=== PATIENT | male | born 1935 | race Caucasian/White ===

== ENCOUNTER 2019-07-22 07:24 | Outpatient (CLI) | payer MEDICARE, OTHER, SELFPAY ==
--- NOTE | 2019-07-22 07:30 | XR_ITS ---
WS: [id number] KUB, 07/22/2019 Clinical Data: Renal Calculus Comparison: CT abdomen and pelvis, 01/20/2019. Findings: There is a calcification measuring 1.6 cm overlying the inferior pole of the left kidney. No right re nal calculi are seen. There is a moderate amount of fecal material throughout colon. There are calcif ications in the ricketts of the distal abdominal aorta and iliac arteries. There is a levoscoliosis. No abnormal intra-abdominal masses are seen. No evidence of obstruction is present. XR/XR KUB [id number] Impression: 1. 1.6 cm lower pole left renal calculus. 2. Moderate amount of fecal material throughout the colon.
== END 2019-07-22 07:25 | disposition home or self-care (01) ==
PROVIDERS: Family Provider Family Medicine; PCP Family Medicine; Visit Provider Urology
DX: N20.0 Calculus of kidney (principal)
CPT/HCPCS: 74018; 81001

== ENCOUNTER 2020-02-15 13:00 | Outpatient (CLI) | payer MEDICARE, OTHER, SELFPAY ==
--- NOTE | 2020-02-15 13:30 | USCV_ITS ---
Juany Aguayo Age: 84 Gender: M : 1935 Exam Date: 02/15/2020 13:28 Ordering Phys: Minna Richardson MD ([email or web address]) Technologist: Moraima Norton Exam Location: [facility] [place] Indication: MV REPAIR BP: / HR: 87 Rhythm: Atrial fibrillation Technical Quality: Adequate MEASUREMENTS (Male / Female) Normal Values 2D ECHO LV Diastolic Diameter PLAX 3.6 cm 4.2 - 5.9 / 3.9 - 5.3 cm LV Systolic Diameter PLAX 3.5 cm LV Chamber Size 3.4 cm IVS Diastolic Thickness 1.6 cm 0.6 - 1.0 / 0.6 - 0.9 cm IVS Systolic Thickness 1.6 cm LVPW Diastolic Thickness 1.9 cm 0.6 - 1.0 / 0.6 - 0.9 cm LVPW Systolic Thickness 1.8 cm RV Chamber Size 3.8 cm LVOT Diameter 2.0 cm LV Ejection Fraction 2D Teich 3.4 % LV Ejection Fraction MOD 2C 72.2 % LV Ejection Fraction 2C AL 71.8 % LA Diameter 4.1 cm LA Width 4.6 cm LA Height 5.5 cm RA Width 3.7 cm RA Height 6.1 cm Aorta at Sinotubular Diameter 3.0 cm M-MODE LV Diastolic Diameter MM 4.1 cm 4.2 - 5.9 / 3.9 - 5.3 cm LV Systolic Diameter MM 3.6 cm LV Ejection Fraction MM Teich 28.6 % IVS Diastolic Thickness MM 1.2 cm 0.6 - 1.0 / 0.6 - 0.9 cm IVS Systolic Thickness MM 1.6 cm LVPW Diastolic Thickness MM 1.6 cm 0.6 - 1.0 / 0.6 - 0.9 cm LVPW Systolic Thickness MM 1.6 cm RV Diastolic Diameter MM 1.7 cm Aortic Annulus Diameter 4.3 cm LA Ao Ratio MM 0.9 MV E Point Septal Separation 0.4 cm DOPPLER AV Peak Velocity 176.0 cm/s LVOT Peak Velocity 119.0 cm/s AV Area Cont Eq vti 2.6 cm squared AV Area Cont Eq pk 2.1 cm squared MV Area PHT 2.7 cm squared MV E' Velocity 16.0 cm/s Mitral E to MV E' Ratio 9.6 Mitral E to LV E' Lateral Ratio 9.3 Mitral E to LV E' Septal Ratio 9.9 TR Peak Velocity 271.5 cm/s TR Peak Gradient 29.5 mmHg TR Mean Velocity 193.7 cm/s TR Mean Gradient 17.0 mmHg TR Velocity Time Integral 60.5 cm TV Peak E Velocity 84.0 cm/s Right Atrial Pressure 3.0 mmHg Pulmonary Artery Systolic Pressu 32.5 mmHg PV Peak Velocity 60.0 cm/s RV Acceleration Time 0.1 s RV Ejection Time 0.3 s RV AcT/ET 0.4 FINDINGS Left Ventricle Normal left ventricular size and systolic function. The EF is 55 to 60%. No regional wall motion abnormalities. Moderate LVH is seen. Diastolic function cannot be assessed because of atrial fibrillation. Right Ventricle The right ventricle is normal in size and function. Right Atrium The right atrium is enlarged Left Atrium The left atrium is enlarged Mitral Valve Mitral annuloplasty ring is seen. There is no significant mitral regurgitation. Aortic Valve Thickening and calcification is seen on noncoronary cusp. There is mild to moderate aortic regurgitation. No significant aortic stenosis is noted Tricuspid Valve Structurally normal tricuspid valve without significant stenosis. There is mild TR.. RVSP is 35 to 40 mmHg. Mild pulmonary hypertension is noted. Pulmonic Valve Structurally normal pulmonic valve without significant stenosis. There is no pulmonic regurgitation. Pericardium Normal pericardium without effusion. Aorta Normal ascending aorta dimension. CONCLUSIONS The systolic function is normal with EF of 55 to 60%. Moderate LVH is noted. Diastolic function is indeterminate. Mild to moderate aortic regurgitation Mild pulmonary hypertension is noted. Edilson Angela MD (Electronically Signed) Final Date: 15 February 2020 18:05 S
== END 2020-02-15 13:01 | disposition home or self-care (01) ==
LOC: US 13:01
PROVIDERS: PCP Family Medicine; Visit Provider Internal Medicine Cardiovascular Disease
DX: Z98.890 Other specified postprocedural states (principal); R42 Dizziness and giddiness; I35.1 Nonrheumatic aortic (valve) insufficiency; I27.20 Pulmonary hypertension, unspecified
CPT/HCPCS: 93306

== ENCOUNTER 2020-03-21 14:36 | Outpatient (CLI) | payer MEDICARE, OTHER, SELFPAY ==
--- NOTE | 2020-03-21 15:00 | USCV_ITS ---
Juany Aguayo Age: 84 Gender: M : 1935 Exam Date: 03/21/2020 14:57 Ordering Phys: Minna Richardson MD ([email or web address]) Technologist: Moraima Norton Exam Location: [facility] – [place] Indication: stenosis Risk Factors: Previous Vascular Surgery: Right Brachial BP: / Left Brachial BP: / Right Left Velocity (cm/s) Spectral Plaque Velocity (cm/s) Spectral Plaque Syst/Diast Broadening Syst/Diast Broadening 80.60/ 12.00 Prox CCA 104.10/ 20.50 59.20/ 13.70 Mid CCA 60.30 / 12.50 66.00/ 15.40 Distal CCA 49.90 / 17.70 33.70/ 13.30 Prox ICA 46.20 / 13.90 44.00/ 14.80 Mid ICA 44.70 / 19.80 58.30/ 22.50 Distal ICA 61.60 / 26.40 70.30 ECA 60.30 0.98 ICA/CCA 1.02 Antegrade Vertebral Antegrade 19.30/ 6.30 cm/s 49.10/ 15.40 cm/s Tri Subclavian Tri 142.6 99.70 0 FINDINGS Comparison: none available. No significant elevation of systolic or diastolic velocities. Waveforms are normal. Diffuse, mild bilateral scattered calcified plaque and intimal thickening throughout the common carotid arteries and extending through the bifurcation. CONCLUSIONS Bilateral ICA stenosis less than 50%. Mild bilateral atherosclerosis. Dr. Sweta Whatley DO (Electronically Signed) Final Date: 21 March 2020 15:30 S
== END 2020-03-21 14:37 | disposition home or self-care (01) ==
LOC: RAD 14:41
PROVIDERS: PCP Family Medicine; Visit Provider Internal Medicine Cardiovascular Disease
DX: I65.23 Occlusion and stenosis of bilateral carotid arteries (principal)
CPT/HCPCS: 93880

== ENCOUNTER 2020-03-28 07:44 | Outpatient (CLI) | payer MEDICARE, OTHER, SELFPAY ==
--- NOTE | 2020-03-28 07:45 | XR_ITS ---
WS: [id number] XR KUB [id number] REASON FOR EXAM: LEFT RENAL STONE FINDINGS: 16 mm x 10 mm calculus overlying the lower pole left kidney unchanged in size and location compared t o the previous examination of 07/22/2019. No new renal or ureteral calculi or bladder calculi are bernard ntified. No other interval change is identified. XR/XR KUB [id number] IMPRESSION: Unchanged left kidney lower pole calculus as above.
== END 2020-03-28 07:45 | disposition home or self-care (01) ==
LOC: RAD 07:49
PROVIDERS: PCP Family Medicine; Visit Provider Urology
DX: N20.0 Calculus of kidney (principal)
CPT/HCPCS: 74018; 81001

== ENCOUNTER 2020-04-28 15:49 | Outpatient (CLI) | payer MEDICARE, OTHER, SELFPAY ==
--- NOTE | 2020-04-28 15:56 | MRR_ITS ---
PROCEDURE INFORMATION: Exam: MR Head Without Contrast Exam date and time: 04/28/2020 4:19 PM Age: 84 years old Clinical indication: Dizziness; Patient HX: Syncope x 1 year; Additional info: Dizziness and giddiness TECHNIQUE: Imaging protocol: MR of the head without contrast. 3D rendering (Not supervised by radiologist): MIP and/or 3D reconstructed images were created by the technologist. COMPARISON: MRI IAC'S w/wo* [id number] 04/13/2019 8:36 AM FINDINGS: Brain: Mild parenchymal volume loss noted. No restriction of diffusion demonstrated on DWI images to suggest acute infarct. No intracranial hemorrhage noted. There are scattered punctate hyperintensities in the periventricular white matter on T2/FLAIR images. This is consistent with chronic microangiopathic white matter disease. The posterior fossa structures appear within normal limits. No enhancing brain lesions. Cerebral ventricles: The ventricles are proportional to the sulci. No hydrocephalus is noted. Bones/joints: Unremarkable. Paranasal sinuses: The paranasal sinuses, as demonstrated, appear clear. Mastoid air cells: The mastoid air cells are clear bilaterally. Orbits: No acute abnormality of the orbits demonstrated. Soft tissues: The soft tissues appear unremarkable. MR/MR head wo/w con [id number] IMPRESSION: 1. Mild parenchymal volume loss noted. 2. No acute intracranial abnormality demonstrated. 3. There is no interval change from the prior examination.
== END 2020-04-28 15:50 | disposition home or self-care (01) ==
LOC: RADSHAW 15:52
PROVIDERS: PCP Family Medicine; Visit Provider Specialist
DX: R42 Dizziness and giddiness (principal); R55 Syncope and collapse
CPT/HCPCS: 70553; A9579

== ENCOUNTER 2020-05-01 08:35 | Outpatient (CLI) | payer MEDICARE, OTHER, SELFPAY ==
[2020-05-01 09:44] LABS: Basophils % 0.3 %; Eosinophils % 0.6 %; Hematocrit 37.7 % (42.0-52.0); Hemoglobin 11.8 g/dL (11.7-16.6); Lymphocytes # 0.6 10^3/uL (0.8-4.8); Mean Corpuscular HGB Conc 31.3 g/dL (30.0-36.0); Mean Corpuscular Hemoglobin 29.6 pg (28.0-34.0); Mean Corpuscular Volume 94.7 fL (80-94); Mean Platelet Volume 11.3 fL (7.4-10.4); Monocytes # 0.4 10^3/uL (0.2-0.9); Monocytes % 11.6 %; Neutrophils # 2.26 10^3/uL (1.8-7.7); Neutrophils % 69.2 %; Nucleated Red Blood Cells % 0 %; Platelet Count 141 10^3/cmm (130-400); Red Blood Count 3.98 10^6/uL (4.1-5.3); Red Cell Distribution Width 14.2 % (12.1-15.1); White Blood Count 3.3 10^3/uL (4.0-10.0)
[2020-05-01 10:16] LABS: Alanine Aminotransferase 12 U/L (0-41); Albumin Level 4.1 g/dL (3.5-5.2); Alkaline Phosphatase 78 IU/L (40-130); Aspartate Amino Transferase 18 U/L (0-40); Blood Urea Nitrogen 17 mg/dL (8-23); Carbon Dioxide 26 mmol/L (22-29); Chloride 107 mmol/L (98-107); Globulin 3.5 g/dL (1.3-4.6); Glucose 104 mg/dL (65-115); Osmolality Calculated 294 mOsm/kg (285-295); Sodium 141 mmol/L (136-145); Thyroid Stimulating Hormone 4.61 uIU/mL (0.27-4.20); Total Bilirubin 1.1 mg/dL (0.15-1.2); Total Protein 7.6 g/dL (6.6-8.7)
[2020-05-01 10:42] LABS: Urine Appearance SL Hazy (CLEAR); Urine Color Yellow (Yellow); pH Urine 7 (5-7)
[2020-05-01 10:43] LABS: Add Urine Culture? Yes; Bacteria Urine TRACE /hpf; Bilirubin Urine Neg (Negative); Blood Urine 3+ (Negative); Glucose Urine UA Norm (Normal); Ketones Urine Negative (Negative); Leukocyte Esterase Urine Negative (Negative); Mucus Urine 2+ /hpf; Nitrate Urine Negative (Negative); Protein Urine Neg (Negative); RBC Urine >100 /hpf (0-2); Squamous Epithelial Cell Urine 0-4 /hpf (0-5); Urobilinogen Urine Norm (Negative); WBC Urine 0-4 /hpf (0-5)
[2020-05-01 10:48] LABS: Erythrocyte Sedimentation Rate 25 mm/hr (0-10)
[2020-05-01 13:02] LABS: Rapid Plasma Reagin Syphilis Nonreactive (Nonreactive)
== END 2020-05-01 08:36 | disposition home or self-care (01) ==
LOC: RT 08:40
PROVIDERS: PCP Family Medicine; Visit Provider Specialist
DX: R42 Dizziness and giddiness (principal)
CPT/HCPCS: 36415; 80053; 81001; 84443; 85025; 85651; 86592; 87086

== ENCOUNTER 2020-06-29 11:26 | Outpatient (RCR) | payer MEDICARE, OTHER, SELFPAY | END 2020-07-23 23:59 | disposition home or self-care (01) | LOC: SPT 11:26 | PROVIDERS: PCP Family Medicine; Referring Provider Specialist; Visit Provider Specialist | DX: R42 Dizziness and giddiness (principal) | CPT/HCPCS: 97162 ==

== ENCOUNTER 2020-11-28 12:01 | Outpatient (CLI) | payer MEDICARE, OTHER, SELFPAY ==
--- NOTE | 2020-11-28 12:00 | XRR_ITS ---
PROCEDURE INFORMATION: Exam: XR Abdomen Exam date and time: 11/28/2020 12:12 PM Age: 85 years old Clinical indication: Condition or disease; Kidney or ureter condition; Calculus (stone) in kidney; Prior surgery; Surgery type: Hernia; Additional info: HX stones TECHNIQUE: Imaging protocol: XR of the abdomen. Views: Frontal supine view of the abdomen. 1 View. COMPARISON: CR XR KUB [id number] 03/28/2020 8:06 AM FINDINGS: Gastrointestinal tract: There are multiple dilated bowel loops present in the central abdomen and left upper quadrant corresponding to mild ileus. There is a circumscribed calcific density measuring 14 mm x 16 mm in the projection of the left kidney consistent with a nonobstructing caliceal stone. This finding was seen on recent CT abdomen examination. Bones/joints: Unremarkable. XR/XR KUB [id number] IMPRESSION: Mild ileus as noted Stable caliceal stone left kidney Otherwise negative examination of the abdomen
== END 2020-11-28 12:02 | disposition home or self-care (01) ==
LOC: RAD 12:04
PROVIDERS: PCP Family Medicine; Visit Provider Urology
DX: N20.0 Calculus of kidney (principal); K56.7 Ileus, unspecified
CPT/HCPCS: 74018; 81003; 87086; 88112

== ENCOUNTER 2020-12-19 10:57 | Outpatient (CLI) | payer MEDICARE, OTHER, SELFPAY ==
--- NOTE | 2020-12-19 11:00 | CT_ITS ---
WS: [id number] CT ABDOMEN PELVIS TECHNIQUE: Noncontrast CT of the abdomen and contrast-enhanced CT of the abdomen and pelvis with ed nal and sagittal reformatted images. CLINICAL INFORMATION: N20.0 - Calculus of kidney COMPARISON: CT 7 DLP: 1710.[address] scans at [facility] use at least one of these dose optimization techniques: automat ed exposure control; mA and/or kV adjustment per patient size (includes targeted exams where dose is matched to clinical indication); or iterative reconstruction. FINDINGS: Diffuse fatty infiltration of the liver. Normal portal vein and splenic vein. Normal gallbl adder. Lung bases are well aerated. Adrenal glands are normal. Left renal cyst measuring 4.0 cm is unchanged. Stable mild dilatation of t he left renal pelvis with stricture at the UPJ is unchanged in appearance. Mild induration about the left renal pelvis. Left ureter is decompressed. This is unchanged in appearance from previous. Opaci fication left ureter to the bladder. Nonobstructing left lower pole calyceal calculus measuring 9 mm is unchanged from previous. Normal right renal parenchymal enhancement with several small right renal cysts. Normal emptying of t he right ureter. Symmetric renal excretion bilaterally. Normal caliber abdominal aorta with moderate calcification. Tortuous slightly ectatic abdominal aorta . This measures 2.7 x 2.3 cm. No abdominal or pelvic lymphadenopathy. No inguinal lymphadenopathy. Sigmoid diverticulosis. No evidence of acute diverticulitis. Heterogeneous nodular enhancing prostate with indentation on the bladder. Prostate measures approxima tely 5.1 x 5.7 x 6.7 cm AP by transverse by craniocaudal. Mild diffuse bladder wall thickening can be seen with bladder outlet obstruction. 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 CT/CT abdomen pelvis wo/w [id number] IMPRESSION: 1. Nonobstructing left lower pole calyceal calculus measuring 9 mm is unchange d from previous. No new calculi. No ureteral calculi. 2. Dilatation left renal pelvis with mild induration and stricture at the lef t UPJ is unchanged in appearance. This could be further evaluated with ureteros copy if not performed previously. Normal bilateral renal excretion. 3. Incidental bilateral renal cysts are unchanged. 4. Markedly enlarged heterogeneously enhancing prostate is stable. Recommend c orrelation PSA. Evidence of mild bladder outlet obstruction. 5. 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 No other significant changes from previous.
[2020-12-19] MEDS: iodixanol 320 mg/mL 100mL Btl IV (12:36)
== END 2020-12-19 10:58 | disposition home or self-care (01) ==
LOC: RAD 10:59
PROVIDERS: PCP Family Medicine; Visit Provider Urology
DX: N20.0 Calculus of kidney (principal); Q61.02 Congenital multiple renal cysts; I72.3 Aneurysm of iliac artery; N40.0 Benign prostatic hyperplasia without lower urinary tract symptoms; R31.0 Gross hematuria
CPT/HCPCS: 74178; 81003

== ENCOUNTER 2021-03-16 23:14 | Emergency (ER) | payer MEDICARE, OTHER, SELFPAY ==
[2021-03-16 23:31] VITALS: BP 154/96; PULSE 89; RESP 15; TEMP 36.8; O2SAT 95; BMI 25.0
--- NOTE | 2021-03-16 23:51 | CTR_ITS ---
PROCEDURE INFORMATION: Exam: CT Abdomen And Pelvis Without Contrast Exam date and time: 03/16/2021 11:51 PM Age: 85 years old Clinical indication: Prior surgery; Surgery type: Orchiectomy; Patient HX: Hematuria/dysuria. History of renal stones. ; Additional info: Retention, HX of stone, hematuria TECHNIQUE: Imaging protocol: Computed tomography of the abdomen and pelvis without contrast. Radiation optimization: All CT scans at this facility use at least one of these dose optimization techniques: automated exposure control; mA and/or kV adjustment per patient size (includes targeted exams where dose is matched to clinical indication); or iterative reconstruction. COMPARISON: CT abdomen pelvis wo/w [id number] 12/19/2020 12:31 PM RADIATION DOSE METRICS: Total DLP (mGy-cm): 1012.94 FINDINGS: Lungs: Bibasilar atelectasis. Pleural spaces: Trace bilateral pleural effusions. Heart: Cardiomegaly. Liver: Normal. No mass. Gallbladder and bile ducts: Normal. No calcified stones. No ductal dilation. Pancreas: Normal. No ductal dilation. Spleen: Normal. No splenomegaly. Adrenal glands: Left adrenal 11 mm low-density nodule likely reflects a benign adenoma. Kidneys and ureters: Mild bilateral hydronephrosis with a large amount of fluid in the urinary bladder with nodular indentation of the prostate gland on the urinary bladder perhaps reflecting chronic outflow obstruction. Right kidney punctate nonobstructing lower pole calyceal stone. Left kidney lower pole nonobstructing calyceal stone measuring 13 mm. Stomach and bowel: Diverticulosis without diverticulitis. Appendix: No evidence of appendicitis. Intraperitoneal space: Unremarkable. No free air. No significant fluid collection. 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 Lymph nodes: Unremarkable. No enlarged lymph nodes. Urinary bladder: Unremarkable as visualized. Reproductive: Unremarkable as visualized. Bones/joints: Unremarkable. No acute fracture. Soft tissues: Unremarkable. CT/CT kidney stone [id number] IMPRESSION: 1. Mild bilateral hydronephrosis with a large amount of fluid in the urinary bladder with nodular indentation of the prostate gland on the urinary bladder perhaps reflecting chronic outflow obstruction. 2. Diverticulosis without diverticulitis. 3. 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 4. Left adrenal 11 mm low-density nodule likely reflects a benign adenoma. 5. Trace bilateral pleural effusions. 6. Bibasilar atelectasis. 7. Cardiomegaly. 8. Right kidney punctate nonobstructing lower pole calyceal stone. 9. Left kidney lower pole nonobstructing calyceal stone measuring 13 mm. COMMENTS: Consistent with the [employer]'s Incidental Findings Committee white paper (J Am Alissa Radiol 2017): For any incidental adrenal lesion greater than 1 cm but less than 4 cm classified in this report as benign, likely benign, or containing fat (including classification as an adenoma or myelolipoma), no follow-up imaging is recommended per consensus recommendations based on imaging criteria. Further lab evaluation could be pursued if warranted based on clinical findings. Radiation Dose CTDIVOL = (mGy): DLP = 1012.94 (mGy-cm)
[2021-03-16 23:54] VITALS: BP 154/96; PULSE 97; RESP 14; TEMP 36.8; O2SAT 96
--- NOTE | 2021-03-17 00:48 | ED_ITS ---
HPI - Male Genitourinary General: Chief complaint: Urogenital-Male Stated complaint: Cant Pee Time Seen by Provider: 03/16/21 23:31 History of Present Illness: HPI Narrative: Patient with difficulty urinating since . Is being treated for a urinary tract infection. Patient does have a history of prostate problems. Complaint: dysuria Onset (ago): day(s) Duration: constant and progressively worsening Severity: moderate Relieving factors: none Associated symptoms: Reports no associated symptoms; Deny nausea or vomiting Review of Systems Const: Denies: fever(s), chills or body aches Eyes: Denies: change in vision or blurry vision ENMT: Denies: throat pain or nasal congestion Card: Denies: chest pain or dyspnea on exertion Resp: Denies: dyspnea, productive cough or non-productive cough GI: Denies: abdominal pain, nausea or vomiting : Reports: difficulty urinating Musc: Denies: extremity pain Skin/Breast: Denies: rash Neuro: Denies: headache(s) Psych: Denies: anxiety or depression Anthony/Lymph: Denies: easy bruising PFSH ED PFSH: Medical History Anticoagulation adequate Xarelto ASHD (arteriosclerotic heart disease) Atrial fibrillation Benign prostatic hyperplasia without lower urinary tract symptoms Dyslipidemia Gross hematuria Left renal stone Surgical History S/P hernia surgery S/P knee surgery S/P mitral valve repair S/P orchiectomy left Family History Mother , 73 CAD (coronary artery disease) Diabetes Father , 85 Cancer Hypertension Social History Smoking and tobacco status: never smoked Alcohol intake: never Adopted: No Caregiver/support person: No Lives independently: No Household members: spouse Marital status: Current occupational status: retired Physical Exam 2 Const: COMMON NORMALS: no acute distress, average body habitus and patient oriented x3 HENMT: COMMON NORMALS: normocephalic HEAD & SCALP: normal to inspection and normocephalic FACE & SINUS: normal facial exam Eye: COMMON NORMALS: conjunctivae normal GENERAL EYE: appearance normal, both eyes and all related structures CONJUNCTIVA: Yes conjunctivae normal Neck/C-Spine: COMMON NORMALS: no JVD Chest: COMMONS NORMALS: normal inspection of the chest Resp: COMMON NORMALS: normal respiratory effort and clear to auscultation bilaterally AUSCULTATION: clear to auscultation bilaterally Cardio: COMMON NORMALS: no JVD, regular rate and regular rhythm RATE: regular rate RHYTHM: regular rhythm GI: COMMON NORMALS: Normal to inspection, nondistended, normoactive bowel sounds present Extremity: COMMON NORMALS: normal to inspection and full ROM Neuro: COMMON NORMALS: patient oriented x3 Course Vital Signs: Vital signs: Vital Signs Temperature 98.2 F 03/16/21 23:54 Pulse Rate 97 03/16/21 23:54 Respiratory Rate 14 03/16/21 23:54 Blood Pressure 154/96 03/16/21 23:54 Pulse Oximetry 96 03/16/21 23:54 Discharge Plan Discharge Patient Disposition: Home Clinical Impression: Bladder outlet obstruction Benign prostatic hyperplasia Qualifiers: Lower urinary tract symptom presence: symptoms present Lower urinary tract symptom detail: urinary obstruction Qualified Code(s): N40.1 - Benign prostatic hyperplasia with lower urinary tract symptoms Condition: Stable Prescriptions: No Action docusate sodium [Stool Softener] 100 mg capsule 100 mg PO QDAY RF: 0 cholecalciferol (vitamin D3) [Vitamin D3] 25 mcg (1,000 unit) capsule 1,000 unit PO QDAY RF: 0 melatonin 3 mg capsule 3 mg PO QDAY RF: 0 lovastatin 20 mg tablet 20 mg PO QDAY RF: 0 aspirin [Adult Low Dose Aspirin] 81 mg tablet,delayed release (DR/EC) 81 mg PO QDAY RF: 0 levothyroxine PO RF: 0 midodrine 5 mg tablet 5 mg PO BID Qty: 60 RF: 3 ciprofloxacin HCl [Cipro] 500 mg tablet 500 mg PO BID 7 Days Qty: 14 RF: 0 Xarelto 20 mg tablet 20 mg PO DAILY Qty: 90 RF: 3 tamsulosin 0.4 mg capsule See Rx Instructions .ROUTE .COMPLEX Qty: 90 RF: 3 finasteride 5 mg tablet See Rx Instructions .ROUTE .COMPLEX Qty: 90 RF: 3 Discharge Orders: Discharge ED (Routine); Ordered 03/17/21 Ordered By: Fantasma Phipps Referrals: Valentin Pierson MD [Primary Care Provider] - Discharge Diet: Usual diet Discharge Activity: Resume usual activity Patient Instructions: Urinary Retention in Men (ED), Correa Catheter Placement and Care (ED) Activity Restrictions/Additional Instructions: Follow-up with Dr. Craven this coming week. Leave catheter in until seen by him. Increase your tamsulosin medicine to 0.8 mg daily. Continue other present medications. Coding Level of Care Code ED Engineering Test Specialist for Jose De Jesus Fwd Exam Comprehensive
[2021-03-17 01:19] LABS: Blood Urine 3+ (Negative); Glucose Urine UA Norm (Normal); Ketones Urine Negative (Negative); Nitrate Urine Negative (Negative); Protein Urine Neg (Negative); Specific Gravity, Urine 1.005 (1.005-1.030); Urine Appearance Clear (CLEAR); Urine Color Yellow (Yellow); pH Urine 6 (5-7)
[2021-03-17 01:20] LABS: Add Urine Culture? Yes; Add Urine Microscopic? YES; Bacteria Urine TRACE /hpf; Bilirubin Urine Neg (Negative); Leukocyte Esterase Urine Negative (Negative); RBC Urine 25-40 /hpf (0-2); Squamous Epithelial Cell Urine 0-4 /hpf (0-5); Urobilinogen Urine Norm (Negative); WBC Urine 0-4 /hpf (0-5)
[2021-03-17 01:28] VITALS: BP 146/81; PULSE 85; RESP 14; TEMP 36.8; O2SAT 96
--- NOTE | 2021-03-19 14:07 | DCPLANNER ---
real estate leasing manager had message to schedule a follow up appointment for patient with Dr. Craven. real estate leasing manager called the office of Dr. Craven, spoke with Antwan, gave clinic patients information. real estate leasing manager was told that patients information would be printed and reviewed. Clinic will call patient with appointment information.
--- NOTE | 2021-03-23 08:45 | DCPLANNER ---
Addendum entered by Vania Monteiro 07/13/21 11:05: Patient had a follow up appointment scheduled with Dr. Craven - patient did attend appointment. Original Note: Patient has a follow up appointment scheduled for March at 1:[address] Craven. Clinic will call patient with appointment information.
== END 2021-03-17 01:25 | disposition home or self-care (01) ==
PROVIDERS: Emergency Provider Nurse Practitioner Family; PCP Family Medicine
DX: N40.1 Benign prostatic hyperplasia with lower urinary tract symptoms (principal); N32.0 Bladder-neck obstruction; Z79.82 Long term (current) use of aspirin; E78.5 Hyperlipidemia, unspecified
CPT/HCPCS: 51702; 74176; 81000; 81001; 87086; 99283

== ENCOUNTER 2021-03-23 02:14 | Emergency (ER) | payer MEDICARE, OTHER, SELFPAY ==
[2021-03-23 02:19] VITALS: BP 137/83; PULSE 95; RESP 18; TEMP 36.5; O2SAT 96; BMI 25.0
--- NOTE | 2021-03-23 02:40 | ED_ITS ---
HPI - General Adult General: Chief complaint: Urogenital-Male Stated complaint: blood in cath Time Seen by Provider: 03/23/21 02:25 History of Present Illness: HPI narrative: 85yo patient w/ hx of chronic BPH presenting to the ED with concern for worsening passage of clots and hematuria. Patient intially presented to the ED 5 days ago for urinary retention with johnson placement. Since johnson placement, patient has noticed urinary clots and hematuria 4 days ago that has been getting worse. Denies any trauma or urethral injuries. Patient has been unable to follow up with Dr. Craven until 04/05. Onset: 5 days ago Duration: ongoing Location: home Severity: moderate Review of Systems Narrative: Constitutional: No fever, no chills. HEENT: No vision changes CV: No chest pain, no palpitations PULM: No productive cough, no dyspnea. GI: No abdominal pain, no N/V/D : No Dysuria,+hematuria/clots MSKEL: No muscle pain SKIN: No new rashes, no lesions. NEURO: No headache, no focal weakness. HEME: No visible bruises PSYCH: Normal mood PFSH ED PFSH: Medical History (Updated 03/26/21 @ 09:50 by Laney Ding LPN) Anticoagulation adequate Xarelto ASHD (arteriosclerotic heart disease) Atrial fibrillation Benign prostatic hyperplasia without lower urinary tract symptoms Dyslipidemia Gross hematuria Left renal stone Surgical History S/P hernia surgery S/P knee surgery S/P mitral valve repair S/P orchiectomy left Family History Mother , 73 CAD (coronary artery disease) Diabetes Father , 85 Cancer Hypertension Social History Smoking and tobacco status: never smoked Alcohol intake: never Adopted: No Caregiver/support person: No Lives independently: No Household members: spouse Marital status: Current occupational status: retired Physical Exam Narrative: EXAM NARRATIVE: Head: Atraumatic Eyes: PERRL, conjunctiva without injection, eyes tracking ENT: Mucous membrane moist NECK: Supple without lymphadenopathy LUNGS: LCTAB CV: RRR ABDOMEN: Soft, nontender in all quadrants, no suprapubic tenderness, no guarding or rebound tenderness, no CVA or flank tenderness EXTREMITY: Normal ROM SKIN: No rash or erythema NEURO: Awake and alert. No focal weakness PSYCH: Cooperative mood and affect : +johnson in place, no bladder distension Course Vital Signs: Vital signs: Vital Signs Temperature 97.7 F 03/23/21 02:19 Pulse Rate 84 03/23/21 06:46 Respiratory Rate 15 03/23/21 06:46 Blood Pressure 150/85 03/23/21 06:46 Pulse Oximetry 96 03/23/21 06:46 MDM - General Adult MDM Narrative: Medical decision making narrative: [85] yo patient w/ hx of BPH presenting to the ED with hematuria and passage of clots. Patient?s history, exam, and studies ordered are not consistent with kidney stone, urethral or intra-abdominal trauma, drug reaction, coagulopathy, prostatitis or other serious bacterial infection. Workup: CBC, BMP Intervention: Continuous bladder irrigation AT 4:51am, hemoglobin within normal limit. Creatinine consistent with baseline 1.3. Perform continuous bladder irrigation at bedside with removal of clots. Patient is instructed follow-up with Dr. Craven on the . Disposition: Discharge. Discussed BPH management and urology follow up for possible cancer risk-factor discussion/workup. Instructed to be careful with taking alpha-esteban medications as these medications can cause reflex syncope. If there is any persistent bleeding or any sensations of light-headedness, palpitation, or fainting, the patient is instructed to come back to the ER. Lab Data: Labs: Lab Results 03/23/21 03/23/21 03:00 03:00 WBC 3.4 10^3/uL L 10^ 3/uL (4.0-10.0) RBC 3.43 10^6/uL L 10 ^6/uL (4.1-5.3) Hgb 9.4 g/dL L g/dL (11.7-16.6) Hct 30.2 % L % (42.0-52.0) MCV 88.0 fl fl (80-94) MCH 27.4 pg L pg (28.0-34.0) MCHC 31.1 g/dL g/dL (30.0-36.0) RDW 16.3 % H % (12.1-15.1) Plt Count 146 10^3/cmm 10^3 /cmm (130-400) MPV 11.2 fL H fL (7.4-10.4) Neut % (Auto) 64.8 % % Lymph % (Auto) 20.3 % % [place] % (Auto) 11.6 % % Eos % (Auto) 2.7 % % Baso % (Auto) 0.6 % % Neut # (Auto) 2.17 10^3/uL 10^3 /uL (1.8-7.7) Lymph # (Auto) 0.7 10^3/uL L 10^ 3/uL (0.8-4.8) [place] # (Auto) 0.4 10^3/uL 10^3/ uL (0.2-0.9) Eos # (Auto) 0.1 10^3/uL 10^3/ uL (0.0-0.8) Baso # (Auto) 0.0 10^3/uL 10^3/ uL (0.0-0.1) Nucleated RBC % (a uto) 0 % % Nucleated RBCs # 0.0 /100WBC /100W BC Sodium 141 mmol/L mmol/L (136-145) Potassium 4.1 mmol/L mmol/L (3.5-5.1) Chloride 107 mmol/L mmol/L (98-107) Carbon Dioxide 24 mmol/L mmol/L (22-29) Anion Gap 14.1 (5-19) BUN 17 mg/dL mg/dL (8-23) Creatinine 1.3 mg/dL H mg/dL (0.7-1.2) GFR Calculation Not Reportable Glucose 104 mg/dL mg/dL (65-115) Calculated Osmolal ity 294 mOsm/kg mOsm/ kg (285-295) Calcium 8.6 mg/dL mg/dL (8.5-10.5) Discharge Plan Discharge Patient Disposition: Home Clinical Impression: Indwelling Johnson catheter present Hematuria Qualifiers: Hematuria type: gross Qualified Code(s): R31.0 - Gross hematuria Condition: Stable Prescriptions: No Action docusate sodium [Stool Softener] 100 mg capsule 100 mg PO QDAY RF: 0 cholecalciferol (vitamin D3) [Vitamin D3] 25 mcg (1,000 unit) capsule 1,000 unit PO QDAY RF: 0 melatonin 3 mg capsule 3 mg PO QDAY RF: 0 lovastatin 20 mg tablet 20 mg PO QDAY RF: 0 aspirin [Adult Low Dose Aspirin] 81 mg tablet,delayed release (DR/EC) 81 mg PO QDAY RF: 0 levothyroxine PO RF: 0 midodrine 5 mg tablet 5 mg PO BID Qty: 60 RF: 3 Xarelto 20 mg tablet 20 mg PO DAILY Qty: 90 RF: 3 tamsulosin 0.4 mg capsule See Rx Instructions .ROUTE .COMPLEX Qty: 90 RF: 3 finasteride 5 mg tablet See Rx Instructions .ROUTE .COMPLEX Qty: 90 RF: 3 Cipro 500 mg tablet 500 mg PO BID 7 Days Qty: 14 RF: 0 Discharge Orders: Discharge ED (Routine); Ordered 03/23/21 Ordered By: Uri Lynch Referrals: Wilberto Goddard MD [Primary Care Provider] - Discharge Diet: Advance as tolerated Discharge Activity: Resume usual activity Patient Instructions: Hematuria (ED) Activity Restrictions/Additional Instructions: Come back to the emergency room if you notice any worsening hematuria passage of clots, inability to void, fever or chills, drainage, pain with urination, pus in the urine bag or any new or concerning complaints. Coding Level of Care Code ED Gang Hemstitching Machine Operator for Jose De Jesus Williamson
[2021-03-23 03:15] LABS: Basophils % 0.6 %; Eosinophils # 0.1 10^3/uL (0.0-0.8); Eosinophils % 2.7 %; Hematocrit 30.2 % (42.0-52.0); Hemoglobin 9.4 g/dL (11.7-16.6); Lymphocytes # 0.7 10^3/uL (0.8-4.8); Lymphocytes % 20.3 %; Mean Corpuscular HGB Conc 31.1 g/dL (30.0-36.0); Mean Corpuscular Hemoglobin 27.4 pg (28.0-34.0); Mean Platelet Volume 11.2 fL (7.4-10.4); Monocytes # 0.4 10^3/uL (0.2-0.9); Monocytes % 11.6 %; Neutrophils # 2.17 10^3/uL (1.8-7.7); Neutrophils % 64.8 %; Nucleated Red Blood Cells % 0 %; Platelet Count 146 10^3/cmm (130-400); Red Blood Count 3.43 10^6/uL (4.1-5.3); Red Cell Distribution Width 16.3 % (12.1-15.1); White Blood Count 3.4 10^3/uL (4.0-10.0)
[2021-03-23 03:33] LABS: Anion Gap 14.1 (5-19); Blood Urea Nitrogen 17 mg/dL (8-23); Calcium 8.6 mg/dL (8.5-10.5); Carbon Dioxide 24 mmol/L (22-29); Chloride 107 mmol/L (98-107); Glucose 104 mg/dL (65-115); Osmolality Calculated 294 mOsm/kg (285-295); Potassium 4.1 mmol/L (3.5-5.1); Sodium 141 mmol/L (136-145)
--- NOTE | 2021-03-23 04:16 | PC.NURSE ---
18 Fr 3-way johnson catheter inserted sterile and CBI started. patient tolerated well
[2021-03-23 06:46] VITALS: BP 150/85; PULSE 84; RESP 15; O2SAT 96
--- NOTE | 2021-03-29 15:16 | DCPLANNER ---
Patient had a follow up appointment scheduled for 03.28.[address] Craven - patient did attend appointment.
== END 2021-03-23 06:48 | disposition home or self-care (01) ==
PROVIDERS: Emergency Provider Emergency Medicine; PCP Pediatrics
DX: R31.0 Gross hematuria (principal); Z79.82 Long term (current) use of aspirin; E78.5 Hyperlipidemia, unspecified
CPT/HCPCS: 51700; 80048; 85025; 99281

== ENCOUNTER 2021-03-23 17:58 | Emergency (ER) | payer MEDICARE, OTHER, SELFPAY ==
[2021-03-23 18:44] VITALS: BP 149/86; PULSE 78; RESP 18; TEMP 36.5; O2SAT 98; BMI 25.0
--- NOTE | 2021-03-23 20:45 | ED_ITS ---
Documented by User: BRENNEN Blankenship 03/23/21 21:58 HPI - Male Genitourinary General: Chief complaint: Urogenital-Male Stated complaint: Catheter Clogged Time Seen by Provider: 03/23/21 20:45 History of Present Illness: HPI Narrative: Patient comes in today for complaints of blood in urine. Patient has been treated with Cipro. Patient had a Correa catheter placed on the 26 due to retention. Patient came in early this morning for concerns of blood in urine. Patient was instructed to hold Xarelto until urine is cleared. Patient has finished his ciprofloxacin today. Patient appears well. Patient appears in no acute distress. Patient denies any abdominal pain. Spouse was concerned due to the blood in the urine. Associated symptoms: Reports hematuria Review of Systems General: Reports: 10 or more systems reviewed and unremarkable except in HPI and below : Reports: hematuria PFSH ED PFSH: Medical History Anticoagulation adequate Xarelto ASHD (arteriosclerotic heart disease) Atrial fibrillation Benign prostatic hyperplasia without lower urinary tract symptoms Dyslipidemia Gross hematuria Left renal stone Surgical History S/P hernia surgery S/P knee surgery S/P mitral valve repair S/P orchiectomy left Family History Mother , 73 CAD (coronary artery disease) Diabetes Father , 85 Cancer Hypertension Social History Smoking and tobacco status: never smoked Alcohol intake: never Adopted: No Caregiver/support person: No Lives independently: No Household members: spouse Marital status: Current occupational status: retired Physical Exam Const: COMMON NORMALS: no acute distress and patient oriented x3 GENERAL APPEARANCE: cooperative HENMT: COMMON NORMALS: normocephalic and Normal external nose present HEAD & SCALP: normal to inspection and normocephalic NOSE: Normal external nose present MOUTH: Normal oral and palatal mucosa present Eye: GENERAL EYE: appearance normal, both eyes and all related structures Neck/C-Spine: COMMON NORMALS: full ROM Chest: COMMONS NORMALS: normal inspection of the chest Resp: COMMON NORMALS: normal respiratory effort EFFORT & INSPECTION: Yes able to speak in complete sentences Cardio: COMMON NORMALS: regular rate and regular rhythm RATE: regular rate RHYTHM: regular rhythm GI: COMMON NORMALS: non-tender : COMMON NORMALS: Yes no CVA tenderness BLADDER/KIDNEY EXAM: Yes no CVA tenderness OTHER: Blood-tinged urine was noted. A couple of clots were able to be irrigated from the catheter. Patient tolerated procedure well. Back/Pelvis: COMMON NORMALS: no CVA tenderness and thoracic and lumbar spine normal to inspection Extremity: COMMON NORMALS: normal to inspection Neuro: COMMON NORMALS: patient oriented x3 and moves all extremities Psych: COMMON NORMALS: mental status grossly normal and cooperative Skin: COMMON NORMALS: no rashes or lesions noted GENERAL SKIN EXAM: no rashes or lesions noted Course Vital Signs: Vital signs: Vital Signs Temperature 97.7 F 03/23/21 18:44 Pulse Rate 78 03/23/21 18:44 Respiratory Rate 18 03/23/21 18:44 Blood Pressure 149/86 03/23/21 18:44 Pulse Oximetry 98 03/23/21 18:44 MDM - Male MDM Narrative: Medical decision making narrative: Patient comes in due to continued blood in the urine. On exam abdomen soft nontender. No signs of retention was noted. Catheter was irrigated until urine draining into the bag was clear. Respirations were even lungs are clear to auscultation. Vital signs are normal. Differential diagnosis includes anemia, bladder carcinoma, urinary tract infection. We will continue patient on Cipro 500 twice a day for 7 more days. Catheter was irrigated until clear. We recommend that case management be utilized in order to move patient's appointment up with Dr. Craven. Patient and spouse both reported understanding and agreed to plan. Lab Data: Labs: Lab Results 03/23/21 21:15 WBC 3.9 10^3/uL L 10^ 3/uL (4.0-10.0) RBC 3.47 10^6/uL L 10 ^6/uL (4.1-5.3) Hgb 9.5 g/dL L g/dL (11.7-16.6) Hct 30.8 % L % (42.0-52.0) MCV 88.8 fl fl (80-94) MCH 27.4 pg L pg (28.0-34.0) MCHC 30.8 g/dL g/dL (30.0-36.0) RDW 16.4 % H % (12.1-15.1) Plt Count 148 10^3/cmm 10^3 /cmm (130-400) MPV 11.0 fL H fL (7.4-10.4) Neut % (Auto) 71.3 % % Lymph % (Auto) 16.3 % % [place] % (Auto) 10.5 % % Eos % (Auto) 1.3 % % Baso % (Auto) 0.3 % % Neut # (Auto) 2.80 10^3/uL 10^3 /uL (1.8-7.7) Lymph # (Auto) 0.6 10^3/uL L 10^ 3/uL (0.8-4.8) [place] # (Auto) 0.4 10^3/uL 10^3/ uL (0.2-0.9) Eos # (Auto) 0.1 10^3/uL 10^3/ uL (0.0-0.8) Baso # (Auto) 0.0 10^3/uL 10^3/ uL (0.0-0.1) Nucleated RBC % (a uto) 0 % % Nucleated RBCs # 0.0 /100WBC /100W BC Discharge Plan Discharge Patient Disposition: Home Clinical Impression: Indwelling Correa catheter present Hematuria Qualifiers: Hematuria type: gross Qualified Code(s): R31.0 - Gross hematuria Condition: Stable Prescriptions: Continued Cipro 500 mg tablet 500 mg PO BID 7 Days Qty: 14 RF: 0 No Action docusate sodium [Stool Softener] 100 mg capsule 100 mg PO QDAY RF: 0 cholecalciferol (vitamin D3) [Vitamin D3] 25 mcg (1,000 unit) capsule 1,000 unit PO QDAY RF: 0 melatonin 3 mg capsule 3 mg PO QDAY RF: 0 lovastatin 20 mg tablet 20 mg PO QDAY RF: 0 aspirin [Adult Low Dose Aspirin] 81 mg tablet,delayed release (DR/EC) 81 mg PO QDAY RF: 0 levothyroxine PO RF: 0 midodrine 5 mg tablet 5 mg PO BID Qty: 60 RF: 3 Xarelto 20 mg tablet 20 mg PO DAILY Qty: 90 RF: 3 tamsulosin 0.4 mg capsule See Rx Instructions .ROUTE .COMPLEX Qty: 90 RF: 3 finasteride 5 mg tablet See Rx Instructions .ROUTE .COMPLEX Qty: 90 RF: 3 Discharge Orders: Discharge ED (Routine); Ordered 03/23/21 Ordered By: Karel Yarbrough Referrals: Wilberto Goddard MD [Primary Care Provider] - Discharge Diet: Usual diet Discharge Activity: Increase activity as tolerated Patient Instructions: Correa Catheter Placement and Care (ED), Opioid Safety Activity Restrictions/Additional Instructions: Activity as tolerated. Drink plenty of water. Continue with ciprofloxacin 500 mg twice a day for the next 7 days. Avoid pulling on the catheter. I will place a case management referral to see if we can get you into Dr. Craven before your scheduled appointment. Return to the ER for new concerns such as high fever or worsening symptoms. Coding Level of Care Code ED Wheel Inspector for Chg Fwd Exam Comprehensive Documented by User: Codey Almanza, 03/23/21 22:38 HPI - Male Genitourinary General: Chief complaint: Urogenital-Male Stated complaint: Catheter Clogged Time Seen by Provider: 03/23/21 20:45 [facility] ED PFSH: Medical History Anticoagulation adequate Xarelto ASHD (arteriosclerotic heart disease) Atrial fibrillation Benign prostatic hyperplasia without lower urinary tract symptoms Dyslipidemia Gross hematuria Left renal stone Surgical History S/P hernia surgery S/P knee surgery S/P mitral valve repair S/P orchiectomy left Family History Mother , 73 CAD (coronary artery disease) Diabetes Father , 85 Cancer Hypertension Social History Smoking and tobacco status: never smoked Alcohol intake: never Adopted: No Caregiver/support person: No Lives independently: No Household members: spouse Marital status: Current occupational status: retired Course Vital Signs: Vital signs: Vital Signs Temperature 97.7 F 03/23/21 18:44 Pulse Rate 78 03/23/21 18:44 Respiratory Rate 18 03/23/21 18:44 Blood Pressure 149/86 03/23/21 18:44 Pulse Oximetry 98 03/23/21 18:44 MDM - Male MDM Narrative: Medical decision making narrative: This patient was originally seen by BRENNEN Warner. I agree with his history, evaluation, and treatment. Lab Data: Labs: Lab Results 03/23/21 21:15 WBC 3.9 10^3/uL L 10^ 3/uL (4.0-10.0) RBC 3.47 10^6/uL L 10 ^6/uL (4.1-5.3) Hgb 9.5 g/dL L g/dL (11.7-16.6) Hct 30.8 % L % (42.0-52.0) MCV 88.8 fl fl (80-94) MCH 27.4 pg L pg (28.0-34.0) MCHC 30.8 g/dL g/dL (30.0-36.0) RDW 16.4 % H % (12.1-15.1) Plt Count 148 10^3/cmm 10^3 /cmm (130-400) MPV 11.0 fL H fL (7.4-10.4) Neut % (Auto) 71.3 % % Lymph % (Auto) 16.3 % % [place] % (Auto) 10.5 % % Eos % (Auto) 1.3 % % Baso % (Auto) 0.3 % % Neut # (Auto) 2.80 10^3/uL 10^3 /uL (1.8-7.7) Lymph # (Auto) 0.6 10^3/uL L 10^ 3/uL (0.8-4.8) [place] # (Auto) 0.4 10^3/uL 10^3/ uL (0.2-0.9) Eos # (Auto) 0.1 10^3/uL 10^3/ uL (0.0-0.8) Baso # (Auto) 0.0 10^3/uL 10^3/ uL (0.0-0.1) Nucleated RBC % (a uto) 0 % % Nucleated RBCs # 0.0 /100WBC /100W BC Discharge Plan Discharge Patient Disposition: Home Clinical Impression: Indwelling Correa catheter present Hematuria Qualifiers: Hematuria type: gross Qualified Code(s): R31.0 - Gross hematuria Condition: Stable Prescriptions: Continued Cipro 500 mg tablet 500 mg PO BID 7 Days Qty: 14 RF: 0 No Action docusate sodium [Stool Softener] 100 mg capsule 100 mg PO QDAY RF: 0 cholecalciferol (vitamin D3) [Vitamin D3] 25 mcg (1,000 unit) capsule 1,000 unit PO QDAY RF: 0 melatonin 3 mg capsule 3 mg PO QDAY RF: 0 lovastatin 20 mg tablet 20 mg PO QDAY RF: 0 aspirin [Adult Low Dose Aspirin] 81 mg tablet,delayed release (DR/EC) 81 mg PO QDAY RF: 0 levothyroxine PO RF: 0 midodrine 5 mg tablet 5 mg PO BID Qty: 60 RF: 3 Xarelto 20 mg tablet 20 mg PO DAILY Qty: 90 RF: 3 tamsulosin 0.4 mg capsule See Rx Instructions .ROUTE .COMPLEX Qty: 90 RF: 3 finasteride 5 mg tablet See Rx Instructions .ROUTE .COMPLEX Qty: 90 RF: 3 Discharge Orders: Discharge ED (Routine); Ordered 03/23/21 Ordered By: Karel Yarbrough Referrals: Wilberto Goddard MD [Primary Care Provider] - Discharge Diet: Usual diet Discharge Activity: Increase activity as tolerated Patient Instructions: Correa Catheter Placement and Care (ED), Opioid Safety Activity Restrictions/Additional Instructions: Activity as tolerated. Drink plenty of water. Continue with ciprofloxacin 500 mg twice a day for the next 7 days. Avoid pulling on the catheter. I will place a case management referral to see if we can get you into Dr. Craven before your scheduled appointment. Return to the ER for new concerns such as high fever or worsening symptoms. Coding Level of Care Code ED Wheel Inspector for Jose De Jesus Fwgarrick Exam Comprehensive
[2021-03-23 21:26] LABS: Basophils % 0.3 %; Eosinophils # 0.1 10^3/uL (0.0-0.8); Eosinophils % 1.3 %; Hematocrit 30.8 % (42.0-52.0); Hemoglobin 9.5 g/dL (11.7-16.6); Lymphocytes # 0.6 10^3/uL (0.8-4.8); Lymphocytes % 16.3 %; Mean Corpuscular HGB Conc 30.8 g/dL (30.0-36.0); Mean Corpuscular Hemoglobin 27.4 pg (28.0-34.0); Mean Corpuscular Volume 88.8 fl (80-94); Monocytes # 0.4 10^3/uL (0.2-0.9); Monocytes % 10.5 %; Neutrophils % 71.3 %; Nucleated Red Blood Cells % 0 %; Platelet Count 148 10^3/cmm (130-400); Red Blood Count 3.47 10^6/uL (4.1-5.3); Red Cell Distribution Width 16.4 % (12.1-15.1); White Blood Count 3.9 10^3/uL (4.0-10.0)
[2021-03-23 23:24] VITALS: RESP 18
--- NOTE | 2021-03-26 10:23 | DCPLANNER ---
manager office had message to schedule a follow up appointment for patient with Dr. Craven. manager office called the office of Dr. Craven, spoke with Carolyn, gave clinic patients information. manager office was told that patients information will be printed and reviewed. Clinic will call patient with appointment information.
== END 2021-03-23 23:15 | disposition home or self-care (01) ==
PROVIDERS: Emergency Provider Nurse Practitioner Family; PCP Pediatrics
DX: R31.0 Gross hematuria (principal); Z79.82 Long term (current) use of aspirin; E78.5 Hyperlipidemia, unspecified
CPT/HCPCS: 51700; 80048; 85025; 99281; 99282

== ENCOUNTER → 2021-03-28 16:06 | Outpatient (BNVA) | payer MEDICARE, OTHER, SELFPAY | PROVIDERS: PCP Pediatrics; Visit Provider Urology | DX: R31.0 Gross hematuria (principal) | CPT/HCPCS: 85025 ==

== ENCOUNTER 2021-03-29 15:51 | Inpatient (IN) | payer MEDICARE, OTHER, SELFPAY ==
[2021-03-29] VITALS (10 sets, daily range): BP systolic 122–160; BP diastolic 58–97; PULSE 76–94; RESP 13–18; TEMP 36.3–36.8; O2SAT 95–100; BMI 25.0
[2021-03-29] MEDS: sodium chloride 0.9% 1,000 ML 30 ML IV (12:52)
--- NOTE | 2021-03-29 13:02 | P.ANESASSM_ITS ---
Documented by User: Karel Diaz Jr, INSTRUCTION ASSISTANT PRINCIPAL 03/29/21 13:09 Pre-Anesthetic Assessment Pre-Anesthetic Assessment: Height/Weight: Height 1.83 m Weight 83.915 kg Pulse Resp BP Pulse Ox 87 17 122/81 100 03/29/21 12:24 03/29/21 12:24 03/29/21 12:24 03/29/21 12:24 Preop Diagnosis: Clot retention Proposed Procedure: Operation Date: 03/29/21 16:50 Proposed Procedures p Cystoscopy 41244 [id number] R33.8(Not Applicable) - Rafiq Craven MD s Clot Evacuation Fulguration(Not Applicable) - Rafiq Craven MD Familial anesthetic complications: none Was Beta Carlos taken within 24 hours: N/A Was Clonidine taken within 24 hours: N/A Last intake: Intake Last Liquid Date 03/29/21 Last Liquid Time 12:00 Last Solid Date 03/28/21 Last Solid Time 18:00 Last Intake: 11:00 Social: Social History: No alcohol and No tobacco Exam: Pre-Anes Outpt Exam: alert, oriented x 3, clear to auscultation bilaterally and regular rate & rhythm (irregular HB. HX a fib) Airway: Submandibular: WNL Cervical ROM: WNL MP: 1 Dentition: False (upper) and Partials (bottom) Pulmonary: Pulmonary: None reported CV/HEM: CV/HEM: Afib, CAD and HTN Comments: Hx MVP with repair in 2008 : : None reported Hepatic: Hepatic: None reported GI: GI: None reported Metabolic: Metabolic: Thyroid Musc/skel: Musc/skel: None reported Neuropsych: Neuropsych: None reported Anesthetic Plan: ASA status: 3 Anesthesia: General Risk of > 500 ml blood loss (7ml/kg in children): No Meds/Allergies Current Medications: Current Medications Generic Name Dose Route Start Last Admin Trade Name Freq PRN Reason Stop Dose Admin Sodium Chloride 1,000 mls @ 30 ml s/hr 03/29/21 12:45 03/29/21 12:52 Sodium Chloride 0.9% IV 03/30/21 12:44 30 mls/hr .Q24H JOSE LUIS Administration PFSH Anesthesia PFSH: Medical History (Updated 03/29/21 @ 12:02 by Rafiq Craven MD) Anticoagulation adequate Xarelto ASHD (arteriosclerotic heart disease) Atrial fibrillation Benign prostatic hyperplasia without lower urinary tract symptoms BPH w urinary obs/LUTS Dyslipidemia Gross hematuria Left renal stone Surgical History S/P hernia surgery S/P knee surgery S/P mitral valve repair S/P orchiectomy left Family History Mother , 73 CAD (coronary artery disease) Diabetes Father , 85 Cancer Hypertension Social History Alcohol intake: never Adopted: No Caregiver/support person: No Lives independently: No Household members: spouse Marital status: Current occupational status: retired Data Anesthesia CBC & Chem 7: 03/29/21 12:37 03/29/21 12:37 Cardiac Studies: No Data to Display Documented by User: Marquise Srinivasan 03/29/21 13:14 PFSH Anesthesia PFSH: Medical History (Updated 03/29/21 @ 12:02 by Rafiq Craven MD) Anticoagulation adequate Xarelto ASHD (arteriosclerotic heart disease) Atrial fibrillation Benign prostatic hyperplasia without lower urinary tract symptoms BPH w urinary obs/LUTS Dyslipidemia Gross hematuria Left renal stone Surgical History S/P hernia surgery S/P knee surgery S/P mitral valve repair S/P orchiectomy left Family History Mother , 73 CAD (coronary artery disease) Diabetes Father , 85 Cancer Hypertension Social History Alcohol intake: never Adopted: No Caregiver/support person: No Lives independently: No Household members: spouse Marital status: Current occupational status: retired Data Anesthesia CBC & Chem 7: 03/29/21 12:37 03/29/21 12:37 Cardiac Studies: No Data to Display
[2021-03-29 13:35] LABS: Basophils % 0.6 %; Eosinophils % 1.1 %; Hematocrit 30.9 % (42.0-52.0); Hemoglobin 9.5 g/dL (11.7-16.6); Lymphocytes # 0.6 10^3/uL (0.8-4.8); Lymphocytes % 15.6 %; Mean Corpuscular HGB Conc 30.7 g/dL (30.0-36.0); Mean Corpuscular Hemoglobin 27.2 pg (28.0-34.0); Mean Corpuscular Volume 88.5 fl (80-94); Mean Platelet Volume 11.2 fL (7.4-10.4); Monocytes # 0.3 10^3/uL (0.2-0.9); Monocytes % 9.1 %; Neutrophils # 2.57 10^3/uL (1.8-7.7); Nucleated Red Blood Cells % 0 %; Platelet Count 154 10^3/cmm (130-400); Red Blood Count 3.49 10^6/uL (4.1-5.3); Red Cell Distribution Width 16.4 % (12.1-15.1); White Blood Count 3.5 10^3/uL (4.0-10.0)
[2021-03-29 13:38] LABS: Anion Gap 15.6 (5-19); Blood Urea Nitrogen 15 mg/dL (8-23); Calcium 8.8 mg/dL (8.5-10.5); Carbon Dioxide 23 mmol/L (22-29); Chloride 104 mmol/L (98-107); Glucose 102 mg/dL (65-115); Osmolality Calculated 289 mOsm/kg (285-295); Potassium 3.6 mmol/L (3.5-5.1); Sodium 139 mmol/L (136-145)
--- NOTE | 2021-03-29 13:42 | P.HPUD_ITS ---
Surgery/Procedure H&P Update DATE OF PROCEDURE: March 29, 2021 DATE H&P PERFORMED: 03/29/21 H&P UPDATE INFORMATION: I have reviewed H&P completed within last 30 days, I have examined patient prior to procedure, No changes to prior documentation and H&P is in [facility] EMR on date indicated PREOP DIAGNOSIS: Clot retention PLANNED PROCEDURE: Operation Date: 03/29/21 16:50 Proposed Procedures p Cystoscopy [id number] R33.8(Not Applicable) - Rafiq Craven MD s Clot Evacuation Fulguration(Not Applicable) - Rafiq Craven MD
--- NOTE | 2021-03-29 13:43 | P.OP_ITS ---
Operative Report Date of procedure: March 29, 2021 Pre-op Diagnosis: Clot retention Post-op Diagnosis: 1. Clot retention 2. Chronic bladder outlet obstruction Procedure Done: 1. Cystoscopy with clot evacuation 2. Transurethral resection/vaporization of bleeding median lobe of the prostate. Pathology: none sent Surgeon: Herber Anesthesia: General Estimated blood loss: Minimal acute blood loss. Large amount of clot evacuated Complications: None Findings: none Condition: stable Disposition: PACU Brief History: Mr. Alvarez is a very pleasant 85-year-old white male who recently developed urinary retention and later after about a week clot retention of the catheter. Catheter was irrigated clots were cleared initially he did well but had a recurrent episode x2 with the second today. I scoped him in the clinic and removed a large amount of clot from his bladder but could not get it all out through the equipment available on outpatient basis and he is admitted now for cystoscopy clot evacuation and fulguration. Procedure: After urgent evaluation examination and obtaining of informed consent he was taken to the operating suite on 03/29/2021 where general anesthesia was administered without difficulty after appropriate timeout was performed, SCDs confirmed to be functioning, preoperative antibiotics administered, beta-esteban protocol confirmed. Prepped and draped in usual sterile fashion in dorsolithotomy position paying careful attention to avoiding pressure points. 21 Indonesian cystoscope with 30 degree lens was introduced into urethra meatus and advanced into the bladder without difficulty. The Vincenzo evacuator was utilized to clear clot. The bladder was carefully inspected after a large amount of clot was removed and the bleeding areas appear to be on the very large intravesically protruding median lobe mucosa. A Bugbee cautery probe was attempted to stop the bleeding but it was not adequate for the amount of bleeding on this area. For that reason the resectoscope equipment was utilized with the gyrus bipolar system and a vaporizing button. The prior to using the resectoscope sheath the urethra was calibrated Haley sounds and easily accommodated 30 Indonesian. 2% lidocaine jelly was instilled into the urethra and the scope was passed with the visual obturator in place into the bladder without difficulty. The button probe was utilized to vaporize a large part of the median lobe which appeared to be a significant portion of what was leading to obstruction and retention. Super loop was utilized as well to resect some of the tissue and this was sent for pathologic evaluation. Since the primary goal was simply to stop bleeding and this was accomplished with the super loop as well as the additional improvement in chance for spontaneous void with resection/vaporization of the median lobe after all chips were evacuated and hemostasis was confirmed and the pathway into the bladder was much more open it was decided to complete the procedure. Bladder was drained with a 22 Indonesian three-way Correa catheter with 40 cc placed in the balloon. Irrigation was clear. Light CBI was initiated for prophylactic purposes. Catheter was functioning well. Procedure completed. Tolerated procedure well without complication awakened in the operating room and returned to the recovery room in stable condition. PLANS: 1. Maintain inpatient status 2. Hospitalist consult for medical management
--- NOTE | 2021-03-29 15:32 | ANE.PACU2 ---
Inpatient post-anesthesia follow up: Airway intact: Yes Vital signs: Temperature 97.3 F Pulse Rate 82 Respiratory Rate 15 Blood Pressure 155/90 Pulse Oximetry 100 Oxygen Delivery Me thod Simple Mask Oxygen Flow Rate 8 Fraction of Inspir ed Oxygen Hydration adequate: Yes Nausea and vomiting: No Pain level: 2 Mental status: Baseline
--- NOTE | 2021-03-29 15:43 | P.CONIM_ITS ---
Providers/Reason For Consult Consulting Physician/Specialty*: Hospitalist service Reason for Consult*: Chronic anticoagulation, active hematuria Attending Physician: Rafiq Craven MD Primary Care Provider: Wilberto Goddard MD History of Present Illness History of Present Illness Juany Aguayo is a 85 year old male who carries history of established coronary artery disease mitral valve repair, atrial fibrillation chronic anticoagulation with Xarelto BPH, presented to the hospital for decreased urine output to his catheter. His Correa catheter was placed about 2 weeks ago,Secondary to acute urinary retention and later developed clot retention of the catheter. Catheter was irrigated clots were initially removed however patient developed recurrent episodes of clot retention, today with large clot burden was removed in the clinic with Dr. Craven, he was taken to the OR for cystoscopy clot evacuation and fulguration. Hospitalist is consulted for comanagement considering multiple comorbid conditions and chronic anticoagulation. I saw patient after his procedure today status post cystoscopy with clot evacuation and transurethral resection/vaporization of bleeding median lobe of the prostate Large amount of clot evacuated with minimal acute blood loss Earring back has blood-tinged urine CBI running at the bedside, hemoglobin stable 9.6 hemodynamically stable, patient is not endorsing acute pain, is at the bedside endorsing that lately he has been very weak and has fallen x1 in the past, he mostly gets dizzy and lightheaded with sudden change in posture. He is also on Flomax. Review of Systems Const: Denies: fever(s) Eyes: Denies: change in vision ENMT: Denies: throat pain Card: Denies: chest pain Resp: Denies: dyspnea GI: Denies: abdominal pain : Denies: flank pain Musc: Denies: neck pain Skin/Breast: Denies: rash Neuro: Denies: headache(s) Psych: Denies: anxiety Endo: Denies: polyuria Anthony/Lymph: Denies: easy bruising All/Imm: Denies: urticaria Meds/Allergies Home Medications and Allergies Home Medications Medication Instructions Recorded Confirmed Last Taken Type aspirin 81 mg tablet,delayed 81 mg PO QDAY 07/22/19 03/29/21 03/28/21 History release 1700 cholecalciferol (vitamin D3) 25 1,000 unit PO QDAY 07/22/19 03/29/21 03/28/21 17:00 History mcg (1,000 unit) capsule docusate sodium 100 mg capsule 100 mg PO QDAY 07/22/19 03/29/21 03/27/21 History lovastatin 20 mg tablet 20 mg PO QDAY 07/22/19 03/29/21 03/28/21 17:00 History melatonin 3 mg capsule 3 mg PO QDAY 07/22/19 03/29/21 03/28/21 17:00 History rivaroxaban 20 mg tablet 20 mg PO DAILY #90 tab 07/17/20 03/29/21 Unknown Rx finasteride 5 mg tablet See Rx Instructions .ROUTE 09/05/20 03/29/21 03/28/21 17:00 Rx .COMPLEX #90 tab tamsulosin 0.4 mg capsule See Rx Instructions .ROUTE 09/05/20 03/29/21 03/28/21 17:00 Rx .COMPLEX #90 cap levothyroxine PO 10/18/20 03/29/21 03/29/21 08:00 History midodrine 5 mg tablet 5 mg PO BID #60 tab 02/09/21 03/29/21 Unknown Rx ciprofloxacin HCl [Cipro] 500 mg PO BID 7 Days #14 tab 03/23/21 03/29/21 03/29/21 08:00 Rx Allergies Allergy/AdvReac Type Severity Reaction Status Date / Time Penicillins Allergy Rash Verified 03/29/21 12:25 Current Medications Current Medications Generic Name Dose Route Start Last Admin Trade Name Freq PRN Reason Stop Dose Admin Sodium Chloride 1,000 mls @ 30 mls/hr 03/29/21 12:45 03/29/21 12:52 Sodium Chloride 0.9% IV 03/30/21 12:44 30 mls/hr .Q24H JOSE LUIS Administration PFSH Acute PFSH: Medical History (Updated 03/29/21 @ 16:49 by Ralf Crandall MD) Anticoagulation adequate Xarelto ASHD (arteriosclerotic heart disease) Atrial fibrillation Benign prostatic hyperplasia without lower urinary tract symptoms BPH w urinary obs/LUTS Dyslipidemia Gross hematuria Left renal stone Surgical History S/P hernia surgery S/P knee surgery S/P mitral valve repair S/P orchiectomy left Family History Mother , 73 CAD (coronary artery disease) Diabetes Father , 85 Cancer Hypertension Social History Alcohol intake: never Adopted: No Caregiver/support person: No Lives independently: No Household members: spouse Marital status: Current occupational status: retired Vitals/I&O/Wt Last Vital Signs Temp 97.3 F L 03/29/21 15:12 Pulse 78 03/29/21 15:40 Resp 17 03/29/21 15:40 BP 160/97 03/29/21 15:40 Pulse Ox 96 03/29/21 15:40 03/29/21 03/29/21 03/29/21 06:59 14:59 22:59 Intake Total 0 / 0 Output Total 2 / 2 Balance -2 / -2 Weight last 48 hrs Weight 83.915 kg Physical Exam Narrative: EXAM NARRATIVE: Patient was laying comfortably in his bed at the bedside Hemodynamically stable, blood tinged urine in the urinary bag Abdomen soft Patient is awake and alert, hearing impairment noted EOMI, PERRLA No neurological deficits Very pleasant and cooperative during my evaluation S1, S2 systolic murmur Lower extremity without any edema Appropriate mood and affect A&P Assessment and plan (1) Acute blood loss anemia: Status: Acute (2) BPH w urinary obs/LUTS: Status: Acute (3) Clot retention of urine: Status: Acute (4) Hematuria: Status: Acute Qualifiers: Hematuria type: gross Qualified Code(s): R31.0 - Gross hematuria (5) Indwelling Correa catheter present: Status: Acute (6) Prostate enlargement: Status: Acute (7) Gross hematuria: Status: Acute (8) Dizziness: Status: Acute (9) Atrial fibrillation: Status: Acute Qualifiers: Atrial fibrillation type: paroxysmal Qualified Code(s): I48.0 - Parox ysmal atrial fibrillation Additional A&P Information Gross hematuria with recurrent urinary retention BPH, Patient follows up with Dr. Craven Recurrent clot retention, persistent hematuria Post cystoscopy with clot evacuation postop day 0 Hemoglobin stable, hemodynamically stable I would recommend holding off on rivaroxaban for at least 2-3 weeks, I did discu ss risks and benefits of anticoagulation, is stating that he has been very dizzy and orthostatic lately he has fallen once last few months, I did give them few days to think about resuming anticoagulation because there is always a risk of stroke with Michael. fib with high [id number] score and mitral valve repair history, No previous history of cancer, previous pathology report unremarkable Currently undergoing CBI We will follow along Dr. Craven Patient can continue his midodrine, tamsulosin and antibiotics as prescribed by Dr. Craven hold aspirin for now Regular diet DVT prophylaxis contraindicated would use SCDs for now Full code Consult Attestations Medical Necessity Statement: As per Dr. 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
[2021-03-29] MEDS: midodrine 5 mg TABLET PO (17:32)
[2021-03-29] MEDS: sennosides-docusate Tablet 1 TAB PO (17:32)
[2021-03-29] MEDS: ciprofloxacin 500 mg Tablet PO (17:32)
[2021-03-29] MEDS: dextrose 5%-ns + KCl 20 20 MEQ/1,000 ML BAG 50 MEQ IV (17:50)
[2021-03-30 01:10] VITALS: BP 159/94; PULSE 17; RESP 17; TEMP 36.7; O2SAT 97
[2021-03-30 03:41] LABS: Hematocrit 28.2 % (42.0-52.0); Hemoglobin 8.6 g/dL (11.7-16.6); Lymphocytes # 0.3 10^3/uL (0.8-4.8); Lymphocytes % 13.7 %; Mean Corpuscular HGB Conc 30.5 g/dL (30.0-36.0); Mean Corpuscular Hemoglobin 27.1 pg (28.0-34.0); Mean Platelet Volume 10.9 fL (7.4-10.4); Monocytes % 2.1 %; Neutrophils # 1.59 10^3/uL (1.8-7.7); Neutrophils % 83.7 %; Nucleated Red Blood Cells % 0 %; Platelet Count 143 10^3/cmm (130-400); Red Blood Count 3.17 10^6/uL (4.1-5.3); White Blood Count 1.9 10^3/uL (4.0-10.0)
[2021-03-30 04:00] VITALS: BP 141/81; PULSE 82; RESP 19; TEMP 36.4; O2SAT 96
[2021-03-30 04:09] LABS: Blood Urea Nitrogen 12 mg/dL (8-23); Calcium 8.4 mg/dL (8.5-10.5); Carbon Dioxide 22 mmol/L (22-29); Chloride 108 mmol/L (98-107); Glucose 133 mg/dL (65-115); Osmolality Calculated 290 mOsm/kg (285-295); Sodium 139 mmol/L (136-145)
[2021-03-30 08:00] VITALS: BP 125/69; PULSE 109; RESP 19; TEMP 36.7; O2SAT 92
[2021-03-30] MEDS: atorvastatin 40 mg Tablet 20 MG PO (09:00)
[2021-03-30] MEDS: sennosides-docusate Tablet 1 TAB PO ×2 (09:01→18:06)
[2021-03-30] MEDS: ciprofloxacin 500 mg Tablet PO ×2 (09:01→18:07)
[2021-03-30] MEDS: tamsulosin 0.4 mg Capsule PO (09:01)
[2021-03-30] MEDS: docusate sodium 100 mg Capsule PO (09:02)
[2021-03-30] MEDS: midodrine 5 mg TABLET PO ×2 (09:02→18:06)
[2021-03-30] MEDS: finasteride 5 mg Tablet PO (09:02)
[2021-03-30] MEDS: polyethylene glycol 3350 Pkt 17 gm PO (09:03)
--- NOTE | 2021-03-30 09:54 | PC.PHAR ---
pts verified pts medications-rx filled for FLOMAX 0.4mg hs pts states a er dr told the pt to take 0.8mg hs-pts states the pt stop taking xarelto 20mg on 03/18/21 -pts states the pt hasnt started taking galantamine 4mg bid filled on 03/26/21 60d/s-notes are made in the pharmacy comments
--- NOTE | 2021-03-30 11:25 | PC.CHAP ---
Pastoral Care Encounter/Spiritual Assessment Type of Contact [] Declined pediatric urologist visit [] Patient/Family/Request visit [] Outpatient visit [] Follow-up visit [] Physician referral [] Code/Alert [x] Routine visit [] Staff referral [] Actively dying [] Patient sleeping [] Family support [] [] Out of room [] Palliative care [] [] Receiving care in room [] Pre-surgical visit [] Trauma [] Long length of stay [] ICU visit [] Other: Relational/Emotional Strength [] Patient feels connected with others/family/visitors/staff [] Distress [] Loneliness/isolation [] Abandonment Spirituality of Patient [] Person of Christine [] Attends Sikh of their Christine [] Believes in Prayer [] Reads Bible or Buddhism materials [] There are Spiritual issues to be addressed Optometry Teacher Interventions [x] Prayer [x] Active listening [x] Non-anxious presence [x] Spiritual/emotional support [] Crisis/trauma care [] Spiritual counseling [] Bereavement support [] Provided bereavement packet [] Provided Bible/devotional materials [] Provided toy/stuffed animal, coloring book to patient or family member [] Provided Communion [] Anointing/[place] [] Salvation [x] Completed spiritual assessment [] Other: Impact on Illness or Injury [] Angry [] Fearful [] Anxious [] Often cries [] Exhaustion [] Unable to work [] Unable to attend adventism [] Unable to walk/stand [] Unable to read [] Unable to drive [] Unable to eat/drink [] Unable to sleep [] Unable to be with family [] Patient intubated [] Other: Summary patient possibly hard of hearing... drinking lots of water per doctors instructions. Time spent with patient 5 min
[2021-03-30 11:59] VITALS: BP 132/68; PULSE 87; RESP 19; TEMP 36.4; O2SAT 97
[2021-03-30] MEDS: dextrose 5%-ns + KCl 20 20 MEQ/1,000 ML BAG 50 MEQ IV (14:17)
--- NOTE | 2021-03-30 15:55 | P.PN_ITS ---
Subjective Subjective: Interval history: Urology follow-up: Overall doing well. With CBI running relatively slowly his urine has remained clear. Hemoglobin has decreased to 8.6 but that is probably somewhat dilutional. Catheter has been functioning well without requirement for significant manual irrigation. Was complaining of some constipation. (On MiraLAX and Colace currently) Reviewed the operative findings, details of the procedure, expectations. I think it would be reasonable to consider discharge tomorrow if his urine remains clear and we can taper off the CBI. Would probably leave the catheter in place at discharge and removed next week in the office with a voiding trial and SCIC instruction All of this was explained in detail to the patient and his . Very much appreciate the Dr. Crandall's assistance with medical management. Vitals/I&O/Wt Last Vital Signs Temp 97.5 F L 03/30/21 11:59 Pulse 87 03/30/21 11:59 Resp 19 H 03/30/21 11:59 BP 132/68 03/30/21 11:59 Pulse Ox 97 03/30/21 11:59 03/30/21 03/30/21 03/30/21 06:59 14:59 22:59 Intake Total 1420 / 1900 1120 / 1120 Balance 1420 / 1448 1120 / 1120 Weight last 48 hrs Weight 185 lb Physical Exam Const: COMMON NORMALS: no acute distress, alert and well nourished GENERAL APPEARANCE: well kempt and well developed ORIENTATION/CONSCIOUSNESS: not confused Eye: COMMON NORMALS: conjunctivae normal and no scleral icterus CONJUNCTIVA: Yes conjunctivae normal Resp: COMMON NORMALS: normal respiratory effort EFFORT & INSPECTION: No labored and No Actively coughing GI: OTHER: Urine is clear with light rate CBI Neuro: SENSORIUM/ORIENTATION: Yes alert Psych: COMMON NORMALS: mental status grossly normal APPEARANCE: Yes grossly normal and Yes well kempt ATTITUDE: Yes calm and Yes engaged Skin: COMMON NORMALS: no jaundice Urinary Catheter Management^: 3-way Urethral CBI: Cath Placed During This Visit: no Reason for Continuing Indwelling Catheter: Acute Urinary Retention or Obstruct ion Data : 03/30/21 03:25 03/30/21 03:25 A&P Assessment and plan (1) Gross hematuria: Essentially resolved with low flow CBI post clot evacuation, fulguration/vaporization of the median lobe of the prostate. Status: Acute (2) Acute urinary retention: Preceded any gross hematuria. About 900 cc in his bladder time catheter was replaced. Gross hematuria developed post catheterization Status: Acute (3) Anemia: Status: Chronic (4) BPH w urinary obs/LUTS: On dual medical therapy tamsulosin/FINASTERIDE. Status post TUVP/TURP intravesical median lobe which was obstructing anticipate being discharged with catheter in place for further healing before voiding trial in the clinic. Status: Acute (5) Indwelling Correa catheter present: Status: Acute Attestations 2 Medical Necessity Statement*: Still requiring CBI. 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
[2021-03-30 16:14] VITALS: BP 146/68; PULSE 86; RESP 19; TEMP 36.9; O2SAT 96
--- NOTE | 2021-03-30 16:27 | PM.PN ---
Subjective Subjective: Interval history: This morning patient was resting comfortably in his bed most endorsing constipation however passing flatus We will try aggressive bowel regimen today Did notice drop in hemoglobin 8.6 This morning his back contained blood-tinged urine however urine color has turned to clear which is evident in the tube patient is not endorsing any pain at this time has been afebrile, Noticed neutropenia Repeat H&H at 5 PM creatinine is normal Vitals/I&O/Wt Last Vital Signs Temp 98.5 F 03/30/21 16:14 Pulse 86 03/30/21 16:14 Resp 19 H 03/30/21 16:14 BP 146/68 03/30/21 16:14 Pulse Ox 96 03/30/21 16:14 03/30/21 03/30/21 03/30/21 06:59 14:59 22:59 Intake Total 1420 / 1900 1120 / 1120 Balance 1420 / 1448 1120 / 1120 Weight last 48 hrs Weight 83.915 kg Physical Exam Narrative: EXAM NARRATIVE: Patient was resting comfortably in his bed laying supine Saturating well on room air Did endorse constipation Abdomen soft bowel sounds hyperactive No lower extremity edema Urine color has become clear Hemodynamically stable Awake alert oriented x3 Nonfocal exam Variable S1-S2 no signs of heart failure Urinary Catheter Management^: 3-way Urethral CBI: Cath Placed During This Visit: no Reason for Continuing Indwelling Catheter: Acute Urinary Retention or Obstruction Data : 03/30/21 03:25 03/30/21 03:25 A&P Assessment and plan (1) Acute urinary retention: Status: Acute (2) Acute blood loss anemia: Status: Acute (3) BPH w urinary obs/LUTS: Status: Acute (4) Clot retention of urine: Status: Resolved (5) Hematuria: Status: Acute Qualifiers: Hematuria type: gross Qualified Code(s): R31.0 - Gross hematuria (6) Indwelling Correa catheter present: Status: Acute (7) S/P mitral valve repair: Status: Acute (8) Atrial fibrillation: Status: Acute Qualifiers: Atrial fibrillation type: paroxysmal Qualified Code(s): I48.0 - Paroxysmal atrial fibrillation Additional A&P Information Acute urinary tension Hematuria BPH Blood loss anemia A. fib without RVR Mitral valve repair history Chronic anticoagulation Plan Gross hematuria has significantly improved Postop day 1 Correa catheter draining clear urine now Hemoglobin dropped to 8.6 however hemodynamically stable, repeat H&H 5 PM, noticed neutropenia as well Hold anticoagulation for at least 2 to 3 weeks Continue to monitor for now Constipation: Aggressive bowel regimen Regular diet SCDs DVT prophylax Attestations Medical Necessity Statement*: Plan to discharge tomorrow Time Spent in Patient Care: 16 - 35 minutes Coding Level of Care Code Acute Public Relations Counselor for g Fwd Diagnoses Acute urinary retention R33.8 Acute blood loss anemia D62 BPH w urinary obs/LUTS N40.1; N13.8 Clot retention of urine R33.8 Hematuria R31.0 Hematuria type: gross Indwelling Correa catheter present Z97.8 S/P mitral valve repair Z98.890 Atrial fibrillation I48.0 Atrial fibrillation type: paroxysmal
[2021-03-30 17:32] LABS: Hematocrit 26.6 % (42.0-52.0); Hemoglobin 8.2 g/dL (11.7-16.6)
[2021-03-30] MEDS: magnesium hydroxide 30 mL UDC 15 ML PO (18:06)
--- NOTE | 2021-03-30 19:47 | PC.NURSE ---
At shift change, the CBI drainage was salguero red with small clots. Nurse turned the CBI irrigation up. Nurse will continue to monitor.
[2021-03-30 20:00] VITALS: BP 137/75; PULSE 88; RESP 18; TEMP 36.4; O2SAT 97
[2021-03-30] MEDS: mirtazapine 15 mg Tablet 7.5 MG PO (21:58)
[2021-03-30] MEDS: HYDROcodone-acetaminophen 5-325 mg Tablet 1 TAB PO (21:58)
[2021-03-30] MEDS: haloperidol inj 5 mg/mL INJ 1 mL IVP (23:00)
[2021-03-31] VITALS (10 sets, daily range): BP systolic 108–174; BP diastolic 61–94; PULSE 57–86; RESP 16–18; TEMP 36.4–36.7; O2SAT 92–99
--- NOTE | 2021-03-31 05:13 | PC.NURSE ---
Pt had a difficult night tonight. CBI remained flowing at moderate to fast rate the entire night. Pt also was very confused/agitated (hospitalist called for medicinal intervention) and i ended up sitting with the patient half of the night ensuring that he kept all lines patent. Currently with 1:1. Approximately 5-6 bags used tonight with a total output amount of 17,100mls of pink to salguero red output depending on speed of flow.
--- NOTE | 2021-03-31 07:06 | PC.NURSE ---
Pt was agitated this morning and refused last set of vitals, as well as refused lab draw. Lab will attempt to draw again soon.
[2021-03-31 07:35] LABS: Basophils % 0.2 %; Eosinophils % 0.2 %; Hematocrit 25.5 % (42.0-52.0); Hemoglobin 7.9 g/dL (11.7-16.6); Lymphocytes # 0.8 10^3/uL (0.8-4.8); Lymphocytes % 18.3 %; Mean Corpuscular Hemoglobin 27.5 pg (28.0-34.0); Mean Corpuscular Volume 88.9 fl (80-94); Mean Platelet Volume 11.3 fL (7.4-10.4); Monocytes # 0.4 10^3/uL (0.2-0.9); Monocytes % 10.3 %; Neutrophils # 3.02 10^3/uL (1.8-7.7); Neutrophils % 70.8 %; Nucleated Red Blood Cells % 0 %; Platelet Count 143 10^3/cmm (130-400); Red Blood Count 2.87 10^6/uL (4.1-5.3); Red Cell Distribution Width 16.4 % (12.1-15.1); White Blood Count 4.3 10^3/uL (4.0-10.0)
[2021-03-31] MEDS: finasteride 5 mg Tablet PO (08:39)
[2021-03-31] MEDS: ciprofloxacin 500 mg Tablet PO ×2 (08:40→17:07)
[2021-03-31] MEDS: sennosides-docusate Tablet 1 TAB PO ×2 (08:40→17:07)
[2021-03-31] MEDS: atorvastatin 40 mg Tablet 20 MG PO (08:40)
[2021-03-31] MEDS: polyethylene glycol 3350 Pkt 17 gm PO (08:40)
[2021-03-31] MEDS: midodrine 5 mg TABLET PO ×2 (08:40→17:07)
[2021-03-31] MEDS: tamsulosin 0.4 mg Capsule PO (08:40)
[2021-03-31] MEDS: docusate sodium 100 mg Capsule PO (08:40)
--- NOTE | 2021-03-31 09:28 | P.PN_ITS ---
Subjective Subjective: Interval history: Urology follow-up: Confused last night. Became combative. Treated with Haldol and with one-on-one sitter. Sleepy this morning. Still confused. Order to receive unit of blood due to continued drop in his hemoglobin. Not able to wean the CBI off last night. Required manual irrigation due to increased hematuria. We will plan on maintaining inpatient status today. Appreciate hospitalist assistance with medical management. Vitals/I&O/Wt Last Vital Signs Temp 97.9 F 03/31/21 08:00 Pulse 86 03/31/21 08:00 Resp 18 03/31/21 08:00 BP 170/94 03/31/21 08:00 Pulse Ox 98 03/31/21 08:00 03/30/21 03/31/21 03/31/21 22:59 06:59 14:59 Intake Total 2019 200 / 2220 Balance 2019 200 / 2220 Weight last 48 hrs Weight 185 lb Physical Exam Const: COMMON NORMALS: no acute distress, alert and well nourished GENERAL APPEARANCE: well kempt and well developed HENMT: COMMON NORMALS: normocephalic and atraumatic HEAD & SCALP: normocephalic and atraumatic Neck/C-Spine: COMMON NORMALS: full ROM Resp: COMMON NORMALS: normal respiratory effort EFFORT & INSPECTION: No labored and No Actively coughing Neuro: SENSORIUM/ORIENTATION: Yes alert Psych: APPEARANCE: Yes grossly normal and Yes well kempt ATTITUDE: Yes calm Skin: COMMON NORMALS: no rashes or lesions noted and no jaundice GENERAL SKIN EXAM: no rashes or lesions noted Urinary Catheter Management^: 3-way Urethral CBI: Cath Placed During This Visit: no Reason for Continuing Indwelling Catheter: Other Data : 03/31/21 07:23 03/30/21 03:25 A&P Assessment and plan (1) Gross hematuria: Began having intermittent hematuria with manual irrigation required. Better this morning. Still somewhat pink with CBI running. Hemoglobin was 7.9. Unit of blood has been ordered. Status: Acute (2) Acute urinary retention: Preceded any gross hematuria. About 900 cc in his bladder time catheter was replaced. Gross hematuria developed post catheterization Status: Acute (3) Anemia: Status: Chronic Qualifiers: Other causes of anemia: acute posthemorrhagic (4) BPH w urinary obs/LUTS: On dual medical therapy tamsulosin/FINASTERIDE. Status post TUVP/TURP intravesical median lobe which was obstructing anticipate being discharged with catheter in place for further healing before voiding trial in the clinic. Status: Acute (5) Indwelling Correa catheter present: Maintain Correa catheter for now Status: Inactive (6) Confusion: Status: Acute Attestations Medical Necessity Statement*: Still requiring CBI. Further drop in hemoglobin today. Unit of blood has been ordered. Combative and confused state last night. Required one-on-one sitter as well as Haldol. Not able to be managed currently. 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
[2021-03-31] MEDS: dextrose 5%-ns + KCl 20 20 MEQ/1,000 ML BAG 50 MEQ IV (11:08)
--- NOTE | 2021-03-31 14:06 | P.PN_ITS ---
Subjective Subjective: Interval history: Overnight events noted, received antipsychotic for Yesterday he was complaining that he has not been able to sleep in the hospital for which I added mirtazapine as well He has been hemodynamically stable however hemoglobin has been trickling down we will request 1 unit of PRBC Requiring manual irrigation for removal of clots, urine color has been become light pink again This morning he was very drowsy Vitals/I&O/Wt Last Vital Signs Temp 98.0 F 03/31/21 12:00 Pulse 65 03/31/21 12:00 Resp 17 03/31/21 12:00 BP 174/84 03/31/21 12:00 Pulse Ox 93 03/31/21 12:00 03/30/21 03/31/21 03/31/21 22:59 06:59 14:59 Intake Total 2019 200 / 2220 1240 / 1240 Balance 2019 200 / 2220 1240 / 1240 Physical Exam Narrative: EXAM NARRATIVE: This morning he was drowsy CBI running at the bedside, urine light pink Saturating well on room air Soft abdomen No edema of legs Neuro exam limited S1, S2 variable Urinary Catheter Management^: 3-way Urethral CBI: Cath Placed During This Visit: no Reason for Continuing Indwelling Catheter: Other Data : 03/31/21 07:23 03/30/21 03:25 A&P Assessment and plan (1) Antiplatelet or antithrombotic long-term use: Status: Acute (2) Confusion: Status: Acute (3) Acute urinary retention: Status: Acute (4) Acute blood loss anemia: Status: Acute (5) S/P mitral valve repair: Status: Acute (6) Atrial fibrillation: Status: Acute Qualifiers: Atrial fibrillation type: paroxysmal Qualified Code(s): I48.0 - Paroxysmal atrial fibrillation (7) Gross hematuria: Status: Acute Additional A&P Information Today my plan is to give 1 unit of PRBC Would recommend mirtazapine for insomnia related to current hospitalization CBI at the bedside, urine color is light pink Required manual irrigation overnight Hemodynamically stable Full code DVT prophylaxis currently on hold: SCDs He can have cardiac diet once more awake and alert Attestations Medical Necessity Statement*: As per urology Time Spent in Patient Care: less than 15 minutes Coding Level of Care Code Acute Music Video Director for Chg Fwd Diagnoses Antiplatelet or antithrombotic long-term use Z79.02 Confusion R41.0 Acute urinary retention R33.8 Acute blood loss anemia D62 S/P mitral valve repair Z98.890 Atrial fibrillation I48.0 Atrial fibrillation type: paroxysmal Gross hematuria R31.0
[2021-03-31] MEDS: sodium chloride 0.9% (100 ml) 100 ML 150 ML (15:34)
[2021-03-31] MEDS: quetiapine 25 mg Tablet PO (20:47)
[2021-04-01 03:21] VITALS: BP 133/75; PULSE 54; RESP 18; TEMP 36.4; O2SAT 96
[2021-04-01 06:07] LABS: Basophils % 0.5 %; Eosinophils # 0.1 10^3/uL (0.0-0.8); Eosinophils % 1.6 %; Hematocrit 27.2 % (42.0-52.0); Hemoglobin 8.5 g/dL (11.7-16.6); Lymphocytes # 0.8 10^3/uL (0.8-4.8); Lymphocytes % 22.1 %; Mean Corpuscular HGB Conc 31.3 g/dL (30.0-36.0); Mean Corpuscular Hemoglobin 27.8 pg (28.0-34.0); Mean Corpuscular Volume 88.9 fl (80-94); Mean Platelet Volume 11.3 fL (7.4-10.4); Monocytes # 0.5 10^3/uL (0.2-0.9); Monocytes % 12.6 %; Neutrophils % 63.2 %; Nucleated Red Blood Cells % 0 %; Platelet Count 144 10^3/cmm (130-400); Red Blood Count 3.06 10^6/uL (4.1-5.3); Red Cell Distribution Width 16.3 % (12.1-15.1); White Blood Count 3.8 10^3/uL (4.0-10.0)
[2021-04-01 07:13] VITALS: BP 133/71; PULSE 73; RESP 18; TEMP 36.8; O2SAT 97
--- NOTE | 2021-04-01 08:25 | P.PN_ITS ---
Subjective Subjective: Interval history: Did better last night after sleep aid prescribed. He was having confusion and anger issues yesterday. Combative at times. CBI still required. Intermittent increased hematuria but clears without difficulty. More alert this morning. Seem to recall our previous conversations. Reviewed the anticipated discharge with Correa catheter and follow-up in the off ice once its okay from hospitalist service and he maintains off of CBI for a while without significant recurrence of bleeding. That decision is pending. Medications: Reviewed: Yes Vitals/I&O/Wt Last Vital Signs Temp 98.2 F 04/01/21 07:13 Pulse 73 04/01/21 07:13 Resp 18 04/01/21 07:13 BP 133/71 04/01/21 07:13 Pulse Ox 97 04/01/21 07:13 03/31/21 04/01/21 04/01/21 22:59 06:59 14:59 Intake Total 450 / 1690 120 / 1810 Balance 450 / 1690 120 / 1810 Physical Exam Const: COMMON NORMALS: no acute distress GENERAL APPEARANCE: cooperative, comfortable and well kempt; not anxious and not combative Neck/C-Spine: COMMON NORMALS: full ROM Resp: COMMON NORMALS: normal respiratory effort AUSCULTATION: no wheezes GI: COMMON NORMALS: Soft to palpation and non-tender PALPATION: Yes Soft to palpation Extremity: COMMON NORMALS: full ROM Psych: APPEARANCE: Yes well kempt Urinary Catheter Management^: 3-way Urethral CBI: Cath Placed During This Visit: no Reason for Continuing Indwelling Catheter: Acute Urinary Retention or Obstruction Data : 04/01/21 05:28 03/30/21 03:25 A&P Assessment and plan (1) Gross hematuria: Began having intermittent hematuria with manual irrigation required. Better this morning. Still somewhat pink with CBI running. Hemoglobin was 7.9. Unit of blood has been ordered. Status: Acute (2) Acute urinary retention: Overall improving. Still required some more aggressive CBI and manual irrigation. Status: Acute (3) Anemia: Status: Chronic Qualifiers: Other causes of anemia: acute posthemorrhagic (4) BPH w urinary obs/LUTS: On dual medical therapy tamsulosin/FINASTERIDE. Status post TUVP/TURP intravesical median lobe which was obstructing anticipate being discharged with catheter in place for further healing before voiding trial in the clinic. Status: Acute (5) Indwelling Correa catheter present: We will maintain Correa catheter discharge with plans for voiding trial in my office later in the week Status: Inactive (6) Confusion: Still an intermittent problem. Status: Acute Attestations Medical Necessity Statement*: Still requiring CBI. Medical issues may be the predominant issue to keep him in the hospital. Once his CBI has been able to be weaned off with no clot formation and good maintenance of catheter function from a urologic perspective he will be able to be discharged. Other issues to be determined by hospitalist service. Coding Level of Care Code Acute Packing And Stamping Machine Operator for Chg Fwd Diagnoses Gross hematuria R31.0 Acute urinary retention R33.8 Anemia D64.9 Other causes of anemia: acute posthemorrhagic BPH w urinary obs/LUTS N40.1; N13.8 Indwelling Correa catheter present Z97.8 Confusion R41.0
[2021-04-01] MEDS: docusate sodium 100 mg Capsule PO (09:14)
[2021-04-01] MEDS: polyethylene glycol 3350 Pkt 17 gm PO (09:14)
[2021-04-01] MEDS: sennosides-docusate Tablet 1 TAB PO (09:14)
[2021-04-01] MEDS: atorvastatin 40 mg Tablet 20 MG PO (09:14)
[2021-04-01] MEDS: ciprofloxacin 500 mg Tablet PO (09:14)
[2021-04-01] MEDS: midodrine 5 mg TABLET PO (09:14)
[2021-04-01] MEDS: finasteride 5 mg Tablet PO (09:14)
[2021-04-01] MEDS: tamsulosin 0.4 mg Capsule PO (09:15)
[2021-04-01] MEDS: dextrose 5%-ns + KCl 20 20 MEQ/1,000 ML BAG 50 MEQ IV (10:59)
--- NOTE | 2021-04-01 11:01 | P.DS_ITS ---
Discharge Providers Date of Admission: 03/30/21 18:11 Date of Discharge: April 01, 2021 Attending Provider at Admission: Rafiq Craven MD Attending Provider at Discharge: Rafiq Craven MD Primary Care Provider: Wilberto Goddard MD Diagnoses at Discharge Discharge Diagnosis (1) Gross hematuria: Status: Acute (2) Acute urinary retention: Status: Acute (3) Anemia: Status: Chronic Qualifiers: Other causes of anemia: acute posthemorrhagic (4) BPH w urinary obs/LUTS: Status: Acute (5) Indwelling Correa catheter present: Status: Inactive (6) Confusion: Status: Acute Reason for Visit Reason for Visit: Other retention of urine Hospital Course Hospital Course Juany Aguayo is a 85 year old male who carries history of established coronary artery disease mitral valve repair, atrial fibrillation chronic anticoagulation with Xarelto BPH, presented to the hospital for decreased urine output to his catheter. His Correa catheter was placed about 2 weeks a go,Secondary to acute urinary retention and later developed clot retention of the catheter. Catheter was irrigated clots were initially removed however patient developed recurrent episodes of clot retention, large part of clot burden was removed in the clinic,Dr Craven brought him to the OR for cystoscopy clot evacuation. Hospitalist service was consulted for comanagement considering multiple comorbid conditions and chronic anticoagulation. I saw patient after his procedure status post cystoscopy with clot evacuation and transurethral resection/vaporization of bleeding median lobe of the prostate Large amount of clot evacuated with minimal acute blood loss Patient received 1 unit PRBC secondary to persistent hematuria blood loss anemia hemoglobin dropped from 9.4 to 7.9. Hemoglobin at the time of discharge 8.5 Patient was counseled to hold his Xarelto for at least 2 weeks until he sees Dr. Richardson, aspirin also on hold, this was conveyed to the family and the patient multiple times, they understand the risks and benefits associated with holding anticoagulation at this point, all of their questions were answered to their satisfaction. Patient will be discharged with indwelling catheter, will see Dr. Craven on 04/04. Of note, he did require Seroquel and antipsychotic on his second night for however at the time my evaluation the morning he never exhibited any signs of agitation or delirium. His urine cultures and blood cultures are sterile. Physical Exam Narrative: EXAM NARRATIVE: Patient was resting comfortably in his bed laying supine Saturating well on room air Abdomen soft bowel sounds hyperactive No lower extremity edema Urine color is maroon Hemodynamically stable Awake alert oriented x3 Nonfocal exam Variable S1-S2 no signs of heart failure Urinary Catheter Management^: 3-way Urethral CBI: Cath Placed During This Visit: no Reason for Continuing Indwelling Catheter: Acute Urinary Retention or Obstruction Discharge Data Data Completed and Pending: Pending at discharge Category Date Time Status Pathology: Surgic al [PTH] Routine Pth 03/29/21 15:17 Received Labs from last 24 hours 04/01/21 03/31/21 05:28 08:32 WBC 3.8 L RBC 3.06 L Hgb 8.5 L Hct 27.2 L MCV 88.9 MCH 27.8 L MCHC 31.3 RDW 16.3 H Plt Count 144 MPV 11.3 H Neut % (Auto) 63.2 Lymph % (Auto) 22.1 [place] % (Auto) 12.6 Eos % (Auto) 1.6 Baso % (Auto) 0.5 Neut # (Auto) 2.40 Lymph # (Auto) 0.8 [place] # (Auto) 0.5 Eos # (Auto) 0.1 Baso # (Auto) 0.0 Nucleated RBC % (a uto) 0 Nucleated RBCs # 0.0 Blood Type A Positive Rho(D) Type Positive Antibody Screen Negative Crossmatch See Detail Vitals: Last Vital Signs Temp 98.2 F 04/01/21 07:13 Pulse 73 04/01/21 07:13 Resp 18 04/01/21 07:13 BP 133/71 04/01/21 07:13 Pulse Ox 97 04/01/21 07:13 Discharge Plan Discharge Patient Disposition: Home Condition: Stable Prescriptions: Continued docusate sodium [Stool Softener] 100 mg capsule 100 mg PO DAILY PRN (Reason: Constipation) RF: 0 cholecalciferol (vitamin D3) [Vitamin D3] 25 mcg (1,000 unit) capsule 2,000 unit PO BEDTIME RF: 0 lovastatin 20 mg tablet 20 mg PO BEDTIME RF: 0 midodrine 5 mg tablet 5 mg PO BID Qty: 60 RF: 3 ciprofloxacin HCl [Cipro] 500 mg tablet 500 mg PO BID 7 Days Qty: 14 RF: 0 galantamine 4 mg tablet 4 mg PO BID RF: 0 Vitamin B-12 1,000 mcg Tablet 1,000 mcg PO BEDTIME RF: 0 levothyroxine 25 mcg tablet 25 mcg PO QAM RF: 0 Vitamin C 500 mg Tablet 500 mg PO DAILY RF: 0 tamsulosin 0.4 mg capsule 0.8 mg PO BEDTIME RF: 0 triamcinolone acetonide 0.1 % ointment 1 applic TOPICAL BID RF: 0 Miralax 17 gram/dose Powder 17 g PO DAILY PRN (Reason: Constipation) RF: 0 finasteride 5 mg tablet 5 mg PO BEDTIME RF: 0 melatonin 5 mg tablet 5 mg PO BEDTIME RF: 0 Held aspirin [Adult Low Dose Aspirin] 81 mg tablet,delayed release (DR/EC) 81 mg PO BEDTIME RF: 0 Hold Instructions: Resume on 04/09/21. Xarelto 20 mg tablet 20 mg PO DAILY Qty: 90 RF: 3 Hold Instructions: Resume on 04/15/21. Discharge Orders: Discharge Order (Routine); Ordered 04/01/21 Ordered By: Ralf Crandall Other Ambulatory Orders: Complete Blood Count w/Auto (Routine) Timeframe: 3 Days Location: Determined by Patient Ordered By: Ralf Crandall Referrals: Rafiq Craven MD [Physician] - 04/04/21 (Voiding trial, [facility] instruction. [facility] Urology will call you Friday to verify appointment. ) Discharge Diet: Usual diet Discharge Activity: Limit activity as instructed Patient Instructions: Opioid Safety Activity Restrictions/Additional Instructions: UROLOGY INSTRUCTIONS 1. We will maintain the Correa catheter in place at discharge we will plan on voiding trial in my office next week. At the same time we will retrained in [facility] for bladder drainage as indicated at home if unable to void. 2. Encourage fluid intake to help keep urine from clotting and plugging the ca theter. 3. Avoid strenuous activity. 4. Can use leg bag or night bag as per preference. 5. Anticoagulation medication on hold Hold anticoagulating agent for at least 2 weeks until you see glost placer Dr. Richardson, hold aspirin as well secondary to blood in the urine. CBC on Friday Discharge Attestations Time Spent in Discharge Care*: less than 30 min Quality Metrics Clinical Quality Measures During this hospital stay, did patient experience: None Coding Level of Care Code Acute Chg FW DC note Diagnoses Gross hematuria R31.0 Acute urinary retention R33.8 Anemia D64.9 Other causes of anemia: acute posthemorrhagic BPH w urinary obs/LUTS N40.1; N13.8 Indwelling Correa catheter present Z97.8 Confusion R41.0
[2021-04-01 11:44] VITALS: BP 149/80; PULSE 73; RESP 16; TEMP 36.5; O2SAT 93
[2021-04-01 14:15] VITALS: BP 149/80; PULSE 73; RESP 16; TEMP 36.5; O2SAT 93
--- NOTE | 2021-04-04 15:12 | PC.SOCIAL ---
patient is been seen in dr. aguirre's office today. will follow up with patient tomorrow.
--- NOTE | 2021-04-05 11:42 | PC.SOCIAL ---
discharge follow up call made, spoke with patients . patient was seen by dr. augirre yesterday and johnson cath was removed. also seen this morning by dr. aguirre. reports patient is urinating without difficulty, with some blood in his urine but no pain. patient has another follow up appointment with dr. aguirre next friday. discussed that aspirin and xarelto need to be held, is aware of when to resume. also says patient has a follow up with dr. velasquez in the next 2 weeks. discussed with the that the hospitalized wants patient to have additional lab work drawn and that they can come to the hospital to have the lab work drawn at their convenience. no questions voiced.
== END 2021-04-01 14:17 | disposition home or self-care (01) | DRG 666 ==
LOC: MEDSURG 15:52
PROVIDERS: Internal Medicine; Admitting Provider Urology; PCP Pediatrics; Visit Provider Urology
PROC: 0TJB8ZZ Inspection of Bladder, Via Natural or Artificial Opening Endoscopic (ICD-10-PCS; CPT 52000; principal; 2021-03-29 13:10)
PROC: 0T5B8ZZ Destruction of Bladder, Via Natural or Artificial Opening Endoscopic (ICD-10-PCS; 2021-03-29 13:10)
DX: N32.89 Other specified disorders of bladder (principal); D62 Acute posthemorrhagic anemia; F05 Delirium due to known physiological condition; N13.8 Other obstructive and reflux uropathy; R33.8 Other retention of urine; R31.0 Gross hematuria; I25.10 Atherosclerotic heart disease of native coronary artery without angina pectoris; I48.0 Paroxysmal atrial fibrillation; N40.1 Benign prostatic hyperplasia with lower urinary tract symptoms; T83.098A Other mechanical complication of other urinary catheter, initial encounter; Y73.1 Therapeutic (nonsurgical) and rehabilitative gastroenterology and urology devices associated with adverse incidents; E78.5 Hyperlipidemia, unspecified; I10 Essential (primary) hypertension; D70.9 Neutropenia, unspecified; G47.09 Other insomnia; Z79.01 Long term (current) use of anticoagulants; Z79.82 Long term (current) use of aspirin; Z87.442 Personal history of urinary calculi; Z90.79 Acquired absence of other genital organ(s)
CPT/HCPCS: 36415; 36430; 80048; 85014; 85018; 85025; 86850; 86900; 86920; 88305; G0378; J1100; J1630; J2370; J2405; J2704; J2710; J3010; J3490; J7030; P9016

== ENCOUNTER 2021-04-03 10:42 | Outpatient (CLI) | payer MEDICARE, OTHER, SELFPAY ==
--- NOTE | 2021-04-03 10:52 | MR_ITS ---
WS: [id number] MRI BRAIN WITH AND WITHOUT CONTRAST HISTORY: MEMORY Loss; dysfunctional AUTONOMIC NERVOUS SYSTEM COMPARISON: 04/28/2020 TECHNIQUE: Multiplanar imaging performed through the brain with MultiHance 17 ml's IV. No acute infarcts are seen. Ordonez-white matter differentiation is well preserved. There are numerous T 2 and FLAIR signal hyperintensity scattered throughout the white matter. The extent and distribution has not significantly changed. No prior infarcts. Mild cerebral atrophy is symmetric bilaterally. No susceptibility artifacts or prior lacunar infarcts. Ventricles and extra-axial spaces are normal. Clivus and pituitary gland are normal. Visualized posterior fossa and brainstem are also normal. Postcontrast images are negative for masses or vascular malformations. Dominant distal LEFT vertebral artery. The distal RIGHT vertebral artery is not identified and may be hypoplastic. This is not a ne w finding. Dural venous sinuses are normal. Paranasal sinuses: Well aerated with no significant disease. Mastoid air cells: Normal. Calvarium and scalp: Normal. On the sagittal projection there is 2 mm retrolisthesis of C3 with a focal disc protrusion at C3-4 ca using mild contact on the ventral cervical cord. MR/MR head wo/w con [id number] IMPRESSION: 1. No acute infarct or hemorrhage. 2. T2 and FLAIR signal abnormalities throughout the white matter are stable wi th no significant progression. 3. No mass. 4. Mild contact on the ventral cervical cord at C3-4 due to a disc protrusion and minimal retrolisthesis of C3.
[2021-04-03] MEDS: gadobenate dimeglumine 20 mL vial IV (12:17)
== END 2021-04-03 10:43 | disposition home or self-care (01) ==
PROVIDERS: PCP Internal Medicine; Visit Provider Internal Medicine
DX: R41.3 Other amnesia (principal); G90.9 Disorder of the autonomic nervous system, unspecified; M50.21 Other cervical disc displacement, high cervical region
CPT/HCPCS: 70553; A9577

== ENCOUNTER → 2021-04-05 10:39 | Outpatient (BNVA) | payer MEDICARE, OTHER, SELFPAY | PROVIDERS: PCP Internal Medicine; Visit Provider Urology | DX: R33.8 Other retention of urine (principal) | CPT/HCPCS: 81003 ==

== ENCOUNTER 2021-04-07 11:13 | Outpatient (CLI) | payer MEDICARE, OTHER, SELFPAY ==
[2021-04-07 12:08] LABS: Basophils % 0.3 %; Hematocrit 29.4 % (42.0-52.0); Lymphocytes # 0.7 10^3/uL (0.8-4.8); Lymphocytes % 21.1 %; Mean Corpuscular HGB Conc 30.6 g/dL (30.0-36.0); Mean Corpuscular Hemoglobin 27.8 pg (28.0-34.0); Mean Corpuscular Volume 90.7 fl (80-94); Monocytes # 0.3 10^3/uL (0.2-0.9); Monocytes % 9.1 %; Neutrophils % 68.2 %; Nucleated Red Blood Cells % 0 %; Platelet Count 156 10^3/cmm (130-400); Red Blood Count 3.24 10^6/uL (4.1-5.3); Red Cell Distribution Width 15.9 % (12.1-15.1); White Blood Count 3.1 10^3/uL (4.0-10.0)
== END 2021-04-07 11:14 | disposition home or self-care (01) ==
PROVIDERS: PCP Internal Medicine; Visit Provider Internal Medicine
DX: D62 Acute posthemorrhagic anemia (principal)
CPT/HCPCS: 36415; 85025

== ENCOUNTER → 2021-04-13 12:08 | Outpatient (BNVA) | payer MEDICARE, OTHER, SELFPAY | PROVIDERS: PCP Internal Medicine; Visit Provider Urology | DX: R31.0 Gross hematuria (principal); R33.8 Other retention of urine; D62 Acute posthemorrhagic anemia; N20.0 Calculus of kidney | CPT/HCPCS: 81003; 87077; 87086; 87184 ==

== ENCOUNTER 2021-04-20 08:31 | Outpatient (CLI) | payer MEDICARE, OTHER, SELFPAY ==
[2021-04-20 10:53] LABS: Basophils % 0.3 %; Eosinophils % 0.6 %; Hematocrit 31.5 % (42.0-52.0); Hemoglobin 9.6 g/dL (11.7-16.6); Lymphocytes # 0.5 10^3/uL (0.8-4.8); Lymphocytes % 16.5 %; Mean Corpuscular HGB Conc 30.5 g/dL (30.0-36.0); Mean Corpuscular Hemoglobin 26.9 pg (28.0-34.0); Mean Corpuscular Volume 88.2 fl (80-94); Mean Platelet Volume 10.3 fL (7.4-10.4); Monocytes # 0.3 10^3/uL (0.2-0.9); Monocytes % 10.5 %; Neutrophils # 2.27 10^3/uL (1.8-7.7); Neutrophils % 72.1 %; Nucleated Red Blood Cells % 0 %; Platelet Count 170 10^3/cmm (130-400); Red Blood Count 3.57 10^6/uL (4.1-5.3); Red Cell Distribution Width 15.3 % (12.1-15.1); Reticulocyte % 1.3 % (0.5-2.0); White Blood Count 3.2 10^3/uL (4.0-10.0)
[2021-04-20 11:11] LABS: Alanine Aminotransferase 8 U/L (0-41); Albumin Level 3.9 g/dL (3.5-5.2); Alkaline Phosphatase 86 IU/L (40-130); Anion Gap 12.3 (5-19); Aspartate Amino Transferase 14 U/L (0-40); Blood Urea Nitrogen 15 mg/dL (8-23); Calcium 8.9 mg/dL (8.5-10.5); Carbon Dioxide 26 mmol/L (22-29); Chloride 106 mmol/L (98-107); Ferritin 12 ng/mL (30-400); Globulin 3.4 g/dL (1.3-4.6); Glucose 117 mg/dL (65-115); Iron 24 ug/dL (59-158); Lactate Dehydrogenase 254 U/L (135-225); Osmolality Calculated 292 mOsm/kg (285-295); Percent Saturation 5.9 % (20-50); Potassium 4.3 mmol/L (3.5-5.1); Sodium 140 mmol/L (136-145); Total Bilirubin 0.6 mg/dL (0.15-1.2); Total Iron Binding Capacity 406 mcg/dl; Total Protein 7.3 g/dL (6.6-8.7); Unsaturated Iron Binding 382 ug/dL (112-347)
[2021-04-20 11:14] LABS: Slide Review Slide Review Perform
[2021-04-20 13:00] LABS: LAB Peripheral Smear Sent for Review
--- NOTE | 2021-04-20 15:42 | ONC CON_ITS ---
Dr. Moncada New Patient Note Patient: Juany Aguayo Unit #: [id number]: [id number] Dicatated By: Aguila Moncada M.D.Date of Visit: Apr 20, 2021 Onc MED New Patient/Consult Referring Physician: Dr. KARLENE DOUGLAS M.D. Chief Complaint: Pancytopenia. History of Present Illness: This is an 85-year-old man with pancytopenia and predominant anemia. He has multiple medical illnesses. The most significant currently is that he has autonomic dysfunction with associated orthostatic hypotension. He has a history of valvular heart disease for which he underwent mitral valve repair in 2008. He has chronic atrial fibrillation. He also has benign prostatic hypertrophy with associated bladder outlet obstruction. He had been having hematuria, thought to be due to nephrolithiasis. He ended up developing urinary retention requiring indwelling catheter, and he ultimately then underwent cystoscopy with TUR/vaporization of bleeding median lobe of the prostate on 03/29/2021. Postoperatively he required transfusion of 2 units of packed red blood cells due to drop in hemoglobin to 7.9 g. During his follow-up with Dr. Douglas he had been noted to have pancytopenia. Her records include laboratory studies from 03/21/2021. His CBC at that time showed hemoglobin low at 9.7 g with hematocrit 30.3%. The red cell indices were in the low normal range. The white blood cell count was 3000 with the differential showing 69% segs, 17% lymphs, 12% monocytes, 1% eosinophils, and 1% basophils. The platelet count was borderline low at 139,000. Comprehensive metabolic profile showed borderline renal function with BUN 17 and creatinine 1.50 mg/dL. The bilirubin and liver enzymes were normal. Sed rate was normal at 20 mm/h. Serum protein electrophoresis showed no evidence of monoclonal protein. His B12 level was normal at 735 pg/mL and folate level was normal at 11.3 ng/mL. The serum iron studies showed low transferrin saturation at 9%, consistent with iron deficiency. He is seen now in regard to the pancytopenia. In reviewing his records in [facility], he had a previous CBC back in April 2020 with his hemoglobin at that time just mildly decreased at 11.8 g with Red cell indices in the upper normal range. The white blood cell count was 3300 and the platelet count was 141,000. His CT of the abdomen/pelvis on 03/16/2021 showed normal liver and spleen. His main complaint is that when he stands up he tends to totally lose all power. He has very limited activity. He mostly just gets up to eat and go to the bathroom, and he is otherwise sedentary. ECOG score is 3. His appetite is okay. His weight is up a few pounds. He does not have fever or night sweats. He has shortness of breath with activity. He does not complain of resting dyspnea, cough, or chest pain. He has chronic constipation. He has not been aware of any blood in the stool. His bladder function has improved now, though he is on antibiotic coverage for urinary tract infection. He has had previous bilateral total knee arthroplasties. He is not having any other joint or bone pain. He does not complain of headache. He has no numbness/paresthesia or other focal neurologic symptoms. Past Medical History: His medical history includes atrial fibrillation, autonomic dysfunction, benign prostatic hypertrophy, coronary artery disease, hyperlipidemia, hypertension, hypothyroidism, mitral insufficiency, and nephrolithiasis. Past Surgical History: He underwent cystoscopy with TUR/vaporization of the prostate on 03/29/2021. His other surgical/procedural history includes bilateral inguinal and umbilical hernia repairs, left orchiectomy, left total knee arthroplasty in 2019, right total knee arthroplasty in 2018, and mitral valve repair in 2008. Medications: Ascorbic Acid 500 mg (of 500 mg) Tablet, chewable Oral daily, Aspirin 81 mg (of 81 mg) Tablet, enteric coated Oral daily, B-12 1 Tablet (of 1000 mcg) Oral daily, Finasteride 5 mg (of 5 mg) Tablet Oral daily, Galantamine Hydrobromide 4 mg (of 4 mg) Tablet Oral ac (bid), Levothyroxine Sodium 25 mcg (of 25 mcg) Tablet Oral every am, Lovastatin 20 mg (of 20 mg) Tablet Oral daily, Melatonin 5 mg (of 5 mg) Tablet Oral at bedtime, Midodrine HCl 5 mg (of 5 mg) Tablet Oral ac (bid), Nitrofurantoin Macrocrystal 1 Capsule (of 100 mg) Oral b.i.d., Tamsulosin HCl 0.4 mg (of 0.4 mg) Capsule Oral daily, Triamcinolone Acetonide (0.1 %) Ointment Topical ac (bid), Vitamin D3 50 mcg (of 50 mcg ) Capsule Oral daily, Xarelto 20 mg (of 20 mg) Tablet Oral daily Allergies: Penicillins Social History: Mr. Aguayo is . He is a non-smoker. He does not drink alcohol. Family History: Father with cancer at age 85, type unknown to the patient, though possibly colon cancer. Mother of heart attack at age 73. A brother also of heart attack and his sister with complications of diabetes. Review Of Symptoms: Constitutional - He has orthostatic spells in which he loses all power. He has very limited activity, and he is mostly sedentary. His appetite is okay. His weight recently has dropped a few pounds. He does not have fever or night sweats. ECOG score is 3, Eyes - He has had decline in vision associated with cataracts, ENMT - He has hearing loss. No tinnitus. No sinus congestion/drainage. No mouth sores. No sore throat or difficulty swallowing, Hematologic/Lymphatic - He bruises easily, Respiratory - He has shortness of breath with activity. No cough. No pleuritic pain or hemoptysis, Cardiovascular - No angina pain. No palpitations, Gastrointestinal - No nausea or vomiting. No heartburn or acid reflux. He has chronic constipation. No blood in the stool or black stools, Genitourinary (M) - He was having urinary retention and hematuria. His bladder function is better now, but he is on antibiotic coverage for urinary tract infection, Musculoskeletal - He has had bilateral total knee arthroplasty. He has no other joint or bone pain, Integumentary - He had developed a significant skin eruption on his ankles, but it is improved with a topical therapy, Neurologic - He has headache only rarely. He has orthostatic lightheadedness/weakness. He has no numbness/paresthesia or other focal neurologic symptoms, Psychiatric - No anxiety or depression. He gets up once or twice at night to void, but he otherwise sleeps okay. He sometimes has difficulty with memory. Vital Signs: Performed on Apr 20, 2021 09:32: 0, 0, 24.55, 2.04 sq.m, 72 in, 99 %, 81 /min, 15 /min, 106/65 mm(hg), 97.2 F (LOW), and 181 lbs (HIGH). Physical Examination: Constitutional - He appears generally weak and chronically ill, Eyes - Sclerae nonicteric. Conjunctivae clear, ENMT - No lesions noted in the oral cavity, Neck - No mass or thyromegaly, Hematologic/Lymphatic - No cervical, clavicular, or axillary adenopathy, Respiratory - Lungs are clear with good air movement bilaterally, Cardiovascular - Heart rhythm is regular. There is no murmur, gallop, or rub noted, Abdomen - Soft and non-tender. Liver and spleen are not enlarged. There is no abdominal mass or ascites noted and there is no inguinal adenopathy, Back/Spine - No spine or CVA tenderness noted, Extremities - Mild edema. Pedal pulses are palpable bilaterally, Integumentary - No rashes. No suspicious skin lesions noted, Neurologic - No focal neurologic deficits noted. Problem List: 1. Pancytopenia with predominant anemia. The underlying cause for the pancytopenia has not been determined. At least some component of the anemia does appear to be due to iron deficiency. 2. He has benign prostatic hypertrophy, and he had recent TUR/vaporization of the prostate for urinary retention and hematuria. 3. He has orthostatic hypotension associated with autonomic dysfunction. 4. He underwent mitral valve repair in 2008. 5. Chronic atrial fibrillation. 6. Coronary artery disease, managed medically. 7. Hyperlipidemia. 8. Hypothyroidism. 9. Nephrolithiasis. 10. History of hypertension. 11. Degenerative arthritis. Problems Addressed with this Encounter and Plan: Patient with pancytopenia and predominant anemia. The underlying cause for the pancytopenia has not been determined. At least some component of the anemia does appear to be due to iron deficiency. As such, I will first get the iron deficiency corrected and then determine if further evaluation is required. As he has not been on any oral iron supplementation, he will not start ferrous sulfate 325 mg daily. If he does not tolerate it or show adequate response, he will be given the option to have parenteral iron replacement with Injectafer. I will tentatively plan a follow-up visit in 1 month. In the meantime, as a precaution, I am also going to have him bring in a stool sample for IFOB just to make sure there is no evidence for GI blood loss. Signed By: Aguila Moncada M.D. <<Signature on File>>
== END 2021-04-20 08:32 | disposition home or self-care (01) ==
LOC: ONCMED 08:34
PROVIDERS: PCP Internal Medicine; Visit Provider Internal Medicine Medical Oncology
DX: D61.818 Other pancytopenia (principal); D64.89 Other specified anemias; I48.20 Chronic atrial fibrillation, unspecified; N40.1 Benign prostatic hyperplasia with lower urinary tract symptoms; I25.10 Atherosclerotic heart disease of native coronary artery without angina pectoris; I10 Essential (primary) hypertension; E03.9 Hypothyroidism, unspecified; I34.0 Nonrheumatic mitral (valve) insufficiency; Z79.899 Other long term (current) drug therapy; Z23 Encounter for immunization
CPT/HCPCS: 36415; 80053; 82728; 83010; 83540; 83550; 83615; 85025; 85045; 90471; 90686; 99205

== ENCOUNTER 2021-04-30 13:59 | Outpatient (CLI) | payer MEDICARE, OTHER, SELFPAY | END 2021-04-30 14:00 | disposition home or self-care (01) | PROVIDERS: PCP Internal Medicine; Visit Provider Internal Medicine Medical Oncology | DX: D61.818 Other pancytopenia (principal); D50.9 Iron deficiency anemia, unspecified; N40.0 Benign prostatic hyperplasia without lower urinary tract symptoms; R33.9 Retention of urine, unspecified; R31.9 Hematuria, unspecified | CPT/HCPCS: 82274 ==

== ENCOUNTER 2021-05-29 13:31 | Outpatient (CLI) | payer MEDICARE, OTHER, SELFPAY ==
[2021-05-29 14:56] LABS: Basophils % 0.8 %; Eosinophils % 0.4 %; Hematocrit 36.4 % (42.0-52.0); Hemoglobin 11.7 g/dL (11.7-16.6); Lymphocytes # 0.8 10^3/uL (0.8-4.8); Lymphocytes % 29.7 %; Mean Corpuscular HGB Conc 32.1 g/dL (30.0-36.0); Mean Corpuscular Volume 90.1 fl (80-94); Mean Platelet Volume 10.9 fL (7.4-10.4); Monocytes # 0.4 10^3/uL (0.2-0.9); Monocytes % 14.3 %; Neutrophils # 1.46 10^3/uL (1.8-7.7); Neutrophils % 54.8 %; Nucleated Red Blood Cells % 0 %; Platelet Count 126 10^3/cmm (130-400); Red Blood Count 4.04 10^6/uL (4.1-5.3); Red Cell Distribution Width 19.2 % (12.1-15.1); White Blood Count 2.7 10^3/uL (4.0-10.0)
[2021-05-29 15:24] LABS: Alanine Aminotransferase 12 U/L (0-41); Albumin Level 4.2 g/dL (3.5-5.2); Alkaline Phosphatase 82 IU/L (40-130); Anion Gap 17.2 (5-19); Aspartate Amino Transferase 20 U/L (0-40); Blood Urea Nitrogen 15 mg/dL (8-23); Calcium 8.7 mg/dL (8.5-10.5); Carbon Dioxide 21 mmol/L (22-29); Chloride 104 mmol/L (98-107); Ferritin 55 ng/mL (30-400); Globulin 3.2 g/dL (1.3-4.6); Glucose 99 mg/dL (65-115); Iron 286 ug/dL (59-158); Lactate Dehydrogenase 193 U/L (135-225); Osmolality Calculated 287 mOsm/kg (285-295); Percent Saturation 84.1 % (20-50); Potassium 4.2 mmol/L (3.5-5.1); Sodium 138 mmol/L (136-145); Total Bilirubin 1.2 mg/dL (0.15-1.2); Total Iron Binding Capacity 340 mcg/dl; Total Protein 7.4 g/dL (6.6-8.7); Unsaturated Iron Binding 54 ug/dL (112-347)
== END 2021-05-29 13:32 | disposition home or self-care (01) ==
LOC: ONCMED 13:36
PROVIDERS: PCP Internal Medicine; Visit Provider Internal Medicine Medical Oncology
DX: D61.818 Other pancytopenia (principal); D50.9 Iron deficiency anemia, unspecified; I95.1 Orthostatic hypotension
CPT/HCPCS: 36415; 80053; 82728; 83540; 83550; 83615; 85025

== ENCOUNTER 2021-05-31 06:25 | Outpatient (CLI) | payer MEDICARE, OTHER, SELFPAY ==
--- NOTE | 2021-05-31 17:43 | ONC FU_ITS ---
Dr. Moncada Patient Follow-Up Note Patient: Juany Aguayo Unit #: [id number]: 1935 Dicatated By: Aguila Moncada M.D.Date of Visit:May 31, 2021 Onc Med Follow-up/Prog Note Chief Complaint: Pancytopenia. History of Present Illness: This is an 85-year-old man with pancytopenia and predominant anemia. He has multiple medical illnesses. The most significant currently is that he has autonomic dysfunction with associated orthostatic hypotension. He has a history of valvular heart disease for which he underwent mitral valve repair in 2008. He has chronic atrial fibrillation. He also has benign prostatic hypertrophy with associated bladder outlet obstruction. He had been having hematuria, thought to be due to nephrolithiasis. He ended up developing urinary retention requiring indwelling catheter, and he ultimately then underwent cystoscopy with TUR/vaporization of bleeding median lobe of the prostate on 03/29/2021. Postoperatively he required transfusion of 2 units of packed red blood cells due to drop in hemoglobin to 7.9 g. During his follow-up with Dr. Goddard he had been noted to have pancytopenia. Her records include laboratory studies from 03/21/2021. His CBC at that time showed hemoglobin low at 9.7 g with hematocrit 30.3%. The red cell indices were in the low normal range. The white blood cell count was 3000 with the differential showing 69% segs, 17% lymphs, 12% monocytes, 1% eosinophils, and 1% basophils. The platelet count was borderline low at 139,000. Comprehensive metabolic profile showed borderline renal function with BUN 17 and creatinine 1.50 mg/dL. The bilirubin and liver enzymes were normal. Sed rate was normal at 20 mm/h. Serum protein electrophoresis showed no evidence of monoclonal protein. His B12 level was normal at 735 pg/mL and folate level was normal at 11.3 ng/mL. The serum iron studies showed low transferrin saturation at 9%, consistent with iron deficiency. His records in [facility] included a previous CBC from April 2020 which showed hemoglobin just mildly decreased at 11.8 g with red cell indices in the upper normal range. The white blood cell count was 3300 and the platelet count was 141,000. His CT of the abdomen/pelvis on 03/16/2021 showed normal liver and spleen. I had seen him initially on 04/20/2021. His CBC at that time showed hemoglobin 9.6 g with hematocrit 31.5%. Red cell indices were normal. The white blood cell count was 3200 and the platelet count was 170,000. His serum iron studies show low transferrin saturation at 5.9% and the ferritin was low at 12 ng/mL, consistent with iron deficiency. LDH was mildly elevated at 254/225 U/L. The total bilirubin was normal and the haptoglobin also was normal. With those findings, he began on oral iron supplementation with ferrous sulfate. His stool IFOB was negative. He is seen for a follow-up visit. He had cardiology follow-up with Dr. Richardson last month, and at that point he restarted rivaroxaban at 15 mg daily. His energy lately has been a little better, but he still has very limited activity. ECOG score is 2. Appetite has been okay. He has no fever or night sweats. He has not had sore mouth or throat. He does not complain of cough, and he has not been having shortness of breath or chest pain. He has no GI/ complaints other than mild constipation, adequately managed with a stool softener. He currently has no significant joint or bone pain. He does not complain of headache. He still sometimes has lightheadedness. He has no numbness/paresthesia or other focal neurologic symptoms. He has a little bruising, but not bad. Medications: Ascorbic Acid 500 mg (of 500 mg) Tablet, chewable Oral daily, Aspirin 81 mg (of 81 mg) Tablet, enteric coated Oral daily, B-12 1 Tablet (of 1000 mcg) Oral daily, Finasteride 5 mg (of 5 mg) Tablet Oral daily, Galantamine Hydrobromide 4 mg (of 4 mg) Tablet Oral ac (bid), Levothyroxine Sodium 25 mcg (of 25 mcg) Tablet Oral every am, Lovastatin 20 mg (of 20 mg) Tablet Oral daily, Melatonin 5 mg (of 5 mg) Tablet Oral at bedtime, Midodrine HCl 5 mg (of 5 mg) Tablet Oral ac (bid), Nitrofurantoin Macrocrystal 1 Capsule (of 100 mg) Oral b.i.d., Tamsulosin HCl 0.4 mg (of 0.4 mg) Capsule Oral daily, Triamcinolone Acetonide (0.1 %) Ointment Topical ac (bid), Vitamin D3 50 mcg (of 50 mcg ) Capsule Oral daily, Xarelto 20 mg (of 20 mg) Tablet Oral daily Allergies: Penicillins Vital Signs: Performed on May 31, 2021 09:29 Height - 72.00 in Weight - 185.2 lbs (HIGH) BSA - 2.06 sq.m BMI - 25.12 Temperature - 98.0 F (LOW) Pulse - 88 /min Respiration - 18 /min BP - 152/69 mm(hg) (HIGH) O2 Sat - 96 % Pain - 0 Fatigue - 2 Physical Examination: Constitutional - He appears somewhat weak generally, Eyes - Sclerae nonicteric. Conjunctivae clear, ENMT - No lesions noted in the oral cavity, Hematologic/Lymphatic - No cervical, clavicular, or axillary adenopathy, Respiratory - Lungs sound clear, Cardiovascular - Heart rhythm is irregular. There is no murmur, gallop, or rub noted, Abdomen - Soft and non-tender. Liver and spleen are not enlarged. There is no abdominal mass or ascites noted and there is no inguinal adenopathy, Extremities - Slight edema, Neurologic - No focal neurologic deficits noted. Lab/Imaging: CBC from 05/29/2021 showed increase in the hemoglobin to 11.7 g with hematocrit 36.4%. The white blood cell count was low at 2700 with the differential showing 54% neutrophils, 29% lymphocytes, and 14% monocytes. The platelet count was slightly low at 126,000. Comprehensive metabolic profile showed stable renal function with BUN 15 and creatinine 1.2 mg/dL. Total bilirubin was borderline high at 1.2 mg/dL. The liver enzymes were normal. LDH was normal at 193 U/L. The serum iron studies showed elevated transferrin saturation at 84% with ferritin still in the low normal range at 55 ng/mL. Problem List: 1. Pancytopenia. 2. He has orthostatic hypotension associated with autonomic dysfunction. 3. He underwent mitral valve repair in 2008. 4. Chronic atrial fibrillation. 5. Coronary artery disease, managed medically. 6. Hyperlipidemia. 7. Hypothyroidism. 8. Nephrolithiasis. 9. History of hypertension. 10. Degenerative arthritis. 11. He underwnt TUR/vaporization of the prostate for benign prostatic hypertrophy on 03/29/2021. Problems Addressed with this Encounter and Plan: Patient with pancytopenia and predominant anemia. A specific cause for the pancytopenia has not been determined. At least some component of the anemia did appear to be due to iron deficiency, and it has shown some improvement on oral iron supplementation. However, he continues to have mild pancytopenia. In the absence of any evidence of liver disease/hypersplenism, the most likely cause for this is myelodysplasia or other bone marrow pathology. The laboratory findings were reviewed with the patient and his . At this point he will continue his oral iron supplementation. He will be scheduled for a follow-up visit in 1 month. If the pancytopenia persists, he will be scheduled for bone marrow aspiration/biopsy. Signed By: Aguila Moncada M.D. <<Signature on File>>
== END 2021-05-31 06:26 | disposition home or self-care (01) ==
LOC: ONCMED 06:25
PROVIDERS: PCP Internal Medicine; Visit Provider Internal Medicine Medical Oncology
DX: D61.818 Other pancytopenia (principal); D50.9 Iron deficiency anemia, unspecified; I95.1 Orthostatic hypotension; I48.20 Chronic atrial fibrillation, unspecified; I25.10 Atherosclerotic heart disease of native coronary artery without angina pectoris; E78.5 Hyperlipidemia, unspecified; E03.9 Hypothyroidism, unspecified; N20.0 Calculus of kidney; I10 Essential (primary) hypertension; M19.90 Unspecified osteoarthritis, unspecified site; N40.0 Benign prostatic hyperplasia without lower urinary tract symptoms; Z79.899 Other long term (current) drug therapy
CPT/HCPCS: 99214

== ENCOUNTER 2021-06-29 08:24 | Outpatient (CLI) | payer MEDICARE, OTHER, SELFPAY ==
[2021-06-29 08:52] LABS: Basophils % 0.3 %; Hematocrit 40.9 % (42.0-52.0); Hemoglobin 13.3 g/dL (11.7-16.6); Lymphocytes % 34.8 %; Mean Corpuscular HGB Conc 32.5 g/dL (30.0-36.0); Mean Corpuscular Hemoglobin 30.7 pg (28.0-34.0); Mean Corpuscular Volume 94.5 fl (80-94); Mean Platelet Volume 10.5 fL (7.4-10.4); Monocytes # 0.4 10^3/uL (0.2-0.9); Monocytes % 13.6 %; Neutrophils # 1.44 10^3/uL (1.8-7.7); Neutrophils % 50.3 %; Nucleated Red Blood Cells % 0 %; Platelet Count 128 10^3/cmm (130-400); Red Blood Count 4.33 10^6/uL (4.1-5.3); Red Cell Distribution Width 17.4 % (12.1-15.1); White Blood Count 2.9 10^3/uL (4.0-10.0)
[2021-06-29 09:06] LABS: Alanine Aminotransferase 12 U/L (0-41); Albumin Level 4.3 g/dL (3.5-5.2); Alkaline Phosphatase 78 IU/L (40-130); Aspartate Amino Transferase 19 U/L (0-40); Blood Urea Nitrogen 12 mg/dL (8-23); Calcium 9.6 mg/dL (8.5-10.5); Carbon Dioxide 22 mmol/L (22-29); Chloride 106 mmol/L (98-107); Ferritin 68 ng/mL (30-400); Glucose 99 mg/dL (65-115); Iron 71 ug/dL (59-158); Lactate Dehydrogenase 190 U/L (135-225); Osmolality Calculated 290 mOsm/kg (285-295); Percent Saturation 19.6 % (20-50); Sodium 140 mmol/L (136-145); Total Bilirubin 1.2 mg/dL (0.15-1.2); Total Iron Binding Capacity 361 mcg/dl; Total Protein 7.3 g/dL (6.6-8.7); Unsaturated Iron Binding 290 ug/dL (112-347)
[2021-06-29 09:14] LABS: Erythrocyte Sedimentation Rate 21 mm/hr (0-10)
[2021-06-29 10:06] LABS: LAB Peripheral Smear Sent for Review
== END 2021-06-29 08:25 | disposition home or self-care (01) ==
LOC: ONCMED 08:28
PROVIDERS: PCP Internal Medicine; Visit Provider Internal Medicine Medical Oncology
DX: D61.818 Other pancytopenia (principal); D64.9 Anemia, unspecified
CPT/HCPCS: 36415; 80053; 82728; 83540; 83550; 83615; 85025; 85651

== ENCOUNTER 2021-07-03 06:29 | Outpatient (CLI) | payer MEDICARE, OTHER, SELFPAY ==
--- NOTE | 2021-07-03 19:29 | ONC FU_ITS ---
Dr. Moncada Patient Follow-Up Note Patient: Juany Aguayo Unit #: [id number]: 1935 Dicatated By: Aguila Moncada M.D.Date of Visit:Jul 03, 2021 Onc Med Follow-up/Prog Note Chief Complaint: Pancytopenia. History of Present Illness: This is an 86 year-old man with pancytopenia and predominant anemia. He has benign prostatic hypertrophy with associated bladder outlet obstruction. He had been having hematuria and he ended up developing urinary retention requiring indwelling catheter. He ultimately underwent cystoscopy with TUR/vaporization of bleeding median lobe of the prostate on 03/29/2021. Postoperatively he required transfusion of 2 units of packed red blood cells due to a drop in his hemoglobin to 7.9 g. In the meantime, during his follow-up with Dr. Goddard he had been noted to have pancytopenia. His CBC on 03/21/2021 showed hemoglobin low at 9.7 g with hematocrit 30.3%. The red cell indices were in the low normal range. The white blood cell count was 3000 with the differential showing 69% segs, 17% lymphs, 12% monocytes, 1% eosinophils, and 1% basophils. The platelet count was borderline low at 139,000. Comprehensive metabolic profile showed borderline renal function with BUN 17 and creatinine 1.50 mg/dL. The bilirubin and liver enzymes were normal. Sed rate was normal at 20 mm/h. Serum protein electrophoresis showed no evidence of monoclonal protein. His B12 level was normal at 735 pg/mL and folate level was normal at 11.3 ng/mL. The serum iron studies showed low transferrin saturation at 9%, consistent with iron deficiency. I had seen him initially on 04/20/2021. His CBC at that time showed hemoglobin 9.6 g with hematocrit 31.5%. Red cell indices were normal. The white blood cell count was 3200 and the platelet count was 170,000. His serum iron studies show low transferrin saturation at 5.9% and the ferritin was low at 12 ng/mL, consistent with iron deficiency. LDH was mildly elevated at 254/225 U/L. The total bilirubin was normal and the haptoglobin also was normal. With those findings, he began on oral iron supplementation with ferrous sulfate. His stool IFOB was negative. As of his follow-up visit on 05/31/2021 his hemoglobin had increased to 11.7 g. The white blood cell count remained low at 2700 and the platelet count was slightly low at 126,000. He continued on oral iron supplementation, as he did appear to be showing some response. His medical history is also significant for autonomic dysfunction with associated orthostatic hypotension and valvular heart disease for which he underwent mitral valve repair in 2008. He has chronic atrial fibrillation. His other medical illnesses include hyperlipidemia, hypothyroidism, nephrolithiasis, and degenerative arthritis. He has a history of hypertension. His other surgeries include left orchiectomy, bilateral inguinal and umbilical hernia repairs, and bilateral total knee arthroplasty. He is a non-smoker. He is seen now for a follow-up visit. He says he is feeling pretty good. He has limited activity, but he is able to do some light work. His ECOG score is 1. His appetite is pretty good. He has gained a little weight. He does not have fever or night sweats. He has not had sore mouth or throat. He does not complain of cough, and he has not been having shortness of breath or chest pain. He has no GI complaints other than constipation, which he manages adequately with a laxative. Bladder function has been pretty good on tamsulosin. He has had no recurrence of hematuria. He has not been having any significant joint or bone pain. He does not complain of headache. He still sometimes has lightheadedness. He has no numbness/paresthesia or other focal neurologic symptoms. Medications: Ascorbic Acid 500 mg (of 500 mg) Tablet, chewable Oral daily, Aspirin 81 mg (of 81 mg) Tablet, enteric coated Oral daily, B-12 1 Tablet (of 1000 mcg) Oral daily, Finasteride 5 mg (of 5 mg) Tablet Oral daily, Galantamine Hydrobromide 4 mg (of 4 mg) Tablet Oral ac (bid), Levothyroxine Sodium 25 mcg (of 25 mcg) Tablet Oral every am, Lovastatin 20 mg (of 20 mg) Tablet Oral daily, Melatonin 5 mg (of 5 mg) Tablet Oral at bedtime, Midodrine HCl 5 mg (of 5 mg) Tablet Oral ac (bid), Nitrofurantoin Macrocrystal 1 Capsule (of 100 mg) Oral b.i.d., Tamsulosin HCl 0.4 mg (of 0.4 mg) Capsule Oral daily, Triamcinolone Acetonide (0.1 %) Ointment Topical ac (bid), Vitamin D3 50 mcg (of 50 mcg ) Capsule Oral daily, Xarelto 20 mg (of 20 mg) Tablet Oral daily Allergies: Penicillins Vital Signs: Performed on Jul 03, 2021 08:40 Height - 72.00 in Weight - 186.4 lbs (HIGH) BSA - 2.07 sq.m BMI - 25.28 Temperature - 97.2 F (LOW) Pulse - 99 /min Respiration - 17 /min BP - 126/69 mm(hg) O2 Sat - 99 % Pain - 0 Fatigue - 0 Physical Examination: Constitutional - He appears somewhat weak generally, Eyes - Sclerae nonicteric. Conjunctivae clear, ENMT - No lesions noted in the oral cavity, Hematologic/Lymphatic - No cervical, clavicular, or axillary adenopathy, Respiratory - Lungs sound clear, Cardiovascular - Heart rhythm is irregular. There is no murmur, gallop, or rub noted, Abdomen - Soft. Liver and spleen are not enlarged. There is no abdominal mass or ascites noted and there is no inguinal adenopathy, Extremities - No edema, Neurologic - No focal neurologic deficits noted. Lab/Imaging: Test performed on Jun 29, 2021 08:35 Ferritin 68 ng/mL Iron 71 mcg/dL LDH (Total) 190 U/L Sodium 140 mmol/L Iron Binding Capacity (TIBC) 361 mcg/dl Potassium 4.0 mmol/L % Iron Saturation 19.6 % Chloride 106 mmol/L CO2 22 mmol/L UIBC 290 mcg/dL Anion Gap 16.0 BUN 12 mg/dL Creatinine 1.0 mg/dL Cr Clearance (Est) 65.3400 mL/min Glucose 99 mg/dL Osmolality - Calculated 290 mOsm/kg Calcium 9.6 mg/dL Protein, Total 7.3 g/dL Albumin 4.3 g/dL Globulin 3.0 g/dL Bilirubin, Total 1.2 mg/dL ALT (SGPT) 12 U/L AST (SGOT) 19 U/L Alkaline Phosphatase 78 IU/L ESR (Sed Rate) 21 mm/hr WBC 2.9 10 3/uL RBC 4.33 10 6/uL HGB 13.3 g/dL HCT 40.9 % MCV 94.5 fl MCH 30.7 pg MCHC 32.5 g/dL RDW 17.4 % Platelet Count 128 10 3/cmm MPV 10.5 fL Neutrophils 1.44 10 3/uL Lymphocytes 1.0 10 3/uL Monocytes 0.4 10 3/uL Eosinophils 0.0 10 3/uL Basophils 0.0 10 3/uL Neutrophil % 50.3 % Lymphocyte % 34.8 % Monocyte % 13.6 % Eosinophil % 1.0 % Basophils % 0.3 % NRBC % 0 % Problem List: 1. Pancytopenia. 2. He has orthostatic hypotension associated with autonomic dysfunction. 3. He underwent mitral valve repair in 2008. 4. Chronic atrial fibrillation. 5. Coronary artery disease, managed medically. 6. Hyperlipidemia. 7. Hypothyroidism. 8. Nephrolithiasis. 9. History of hypertension. 10. Degenerative arthritis. 11. He underwnt TUR/vaporization of the prostate for benign prostatic hypertrophy on 03/29/2021. Problems Addressed with this Encounter and Plan: Patient with pancytopenia with predominant anemia at initial presentation. Some component of the anemia was clearly due to iron deficiency, as it has shown significant improvement on oral iron supplementation. He continues, though, to have moderately severe neutropenia and mild thrombocytopenia. A specific cause for that has not been determined. In the absence of any evidence of liver disease/hypersplenism, the findings are suspicious for underlying myelodysplastic syndrome. However, as long as his blood counts remain adequate and he is not overtly symptomatic, I think it is acceptable to continue to manage this expectantly. I will see him again in 3 months. Signed By: Aguila Moncada M.D. <<Signature on File>>
== END 2021-07-03 06:30 | disposition home or self-care (01) ==
LOC: ONCMED 06:30
PROVIDERS: PCP Internal Medicine; Visit Provider Internal Medicine Medical Oncology
DX: D61.818 Other pancytopenia (principal); D64.89 Other specified anemias; I48.91 Unspecified atrial fibrillation; E78.5 Hyperlipidemia, unspecified; E03.9 Hypothyroidism, unspecified; I10 Essential (primary) hypertension; I25.10 Atherosclerotic heart disease of native coronary artery without angina pectoris; Z79.899 Other long term (current) drug therapy
CPT/HCPCS: 99214

== ENCOUNTER → 2021-07-19 11:28 | Outpatient (BNVA) | payer MEDICARE, OTHER, SELFPAY | PROVIDERS: PCP Internal Medicine; Visit Provider Urology | DX: N13.8 Other obstructive and reflux uropathy (principal); N40.1 Benign prostatic hyperplasia with lower urinary tract symptoms; R82.71 Bacteriuria; R33.8 Other retention of urine; N20.0 Calculus of kidney; Z79.01 Long term (current) use of anticoagulants; Z79.02 Long term (current) use of antithrombotics/antiplatelets | CPT/HCPCS: 81003; 87077; 87086; 87184 ==

== ENCOUNTER → 2021-07-31 11:14 | Outpatient (BNVA) | payer MEDICARE, OTHER, SELFPAY | PROVIDERS: PCP Internal Medicine; Referring Provider Internal Medicine; Visit Provider Specialist | DX: G30.9 Alzheimer's disease, unspecified (principal); F02.80 Dementia in other diseases classified elsewhere, unspecified severity, without behavioral disturbance, psychotic disturbance, mood disturbance, and anxiety; I25.10 Atherosclerotic heart disease of native coronary artery without angina pectoris; I48.91 Unspecified atrial fibrillation; Z95.2 Presence of prosthetic heart valve | CPT/HCPCS: 96116; 99204; 99205 ==

== ENCOUNTER 2021-09-26 10:21 | Outpatient (CLI) | payer MEDICARE, OTHER, SELFPAY ==
[2021-09-26 10:48] LABS: LAB Peripheral Smear Sent for Review
[2021-09-26 10:50] LABS: Basophils % 0.4 %; Eosinophils % 0.4 %; Hematocrit 43.3 % (42.0-52.0); Hemoglobin 14.9 g/dL (11.7-16.6); Lymphocytes # 0.8 10^3/uL (0.8-4.8); Mean Corpuscular HGB Conc 34.4 g/dL (30.0-36.0); Mean Corpuscular Hemoglobin 32.7 pg (28.0-34.0); Mean Platelet Volume 10.9 fL (7.4-10.4); Monocytes # 0.3 10^3/uL (0.2-0.9); Monocytes % 11.7 %; Neutrophils # 1.57 10^3/uL (1.8-7.7); Neutrophils % 57.5 %; Nucleated Red Blood Cells % 0 %; Platelet Count 99 10^3/cmm (130-400); Red Blood Count 4.56 10^6/uL (4.1-5.3); Red Cell Distribution Width 12.9 % (12.1-15.1); White Blood Count 2.7 10^3/uL (4.0-10.0)
[2021-09-26 11:11] LABS: Alanine Aminotransferase 13 U/L (0-41); Albumin Level 4.2 g/dL (3.5-5.2); Alkaline Phosphatase 71 IU/L (40-130); Aspartate Amino Transferase 19 U/L (0-40); Blood Urea Nitrogen 14 mg/dL (8-23); Calcium 9.6 mg/dL (8.5-10.5); Carbon Dioxide 26 mmol/L (22-29); Chloride 106 mmol/L (98-107); Globulin 3.6 g/dL (1.3-4.6); Glucose 83 mg/dL (65-115); Lactate Dehydrogenase 181 U/L (135-225); Osmolality Calculated 292 mOsm/kg (285-295); Sodium 141 mmol/L (136-145); Total Bilirubin 1.5 mg/dL (0.15-1.2); Total Protein 7.8 g/dL (6.6-8.7)
== END 2021-09-26 10:22 | disposition home or self-care (01) ==
PROVIDERS: PCP Internal Medicine; Visit Provider Internal Medicine Medical Oncology
DX: D61.818 Other pancytopenia (principal); D70.9 Neutropenia, unspecified; D69.6 Thrombocytopenia, unspecified; I48.91 Unspecified atrial fibrillation; I25.10 Atherosclerotic heart disease of native coronary artery without angina pectoris; E78.2 Mixed hyperlipidemia; E03.9 Hypothyroidism, unspecified; I10 Essential (primary) hypertension; Z79.899 Other long term (current) drug therapy
CPT/HCPCS: 36415; 80053; 83615; 85025

== ENCOUNTER 2021-10-01 11:22 | Outpatient (CLI) | payer MEDICARE, OTHER, SELFPAY ==
--- NOTE | 2021-10-01 17:54 | ONC FU_ITS ---
Dr. Moncada Patient Follow-Up Note Patient: Juany Aguayo Unit #: [id number]: 1935 Dicatated By: Aguila Moncada M.D.Date of Visit:Oct 01, 2021 Onc Med Follow-up/Prog Note Chief Complaint: Pancytopenia. History of Present Illness: This is an 86 year-old man with pancytopenia and predominant anemia. He has benign prostatic hypertrophy with associated bladder outlet obstruction. He had been having hematuria and he ended up developing urinary retention requiring indwelling catheter. He ultimately underwent cystoscopy with TUR/vaporization of bleeding median lobe of the prostate on 03/29/2021. Postoperatively he required transfusion of 2 units of packed red blood cells due to a drop in his hemoglobin to 7.9 g. In the meantime, during his follow-up with Dr. Goddard he had been noted to have pancytopenia. His CBC on 03/21/2021 showed hemoglobin low at 9.7 g with hematocrit 30.3%. The red cell indices were in the low normal range. The white blood cell count was 3000 with the differential showing 69% segs, 17% lymphs, 12% monocytes, 1% eosinophils, and 1% basophils. The platelet count was borderline low at 139,000. Comprehensive metabolic profile showed borderline renal function with BUN 17 and creatinine 1.50 mg/dL. The bilirubin and liver enzymes were normal. Sed rate was normal at 20 mm/h. Serum protein electrophoresis showed no evidence of monoclonal protein. His B12 level was normal at 735 pg/mL and folate level was normal at 11.3 ng/mL. The serum iron studies showed low transferrin saturation at 9%, consistent with iron deficiency. I had seen him initially on 04/20/2021. His CBC at that time showed hemoglobin 9.6 g with hematocrit 31.5%. Red cell indices were normal. The white blood cell count was 3200 and the platelet count was 170,000. His serum iron studies show low transferrin saturation at 5.9% and the ferritin was low at 12 ng/mL, consistent with iron deficiency. LDH was mildly elevated at 254/225 U/L. The total bilirubin was normal and the haptoglobin also was normal. With those findings, he began on oral iron supplementation with ferrous sulfate. His stool IFOB was negative. As of his follow-up visit on 05/31/2021 his hemoglobin had increased to 11.7 g. The white blood cell count remained low at 2700 and the platelet count was slightly low at 126,000. He continued on oral iron supplementation. As of 07/03/2021 there was further increase in the hemoglobin to 13.3 g. His white blood cell count, though, remain low at 2900 with absolute neutrophil count 1400, and his platelet count was mildly decreased at 128,000. His medical history is also significant for autonomic dysfunction with associated orthostatic hypotension and valvular heart disease for which he underwent mitral valve repair in 2008. He has chronic atrial fibrillation. His other medical illnesses include hyperlipidemia, hypothyroidism, nephrolithiasis, and degenerative arthritis. He has a history of hypertension. His other surgeries include left orchiectomy, bilateral inguinal and umbilical hernia repairs, and bilateral total knee arthroplasty. He is a non-smoker. He is seen now for a follow-up visit. He has been feeling pretty good generally. He has had gradual improvement in his energy/activity tolerance, though he says he is still not up to par . His ECOG score is 1. He has pretty good appetite. He has not had fever. He occasionally has a little bit of sweating at night. He does report having some chronic sinus congestion. He has not had sore mouth or throat. He does not complain of cough, and he has not been having shortness of breath or chest pain. He has no GI complaints other than constipation, which is chronic. He manages it with Metamucil and occasional MiraLAX. Bladder function has been okay. He currently is not having any significant joint or bone pain. He does not complain of headache. He has lightheadedness if he gets up too quick. He has no focal neurologic symptoms. Medications: Ascorbic Acid 500 mg (of 500 mg) Tablet, chewable Oral daily, B-12 1 Tablet (of 1000 mcg) Oral daily, Finasteride 5 mg (of 5 mg) Tablet Oral daily, Galantamine Hydrobromide 4 mg (of 4 mg) Tablet Oral ac (bid), Levothyroxine Sodium 25 mcg (of 25 mcg) Tablet Oral every am, Lovastatin 20 mg (of 20 mg) Tablet Oral daily, Melatonin 5 mg (of 5 mg) Tablet Oral at bedtime, Midodrine HCl 5 mg (of 5 mg) Tablet Oral ac (bid), Tamsulosin HCl 0.4 mg (of 0.4 mg) Capsule Oral daily, Triamcinolone Acetonide (0.1 %) Ointment Topical ac (bid), Vitamin D3 50 mcg (of 50 mcg ) Capsule Oral daily, Xarelto 20 mg (of 15 mg) Tablet Oral daily Allergies: Penicillins Vital Signs: Performed on Oct 01, 2021 11:31 Height - 72.00 in Weight - 181.2 lbs (LOW) BSA - 2.04 sq.m BMI - 24.58 Temperature - 97.9 F (LOW) Pulse - 90 /min Respiration - 16 /min BP - 129/66 mm(hg) O2 Sat - 99 % Pain - 0 Fatigue - 8 Physical Examination: Constitutional - He looks pretty good generally, Eyes - Sclerae nonicteric. Conjunctivae clear, ENMT - No lesions noted in the oral cavity, Hematologic/Lymphatic - No cervical, clavicular, or axillary adenopathy, Respiratory - Lungs sound clear, Cardiovascular - Heart rhythm is irregular. There is a II/ systolic murmur. There is no gallop or rub noted, Abdomen - Soft. Liver and spleen are not enlarged. There is no abdominal mass or ascites noted and there is no inguinal adenopathy, Extremities - No edema, Neurologic - No focal neurologic deficits noted. Lab/Imaging: CBC shows hemoglobin 14.9 g with hematocrit 43.3%. The red cell indices are in the upper normal range. The white blood cell count is 2700 with absolute neutrophil count 1500. The platelet count is mildly decreased at 99,000. Comprehensive metabolic profile shows stable renal function with BUN 14 and creatinine 1.0 mg/dL. Bilirubin is slightly elevated at 1.5 mg/dL. The liver enzymes are normal. LDH is normal at 181 U/L. Problem List: 1. Pancytopenia. 2. He has orthostatic hypotension associated with autonomic dysfunction. 3. He underwent mitral valve repair in 2008. 4. Chronic atrial fibrillation. 5. Coronary artery disease, managed medically. 6. Hyperlipidemia. 7. Hypothyroidism. 8. Nephrolithiasis. 9. History of hypertension. 10. Degenerative arthritis. 11. He underwnt TUR/vaporization of the prostate for benign prostatic hypertrophy on 03/29/2021. Problems Addressed with this Encounter and Plan: Patient with pancytopenia. He had predominant anemia at initial presentation in March 2021. At least some component of the anemia was clearly due to iron deficiency, as it had shown significant improvement on oral iron supplementation. He continued, though, to have moderately severe neutropenia and mild thrombocytopenia. During follow-up there has been continued improvement in the anemia, the point that he now has normal hemoglobin/hematocrit levels. He also has had significant improvement in his performance status. However, he continues to have moderately severe neutropenia and mild thrombocytopenia, and those findings are worrisome for underlying myelodysplastic syndrome. As long as his blood counts remain adequate and stable, I will continue to monitor him on expectant management. He has a follow-up visit scheduled with Dr. Goddard in the range of 2 to 3 months from now. I will tentatively plan a follow-up visit here in 6 months. Signed By: Aguila Moncada M.D. <<Signature on File>>
== END 2021-10-01 11:23 | disposition home or self-care (01) ==
PROVIDERS: PCP Internal Medicine; Visit Provider Internal Medicine Medical Oncology
DX: D61.818 Other pancytopenia (principal); D70.9 Neutropenia, unspecified; D69.6 Thrombocytopenia, unspecified; I48.91 Unspecified atrial fibrillation; I25.10 Atherosclerotic heart disease of native coronary artery without angina pectoris; E78.2 Mixed hyperlipidemia; E03.9 Hypothyroidism, unspecified; I10 Essential (primary) hypertension; Z79.899 Other long term (current) drug therapy
CPT/HCPCS: 99214

== ENCOUNTER → 2021-10-10 11:18 | Outpatient (BNVA) | payer MEDICARE, OTHER, SELFPAY | PROVIDERS: PCP Internal Medicine; Visit Provider Internal Medicine Cardiovascular Disease | DX: I48.91 Unspecified atrial fibrillation (principal); I25.10 Atherosclerotic heart disease of native coronary artery without angina pectoris; I95.1 Orthostatic hypotension; E78.5 Hyperlipidemia, unspecified; G30.9 Alzheimer's disease, unspecified; F02.80 Dementia in other diseases classified elsewhere, unspecified severity, without behavioral disturbance, psychotic disturbance, mood disturbance, and anxiety | CPT/HCPCS: 99214 ==

== ENCOUNTER → 2021-11-27 09:14 | Outpatient (BNVA) | payer MEDICARE, OTHER, SELFPAY | PROVIDERS: PCP Internal Medicine; Visit Provider Specialist | DX: G30.9 Alzheimer's disease, unspecified (principal); F02.80 Dementia in other diseases classified elsewhere, unspecified severity, without behavioral disturbance, psychotic disturbance, mood disturbance, and anxiety; I25.10 Atherosclerotic heart disease of native coronary artery without angina pectoris; Z79.01 Long term (current) use of anticoagulants | CPT/HCPCS: 99213; 99214 ==

== ENCOUNTER → 2022-02-27 08:03 | Outpatient (BNVA) | payer MEDICARE, OTHER, SELFPAY | PROVIDERS: PCP Internal Medicine; Visit Provider Specialist | DX: G30.9 Alzheimer's disease, unspecified (principal); F02.80 Dementia in other diseases classified elsewhere, unspecified severity, without behavioral disturbance, psychotic disturbance, mood disturbance, and anxiety; I95.1 Orthostatic hypotension | CPT/HCPCS: 99213; 99214 ==

== ENCOUNTER → 2022-04-17 10:32 | Outpatient (BNVA) | payer MEDICARE, OTHER, SELFPAY | PROVIDERS: PCP Internal Medicine; Visit Provider Internal Medicine Cardiovascular Disease | DX: I25.10 Atherosclerotic heart disease of native coronary artery without angina pectoris (principal); I48.91 Unspecified atrial fibrillation; I95.1 Orthostatic hypotension; G30.9 Alzheimer's disease, unspecified; F02.80 Dementia in other diseases classified elsewhere, unspecified severity, without behavioral disturbance, psychotic disturbance, mood disturbance, and anxiety; Z79.01 Long term (current) use of anticoagulants | CPT/HCPCS: 99214 ==

== ENCOUNTER 2022-07-16 13:59 | Oncology outpatient (recurring) (ONCR) | payer MEDICARE, OTHER, SELFPAY | END 2022-07-23 23:59 | disposition home or self-care (01) | PROVIDERS: PCP Internal Medicine; Visit Provider Internal Medicine Medical Oncology | DX: D61.818 Other pancytopenia (principal); D64.9 Anemia, unspecified; D70.9 Neutropenia, unspecified; D69.6 Thrombocytopenia, unspecified; Z79.899 Other long term (current) drug therapy | CPT/HCPCS: 99213 ==

== ENCOUNTER 2022-08-15 15:23 | Outpatient (CLI) | payer MEDICARE, OTHER, SELFPAY ==
--- NOTE | 2022-08-15 16:00 | XR_ITS ---
WS: [id number] Exam: XR KUB [id number] Date/Time of Exam: 08/15/2022 4:00 PM Reason For Exam: Renal Stone Comparison 11/28/2020. No bowel obstruction or free air. A 1.4 cm calcification superimposes the lower pole the left kidney apparently represents a known renal stone. No sign of organ enlargement. Aortoiliac atherosclerosis. Degenerative changes of lumbar spine and levoscoliosis. XR/XR KUB [id number] IMPRESSION: 1. No acute process identified. 2. 1.4 cm calcified density superimposes the left kidney and apparently represe nts a known renal stone.
== END 2022-08-15 15:24 | disposition home or self-care (01) ==
LOC: RAD 15:29
PROVIDERS: PCP Internal Medicine; Visit Provider Urology
DX: N20.0 Calculus of kidney (principal); R33.8 Other retention of urine; Z79.02 Long term (current) use of antithrombotics/antiplatelets
CPT/HCPCS: 51741; 51798; 74018; 81003; 99213

== ENCOUNTER → 2022-08-27 08:25 | Outpatient (BNVA) | payer MEDICARE, OTHER, SELFPAY | PROVIDERS: PCP Internal Medicine; Visit Provider Specialist | DX: G30.9 Alzheimer's disease, unspecified (principal); F02.80 Dementia in other diseases classified elsewhere, unspecified severity, without behavioral disturbance, psychotic disturbance, mood disturbance, and anxiety; I95.1 Orthostatic hypotension | CPT/HCPCS: 96116; 99213 ==

== ENCOUNTER 2022-10-02 13:03 | Oncology outpatient (recurring) (ONCR) | payer MEDICARE, OTHER, SELFPAY ==
[2022-10-02 13:39] LABS: Basophils % 0.4 %; Eosinophils % 0.4 %; Hematocrit 40.7 % (42.0-52.0); Lymphocytes # 0.8 10^3/uL (0.8-4.8); Lymphocytes % 32.3 %; Mean Corpuscular HGB Conc 34.4 g/dL (30.0-36.0); Mean Platelet Volume 11.8 fL (7.4-10.4); Monocytes # 0.4 10^3/uL (0.2-0.9); Monocytes % 14.2 %; Neutrophils # 1.33 10^3/uL (1.8-7.7); Neutrophils % 52.3 %; Nucleated Red Blood Cells % 0 %; Platelet Count 87 10^3/cmm (130-400); Red Blood Count 4.24 10^6/uL (4.1-5.3); Red Cell Distribution Width 12.8 % (12.1-15.1); White Blood Count 2.5 10^3/uL (4.0-10.0)
[2022-10-02 13:48] LABS: Erythrocyte Sedimentation Rate 7 mm/hr (0-10)
[2022-10-02 13:55] LABS: Alanine Aminotransferase 16 U/L (0-41); Albumin Level 3.9 g/dL (3.5-5.2); Alkaline Phosphatase 67 U/L (40-130); Aspartate Amino Transferase 19 U/L (0-40); Blood Urea Nitrogen 13 mg/dL (8-23); Calcium 8.7 mg/dL (8.5-10.5); Carbon Dioxide 23 mmol/L (22-29); Chloride 107 mmol/L (98-107); Globulin 3.3 g/dL (1.3-4.6); Glucose 98 mg/dL (65-115); Lactate Dehydrogenase 190 U/L (135-225); Osmolality Calculated 290 mOsm/kg (285-295); Sodium 140 mmol/L (136-145); Total Bilirubin 1.7 mg/dL (0.15-1.2); Total Protein 7.2 g/dL (6.6-8.7)
[2022-10-02 15:48] LABS: LAB Peripheral Smear Sent for Review
== END 2022-10-20 23:59 | disposition home or self-care (01) ==
PROVIDERS: PCP Internal Medicine; Visit Provider Internal Medicine Medical Oncology
DX: D61.818 Other pancytopenia (principal)
CPT/HCPCS: 36415; 80053; 83615; 85025; 85651; 99213

== ENCOUNTER 2022-12-23 17:04 | Emergency (ER) | payer MEDICARE, OTHER, SELFPAY ==
[2022-12-23 17:13] VITALS: BP 101/61; PULSE 89; RESP 16; TEMP 36.4; O2SAT 97; BMI 23.7
[2022-12-23 17:49] VITALS: BP 128/65; PULSE 73; RESP 16; O2SAT 97
--- NOTE | 2022-12-23 18:01 | ED_ITS ---
HPI - GI Bleed General: Chief complaint: GI Bleed Stated complaint: Bleeding from rectum Time Seen by Provider: 12/23/22 17:34 Source: patient Mode of arrival: ambulatory Limitations: no limitations History of Present Illness: 87-year-old male states he has been having blood in his stool since yesterday states it is worsened today states been passing a lot of dark maroon blood he is been having some weakness no history of GI bleeds he denies any vomiting or diarrhea he denies any worsening improving factors. Associated symptoms: Denies abdominal pain, chills, fever(s), headache(s), nausea, rash or vomiting Review of Systems Const: Reports: fatigue; Denies: fever(s) or chills Eyes: Denies: eye discomfort ENMT: Denies: throat pain or dental pain Card: Denies: chest pain Resp: Denies: dyspnea GI: Reports: hematochezia; Denies: abdominal pain, nausea or vomiting Musc: Denies: neck pain or back pain Skin/Breast: Denies: rash Neuro: Denies: headache(s) PFSH ED PFSH: Medical History Alzheimer's dementia without behavioral disturbance Anemia Anticoagulation adequate Xarelto ASHD (arteriosclerotic heart disease) Atrial fibrillation Autonomic dysfunction BPH w urinary obs/LUTS Dizziness Dyslipidemia History of mitral valve insufficiency Hypertension Hypothyroidism Left renal stone Surgical History S/P hernia surgery Bilateral inguinal and umbilical hernia repairs S/P knee surgery Right total knee arthroplasty S/P mitral valve repair S/P orchiectomy left S/P transurethral resection of prostate Cystoscopy with TUR/vaporization Family History Mother , 73 CAD (coronary artery disease) Diabetes Father , 85 Cancer Hypertension Social History Smoking and tobacco status: never smoked Alcohol intake: never Substance/Drug Use: never Adopted: No Caregiver/support person: No Lives independently: No Household members: spouse Marital status: Current occupational status: retired Physical Exam Const: COMMON NORMALS: patient oriented x3 HENMT: COMMON NORMALS: normocephalic and atraumatic HEAD & SCALP: normocephalic and atraumatic Eye: COMMON NORMALS: conjunctivae normal CONJUNCTIVA: Yes conjunctivae normal Neck/C-Spine: COMMON NORMALS: supple Chest: COMMONS NORMALS: normal inspection of the chest Resp: COMMON NORMALS: normal respiratory effort Cardio: COMMON NORMALS: regular rate, regular rhythm and No murmurs present (Cardio) RATE: regular rate RHYTHM: regular rhythm GI: COMMON NORMALS: Normal to inspection, nondistended, normoactive bowel sounds present and Soft to palpation INSPECTION: Yes normal to inspection PALPATION: Yes Soft to palpation OTHER: Rectal exam shows dark maroon blood Hemoccult positive Extremity: COMMON NORMALS: normal to inspection and full ROM Neuro: COMMON NORMALS: patient oriented x3, moves all extremities and no focal motor deficits Psych: COMMON NORMALS: mental status grossly normal, Normal thought process present and cooperative THOUGHT PROCESS: Normal thought process present Skin: COMMON NORMALS: no rashes or lesions noted and no wounds GENERAL SKIN EXAM: no rashes or lesions noted Course Vital Signs: Vital signs: Vital Signs Temperature 97.5 F L 12/23/22 17:13 Pulse Rate 73 12/23/22 20:17 Respiratory Rate 16 12/23/22 17:49 Blood Pressure 128/65 12/23/22 20:17 Pulse Oximetry 97 12/23/22 20:17 Oxygen Delivery Me thod Room Air 12/23/22 17:49 MDM - GI Bleed Medical Decision Making Patient presents here with lower GI bleed I spoke to surgeon on-call here 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 I did talk to patient recommended transfer to facility he states that he has to many things to do at home and he cannot leave the town and he refused he signed out AGAINST MEDICAL ADVICE. He has decision-making capacity is and understands the risks he is return if worsening. Medical Records I reviewed the patient's medical records. Lab Data I reviewed the patient's lab results. 12/23/22 17:43 12/23/22 17:43 Laboratory Results WBC 2.5 10^3/uL (4.0-10.0) L 12/23/22 17:43 RBC 3.76 10^6/uL (4.1-5.3) L 12/23/22 17:43 Hgb 12.5 g/dL (11.7-16.6) 12/23/22 17:43 Hct 37.1 % (42.0-52.0) L 12/23/22 17:43 MCV 98.7 fl (80-94) H 12/23/22 17:43 MCH 33.2 pg (28.0-34.0) 12/23/22 17:43 MCHC 33.7 g/dL (30.0-36.0) 12/23/22 17:43 RDW 12.8 % (12.1-15.1) 12/23/22 17:43 Plt Count 97 10^3/cmm (130-400) L 12/23/22 17:43 MPV 11.4 fL (7.4-10.4) H 12/23/22 17:43 Neut % (Auto) 49.8 % 12/23/22 17:43 Lymph % (Auto) 33.6 % 12/23/22 17:43 [place] % (Auto) 15.4 % 12/23/22 17:43 Eos % (Auto) 0.4 % 12/23/22 17:43 Baso % (Auto) 0.4 % 12/23/22 17:43 Neut # (Auto) 1.26 10^3/uL (1.8-7.7) L 12/23/22 17:43 Lymph # (Auto) 0.9 10^3/uL (0.8-4.8) 12/23/22 17:43 [place] # (Auto) 0.4 10^3/uL (0.2-0.9) 12/23/22 17:43 Eos # (Auto) 0.0 10^3/uL (0.0-0.8) 12/23/22 17:43 Baso # (Auto) 0.0 10^3/uL (0.0-0.1) 12/23/22 17:43 Nucleated RBC % (auto) 0 % 12/23/22 17:43 Nucleated RBCs # 0.0 /100WBC 12/23/22 17:43 PT 16.80 SECONDS (12.1-14.9) H 12/23/22 17:43 INR 1.32 (0.8-1.2) H 12/23/22 17:43 Sodium 135 mmol/L (136-145) L 12/23/22 17:43 Potassium 3.5 mmol/L (3.5-5.1) 12/23/22 17:43 Chloride 104 mmol/L (98-107) 12/23/22 17:43 Carbon Dioxide 23 mmol/L (22-29) 12/23/22 17:43 Anion Gap 11.5 (5-19) 12/23/22 17:43 BUN 19 mg/dL (8-23) 12/23/22 17:43 Creatinine 1.3 mg/dL (0.7-1.2) H 12/23/22 17:43 GFR Calculation Not Reportable 12/23/22 17:43 Glucose 112 mg/dL (65-115) 12/23/22 17:43 Calculated Osmolality 283 mOsm/kg (285-295) L 12/23/22 17:43 Calcium 8.7 mg/dL (8.5-10.5) 12/23/22 17:43 Total Bilirubin 1.5 mg/dL (0.15-1.2) H 12/23/22 17:43 AST 13 U/L (0-40) 12/23/22 17:43 ALT 8 U/L (0-41) 12/23/22 17:43 Alkaline Phosphatase 63 U/L (40-130) 12/23/22 17:43 Total Protein 6.5 g/dL (6.6-8.7) L 12/23/22 17:43 Albumin 3.7 g/dL (3.5-5.2) 12/23/22 17:43 Globulin 2.8 g/dL (1.3-4.6) 12/23/22 17:43 Blood Type A Positive 12/23/22 18:00 Rho(D) Type Positive 12/23/22 18:00 Antibody Screen Negative 12/23/22 18:00 Discharge Plan Discharge Patient Disposition: Left Against Medical Advice Clinical Impression: Lower gastrointestinal hemorrhage Condition: Stable Prescriptions: No Action docusate sodium [Stool Softener] 100 mg capsule 100 mg PO DAILY PRN (Reason: Constipation) cholecalciferol (vitamin D3) [Vitamin D3] 25 mcg (1,000 unit) capsule 2,000 unit PO BEDTIME lovastatin 20 mg tablet 20 mg PO BEDTIME doxycycline hyclate 100 mg tablet 200 mg PO ONCE Qty: 2 0RF galantamine 24 mg capsule,ext rel. pellets 24 hr 24 mg PO DAILY Rx Instructions: administer with breakfast midodrine 10 mg tablet 10 mg PO TID Qty: 270 3RF Rx Instructions: 1 tablet in AM, 1 tablet at 12PM, 1 tablet at 4PM. Don't give last dose after 6PM/within 4 hrs of bedtime finasteride 5 mg tablet See Rx Instructions .ROUTE .COMPLEX Qty: 90 3RF Dose Instruction: TAKE 1 TABLET BY MOUTH EVERYDAY AT BEDTIME Rx Instructions: TAKE 1 TABLET BY MOUTH EVERYDAY AT BEDTIME tamsulosin 0.4 mg capsule See Rx Instructions .ROUTE .COMPLEX Qty: 90 3RF Dose Instruction: TAKE 1 CAPSULE BY MOUTH EVERYDAY AT BEDTIME Rx Instructions: TAKE 1 CAPSULE BY MOUTH EVERYDAY AT BEDTIME Xarelto 15 mg tablet 15 mg PO DAILY Qty: 90 3RF Rx Instructions: must administer with evening meal Vitamin B-12 1,000 mcg Tablet 1,000 mcg PO BEDTIME levothyroxine 25 mcg tablet 25 mcg PO QAM Vitamin C 500 mg Tablet 500 mg PO DAILY Miralax 17 gram/dose Powder 17 g PO DAILY PRN (Reason: Constipation) melatonin 5 mg tablet 5 mg PO BEDTIME triamcinolone acetonide 0.1 % ointment 1 applic TOPICAL BID PRN Rx Instructions: ON ANKLES Referrals: Olga Goddard MD [Primary Care Provider] - Coding Level of Care Code ED Plate Grainer for Chg Clay
[2022-12-23 18:10] LABS: Basophils % 0.4 %; Eosinophils % 0.4 %; Hematocrit 37.1 % (42.0-52.0); Hemoglobin 12.5 g/dL (11.7-16.6); Lymphocytes # 0.9 10^3/uL (0.8-4.8); Lymphocytes % 33.6 %; Mean Corpuscular HGB Conc 33.7 g/dL (30.0-36.0); Mean Corpuscular Hemoglobin 33.2 pg (28.0-34.0); Mean Corpuscular Volume 98.7 fl (80-94); Mean Platelet Volume 11.4 fL (7.4-10.4); Monocytes # 0.4 10^3/uL (0.2-0.9); Monocytes % 15.4 %; Neutrophils # 1.26 10^3/uL (1.8-7.7); Neutrophils % 49.8 %; Nucleated Red Blood Cells % 0 %; Platelet Count 97 10^3/cmm (130-400); Red Blood Count 3.76 10^6/uL (4.1-5.3); Red Cell Distribution Width 12.8 % (12.1-15.1); White Blood Count 2.5 10^3/uL (4.0-10.0)
[2022-12-23 18:20] LABS: INR 1.32 (0.8-1.2)
[2022-12-23] MEDS: pantoprazole 40 mg SDV 80 MG IVP (18:25)
[2022-12-23 18:28] LABS: Alanine Aminotransferase 8 U/L (0-41); Albumin Level 3.7 g/dL (3.5-5.2); Alkaline Phosphatase 63 U/L (40-130); Anion Gap 11.5 (5-19); Aspartate Amino Transferase 13 U/L (0-40); Blood Urea Nitrogen 19 mg/dL (8-23); Calcium 8.7 mg/dL (8.5-10.5); Carbon Dioxide 23 mmol/L (22-29); Chloride 104 mmol/L (98-107); Globulin 2.8 g/dL (1.3-4.6); Glucose 112 mg/dL (65-115); Osmolality Calculated 283 mOsm/kg (285-295); Potassium 3.5 mmol/L (3.5-5.1); Sodium 135 mmol/L (136-145); Total Bilirubin 1.5 mg/dL (0.15-1.2); Total Protein 6.5 g/dL (6.6-8.7)
[2022-12-23 20:17] VITALS: BP 128/65; PULSE 73; O2SAT 97
--- NOTE | 2022-12-24 09:18 | DCPLANNER ---
Addendum entered by Vania Monteiro 01/16/23 10:04: Patient had a follow up appointment scheduled with general surgery - patient did attend appointment. Addendum entered by Vania Monteiro 12/27/22 09:33: Patient has a follow up appointment scheduled for Friday, January 08, 2023 at 2:[address] Quiñones at general surgery. Original Note: wealth management manager had message to schedule a follow up appointment for patient with general surgery. wealth management manager sent patients information to the front office staff at general surgery. Patients information will be printed and reviewed. Clinic will call patient with appointment information.
== END 2022-12-23 20:18 | disposition left against medical advice (07) ==
PROVIDERS: Emergency Provider Emergency Medicine; PCP Internal Medicine
DX: K92.2 Gastrointestinal hemorrhage, unspecified (principal); Z53.29 Procedure and treatment not carried out because of patient's decision for other reasons; Z79.899 Other long term (current) drug therapy
CPT/HCPCS: 36415; 80053; 85025; 85610; 86850; 86900; 96374; 99284; C9113

== ENCOUNTER 2022-12-31 13:00 | Oncology outpatient (recurring) (ONCR) | payer MEDICARE, OTHER, SELFPAY ==
[2022-12-31 13:10] VITALS: BP 100/64; PULSE 87; RESP 16; TEMP 36.9; O2SAT 98
[2022-12-31 13:20] LABS: Basophils % 0.4 %; Eosinophils % 0.4 %; Hematocrit 37.2 % (42.0-52.0); Hemoglobin 12.4 g/dL (11.7-16.6); Lymphocytes % 36.5 %; Mean Corpuscular HGB Conc 33.3 g/dL (30.0-36.0); Mean Corpuscular Hemoglobin 33.1 pg (28.0-34.0); Mean Corpuscular Volume 99.2 fl (80-94); Mean Platelet Volume 10.5 fL (7.4-10.4); Monocytes # 0.3 10^3/uL (0.2-0.9); Monocytes % 10.9 %; Neutrophils % 51.1 %; Nucleated Red Blood Cells % 0 %; Platelet Count 123 10^3/cmm (130-400); Red Blood Count 3.75 10^6/uL (4.1-5.3); Red Cell Distribution Width 13.2 % (12.1-15.1); White Blood Count 2.7 10^3/uL (4.0-10.0)
[2022-12-31 13:37] LABS: Alanine Aminotransferase 9 U/L (0-41); Alkaline Phosphatase 69 U/L (40-130); Anion Gap 10.3 (5-19); Aspartate Amino Transferase 15 U/L (0-40); Blood Urea Nitrogen 13 mg/dL (8-23); Carbon Dioxide 26 mmol/L (22-29); Chloride 104 mmol/L (98-107); Globulin 2.8 g/dL (1.3-4.6); Glucose 84 mg/dL (65-115); Osmolality Calculated 281 mOsm/kg (285-295); Potassium 4.3 mmol/L (3.5-5.1); Sodium 136 mmol/L (136-145); Total Protein 6.8 g/dL (6.6-8.7)
== END 2023-01-20 23:59 | disposition home or self-care (01) ==
PROVIDERS: PCP Internal Medicine; Visit Provider Internal Medicine Medical Oncology
DX: D61.818 Other pancytopenia (principal)
CPT/HCPCS: 36415; 80053; 85025; 99213; 99214

== ENCOUNTER → 2023-01-08 14:05 | Outpatient (BNVA) | payer MEDICARE, OTHER, SELFPAY | PROVIDERS: PCP Internal Medicine; Visit Provider Surgery | DX: D61.818 Other pancytopenia (principal); K92.2 Gastrointestinal hemorrhage, unspecified; D50.9 Iron deficiency anemia, unspecified | CPT/HCPCS: 99203 ==

== ENCOUNTER 2023-01-31 09:20 | Day surgery (SDC) | payer MEDICARE, OTHER, SELFPAY ==
[2023-01-29 11:55] VITALS: BMI 24.0
[2023-01-31 09:50] VITALS: BP 136/88; PULSE 86; RESP 18; TEMP 36.9; O2SAT 97
[2023-01-31] MEDS: sodium chloride 0.9% 1,000 ML 30 ML IV (10:02)
--- NOTE | 2023-01-31 10:27 | W.PM.OPSUD ---
Surgery/Procedure H&P Update DATE OF PROCEDURE: January 31, 2023 DATE H&P PERFORMED: 01/08/23 H&P UPDATE INFORMATION: I have reviewed H&P completed within last 30 days, I have examined patient prior to procedure and No changes to prior documentation PLANNED PROCEDURE: Operation Date: 01/31/23 10:30 Proposed Procedures p [id number] EGD [id number] Colonoscopy D61.818,K92.2, D50.9(Not Applicable) - DO skip Saeed Colonoscopy(Not Applicable) - Aden Quiñones DO
--- NOTE | 2023-01-31 10:39 | ANES.PREANE2 ---
Pre-Anesthetic Assessment Height/Weight: Height 1.83 m Weight 80.286 kg Temp Pulse Resp BP Pulse Ox O2 Del Method 98.5 F 86 18 136/88 97 Room Air 01/31/23 09:50 01/31/23 09:50 01/31/23 09:50 01/31/23 09:50 01/31/23 09:50 01/31/23 09:50 Operation Date: 01/31/23 10:30 Proposed Procedures p 59953 EGD 78077 Colonoscopy D61.818,K92.2, D50.9(Not Applicable) - Aden Quiñones DO s Colonoscopy(Not Applicable) - Aden Quiñones DO Familial anesthetic complications: None Was Beta Carlos taken within 24 hours: N/A Was Clonidine taken within 24 hours: N/A Social No alcohol and No tobacco Exam alert, oriented x 3 and clear to auscultation bilaterally Airway Submandibular: within normal limits Cervical ROM: within normal limits Mallampati: Class II Dentition: false (upper) and partials (lower) History/ROS No significant history except as noted Pulmonary None reported CV/HEM Atrial Fibrillation valve replacement 1998 None reported Hepatic None reported GI Gastroesophageal Reflux Disease Metabolic None reported Musc/skel None reported Neuropsych Dementia Anesthetic Plan ASA status: 3 Anesthesia: Anesthesia Evaluation and MAC Risk of > 500 ml blood loss (7ml/kg in children): No Medications/Allergies Home Medications Medication Instructions Recorded Confirmed Last Taken Type cholecalciferol (vitamin D3) 25 2,000 unit PO BEDTIME 07/22/19 01/31/23 01/29/23 History mcg (1,000 unit) capsule (Vitamin D3) lovastatin 20 mg tablet 20 mg PO BEDTIME 07/22/19 01/31/23 01/30/23 History ascorbic acid (vitamin C) 500 mg 500 mg PO DAILY 03/30/21 01/31/23 01/29/23 History tablet (Vitamin C) cyanocobalamin (vitamin B-12) 1,000 mcg PO BEDTIME 03/30/21 01/31/23 01/29/23 History 1,000 mcg tablet (Vitamin B-12) levothyroxine 25 mcg tablet 25 mcg PO QAM 03/30/21 01/31/23 01/30/23 History melatonin 5 mg tablet 5 mg PO BEDTIME 03/30/21 01/31/23 01/30/23 History polyethylene glycol 3350 17 17 g PO DAILY PRN Constipation 03/30/21 01/29/23 Unknown History gram/dose oral powder (Miralax) triamcinolone acetonide 0.1 % 1 applic topical BID PRN Rash 10/10/21 01/29/23 Unknown History topical ointment midodrine 10 mg tablet 10 mg PO TID #270 tabs 03/12/22 01/31/23 01/30/23 Rx galantamine 24 mg 24 hr 24 mg PO DAILY 04/17/22 01/31/23 01/29/23 History capsule,extended release apixaban 5 mg tablet (Eliquis) 5 mg PO BID #180 tabs 12/31/22 01/29/23 01/27/23 Rx finasteride 5 mg tablet 5 mg PO DAILY 12/31/22 01/31/23 01/30/23 History tamsulosin 0.4 mg capsule 0.4 mg PO .HS 12/31/22 01/31/23 01/30/23 History Allergies Allergy/AdvReac Type Severity Reaction Status Date / Time Penicillins Allergy Rash Verified 01/29/23 11:51 Current Medications Generic Name Dose Route Start Last Admin Trade Name Freq PRN Reason Stop Dose Admin Sodium Chloride 1,000 mls @ 30 mls/hr 01/31/23 09:30 01/31/23 10:02 Sodium Chloride 0.9% IV 02/01/23 09:29 30 mls/hr .Q24H JOSE LUIS Administration PFSH Anesthesia Medical History (Updated 01/08/23 @ 15:28 by Aden Quiñones DO) Alzheimer's dementia without behavioral disturbance Anemia Anticoagulation adequate Xarelto ASHD (arteriosclerotic heart disease) Atrial fibrillation Autonomic dysfunction BPH w urinary obs/LUTS Dizziness Dyslipidemia History of mitral valve insufficiency Hypertension Hypothyroidism Left renal stone Surgical History (Updated 01/08/23 @ 15:28 by Aden Quiñones DO) History of esophagogastroduodenoscopy (EGD) 5 + years ago Hx of colonoscopy S/P hernia surgery Bilateral inguinal and umbilical hernia repairs S/P knee surgery Right total knee arthroplasty S/P mitral valve repair S/P orchiectomy left S/P transurethral resection of prostate Cystoscopy with TUR/vaporization Family History Mother , 73 CAD (coronary artery disease) Diabetes Father , 85 Cancer Hypertension Social History Smoking and tobacco status: never smoked Alcohol intake: never Substance/Drug Use: never Adopted: No Caregiver/support person: No Lives independently: No Household members: spouse Marital status: Current occupational status: retired Data Anesthesia Cardiac Studies: Echocardiogram Ultrasound 02/15/20
[2023-01-31 12:06] VITALS: BP 118/77; PULSE 84; RESP 16; TEMP 36.2; O2SAT 95
[2023-01-31 12:16] VITALS: BP 117/72; PULSE 79; RESP 16; O2SAT 94
--- NOTE | 2023-01-31 12:25 | ANE.PACU2 ---
Inpatient post-anesthesia follow up: Airway intact: Yes Vital signs: Temperature 97.2 F Pulse Rate 79 Respiratory Rate 16 Blood Pressure 117/72 Pulse Oximetry 94 Oxygen Delivery Me thod Room Air Oxygen Flow Rate Fraction of Inspir ed Oxygen Hydration adequate: Yes Nausea and vomiting: No Pain level: 1 Mental status: Baseline
== END 2023-01-31 12:55 | disposition home or self-care (01) ==
PROVIDERS: PCP Internal Medicine; Visit Provider Surgery
PROC: 0DJ08ZZ Inspection of Upper Intestinal Tract, Via Natural or Artificial Opening Endoscopic (ICD-10-PCS; CPT 43235; principal; 2023-01-31 10:30)
PROC: 0DJD8ZZ Inspection of Lower Intestinal Tract, Via Natural or Artificial Opening Endoscopic (ICD-10-PCS; CPT 45378; 2023-01-31 10:30)
DX: K92.2 Gastrointestinal hemorrhage, unspecified (principal); D50.9 Iron deficiency anemia, unspecified; D12.2 Benign neoplasm of ascending colon; D12.3 Benign neoplasm of transverse colon; K57.30 Diverticulosis of large intestine without perforation or abscess without bleeding; K64.8 Other hemorrhoids
CPT/HCPCS: 43235; 45385; 88305; J2704; J7030

== ENCOUNTER 2023-02-20 06:15 | Outpatient (CLI) | payer MEDICARE, OTHER, SELFPAY ==
--- NOTE | 2023-02-20 06:32 | CT_ITS ---
WS: [id number] CT ANGIOGRAPHY OF THE ABDOMINAL AORTA WITH RUNOFF TO THE ANKLES HISTORY: ABDOMINAL AORTIC ANEURSYM, WITHOUT RUPTURE TECHNIQUE: Arterial injection is performed during imaging to evaluate the aorta and runoff vessels to the ankles. MIP and volume rendering imaging has also been performed. All images are reviewed. All C T scans at [facility] use at least one of these dose optimization techniques: automated exposu re control; mA and/or kV adjustment per patient size (includes targeted exams where dose is matched t o clinical indication); or iterative reconstruction. Contrast: Omnipaque 350; 100 mL IV. DLP: 1652.18 mGy.cm COMPARISON: 12/19/2020 Abdominal aorta: Moderate calcified plaque and mild intimal thickening throughout the abdominal aorta . There is ectasia with minimal aneurysmal dilatation to 3.0 cm. Small amount of plaque without steno sis origins of the celiac axis and SMA. Mild atherosclerotic plaque renal arteries with no stenosis. YG is patent. RIGHT lower extremity arterial system: Ectatic common iliac artery. 1.6 cm aneurysmal dilatation prox imally. Iliac tapers normally through the internal and external iliac arteries. There is calcified pl aque with no stenosis. Bifurcation is intact. Scattered plaque throughout the. Bilateral knee prosthe ses obscuring the popliteal artery. Distal to the prosthesis increasing calcified plaque with very sm all caliber arteries below the knee. There is dense calcified plaque obscuring the lumen. I suspect t here is very little arterial runoff to the ankle. Densely calcified anterior, posterior and peroneal arteries. 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 Aneurysm has in creased in size since 03/17/2021. Maximum diameter 4.6 cm. Aneurysm extends to the bifurcation. Heavy calcified plaque at the bifurcation with no occlusion. Deep profunda and SFA are normal caliber with scattered plaque. Popliteal artery is completely obscured over a short distance by the knee prosthesi s. Below the knee prosthesis increasing heavy calcification in the arteries. Densely calcified plaque . There are areas of complete obstruction. The dense calcified plaque is obscuring a patent lumen. Mo re robust flow is seen at the ankle and the anterior and posterior tibial arteries. Chronic emphysema. Small hiatal hernia. Moderately enlarged heart. Early arterial imaging through the liver spleen and pancreas are negative. Very minimal hyperplasia LEFT adrenal gland. Normal RIGHT ad renal gland. Negative gallbladder. No common bile duct obstruction. Bilateral renal cysts. No GI trac t obstruction. Normal appendix. Mild diverticular disease. No adenopathy, free fluid or free air. Nor héctor distended urinary bladder. There is marked prostate enlargement encroaching into the bladder. L obulated prostate measures 6.3 x 5.4 cm and extends over a length of 8.1 cm. Continued lobulation of the prostate gland into the bladder. The enhancement within the bladder is similar to the prostate gl and therefore I believe this is probably all prostatic hypertrophy with bladder wall thickening. Bila teral knee prostheses. IMPRESSION: 1. Abdominal aorta: Minimally aneurysmal dilatation to 3.1 cm. 2. Minimal ectatic common iliac artery aneurysmal dilatation to 1.6 cm. 3. 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 4. Bilateral below the knee advanced atherosclerosis within the arteries. Arteries are intermittentl y visualized with contrast. There is dense near diffuse calcification with narrowing of the lumen. Merchant spect areas of stenosis and occlusions bilaterally. Slightly greater contrast opacification distally in the anterior and posterior tibial arteries. 5. Popliteal arteries are completely obscured by the knee prostheses. 6. Moderate cardiomegaly. 7. Marked prostate enlargement. Bladder wall thickening due to chronic outlet obstruction.
[2023-02-20] MEDS: iohexol 350 mg/mL 500 mL Btl (per mL) IV (07:39)
== END 2023-02-20 06:16 | disposition home or self-care (01) ==
LOC: RAD 06:15
PROVIDERS: PCP Internal Medicine; Visit Provider Internal Medicine
DX: I71.40 Abdominal aortic aneurysm, without rupture, unspecified (principal); I72.3 Aneurysm of iliac artery; I70.203 Unspecified atherosclerosis of native arteries of extremities, bilateral legs; Z96.653 Presence of artificial knee joint, bilateral; I51.7 Cardiomegaly; N40.1 Benign prostatic hyperplasia with lower urinary tract symptoms; N13.8 Other obstructive and reflux uropathy
CPT/HCPCS: 75635; Q9967

== ENCOUNTER → 2023-02-21 16:04 | Outpatient (BNVA) | payer MEDICARE, OTHER, SELFPAY | PROVIDERS: PCP Internal Medicine; Visit Provider Surgery | DX: Z09 Encounter for follow-up examination after completed treatment for conditions other than malignant neoplasm (principal) | CPT/HCPCS: 99212 ==

== ENCOUNTER → 2023-03-04 09:52 | Outpatient (BNVA) | payer MEDICARE, OTHER, SELFPAY | PROVIDERS: PCP Internal Medicine; Visit Provider Specialist | DX: R41.3 Other amnesia (principal); G30.9 Alzheimer's disease, unspecified; F02.80 Dementia in other diseases classified elsewhere, unspecified severity, without behavioral disturbance, psychotic disturbance, mood disturbance, and anxiety | CPT/HCPCS: 99213 ==

== ENCOUNTER 2023-04-07 12:52 | Oncology outpatient (recurring) (ONCR) | payer MEDICARE, OTHER, SELFPAY ==
[2023-04-07 13:02] VITALS: BP 108/70; PULSE 98; RESP 16; TEMP 36.9; O2SAT 99
[2023-04-07 13:29] LABS: Basophils % 0.5 %; Eosinophils % 0.5 %; Hematocrit 40.8 % (37-53); Lymphocytes # 0.6 10^3/uL (0.8-4.8); Lymphocytes % 29.5 %; Mean Corpuscular HGB Conc 33.8 g/dL (30-55); Mean Corpuscular Hemoglobin 33.5 pg (27-33); Mean Platelet Volume 11.5 fL (7.4-10.4); Monocytes # 0.3 10^3/uL (0.2-0.9); Monocytes % 15.7 %; Neutrophils # 1.16 10^3/uL (1.8-7.7); Neutrophils % 53.3 %; Nucleated Red Blood Cells % 0 %; Platelet Count 88 10^3/cmm (157-399); Red Blood Count 4.12 10^6/uL (3.85-5.65); Red Cell Distribution Width 12.7 % (12.1-15.1); White Blood Count 2.17 10^3/uL (3.29-11.43)
[2023-04-07 14:36] LABS: Alanine Aminotransferase 9 U/L (0-41); Albumin Level 4.1 g/dL (3.5-5.2); Alkaline Phosphatase 70 U/L (40-130); Aspartate Amino Transferase 15 U/L (0-40); Blood Urea Nitrogen 12 mg/dL (8-23); Calcium 8.8 mg/dL (8.5-10.5); Carbon Dioxide 25 mmol/L (22-29); Chloride 104 mmol/L (98-107); Globulin 3.2 g/dL (1.3-4.6); Glucose 106 mg/dL (65-115); Osmolality Calculated 286 mOsm/kg (285-295); Sodium 138 mmol/L (136-145); Total Bilirubin 1.8 mg/dL (0.15-1.2); Total Protein 7.3 g/dL (6.6-8.7)
== END 2023-04-22 23:59 | disposition home or self-care (01) ==
PROVIDERS: Nurse Practitioner Family; PCP Internal Medicine; Visit Provider Internal Medicine Medical Oncology
DX: D61.818 Other pancytopenia (principal); D50.9 Iron deficiency anemia, unspecified
CPT/HCPCS: 36415; 80053; 85025; 99213

== ENCOUNTER 2023-07-09 12:53 | Oncology outpatient (recurring) (ONCR) | payer MEDICARE, OTHER, SELFPAY ==
[2023-07-09 13:10] VITALS: BP 126/67; PULSE 82; RESP 16; TEMP 36.6; O2SAT 98
[2023-07-09 13:37] LABS: Basophils % 0.4 %; Eosinophils % 0.8 %; Hematocrit 38.1 % (37-53); Lymphocytes # 0.7 10^3/uL (0.8-4.8); Lymphocytes % 25.7 %; Mean Corpuscular HGB Conc 34.1 g/dL (30-55); Mean Corpuscular Hemoglobin 33.3 pg (27-33); Mean Corpuscular Volume 97.7 fl (82-101); Mean Platelet Volume 11.4 fL (7.4-10.4); Monocytes # 0.4 10^3/uL (0.2-0.9); Monocytes % 16.5 %; Neutrophils # 1.46 10^3/uL (1.8-7.7); Neutrophils % 55.8 %; Nucleated Red Blood Cells % 0 %; Platelet Count 88 10^3/cmm (157-399); Red Cell Distribution Width 13.1 % (12.1-15.1); White Blood Count 2.61 10^3/uL (3.29-11.43)
[2023-07-09 13:39] LABS: Alanine Aminotransferase 17 U/L (0-41); Alkaline Phosphatase 99 U/L (40-130); Anion Gap 12.7 (5-19); Aspartate Amino Transferase 20 U/L (0-40); Blood Urea Nitrogen 11 mg/dL (8-23); Carbon Dioxide 27 mmol/L (22-29); Chloride 105 mmol/L (98-107); Ferritin 197 ng/mL (30-400); Globulin 3.2 g/dL (1.3-4.6); Glucose 106 mg/dL (65-115); Iron 91 ug/dL (59-158); Lactate Dehydrogenase 218 U/L (135-225); Osmolality Calculated 292 mOsm/kg (285-295); Percent Saturation 39.3 % (20-50); Potassium 3.7 mmol/L (3.5-5.1); Sodium 141 mmol/L (136-145); Total Bilirubin 2.3 mg/dL (0.15-1.2); Total Iron Binding Capacity 231 mcg/dl; Total Protein 7.2 g/dL (6.6-8.7); Unsaturated Iron Binding 140 ug/dL (112-347)
== END 2023-07-23 23:59 | disposition home or self-care (01) ==
PROVIDERS: PCP Internal Medicine; Visit Provider Internal Medicine Medical Oncology
DX: D61.818 Other pancytopenia (principal); D50.9 Iron deficiency anemia, unspecified; Z79.899 Other long term (current) drug therapy
CPT/HCPCS: 36415; 80053; 82728; 83540; 83550; 83615; 85025; 99214

== ENCOUNTER 2023-07-30 10:55 | Oncology outpatient (recurring) (ONCR) | payer MEDICARE, OTHER, SELFPAY ==
[2023-07-30 11:25] LABS: Basophils % 0.3 %; Eosinophils % 0.6 %; Hematocrit 37.3 % (37-53); Lymphocytes # 0.7 10^3/uL (0.8-4.8); Lymphocytes % 19.8 %; Mean Corpuscular HGB Conc 33.8 g/dL (30-55); Mean Corpuscular Hemoglobin 33.1 pg (27-33); Mean Corpuscular Volume 97.9 fl (82-101); Mean Platelet Volume 11.5 fL (7.4-10.4); Monocytes # 0.6 10^3/uL (0.2-0.9); Monocytes % 18.4 %; Neutrophils # 2.08 10^3/uL (1.8-7.7); Neutrophils % 59.8 %; Nucleated Red Blood Cells % 0 %; Platelet Count 97 10^3/cmm (157-399); Red Blood Count 3.81 10^6/uL (3.85-5.65); White Blood Count 3.48 10^3/uL (3.29-11.43)
[2023-07-30 11:46] LABS: Alanine Aminotransferase 23 U/L (0-41); Albumin Level 3.8 g/dL (3.5-5.2); Alkaline Phosphatase 116 U/L (40-130); Anion Gap 11.7 (5-19); Aspartate Amino Transferase 22 U/L (0-40); Blood Urea Nitrogen 13 mg/dL (8-23); Calcium 8.7 mg/dL (8.5-10.5); Carbon Dioxide 27 mmol/L (22-29); Chloride 103 mmol/L (98-107); Ferritin 275 ng/mL (30-400); Globulin 3.4 g/dL (1.3-4.6); Glucose 106 mg/dL (65-115); Iron 74 ug/dL (59-158); Osmolality Calculated 287 mOsm/kg (285-295); Percent Saturation 31.8 % (20-50); Potassium 3.7 mmol/L (3.5-5.1); Sodium 138 mmol/L (136-145); Total Bilirubin 2.2 mg/dL (0.15-1.2); Total Iron Binding Capacity 232 mcg/dl; Total Protein 7.2 g/dL (6.6-8.7); Unsaturated Iron Binding 158 ug/dL (112-347)
== END 2023-08-21 23:59 | disposition home or self-care (01) ==
PROVIDERS: PCP Internal Medicine; Visit Provider Internal Medicine Medical Oncology
DX: D61.818 Other pancytopenia (principal); D50.9 Iron deficiency anemia, unspecified; Z79.899 Other long term (current) drug therapy
CPT/HCPCS: 36415; 80053; 82728; 83540; 83550; 85025; 99213; 99214

== ENCOUNTER 2023-10-01 10:42 | Oncology outpatient (recurring) (ONCR) | payer MEDICARE, OTHER, SELFPAY ==
[2023-09-30 10:48] LABS: Basophils % 0.3 %; Eosinophils % 1.1 %; Hematocrit 37.5 % (37-53); Lymphocytes # 0.8 10^3/uL (0.8-4.8); Lymphocytes % 19.7 %; Mean Corpuscular HGB Conc 33.6 g/dL (30-55); Mean Corpuscular Hemoglobin 33.1 pg (27-33); Mean Corpuscular Volume 98.4 fl (82-101); Mean Platelet Volume 11.9 fL (7.4-10.4); Monocytes # 0.7 10^3/uL (0.2-0.9); Monocytes % 18.2 %; Neutrophils # 2.25 10^3/uL (1.8-7.7); Neutrophils % 59.1 %; Nucleated Red Blood Cells % 0 %; Platelet Count 81 10^3/cmm (157-399); Red Blood Count 3.81 10^6/uL (3.85-5.65); Red Cell Distribution Width 13.2 % (12.1-15.1)
[2023-09-30 11:08] LABS: Alanine Aminotransferase 21 U/L (0-41); Albumin Level 3.8 g/dL (3.5-5.2); Alkaline Phosphatase 105 U/L (40-130); Anion Gap 13.3 (5-19); Aspartate Amino Transferase 20 U/L (0-40); Blood Urea Nitrogen 10 mg/dL (8-23); Calcium 8.6 mg/dL (8.5-10.5); Carbon Dioxide 23 mmol/L (22-29); Chloride 108 mmol/L (98-107); Ferritin 210 ng/mL (30-400); Globulin 3.2 g/dL (1.3-4.6); Glucose 124 mg/dL (65-115); Iron 58 ug/dL (59-158); Osmolality Calculated 292 mOsm/kg (285-295); Percent Saturation 25.7 % (20-50); Potassium 3.3 mmol/L (3.5-5.1); Sodium 141 mmol/L (136-145); Total Bilirubin 1.5 mg/dL (0.15-1.2); Total Iron Binding Capacity 225 mcg/dl; Unsaturated Iron Binding 167 ug/dL (112-347)
== END 2023-10-21 23:59 | disposition home or self-care (01) ==
PROVIDERS: PCP Internal Medicine; Visit Provider Internal Medicine Medical Oncology
DX: D61.818 Other pancytopenia (principal); D50.9 Iron deficiency anemia, unspecified; Z79.899 Other long term (current) drug therapy
CPT/HCPCS: 36415; 80053; 82728; 83540; 83550; 85025; 99213

== ENCOUNTER 2023-10-24 10:31 | Oncology outpatient (recurring) (ONCR) | payer MEDICARE, OTHER, SELFPAY ==
[2023-10-24 11:40] LABS: Potassium 3.8 mmol/L (3.5-5.1)
== END 2023-11-21 23:59 | disposition home or self-care (01) ==
LOC: ONCMED 10:31
PROVIDERS: Nurse Practitioner Family; PCP Internal Medicine; Visit Provider Internal Medicine Medical Oncology
DX: D61.818 Other pancytopenia (principal); D50.9 Iron deficiency anemia, unspecified; Z79.899 Other long term (current) drug therapy
CPT/HCPCS: 36415; 84132

== ENCOUNTER 2023-12-19 23:17 | Inpatient (IN) | payer MEDICARE, OTHER, SELFPAY ==
--- NOTE | 2023-12-19 23:23 | XRR_ITS ---
PROCEDURE INFORMATION: Exam: XR Chest Exam date and time: 12/19/2023 11:24 PM Age: 88 years old Clinical indication: Cough and fever; Prior surgery; Surgery date: 6+ months; Surgery type: Mitral valve repair; Patient HX: Cough with fever and general weakness TECHNIQUE: Imaging protocol: Radiologic exam of the chest. Views: 1 view. COMPARISON: CT angio abd aorta runof [id number] 02/20/2023 6:59 AM FINDINGS: Limitations: Moderate patient rotation. Lungs: Mild interstitial prominence, likely chronic. No consolidation. Right apical calcified granuloma. Pleural spaces: No pleural effusion or pneumothorax. Heart/Mediastinum: Heart size is poorly evaluated. Vasculature: Atherosclerotic calcifications of the aorta are noted. Bones/joints: The patient is status post sternotomy. No acute osseous abnormalities are seen. XR/XR chest 1V portable [id number] IMPRESSION: No acute cardiopulmonary disease.
--- NOTE | 2023-12-19 23:23 | ECG_ITS ---
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 Measurements Intervals [place] Rate: 115 P: 0 UT: 0 QRS: -27 QRSD: 133 T: -24 QT: 334 QTc: 463 Interpretive Statements ATRIAL FIBRILLATION WITH RAPID VENTRICULAR RESPONSE WITH ABERRANT CONDUCTION OR VENTRICULAR PREMATURE COMPLEXES BORDERLINE LEFT AXIS DEVIATION [QRS AXIS < -20] RIGHT BUNDLE BRANCH BLOCK [120+ ms QRS DURATION, UPRIGHT V1, 40+ ms S IN I/aVL/V4/V5/V6] MODERATE T-WAVE ABNORMALITY, CONSIDER LATERAL ISCHEMIA [-0.1+ mV T-WAVE IN I/aVL/V5/V6] No previous ECG available for comparison Electronically Signed On 12-20-2023 19:06:48 CDT by Ashley Zelaya M.D. [id number]
--- NOTE | 2023-12-19 23:27 | W.ED.FEVER ---
HPI - Fever General: Chief Complaint: Weakness Stated Complaint: WEAKNESS Time Seen by Provider: 12/19/23 23:24 Source: patient and EMS Mode of arrival: EMS Limitations: no limitations History of Present Illness: 88-year-old male states been feeling generally weak for the last 2 days has had some cough congestion states that he is feeling much weaker today and feeling generally ill EMS states he had a temperature 102 he states that his just recently gotten over COVID. He denies any pain anywhere denies any vomiting or diarrhea. Associated symptoms: Reports chills; Deny abdominal pain, chest pain, diarrhea, headache(s), nausea or vomiting Review of Systems Const: Reports: fever(s), chills, fatigue and malaise; Denies: body aches or change in appetite ENMT: Denies: throat pain or dental pain Card: Denies: chest pain Resp: Reports: non-productive cough; Denies: dyspnea GI: Denies: abdominal pain, nausea, vomiting or diarrhea Musc: Denies: neck pain or back pain Skin/Breast: Denies: rash Neuro: Denies: headache(s) PFSH ED PFSH: Medical History Aneurysm of left common iliac artery Pancytopenia Autonomic dysfunction History of mitral valve insufficiency Hypertension Hypothyroidism Alzheimer's dementia without behavioral disturbance BPH w urinary obs/LUTS Dizziness Dyslipidemia Atrial fibrillation ASHD (arteriosclerotic heart disease) Left renal stone Surgical History History of esophagogastroduodenoscopy (EGD) 5 + years ago Hx of colonoscopy S/P transurethral resection of prostate Cystoscopy with TUR/vaporization S/P mitral valve repair S/P orchiectomy left S/P knee surgery Right total knee arthroplasty S/P hernia surgery Bilateral inguinal and umbilical hernia repairs Family History Mother , 73 CAD (coronary artery disease) Diabetes Father , 85 Cancer Hypertension Social History Smoking and tobacco/nicotine status: never used tobacco/nicotine Alcohol intake: never Substance/Drug Use: never Adopted: No Caregiver/support person: No Lives independently: No Household members: spouse Marital status: Current occupational status: retired Course Vital Signs: Vital signs: Vital Signs Temperature 100.8 F H 12/19/23 23:44 Pulse Rate 113 H 12/19/23 23:44 Respiratory Rate 17 12/19/23 23:44 Blood Pressure 151/88 12/19/23 23:44 Pulse Oximetry 95 12/19/23 23:44 Oxygen Delivery Me thod Room Air 12/19/23 23:44 MDM - Fever Medical Decision Making Patient presents here with generalized weakness along with fevers found to be COVID-positive family states he has not really been able to walk or take care of himself will admit for observation at this time Medical Records I reviewed the patient's medical records. Lab Data I reviewed the patient's lab results. 12/19/23 22:59 12/19/23 22:59 Radiology Impressions Chest X-Ray 12/19/23 23:23 IMPRESSION: No acute cardiopulmonary disease. Laboratory Results WBC 3.32 10^3/uL (3.29-11.43) 12/19/23 22:59 RBC 3.91 10^6/uL (3.85-5.65) 12/19/23 22:59 Hgb 12.90 g/dL (11.27-16.99) 12/19/23 22:59 Hct 37.9 % (37-53) 12/19/23 22:59 MCV 96.9 fl (82-101) 12/19/23 22:59 MCH 33.0 pg (27-33) 12/19/23 22:59 MCHC 34.0 g/dL (30-55) 12/19/23 22:59 RDW 13.4 % (12.1-15.1) 12/19/23 22:59 Plt Count 53 10^3/cmm (157-399) L 12/19/23 22:59 MPV 12.3 fL (7.4-10.4) H 12/19/23 22:59 Neut % (Auto) 50.0 % 12/19/23 22:59 Lymph % (Auto) 13.3 % 12/19/23 22:59 Casey % (Auto) 33.1 % 12/19/23 22:59 Eos % (Auto) 0.3 % 12/19/23 22:59 Baso % (Auto) 0.3 % 12/19/23 22:59 Neut # (Auto) 1.66 10^3/uL (1.8-7.7) L 12/19/23 22:59 Lymph # (Auto) 0.4 10^3/uL (0.8-4.8) L 12/19/23 22:59 Casey # (Auto) 1.1 10^3/uL (0.2-0.9) H 12/19/23 22:59 Eos # (Auto) 0.0 10^3/uL (0.0-0.8) 12/19/23 22:59 Baso # (Auto) 0.0 10^3/uL (0.0-0.1) 12/19/23 22:59 Nucleated RBC % (auto) 0 % 12/19/23 22:59 Nucleated RBCs # 0.0 /100WBC 12/19/23 22:59 Sodium 137 mmol/L (136-145) 12/19/23 22:59 Potassium 3.4 mmol/L (3.5-5.1) L 12/19/23 22:59 Chloride 102 mmol/L (98-107) 12/19/23 22:59 Carbon Dioxide 21 mmol/L (22-29) L 12/19/23 22:59 Anion Gap 17.4 (5-19) 12/19/23 22:59 BUN 22 mg/dL (8-23) 12/19/23 22:59 Creatinine 1.3 mg/dL (0.7-1.2) H 12/19/23 22:59 GFR Calculation Not Reportable 12/19/23 22:59 Glucose 109 mg/dL (65-115) 12/19/23 22:59 Calculated Osmolality 288 mOsm/kg (285-295) 12/19/23 22:59 Lactic Acid 1.6 mmol/L (0.5-2.2) 12/19/23 22:59 Calcium 8.7 mg/dL (8.5-10.5) 12/19/23 22:59 Total Bilirubin 2.7 mg/dL (0.15-1.2) H 12/19/23 22:59 AST 22 U/L (0-40) 12/19/23 22:59 ALT 14 U/L (0-41) 12/19/23 22:59 Alkaline Phosphatase 84 U/L (40-130) 12/19/23 22:59 Total Protein 7.6 g/dL (6.6-8.7) 12/19/23 22:59 Albumin 4.2 g/dL (3.5-5.2) 12/19/23 22:59 Globulin 3.4 g/dL (1.3-4.6) 12/19/23 22:59 Lipase 24 U/L (13-60) 12/19/23 22:59 SARS-CoV-2 Ag (Rapid) positive (Negative) H 12/19/23 23:38 All radiology interpretation(s) finalized by discharge Discharge Plan Discharge Patient Disposition: Admitted As Inpatient Clinical Impression: COVID-19, Weakness Condition: Stable Coding Level of Care Code ED [employer] for Jose De Jesus Williamson
[2023-12-19 23:32] VITALS: BP 151/88; PULSE 113; RESP 17; TEMP 38.2; O2SAT 95; BMI 24.4
[2023-12-19 23:44] VITALS: BP 151/88; PULSE 113; RESP 17; TEMP 38.2; O2SAT 95
[2023-12-19] MEDS: acetaminophen 500 mg Tablet 1000 MG PO (23:44)
[2023-12-20] VITALS (15 sets, daily range): BP systolic 118–163; BP diastolic 72–88; PULSE 63–110; RESP 14–18; TEMP 36.4–37; O2SAT 90–97; BMI 3491.5
[2023-12-20] MEDS: sodium chloride 0.9% 500 ML 999 ML IV (00:08)
[2023-12-20] MEDS: sodium chloride 0.9% 1,000 ML 999 ML IV (00:08)
[2023-12-20 00:09] LABS: Basophils % 0.3 %; Eosinophils % 0.3 %; Hematocrit 37.9 % (37-53); Lymphocytes # 0.4 10^3/uL (0.8-4.8); Lymphocytes % 13.3 %; Mean Corpuscular Volume 96.9 fl (82-101); Mean Platelet Volume 12.3 fL (7.4-10.4); Monocytes # 1.1 10^3/uL (0.2-0.9); Monocytes % 33.1 %; Neutrophils # 1.66 10^3/uL (1.8-7.7); Nucleated Red Blood Cells % 0 %; Platelet Count 53 10^3/cmm (157-399); Red Blood Count 3.91 10^6/uL (3.85-5.65); Red Cell Distribution Width 13.4 % (12.1-15.1); White Blood Count 3.32 10^3/uL (3.29-11.43)
[2023-12-20 00:20] LABS: Alanine Aminotransferase 14 U/L (0-41); Albumin Level 4.2 g/dL (3.5-5.2); Alkaline Phosphatase 84 U/L (40-130); Anion Gap 17.4 (5-19); Aspartate Amino Transferase 22 U/L (0-40); Blood Urea Nitrogen 22 mg/dL (8-23); Calcium 8.7 mg/dL (8.5-10.5); Carbon Dioxide 21 mmol/L (22-29); Chloride 102 mmol/L (98-107); Creatinine Clr Calc Pharmacy 45.7032; Globulin 3.4 g/dL (1.3-4.6); Glucose 109 mg/dL (65-115); Lactic Sepsis W/Reflex 1.6 mmol/L (0.5-2.2); Lipase 24 U/L (13-60); Osmolality Calculated 288 mOsm/kg (285-295); Potassium 3.4 mmol/L (3.5-5.1); Sodium 137 mmol/L (136-145); Total Bilirubin 2.7 mg/dL (0.15-1.2); Total Protein 7.6 g/dL (6.6-8.7)
[2023-12-20 00:26] LABS: SARS Covid-2 Antigen positive (Negative)
[2023-12-20] MEDS: dexamethasone 10 mg/mL INJ IVP (00:34)
--- NOTE | 2023-12-20 01:14 | P.HP_ITS ---
Providers/Chief Complaint 2 Primary Care Provider: Olga Goddard MD Chief Complaint: WEAKNESS History of Present Illness Juany Aguayo is a 88 year old male with pancytopenia and suspected myelodysplastic syndrome with chronic thrombocytopenia currently on expectant management. He presents to the emergency room with 3 to 4 days of increasing generalized weakness, URI symptoms and chest congestion. He states that he started feeling much worse today and called and EMS. He has had high-grade fever and chills at home. States he starts to feel weak and dizzy with minimal effort. And denies any hemoptysis or gross expectoration. Denies abdominal pain nausea vomiting chest pain. Other past history is notable for mitral valve repair, hypertension, autonomic dysfunction, dyslipidemia, A-fib, BPH with associated bladder outlet obstruction, iliac aneursysm Review of Systems 2 General: Reports: 10 or more systems reviewed and unremarkable except in HPI and below Const: Denies: fever(s), chills or body aches Eyes: Denies: change in vision, blurry vision or photophobia ENMT: Reports: hoarseness; Denies: throat pain, enlarged tonsils, odynophagia or nasal congestion Card: Denies: chest pain, palpitations, irregular heart rhythm, edema, swelling of feet/ankles, lightheadedness, pre-syncope, dyspnea on exertion or orthopnea Resp: Denies: dyspnea, productive cough, non-productive cough, wheezing, stridor, pain on inspiration, change in phlegm color, hemoptysis or chest congestion GI: Denies: abdominal pain, nausea, vomiting, hematemesis, coffee ground emesis, dysphagia, heartburn, diarrhea, constipation, GI cramping, change in stool character, hematochezia or melena : Denies: flank pain, dysuria, urinary frequency, urinary urgency, urinary hesitancy or hematuria Musc: Denies: neck pain, back pain, extremity pain, joint swelling, joint warmth or deformity Neuro: Denies: headache(s), numbness in extremities, weakness in extremities, sensory changes, difficulty walking, frequent falls, dizziness, vertigo, behavioral changes, Slurred speech present or seizure-like activity Psych: Denies: anxiety, depression, suicidal ideation or homicidal ideation Endo: Denies: polyuria, polydipsia, tired all the time, cold intolerance or hot flashes Anthony/Lymph: Denies: easy bruising or easy bleeding Medications/Allergies Home Medications Medication Instructions Recorded Confirmed Last Taken Type cholecalciferol (vitamin D3) 25 2,000 unit PO BEDTIME 07/22/19 12/20/23 01/29/23 History mcg (1,000 unit) capsule (Vitamin D3) ascorbic acid (vitamin C) 500 mg 500 mg PO DAILY 03/30/21 12/20/23 01/29/23 History tablet (Vitamin C) cyanocobalamin (vitamin B-12) 1,000 mcg PO BEDTIME 03/30/21 12/20/23 01/29/23 History 1,000 mcg tablet (Vitamin B-12) levothyroxine 25 mcg tablet 25 mcg PO QAM 03/30/21 12/20/23 01/30/23 History melatonin 5 mg tablet 5 mg PO BEDTIME 03/30/21 12/20/23 01/30/23 History apixaban 5 mg tablet (Eliquis) 5 mg PO BID #180 tabs 12/31/22 12/20/23 01/27/23 Rx finasteride 5 mg tablet 5 mg PO DAILY 12/31/22 12/20/23 01/30/23 History tamsulosin 0.4 mg capsule 0.4 mg PO .HS 12/31/22 12/20/23 01/30/23 History galantamine 16 mg 24 hr See Rx Instructions .Route 04/14/23 12/20/23 Unknown Rx capsule,extended release .COMPLEX #90 caps midodrine 10 mg tablet 10 mg PO DIRECTED #270 tabs 04/16/23 12/20/23 Unknown Rx atorvastatin 80 mg tablet 80 mg PO DAILY 07/09/23 12/20/23 Unknown History potassium chloride 10 mEq 10 meq PO DAILY #90 caps 10/27/23 12/20/23 Unknown Rx capsule,extended release Allergies Allergy/AdvReac Type Severity Reaction Status Date / Time Penicillins Allergy Rash Verified 10/01/23 11:36 PFSH Acute 2 PFSH: Medical History Aneurysm of left common iliac artery Pancytopenia Autonomic dysfunction History of mitral valve insufficiency Hypertension Hypothyroidism Alzheimer's dementia without behavioral disturbance BPH w urinary obs/LUTS Dizziness Dyslipidemia Atrial fibrillation ASHD (arteriosclerotic heart disease) Left renal stone Surgical History History of esophagogastroduodenoscopy (EGD) 5 + years ago Hx of colonoscopy S/P transurethral resection of prostate Cystoscopy with TUR/vaporization S/P mitral valve repair S/P orchiectomy left S/P knee surgery Right total knee arthroplasty S/P hernia surgery Bilateral inguinal and umbilical hernia repairs Family History Mother , 73 CAD (coronary artery disease) Diabetes Father , 85 Cancer Hypertension Social History Smoking and tobacco/nicotine status: never used tobacco/nicotine Alcohol intake: never Substance/Drug Use: never Adopted: No Caregiver/support person: No Lives independently: No Household members: spouse Marital status: Current occupational status: retired Vitals/I&O/Wt Last Vital Signs Temp 100.8 F H 12/19/23 23:44 Pulse 113 H 12/19/23 23:44 Resp 17 12/19/23 23:44 BP 151/88 12/19/23 23:44 Pulse Ox 95 12/19/23 23:44 O2 Del Method Room Air 12/19/23 23:44 12/19/23 12/19/23 12/20/23 14:59 22:59 06:59 Intake Total 500 / 500 Balance 500 / 500 Weight last 48 hrs Weight 81.647 kg Physical Exam 2 Narrative: General: No acute distress, AO x3 HEENT: PERRLA, pupils bilaterally equal and reactive, pallors not present Chest: Normal vesicular breath sounds, no added sounds, equal good air entry bilaterally CVS: S1-S2 regular, no murmurs, no tachycardia, no gallops, no rubs Abdomen: Soft, nontender, no organomegaly, bowel sounds present Neuro: No focal deficits, no facial deformity, AO x3, power 5/5 in all limbs Data 12/19/23 22:59 12/19/23 22:59 Micro: Microbiology 12/19/23 23:50 Blood Culture - Preliminary Blood SPECIMEN COLLECTED 12/19/23 23:45 Blood Culture - Preliminary Blood SPECIMEN COLLECTED Other data: Radiology Impressions Chest X-Ray 12/19/23 23:23 IMPRESSION: No acute cardiopulmonary disease. Laboratory Results WBC 3.32 10^3/uL (3.29-11.43) 12/19/23 22:59 RBC 3.91 10^6/uL (3.85-5.65) 12/19/23 22:59 Hgb 12.90 g/dL (11.27-16.99) 12/19/23 22:59 Hct 37.9 % (37-53) 12/19/23 22:59 MCV 96.9 fl (82-101) 12/19/23 22:59 MCH 33.0 pg (27-33) 12/19/23 22:59 MCHC 34.0 g/dL (30-55) 12/19/23 22:59 RDW 13.4 % (12.1-15.1) 12/19/23 22:59 Plt Count 53 10^3/cmm (157-399) L 12/19/23 22:59 MPV 12.3 fL (7.4-10.4) H 12/19/23 22:59 Neut % (Auto) 50.0 % 12/19/23 22:59 Lymph % (Auto) 13.3 % 12/19/23 22:59 [place] % (Auto) 33.1 % 12/19/23 22:59 Eos % (Auto) 0.3 % 12/19/23 22:59 Baso % (Auto) 0.3 % 12/19/23 22:59 Neut # (Auto) 1.66 10^3/uL (1.8-7.7) L 12/19/23 22:59 Lymph # (Auto) 0.4 10^3/uL (0.8-4.8) L 12/19/23 22:59 [place] # (Auto) 1.1 10^3/uL (0.2-0.9) H 12/19/23 22:59 Eos # (Auto) 0.0 10^3/uL (0.0-0.8) 12/19/23 22:59 Baso # (Auto) 0.0 10^3/uL (0.0-0.1) 12/19/23 22:59 Nucleated RBC % (auto) 0 % 12/19/23 22:59 Nucleated RBCs # 0.0 /100WBC 12/19/23 22:59 Sodium 137 mmol/L (136-145) 12/19/23 22:59 Potassium 3.4 mmol/L (3.5-5.1) L 12/19/23 22:59 Chloride 102 mmol/L (98-107) 12/19/23 22:59 Carbon Dioxide 21 mmol/L (22-29) L 12/19/23 22:59 Anion Gap 17.4 (5-19) 12/19/23 22:59 BUN 22 mg/dL (8-23) 12/19/23 22:59 Creatinine 1.3 mg/dL (0.7-1.2) H 12/19/23 22:59 GFR Calculation Not Reportable 12/19/23 22:59 Glucose 109 mg/dL (65-115) 12/19/23 22:59 Calculated Osmolality 288 mOsm/kg (285-295) 12/19/23 22:59 Lactic Acid 1.6 mmol/L (0.5-2.2) 12/19/23 22:59 Calcium 8.7 mg/dL (8.5-10.5) 12/19/23 22:59 Total Bilirubin 2.7 mg/dL (0.15-1.2) H 12/19/23 22:59 AST 22 U/L (0-40) 12/19/23 22:59 ALT 14 U/L (0-41) 12/19/23 22:59 Alkaline Phosphatase 84 U/L (40-130) 12/19/23 22:59 C-Reactive Protein 39.5 mg/L (0.0-4.9) H 12/20/23 05:23 Total Protein 7.6 g/dL (6.6-8.7) 12/19/23 22:59 Albumin 4.2 g/dL (3.5-5.2) 12/19/23 22:59 Globulin 3.4 g/dL (1.3-4.6) 12/19/23 22:59 Lipase 24 U/L (13-60) 12/19/23 22:59 Procalcitonin 0.41 ng/mL (0-0.5) 12/20/23 05:23 Urine Color Dark yellow (Yellow) A 12/20/23 01:24 Urine Appearance Cloudy (CLEAR) A 12/20/23 01:24 Urine pH 5 (5-7) 12/20/23 01:24 Ur Specific [place] 1.025 (1.005-1.030) 12/20/23 01:24 Urine Protein 1+ (Negative) H 12/20/23 01:24 Urine Glucose (UA) Norm (Normal) 12/20/23 01:24 Urine Ketones 1+ (Negative) H 12/20/23 01:24 Urine Blood 3+ (Negative) H 12/20/23 01:24 Urine Nitrate Negative (Negative) 12/20/23 01:24 Urine Bilirubin Neg (Negative) 12/20/23 01:24 Urine Urobilinogen Neg mg/dL (Negative) 12/20/23 01:24 Ur Leukocyte Esterase Negative (Negative) 12/20/23 01:24 Urine RBC 50-80 /hpf (0-2) H 12/20/23 01:24 Urine WBC 0-4 /hpf (0-5) H 12/20/23 01:24 Ur Squamous Epith Cells 0-4 /hpf (0-5) H 12/20/23 01:24 Amorphous Sediment 1+ /hpf 12/20/23 01:24 Urine Bacteria Trace /hpf (NONE) 12/20/23 01:24 Hyaline Casts 5-10 /lpf H 12/20/23 01:24 Coarse Granular Casts 5-10 /lpf H 12/20/23 01:24 Urine Mucus Trace /hpf 12/20/23 01:24 Adenovirus (PCR) Not detected (NOT DETECT) 12/19/23 23:38 C. pneumoniae DNA (PCR) Not detected (NOT DETECT) 12/19/23 23:38 Coronavirus 229E (PCR) Not detected (NOT DETECT) 12/19/23 23:38 Human Metapneumovir PCR Not detected (NOT DETECT) 12/19/23 23:38 Influenza A (H1) PCR Not detected (NOT DETECT) 12/19/23 23:38 Influ A (H1/09) PCR Not detected (NOT DETECT) 12/19/23 23:38 Influenza A (H3) PCR Not detected (NOT DETECT) 12/19/23 23:38 Influenza Type A (PCR) Not detected (NOT DETECT) 12/19/23 23:38 Influenza Type B (PCR) Not detected (NOT DETECT) 06/28/24 23:38 M. pneumoniae (PCR) Not detected (NOT DETECT) 12/19/23 23:38 Parainfluenza 1 (PCR) Not detected (NOT DETECT) 12/19/23 23:38 Parainfluenza 2 (PCR) Not detected (NOT DETECT) 12/19/23 23:38 Parainfluenza 3 (PCR) Not detected (NOT DETECT) 12/19/23 23:38 Parainfluenza 4 (PCR) Not detected (NOT DETECT) 12/19/23 23:38 RSV Type A (PCR) Not detected (NOT DETECT) 12/19/23 23:38 RSV Type B (PCR) Not detected (NOT DETECT) 12/19/23 23:38 Entero/Rhino (PCR) Not detected (NOT DETECT) 12/19/23 23:38 SARS-CoV-2 (PCR) Detected (NOT DETECT) A 12/19/23 23:38 SARS-CoV-2 Ag (Rapid) positive (Negative) H 12/19/23 23:38 A&P Assessment and plan (1) COVID-19: Patient presenting to the hospital with increased generalized weakness, fever and chills at home. He is at high risk of progression from mild to severe disease given his underlying comorbidities. Start treatment with Remdisivir 200mg iv x 1 followed by 100mg iv daily dexamethasone 6mg IVP daily duoneb q6h, budesonide q12h holding off on abx for now as CXR without any pneumonia trend inflammatory markers including CRP, D dimer (2) Orthostatic hypotension: Currently supine blood pressure within normal range. Appears patient has a history of autonomic dysfunction and takes midodrine as needed. Will check orthostatics today given he is complaining of dizziness and increased weakness (3) Thrombocytopenia: Chronic thrombocytopenia, likely related to MDS, currently made worse with acute viral illness. Platelet count down to 53,000. Will monitor no bleeding at any site currently (4) MDS (myelodysplastic syndrome): (5) LBBB (left bundle branch block): Incidentally noted left bundle-branch block on EKG. Patient currently denies any chest pain. 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 Residual mild aortic insufficiency. No prior EKG in the system to compare. No known history of CAD Last echocardiogram dates back to 2019 at which time he was noted to have normal systolic function with EF of 55 to 60%, moderate LVH and mild to moderate AR. Will perform echocardiogram for any interval changes given abnormal EKG. Check troponin series. Plan DVT ppx: SCDs only , no a/c due to thrombocytopenia Attestations 2 Medical Necessity Statement*: greater than 2 midnight stay anticipated at this time Diagnoses COVID-19 U07.1 Orthostatic hypotension I95.1 Thrombocytopenia D69.6 MDS (myelodysplastic syndrome) D46.9 LBBB (left bundle branch block) I44.7
[2023-12-20 01:48] LABS: Adenovirus Not Detected (NOT DETECT); Chlamydia Pneumoniae Not Detected (NOT DETECT); Coronavirus 229E,HKU1,NL63,OC4 Not Detected (NOT DETECT); Human Metapneumovirus Not Detected (NOT DETECT); Human Rhinovirus/Enterovirus Not Detected (NOT DETECT); Influenza A Not Detected (NOT DETECT); Influenza A H1 Not Detected (NOT DETECT); Influenza A H1-2009 Not Detected (NOT DETECT); Influenza A H3 Not Detected (NOT DETECT); Influenza B Not Detected (NOT DETECT); Mycoplasma Pneumoniae Not Detected (NOT DETECT); Parainfluenza Virus Type 1 Not Detected (NOT DETECT); Parainfluenza Virus Type 2 Not Detected (NOT DETECT); Parainfluenza Virus Type 3 Not Detected (NOT DETECT); Parainfluenza Virus Type 4 Not Detected (NOT DETECT); Respiratory Syncytial Virus A Not Detected (NOT DETECT); Respiratory Syncytial Virus B Not Detected (NOT DETECT)
[2023-12-20 01:57] LABS: Add Urine Microscopic? YES; Bacteria Urine TRACE /hpf; Bilirubin Urine Neg (Negative); Blood Urine 3+ (Negative); Glucose Urine UA Norm (Normal); Ketones Urine 1+ (Negative); Leukocyte Esterase Urine Negative (Negative); Nitrate Urine Negative (Negative); Protein Urine 1+ (Negative); RBC Urine 50-80 /hpf (0-2); Specific Gravity, Urine 1.025 (1.005-1.030); Squamous Epithelial Cell Urine 0-4 /hpf (0-5); Urine Appearance Cloudy (CLEAR); Urine Color Dark Yellow (Yellow); Urobilinogen Urine Neg (Negative); WBC Urine 0-4 /hpf (0-5); pH Urine 5 (5-7)
[2023-12-20 01:58] LABS: Add Urine Culture? Yes; Amorphous Sediment Urine 1+ /hpf; Mucus Urine TRACE /hpf
[2023-12-20 01:59] LABS: SARS-COV-2 Detected (NOT DETECT)
[2023-12-20] MEDS: remdesivir 200 MG in sodium chloride 0.9% (100 ml) 100 ML 100 MG IV (03:59)
[2023-12-20] MEDS: sodium chloride 0.9% (plus) 100 ML (04:04)
[2023-12-20 06:02] LABS: C Reactive Protein 39.5 mg/L (0.0-4.9)
[2023-12-20 06:05] LABS: Procalcitonin 0.41 ng/mL (0-0.5)
--- NOTE | 2023-12-20 07:29 | ECG_ITS ---
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 Measurements Intervals [place] Rate: 88 P: 0 MD: 0 QRS: -30 QRSD: 125 T: -9 QT: 372 QTc: 451 Interpretive Statements ATRIAL FIBRILLATION BORDERLINE LEFT AXIS DEVIATION [QRS AXIS < -20] RIGHT BUNDLE BRANCH BLOCK [120+ ms QRS DURATION, UPRIGHT V1, 40+ ms S IN I/aVL/V4/V5/V6] Compared to ECG 12/19/2023 23:53:41 Ventricular premature complex(es) no longer present Aberrant conduction of supraventricular beat(s) no longer present T-wave abnormality no longer present Possible ischemia no longer present Electronically Signed On 12-20-2023 19:07:29 CDT by Ashley Zelaya M.D. [id number]
--- NOTE | 2023-12-20 07:29 | USCV_ITS ---
Juany Aguayo Age: 88 Gender: M : 1935 Exam Date: 12/20/2023 08:33 Ordering Phys: Ila Bowman MD Technologist: Exam [place] [facility] [place]ication: abnormal heart rythymn BP: 135 / 73 HR: 80 Rhythm: Sinus Technical Quality: Adequate MEASUREMENTS (Male / Female) Normal Values 2D ECHO LV Diastolic Diameter PLAX 5.0 cm 4.2 - 5.9 / 3.9 - 5.3 cm IVS Diastolic Thickness 1.1 cm 0.6 - 1.0 / 0.6 - 0.9 cm IVS Systolic Thickness 1.6 cm LVPW Diastolic Thickness 1.2 cm 0.6 - 1.0 / 0.6 - 0.9 cm LVPW Systolic Thickness 1.8 cm LV Ejection Fraction 2D Teich 61.1 % LV Ejection Fraction MOD 2C 24.0 % LV Ejection Fraction 2C AL 21.9 % M-MODE LA Ao Ratio MM 1.3 AV Cusp Separation MM 1.4 cm DOPPLER AV Peak Velocity 201.2 cm/s LVOT Peak Velocity 84.0 cm/s MV Area PHT 3.6 cm squared Mitral E to A Ratio 1.8 TV Peak Velocity 223.5 cm/s TR Peak Velocity 260.0 cm/s TR Peak Gradient 27.0 mmHg TV Peak E Velocity 144.0 cm/s Right Atrial Pressure 3.0 mmHg Pulmonary Artery Systolic Pressu 30.0 mmHg PV Peak Velocity 36.0 cm/s FINDINGS Left Ventricle Normal left ventricular size and systolic function, EF 61%.mild left ventricular hypertrophy. Right Ventricle Normal right ventricular size and systolic function. Right Atrium Moderately increased right atrial size. Left Atrium Moderately increased left atrial size. Mitral Valve Moderate mitral annular calcification. Thickened mitral valve. Trace mitral valve regurgitation. Aortic Valve Thickened aortic valve. [id number] aortic valve regurgitation. Tricuspid Valve Trace tricuspid valve regurgitation. Pulmonic Valve Pulmonic valve not well visualized. Pericardium Normal pericardium without effusion. Aorta Normal aortic annulus size. IVC Inferior vena cava not visualized. CONCLUSIONS Normal left ventricular size and systolic function, EF 61%.mild left ventricular hypertrophy. Moderate biatrial enlargement. Normal right ventricular size and systolic function. Moderate mitral annular calcification. Thickened mitral valve. Trace mitral valve regurgitation. [id number] aortic valve regurgitation. Features of aortic valve sclerosis Trace tricuspid valve regurgitation. There is no pericardial effusion. Compared to the study from 02/15/2020, there may not be a significant change Dr Ashley Zelaya MD FAC (Electronically Signed) Final Date: 20 December 2023 10:53 S
[2023-12-20] MEDS: atorvastatin 40 mg Tablet 80 MG PO (07:49)
[2023-12-20] MEDS: pantoprazole DR 40 mg Tablet PO (07:50)
[2023-12-20] MEDS: finasteride 5 mg Tablet PO (07:50)
[2023-12-20 08:21] LABS: Troponin(5th) Baseline 21 ng/L (0-15)
--- NOTE | 2023-12-20 08:43 | ECG_ITS ---
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 Measurements Intervals [place] Rate: 70 P: 0 OK: 0 QRS: -35 QRSD: 129 T: -16 QT: 425 QTc: 459 Interpretive Statements ATRIAL FIBRILLATION LEFT AXIS DEVIATION [QRS AXIS < -30] RIGHT BUNDLE BRANCH BLOCK [120+ ms QRS DURATION, UPRIGHT V1, 40+ ms S IN I/aVL/V4/V5/V6] Compared to ECG 12/20/2023 07:29:08 No significant changes Electronically Signed On 12-20-2023 19:20:15 CDT by Ashley Zelaya M.D. [id number]
[2023-12-20] MEDS: budesonide 0.5 mg/2 mL Neb INHALATION (09:13)
[2023-12-20 09:38] LABS: D Dimer 1.34 ug/mLFEU (0-0.59)
[2023-12-20 09:46] LABS: Troponin 5 2HR 18.66 ng/L (0-15)
[2023-12-20 09:48] LABS: Troponin 5 2HR Delta -2.34 ABS# (0-10)
[2023-12-20] MEDS: sodium chloride 0.9% 1,000 ML 75 ML IV (11:50)
[2023-12-20 11:56] LABS: Estmated Average Glucose 100; Hemoglobin A1C 5.1 % (4.0-6.0)
[2023-12-20 12:06] LABS: Alanine Aminotransferase 25 U/L (0-41); Albumin Level 3.8 g/dL (3.5-5.2); Alkaline Phosphatase 83 U/L (40-130); Anion Gap 14.5 (5-19); Aspartate Amino Transferase 35 U/L (0-40); Blood Urea Nitrogen 18 mg/dL (8-23); Carbon Dioxide 21 mmol/L (22-29); Chloride 108 mmol/L (98-107); Creatinine Clr Calc Pharmacy 60.3848; Globulin 2.9 g/dL (1.3-4.6); Glucose 149 mg/dL (65-115); Osmolality Calculated 295 mOsm/kg (285-295); Potassium 3.5 mmol/L (3.5-5.1); Sodium 140 mmol/L (136-145); Thyroid Stimulating Hormone 0.79 uIU/mL (0.27-4.20); Total Bilirubin 2.5 mg/dL (0.15-1.2); Total Protein 6.7 g/dL (6.6-8.7); Vitamin B12 1430 pg/mL (232-1245)
--- NOTE | 2023-12-20 12:39 | P.PN_ITS ---
Subjective 2 Subjective: Admitted overnight. Seen at bedside with caregiver. Patient states he is feeling weak. Better than when he was admitted. Having episodes of diarrhea. Has remained hemodynamically stable and afebrile. Appreciate orthostatic blood pressures. Denies any chest pains. Saturating well on room air. Vitals/I&O/Wt Last Vital Signs Temp 98.6 F 12/20/23 11:39 Pulse 64 12/20/23 11:39 Resp 14 12/20/23 11:39 BP 163/75 12/20/23 11:39 Pulse Ox 95 12/20/23 11:39 O2 Del Method Nasal Cannula 12/20/23 11:39 O2 Flow Rate 0 12/20/23 08:00 12/19/23 12/20/23 12/20/23 22:59 06:59 14:59 Intake Total 1700 / 1700 240 / 240 Output Total 225 / 225 100 / 100 Balance 1475 / 1475 140 / 140 Weight last 48 hrs Weight 80.513 kg Weight 81.102 kg Weight 81.647 kg Physical Exam 2 Narrative: General: No acute distress, AO x3, dehydrated, sick appearing HEENT: PERRLA, pupils bilaterally equal and reactive, pallors not present Chest: Normal vesicular breath sounds, conductive airway sounds and coarse crackles all over lung love, equal good air entry bilaterally CVS: S1-S2 regular, no murmurs, no tachycardia, no gallops, no rubs Abdomen: Soft, nontender, no organomegaly, bowel sounds present Neuro: No focal deficits, no facial deformity, AO x3, power 5/5 in all limbs Data 12/19/23 22:59 12/20/23 05:23 Micro: Microbiology 12/19/23 23:50 Blood Culture - Preliminary Blood SPECIMEN COLLECTED 12/19/23 23:45 Blood Culture - Preliminary Blood SPECIMEN COLLECTED A&P Assessment and plan (1) COVID-19: Patient presenting to the hospital with increased generalized weakness, fever and chills at home. He is at high risk of progression from mild to severe disease given his underlying comorbidities. Dexamethasone 6 mg IV daily. Remdesivir 100 mg IV daily to finish a 5-day course. Continue with DuoNebs every 6 hour, Pulmicort twice daily. Aggressive pulmonary toilet with incentive spirometry. Tessalon Perles 100 mg 3 times daily. Monitor inflammatory markers including CRP and dimer every other day. Patient clinically dehydrated. For now we will start on normal saline at 75 cc/h for 1 bag. (2) Orthostatic hypotension: Currently supine blood pressure within normal range. Appears patient has a history of autonomic dysfunction and takes midodrine as needed. Orthostatic negative. Continue to monitor. Will start on midodrine as needed if needed. (3) Thrombocytopenia: Chronic thrombocytopenia, likely related to MDS, currently made worse with acute viral illness. Platelet count down to 53,000. Will monitor no bleeding at any site currently. For now we will hold off on home dose of Eliquis. (4) MDS (myelodysplastic syndrome): (5) LBBB (left bundle branch block): Incidentally noted left bundle-branch block on EKG. Patient currently denies any chest pain. 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 Residual mild aortic insufficiency. No prior EKG in the system to compare. No known history of CAD. Troponin cycled negative. Echocardiogram done today shows EF of 61% with mild LVH, biatrial enlargement, mild to moderate aortic regurgitation, trace MR. Patient would benefit with outpatient stress test. Check A1c, lipid panel. Continue with home dose of statin. Will add baby aspirin 81 mg daily. Plan Diarrhea: Check for C. difficile if negative will plan for Lomotil. CODE STATUS: Discussed in detail with patient and son/DPOA at bedside. Does not want any kind of resuscitation measures. DNR/DNI. DVT ppx: SCDs only , no a/c due to thrombocytopenia Protonix for PUD prophylaxis. Attestations 2 Medical Necessity Statement*: Requires further hospitalization for management of dehydration, weakness in setting of COVID-19, multiple episode of diarrhea in a patient with history of MDS, mitral valve repair with new LBBB Diagnoses COVID-19 U07.1 Orthostatic hypotension I95.1 Thrombocytopenia D69.6 MDS (myelodysplastic syndrome) D46.9 LBBB (left bundle branch block) I44.7
--- NOTE | 2023-12-20 12:43 | ECG_ITS ---
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 Measurements Intervals [place] Rate: 66 P: 0 MO: 0 QRS: -35 QRSD: 116 T: -24 QT: 404 QTc: 426 Interpretive Statements ATRIAL FIBRILLATION WITH ABERRANT CONDUCTION OR VENTRICULAR PREMATURE COMPLEXES POSSIBLE RIGHT VENTRICULAR CONDUCTION DELAY [RSR (QR) IN V1/V2] Compared to ECG 12/20/2023 09:17:07 Ventricular premature complex(es) now present Aberrant conduction of supraventricular beat(s) now present Left-axis deviation no longer present Right bundle-branch block no longer present Electronically Signed On 12-20-2023 19:21:45 CDT by Ashley Zelaya M.D. [id number]
[2023-12-20 14:25] LABS: Troponin 5 6HR 19.32 ng/L (0-15)
[2023-12-20 14:37] LABS: Troponin 5 6HR Delta -1.68 ng/L (0-12)
[2023-12-20] MEDS: benzonatate 100 mg Capsule PO ×2 (14:37→20:29)
[2023-12-20] MEDS: ipratropium-albuterol 3 mL Neb INHALATION (14:38)
[2023-12-20] MEDS: tamsulosin 0.4 mg Capsule PO (20:28)
[2023-12-20] MEDS: cyanocobalamin 1,000 mcg Tablet 1000 MCG PO (20:29)
[2023-12-21] VITALS (16 sets, daily range): BP systolic 124–165; BP diastolic 67–87; PULSE 70–122; RESP 16–24; TEMP 36.7–38.2; O2SAT 92–98
[2023-12-21 03:15] LABS: Basophils % 0.1 %; Eosinophils % 0.3 %; Hematocrit 35.6 % (37-53); Lymphocytes # 0.6 10^3/uL (0.8-4.8); Lymphocytes % 4.4 %; Mean Corpuscular HGB Conc 33.1 g/dL (30-55); Mean Corpuscular Hemoglobin 33.1 pg (27-33); Mean Corpuscular Volume 99.7 fl (82-101); Mean Platelet Volume 12.5 fL (7.4-10.4); Monocytes # 3.9 10^3/uL (0.2-0.9); Monocytes % 29.6 %; Neutrophils # 8.53 10^3/uL (1.8-7.7); Neutrophils % 64.1 %; Nucleated Red Blood Cells % 0 %; Platelet Count 44 10^3/cmm (157-399); Red Blood Count 3.57 10^6/uL (3.85-5.65); Red Cell Distribution Width 13.5 % (12.1-15.1); White Blood Count 13.31 10^3/uL (3.29-11.43)
[2023-12-21 03:34] LABS: C Reactive Protein 90.9 mg/L (0.0-4.9); Chol HDL Ratio 2.16 mg/dL (1.0-5.00); Cholesterol 67 mg/dL (0-200); HDL Cholesterol 31 mg/dL (60-100); LDL Cholesterol Calculated 27 mg/dL (50-129); Magnesium 1.8 mg/dL (1.7-2.3); Triglycerides 46 mg/dL (0-150); VLDL Cholestrol Calculation 9 mg/dL (0-30)
[2023-12-21 03:39] LABS: Alanine Aminotransferase 20 U/L (0-41); Albumin Level 3.4 g/dL (3.5-5.2); Alkaline Phosphatase 67 U/L (40-130); Anion Gap 12.1 (5-19); Aspartate Amino Transferase 36 U/L (0-40); Blood Urea Nitrogen 19 mg/dL (8-23); Calcium 7.9 mg/dL (8.5-10.5); Carbon Dioxide 22 mmol/L (22-29); Chloride 109 mmol/L (98-107); Creatinine Clr Calc Pharmacy 60.3848; Globulin 3.1 g/dL (1.3-4.6); Glucose 131 mg/dL (65-115); Osmolality Calculated 294 mOsm/kg (285-295); Potassium 3.1 mmol/L (3.5-5.1); Sodium 140 mmol/L (136-145); Total Bilirubin 1.6 mg/dL (0.15-1.2); Total Protein 6.5 g/dL (6.6-8.7)
--- NOTE | 2023-12-21 04:41 | PC.NURSE ---
Pt had a bowel movement in their brief that was not able to be collected for the ordered stool sample. Accurate output of voids also unobtainable due to pt peeing in the floor and not using urinal.
[2023-12-21] MEDS: levothyroxine 25 mcg Tablet PO (05:18)
--- NOTE | 2023-12-21 08:13 | PC.NURSE ---
dr. polanco notified of worsening coarse lung sounds and possible aspiration. ordered to keep patient NPO.
[2023-12-21] MEDS: ipratropium-albuterol 3 mL Neb INHALATION ×3 (09:04→21:08)
[2023-12-21] MEDS: budesonide 0.5 mg/2 mL Neb INHALATION ×2 (09:05→21:08)
[2023-12-21] MEDS: remdesivir 100 MG in sodium chloride 0.9% (100 ml) 100 ML IV (10:26)
[2023-12-21] MEDS: dexamethasone 4 mg/mL INJ 6 MG IVP (10:26)
--- NOTE | 2023-12-21 10:49 | XRR_ITS ---
PROCEDURE INFORMATION: Exam: XR Chest Exam date and time: 12/21/2023 11:31 AM Age: 88 years old Clinical indication: Other: Covid, ? aspiration TECHNIQUE: Imaging protocol: Radiologic exam of the chest. Views: 1 view. COMPARISON: CR (CHEST, ) 12/19/2023 11:24 PM FINDINGS: Lungs: Patchy infiltrate involves the right lung base. The left lung is clear. Pleural spaces: Unremarkable. No pleural effusion. No pneumothorax. Heart/Mediastinum: Unremarkable. No cardiomegaly. Bones/joints: Sternal sutures are noted. XR/XR chest 1V portable [id number] IMPRESSION: Right basilar pneumonia
[2023-12-21 12:03] LABS: C.Diff PCR (Lab) NEGATIVE (Negative)
--- NOTE | 2023-12-21 15:05 | P.PN_ITS ---
Subjective 2 Subjective: No acute vents overnight. Seen with family at bedside. Patient is fairly weak and sleepy. Wakes up to verbal stimulus. Today morning had episode of aspiration/choking for which he required mildly elevated oxygen supplementation. Currently back on 1.5 L. Denies any nausea, vomiting, headache. Vitals/I&O/Wt Last Vital Signs Temp 99.1 F 12/21/23 11:46 Pulse 101 H 12/21/23 14:56 Resp 16 12/21/23 14:45 BP 128/68 12/21/23 11:46 Pulse Ox 93 12/21/23 14:45 O2 Del Method Room Air 12/21/23 14:45 O2 Flow Rate 2 12/21/23 09:05 12/21/23 12/21/23 12/21/23 06:59 14:59 22:59 Intake Total 1000 / 1680 100 / 100 Balance 1000 / 1380 100 / 100 Weight last 48 hrs Weight 78.727 kg Weight 80.513 kg Weight 81.102 kg Weight 81.647 kg Physical Exam 2 Narrative: General: No acute distress, AO x3, dehydrated, sick appearing HEENT: PERRLA, pupils bilaterally equal and reactive, pallors not present Chest: Normal vesicular breath sounds, conductive airway sounds and coarse crackles all over lung love, equal good air entry bilaterally CVS: S1-S2 regular, no murmurs, no tachycardia, no gallops, no rubs Abdomen: Soft, nontender, no organomegaly, bowel sounds present Neuro: No focal deficits, no facial deformity, AO x3, power 5/5 in all limbs Data 12/21/23 03:05 12/21/23 03:05 Micro: Microbiology 12/20/23 01:24 Urine Culture - Preliminary Urine,Clean Catch 12/19/23 23:50 Blood Culture - Preliminary Blood NEGATIVE TO DATE 12/19/23 23:45 Blood Culture - Preliminary Blood NEGATIVE TO DATE A&P Assessment and plan (1) COVID-19: Patient presenting to the hospital with increased generalized weakness, fever and chills at home. He is at high risk of progression from mild to severe disease given his underlying comorbidities. Dexamethasone 6 mg IV daily. Remdesivir 100 mg IV daily to finish a 5-day course. Continue with DuoNebs every 6 hour, Pulmicort twice daily. Aggressive pulmonary toilet with incentive spirometry. Tessalon Perles 100 mg 3 times daily. Monitor inflammatory markers including CRP and dimer every other day. Patient clinically dehydrated. For now we will start on normal saline at 75 cc/h for 1 bag. (2) Orthostatic hypotension: Currently supine blood pressure within normal range. Appears patient has a history of autonomic dysfunction and takes midodrine as needed. Orthostatic negative. Continue to monitor. Will start on midodrine as needed if needed. (3) Thrombocytopenia: Chronic thrombocytopenia, likely related to MDS, currently made worse with acute viral illness. Platelet count down to 53,000. Will monitor no bleeding at any site currently. For now we will hold off on home dose of Eliquis. (4) MDS (myelodysplastic syndrome): (5) LBBB (left bundle branch block): Incidentally noted left bundle-branch block on EKG. Patient currently denies any chest pain. 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 Residual mild aortic insufficiency. No prior EKG in the system to compare. No known history of CAD. Troponin cycled negative. Echocardiogram done today shows EF of 61% with mild LVH, biatrial enlargement, mild to moderate aortic regurgitation, trace MR. Patient would benefit with outpatient stress test. Check A1c, lipid panel. Continue with home dose of statin. Will add baby aspirin 81 mg daily. Plan Diarrhea: Check for C. difficile if negative will plan for Lomotil. CODE STATUS: Discussed in detail with patient and son/DPOA at bedside. Does not want any kind of resuscitation measures. DNR/DNI. DVT ppx: SCDs only , no a/c due to thrombocytopenia Protonix for PUD prophylaxis. Plan for the day: Patient having episodes of aspiration. Keep NPO. Speech evaluation. Repeat chest x-ray shows possibility of lower lobe pneumonia. Started on IV ceftriaxone and azithromycin. Azithromycin for 3 days. Follow-up with blood and sputum culture. Continue other current remdesivir and steroids. Continue with inhalation treatment. Monitor CRP every 48 hours. Discharge plan: Family requesting possible discharge to SNF as patient lives with an elderly . Physical therapy evaluation. Attestations 2 Medical Necessity Statement*: Requires further hospitalization for management of generalized weakness, hypoxia in setting of aspiration pneumonia, COVID-19 while safe discharge planning is sought Diagnoses COVID-19 U07.1 Orthostatic hypotension I95.1 Thrombocytopenia D69.6 MDS (myelodysplastic syndrome) D46.9 LBBB (left bundle branch block) I44.7
--- NOTE | 2023-12-21 15:14 | ECG_ITS ---
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 Measurements Intervals [place] Rate: 148 P: 0 IN: 0 QRS: -32 QRSD: 137 T: 5 QT: 320 QTc: 503 Interpretive Statements ATRIAL FIBRILLATION WITH RAPID VENTRICULAR RESPONSE WITH ABERRANT CONDUCTION OR VENTRICULAR PREMATURE COMPLEXES LEFT AXIS DEVIATION [QRS AXIS < -30] RIGHT BUNDLE BRANCH BLOCK [120+ ms QRS DURATION, UPRIGHT V1, 40+ ms S IN I/aVL/V4/V5/V6] ST DEVIATION AND MODERATE T-WAVE ABNORMALITY, CONSIDER ANTERIOR ISCHEMIA [-0.1+ mV T-WAVE IN V3/V4] Compared to ECG 12/20/2023 14:43:08 Left-axis deviation now present Right bundle-branch block now present T-wave abnormality now present Possible ischemia now present Electronically Signed On 12-21-2023 21:15:01 CDT by Ashley Zelaya M.D. [id number]
[2023-12-21] MEDS: amiodarone 150 MG/100 ML PREMIX 400 MG IV (15:45)
[2023-12-21] MEDS: cefTRIAXone 1,000 MG in sodium chloride 0.9% (plus) 50 ML 100 MG IV (16:08)
[2023-12-22] VITALS (18 sets, daily range): BP systolic 113–174; BP diastolic 74–108; PULSE 23–99; RESP 16–19; TEMP 36.3–37.2; O2SAT 94–97; BMI 3345.3
[2023-12-22] MEDS: ipratropium-albuterol 3 mL Neb INHALATION ×4 (01:42→20:24)
[2023-12-22 05:00] LABS: Basophils % 0.1 %; Eosinophils % 0.1 %; Lymphocytes # 0.4 10^3/uL (0.8-4.8); Lymphocytes % 3.5 %; Mean Corpuscular HGB Conc 33.2 g/dL (30-55); Mean Corpuscular Hemoglobin 32.8 pg (27-33); Mean Corpuscular Volume 98.7 fl (82-101); Mean Platelet Volume 12.3 fL (7.4-10.4); Monocytes % 18.8 %; Neutrophils # 8.09 10^3/uL (1.8-7.7); Neutrophils % 75.4 %; Nucleated Red Blood Cells % 0 %; Platelet Count 47 10^3/cmm (157-399); Red Blood Count 3.75 10^6/uL (3.85-5.65); Red Cell Distribution Width 13.6 % (12.1-15.1); White Blood Count 10.74 10^3/uL (3.29-11.43)
[2023-12-22 05:22] LABS: Alanine Aminotransferase 22 U/L (0-41); Albumin Level 3.5 g/dL (3.5-5.2); Alkaline Phosphatase 67 U/L (40-130); Anion Gap 13.1 (5-19); Aspartate Amino Transferase 46 U/L (0-40); Blood Urea Nitrogen 20 mg/dL (8-23); Calcium 8.1 mg/dL (8.5-10.5); Carbon Dioxide 23 mmol/L (22-29); Chloride 107 mmol/L (98-107); Creatinine Clr Calc Pharmacy 65.6058; Glucose 157 mg/dL (65-115); Osmolality Calculated 296 mOsm/kg (285-295); Potassium 3.1 mmol/L (3.5-5.1); Sodium 140 mmol/L (136-145); Total Bilirubin 1.4 mg/dL (0.15-1.2); Total Protein 6.5 g/dL (6.6-8.7)
[2023-12-22] MEDS: budesonide 0.5 mg/2 mL Neb INHALATION ×2 (08:58→20:24)
[2023-12-22] MEDS: dexamethasone 4 mg/mL INJ 6 MG IVP (09:56)
[2023-12-22] MEDS: remdesivir 100 MG in sodium chloride 0.9% (100 ml) 100 ML IV (09:57)
--- NOTE | 2023-12-22 10:41 | CTR_ITS ---
PROCEDURE INFORMATION: Exam: CTA Chest With Contrast Exam date and time: 12/22/2023 8:52 PM Age: 88 years old Clinical indication: Dyspnea; Additional info: SOB, covid, wheezing TECHNIQUE: Imaging protocol: Computed tomographic angiography of the chest with contrast. Exam focused on the arteries. 3D rendering (Not supervised by radiologist): MIP and/or 3D reconstructed images were created by the technologist. Radiation optimization: All CT scans at this facility use at least one of these dose optimization techniques: automated exposure control; mA and/or kV adjustment per patient size (includes targeted exams where dose is matched to clinical indication); or iterative reconstruction. Contrast material: OMNI 350; Contrast volume: 100 ml; Contrast route: INTRAVENOUS (IV); COMPARISON: CR (CHEST, ) 12/21/2023 11:31 AM RADIATION DOSE METRICS: Total DLP (mGy-cm): 417.1 FINDINGS: Pulmonary arteries: Overall exam quality is good for evaluating the pulmonary arteries although there is some respiratory motion in the left mid to lower lung. No convincing intraluminal filling defects to indicate pulmonary embolism. A few of the left lower lobe posterior basal and lateral basal segmental arteries are not well seen due to blurring artifact. Aorta: The ascending thoracic aorta is enlarged up to 4.2 cm. The descending aorta measures 3.1 cm which is also mildly enlarged. Lungs: In the right lower lobe there is bronchial wall thickening and scattered endobronchial debris. There are a few clustered nodular opacities measuring up to 8 mm and are most likely inflammatory. Subpleural and dependent atelectasis in both lung bases. Incidental calcified granulomas. Pleural spaces: Bilateral small pleural effusions layer posteriorly. Heart: Mild cardiomegaly. Prosthetic mitral valve.. No pericardial effusion. Chronic mediastinal postop changes and calcified plaque in the coronary arteries. Lymph nodes: Mediastinal nodes measure up to 1 cm. Kidneys and ureters: Calculus in the left renal pelvis measuring 14 x 12 x 14 mm associated with perinephric stranding and enlargement of the renal pelvis. No generalized hydronephrosis. 3.8 cm cyst in the left upper renal pole. Bones/joints: Unremarkable. No acute fracture. Soft tissues: Unremarkable. CT/CT angio chest PE protcl [id number] IMPRESSION: 1. No definite pulmonary embolism. A few of the left lower lobe vessels are not well evaluated due to motion. 2. Right lower lobe peribronchial infiltrates and micronodular opacities consistent with inflammation. 3. Bibasilar atelectasis with small pleural effusions. 4. Mildly enlarged ascending and descending thoracic aorta. 5. Calculus in the left renal pelvis. There is evidence of either upper urinary tract infection or intermittent obstruction COMMENTS: Consistent with the [place] [employer]'s Incidental Findings Committee white paper (J Am Alissa Radiol 2018): Any incidental renal lesion less than 1 cm or classified as too small to characterize, or any incidental cystic renal lesion characterized as simple-appearing, is likely benign. No follow-up imaging is recommended for these lesions per consensus recommendations based on imaging criteria.
[2023-12-22 11:28] LABS: NT Pro B Type Natriuretic Pept 5304 pg/mL (0-450)
--- NOTE | 2023-12-22 11:40 | PC.SOCIAL ---
IMM IMM signed by patient. Copy provided.
[2023-12-22] MEDS: atorvastatin 40 mg Tablet 80 MG PO (12:41)
[2023-12-22] MEDS: finasteride 5 mg Tablet PO (12:42)
[2023-12-22] MEDS: pantoprazole DR 40 mg Tablet PO (12:42)
[2023-12-22] MEDS: azithromycin 250 mg Tablet 500 MG PO (12:42)
[2023-12-22] MEDS: benzonatate 100 mg Capsule PO ×3 (12:42→20:39)
[2023-12-22] MEDS: amiodarone 200 mg Tablet 400 MG PO ×2 (12:42→17:20)
[2023-12-22] MEDS: aspirin 81 mg EC Tablet PO (12:43)
--- NOTE | 2023-12-22 12:43 | PC.NURSE ---
0900 AM medications were not given on time d/t pt was still NO as a result of his swallow test late yesterday. The pt has been re-evaluated and is now ok to take po medications with applesauce per [facility] T[facility] notified.
--- NOTE | 2023-12-22 15:23 | P.PN_ITS ---
Subjective 2 Subjective: Patient was seen this person to place, to time he follows commands, does report generalized weakness, currently in A-fib, heart rates between 120s, RVR, on amiodarone drip, does report poor appetite, reports a productive cough, we discussed my concerns of aspiration, will discuss with speech therapy, -I had a family meeting with patient's camden mcknight, outside patient's room, we discussed patient's COVID-19 infection, his respiratory failure his A-fib with RVR, his deconditioning, family members want Zain to go to half-way facility for rehab, he lives at home with his , who is also in a deconditioned state, also dealing with COVID -Spoke to speech therapy, I am concerned about his aspiration risk, as he is poor throat clearing, persistent cough, will start him on a dysphagia level 4 diet, advance as tolerated for now Vitals/I&O/Wt Last Vital Signs Temp 97.3 F L 12/22/23 08:00 Pulse 88 12/22/23 13:31 Resp 16 12/22/23 13:25 BP 174/108 12/22/23 04:00 Pulse Ox 95 12/22/23 13:25 O2 Del Method Room Air 12/22/23 13:25 O2 Flow Rate 2 12/22/23 01:45 12/22/23 12/22/23 12/22/23 06:59 14:59 22:59 Intake Total 300 / 300 Balance 300 / 300 Weight last 48 hrs Weight 77.706 kg Weight 78.727 kg Physical Exam 2 Const: COMMON NORMALS: no acute distress ORIENTATION/CONSCIOUSNESS: Yes awake, Yes oriented to person and Yes oriented to place; not oriented to time Resp: COMMON NORMALS: normal respiratory effort, No retractions and No use of accessory muscles Cardio: COMMON NORMALS: regular rate, regular rhythm, S1 normal heart sound present and S2 normal heart sound present RATE: regular rate RHYTHM: r egular rhythm HEART SOUNDS: S1 normal heart sound present and S2 normal heart sound present GI: COMMON NORMALS: Normal to inspection, nondistended, normoactive bowel sounds present and non-tender Extremity: COMMON NORMALS: no pedal edema Neuro: SENSORIUM/ORIENTATION: Yes oriented to person, Yes oriented to place and No oriented to time Psych: COMMON NORMALS: mental status grossly normal Data 12/22/23 04:37 12/22/23 04:37 Micro: Microbiology 12/21/23 12:00 Gram Stain - Final Sputum - Expectorated Sputum Sputum Culture - Preliminary 12/20/23 01:24 Urine Culture - Final Urine,Clean Catch A&P Assessment and plan (1) COVID-19: Patient presenting to the hospital with increased generalized weakness, fever and chills at home. He is at high risk of progression from mild to severe disease given his underlying comorbidities. Dexamethasone 6 mg IV daily. Remdesivir 100 mg IV daily to finish a 5-day course. Continue Rocephin Continue azithromycin Continue with DuoNebs every 6 hour, Pulmicort twice daily. Aggressive pulmonary toilet with incentive spirometry. Tessalon Perles 100 mg 3 times daily. Monitor inflammatory markers including CRP and dimer every other day. Given persistent shortness of breath, crackles on examination, will order CT angiogram of the chest (2) Orthostatic hypotension: Currently supine blood pressure within normal range. Appears patient has a history of autonomic dysfunction and takes midodrine as needed. Continue to monitor. Will start on midodrine as needed if needed. (3) Thrombocytopenia: Chronic thrombocytopenia, likely related to MDS, currently made worse with acute viral illness. Platelet count down to 47,000. Will monitor no bleeding at any site currently. For now we will hold off on home dose of Eliquis. (4) MDS (myelodysplastic syndrome): (5) LBBB (left bundle branch block): Incidentally noted left bundle-branch block on EKG. Patient currently denies any chest pain. 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 Residual mild aortic insufficiency. No prior EKG in the system to compare. No known history of CAD. Troponin cycled negative. Echocardiogram done today shows EF of 61% with mild LVH, biatrial enlargement, mild to moderate aortic regurgitation, trace MR. Patient would benefit with outpatient stress test. Check A1c, lipid panel. Continue with home dose of statin. Will add baby aspirin 81 mg daily. (6) Atrial fibrillation with RVR: - A-fib with RVR -Currently on amiodarone drip ? Transition to p.o. amiodarone Plan Diarrhea: Check for C. difficile if negative will plan for Lomotil. CODE STATUS: Discussed in detail with patient and son/DPOA at bedside. Does not want any kind of resuscitation measures. DNR/DNI. DVT ppx: SCDs only , no a/c due to thrombocytopenia Protonix for PUD prophylaxis. Plan for the day: Advance to dysphagia level 4 diet ? Continue Rocephin, azithromycin ? Continue amiodarone -Continue remdesivir ? CT angiogram of the chest ? PT OT eval Discharge plan: Family requesting possible discharge to SNF as patient lives with an elderly . Physical therapy evaluation. Attestations 2 Medical Necessity Statement*: Patient requires hospitalization for A-fib with RVR, COVID-19 Diagnoses COVID-19 U07.1 Orthostatic hypotension I95.1 Thrombocytopenia D69.6 MDS (myelodysplastic syndrome) D46.9 LBBB (left bundle branch block) I44.7 Atrial fibrillation with RVR I48.91
[2023-12-22] MEDS: cefTRIAXone 1,000 MG in sodium chloride 0.9% (plus) 50 ML 100 MG IV (16:13)
--- NOTE | 2023-12-22 17:09 | PC.NURSE ---
Reported by SARWAT Franklin that it took her and the OT both to get the pt transferred back to bed from [facility]. She stated that he is a totally different pt this afternoon compared to this morning. Only thing that has changed since this morning is that the pt took all of his morning meds.
[2023-12-22] MEDS: cyanocobalamin 1,000 mcg Tablet 1000 MCG PO (20:38)
[2023-12-22] MEDS: tamsulosin 0.4 mg Capsule PO (20:39)
[2023-12-22] MEDS: iohexol 350 mg/mL 500 mL Btl (per mL) IV (20:55)
--- NOTE | 2023-12-22 21:29 | PC.NURSE ---
pt transfer to floor this nurse gave pt meds, changed gown, obtaiend pt ct on the way to med surg. report given to Arianne mena prior to and she also received pt on floor
--- NOTE | 2023-12-22 21:38 | PC.NURSE ---
pt notification this nurse phoned pt to inform her that pt had been moved to room 273. pt verbalized understanding and had no further questions at this time.
[2023-12-23] VITALS (12 sets, daily range): BP systolic 92–173; BP diastolic 55–89; PULSE 67–92; RESP 16–18; TEMP 36.4–36.7; O2SAT 91–96; BMI 23.6
[2023-12-23] MEDS: levothyroxine 25 mcg Tablet PO (06:01)
[2023-12-23 06:10] LABS: Mean Corpuscular HGB Conc 33.6 g/dL (30-55); Mean Corpuscular Hemoglobin 32.6 pg (27-33); Mean Platelet Volume 12.9 fL (7.4-10.4); Platelet Count 57 10^3/cmm (157-399); Red Blood Count 3.71 10^6/uL (3.85-5.65); Red Cell Distribution Width 13.3 % (12.1-15.1)
[2023-12-23 06:28] LABS: Anion Gap 13.8 (5-19); Blood Urea Nitrogen 19 mg/dL (8-23); C Reactive Protein 141.4 mg/L (0.0-4.9); Calcium 8.2 mg/dL (8.5-10.5); Carbon Dioxide 26 mmol/L (22-29); Chloride 106 mmol/L (98-107); Creatinine Clr Calc Pharmacy 65.1747; Glucose 154 mg/dL (65-115); Magnesium 2.1 mg/dL (1.7-2.3); Osmolality Calculated 301 mOsm/kg (285-295); Sodium 143 mmol/L (136-145)
[2023-12-23 06:34] LABS: Potassium 2.8 mmol/L (3.5-5.1)
[2023-12-23 07:33] LABS: Slide Review Slide Review Perform
[2023-12-23 07:34] LABS: Absolute Neutrophil 5.6 10^3/cmm (1.4-6.5); Absolute Segmented Neutrophil 5.2 10/cmm (1.6-7.1); Band Neutrophils Absolute 0.4 10^3/cmm (0.0-1.2); Eosinophils 0 %; Lymphocytes 4 %; Lymphocytes Absolute 0.3 10^3/cmm (1.2-3.4); Monocytes Absolute 0.4 10^3/cmm (0.1-0.6); Platelet Estimate Decreased (Normal); Segmented Neutrophils 82 %; Total Cells Counted 100 (0-100)
[2023-12-23 07:35] LABS: Giant Platelets Trace
--- NOTE | 2023-12-23 07:57 | PC.NURSE ---
Provider is updated with patients K+ results, klor con 40 once was ordered.
[2023-12-23] MEDS: pantoprazole DR 40 mg Tablet PO (08:43)
[2023-12-23] MEDS: finasteride 5 mg Tablet PO (08:43)
[2023-12-23] MEDS: amiodarone 200 mg Tablet 400 MG PO ×2 (08:43→18:01)
[2023-12-23] MEDS: atorvastatin 40 mg Tablet 80 MG PO (08:44)
[2023-12-23] MEDS: benzonatate 100 mg Capsule PO ×3 (08:44→20:25)
[2023-12-23] MEDS: dexamethasone 4 mg/mL INJ 6 MG IVP (08:44)
[2023-12-23] MEDS: aspirin 81 mg EC Tablet PO (08:44)
[2023-12-23] MEDS: azithromycin 250 mg Tablet 500 MG PO (08:44)
[2023-12-23] MEDS: potassium chloride ER 20 mEq Tablet 40 MEQ PO (08:44)
--- NOTE | 2023-12-23 08:45 | CTR_ITS ---
PROCEDURE INFORMATION: Exam: CT Abdomen And Pelvis Without Contrast Exam date and time: 12/23/2023 1:42 PM Age: 88 years old Clinical indication: Other: UTI; Additional info: UTI, stone TECHNIQUE: Imaging protocol: Computed tomography of the abdomen and pelvis without contrast. Radiation optimization: All CT scans at this facility use at least one of these dose optimization techniques: automated exposure control; mA and/or kV adjustment per patient size (includes targeted exams where dose is matched to clinical indication); or iterative reconstruction. COMPARISON: CT kidney stone [id number] 03/17/2021 12:04 AM RADIATION DOSE METRICS: Total DLP (mGy-cm): 854 FINDINGS: Pleural spaces: Increased small bilateral pleural effusions. No pneumothorax. Atelectasis and possible pneumonitis in the lung bases is slightly increased. Heart: Unchanged mild cardiomegaly. Unchanged mitral annular calcification. Coronary arteries: Large amount of coronary artery calcification. Liver: Grossly unremarkable liver, but limited. Gallbladder and biliary ducts: Contracted gallbladder. Otherwise, unremarkable. Pancreas: Normal. No ductal dilation. Spleen: Grossly unremarkable spleen, but limited. Adrenal glands: Unchanged 11 mm left adrenal nodule, so considered benign, probably an adenoma. Otherwise, unremarkable. Kidneys and ureters: Bilateral renal cysts need no follow-up. Possible increasing stone burden both kidneys, but some of this could be early excretion of contrast. Large calculus in the left renal pelvis measuring 1.5 cm in maximum dimension. Mildly increased mild-moderate left hydronephrosis suggests this left renal pelvic stone is intermittently obstructing. Bilateral urinary tract infections are possible. Otherwise, unremarkable. Stomach and bowel: New wall thickening of the gastric antrum and pyloric region could be malignancy. Upper endoscopy is recommended. Again noted are diverticula from the colon. No acute diverticulitis. Otherwise, unremarkable. Appendix: No evidence of appendicitis. Intraperitoneal space: Unremarkable. No free air. No significant fluid collection. Vasculature: Unchanged large amount of arterial calcification. 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 Previously it measured 4.1 cm. Unchanged ectasia of the right common iliac artery. Otherwise, grossly unremarkable noncontrast vasculature. Lymph nodes: Unchanged distal bilateral iliac lymphadenopathy. No other obvious lymphadenopathy. Urinary bladder: Increased soft tissue nodular lobulation into the floor of the urinary bladder. This may be prostate tissue, but cystoscopy is recommended to exclude bladder neoplasm. Otherwise, unremarkable. Reproductive: Marked enlargement of the prostate gland has increased measuring 10.7 cm by 6 cm by 5.7 cm. Please correlate with PSA levels. Bones/joints: Unchanged moderate scoliosis. Unchanged multilevel spondylosis ranging from mild to severe. Otherwise, unremarkable. Soft tissues: Small benign-appearing fat containing paraumbilical hernia. Unchanged. Otherwise, unremarkable visualized body wall. Otherwise, unremarkable soft tissues. Other findings: The examination is limited by streak artifact caused by the arms at the sides. Image quality is further degraded by lack of oral and intravenous contrast. This decreases diagnostic sensitivity. CT/CT kidney stone [id number] IMPRESSION: 1. Possible increasing stone burden both kidneys. Large calculus in the left renal pelvis is possibly causing intermittent obstructive uropathy. Possible urinary tract infections on 1 or both sides. 2. Increased enlargement of the prostate gland. Correlate with PSA levels. 3. Increasing lobulated nodular soft tissue contour extending into the inferior urinary bladder may be prostate tissue, but cystoscopy is recommended for the possibility of bladder cancer. 4. New wall thickening of the gastric antrum and pyloric region could be malignancy. Upper endoscopy is recommended. 5. Unchanged bilateral iliac lymphadenopathy. 6. Additional details as above. COMMENTS: Consistent with the [employer]'s Incidental Findings Committee white paper (J Am Alissa Radiol 2018): Any incidental renal lesion less than 1 cm or classified as too small to characterize, or any incidental cystic renal lesion characterized as simple-appearing, is likely benign. No follow-up imaging is recommended for these lesions per consensus recommendations based on imaging criteria.
[2023-12-23] MEDS: budesonide 0.5 mg/2 mL Neb INHALATION ×2 (08:49→21:11)
[2023-12-23] MEDS: ipratropium-albuterol 3 mL Neb INHALATION ×2 (08:49→21:11)
[2023-12-23 09:15] LABS: Procalcitonin 1.02 ng/mL (0-0.5)
[2023-12-23 09:26] LABS: Lactic Sepsis W/Reflex 2.4 mmol/L (0.5-2.2)
--- NOTE | 2023-12-23 09:52 | PC.NURSE ---
Provider asked nursing to run NS at 30ml/hr not the 50ml/hr that the order was placed for.
[2023-12-23] MEDS: remdesivir 100 MG in sodium chloride 0.9% (100 ml) 100 ML IV (09:56)
[2023-12-23] MEDS: sodium chloride 0.9% 1,000 ML 50 ML IV (09:57)
[2023-12-23 10:53] LABS: Reflex Lactate Order REFLEX LACTIC ORDERD
[2023-12-23] MEDS: lidocaine 1% 5 ML in potassium chloride premix 100 ML 52.5 ML IV (11:37)
--- NOTE | 2023-12-23 12:50 | PC.OT ---
OT TX ATTEMPTED AT THIS TIME (1250). PT OFF THE FLOOR TO CT SCAN. TX TO BE ATTEMPTED AT LATER TIME IF POSSIBLE.
[2023-12-23 13:06] LABS: Lactic Acid level (Lactate) 3.4 mmol/L (0.5-2.2)
[2023-12-23] MEDS: cefTRIAXone 1,000 MG in sodium chloride 0.9% (plus) 50 ML 100 MG IV (14:49)
--- NOTE | 2023-12-23 14:59 | P.PN_ITS ---
Subjective 2 Subjective: Patient was seen this morning, family members at bedside, denies any fevers, no chills, no cough, we discussed his CT of his chest, CT of the chest showed that he has a left kidney stone, with concerns for mild hydronephrosis, he tells me that he knows that he has a kidney stone on the left that he has had chronic history of this, but family does tell me that intermittently as outpatient they have noticed hematuria, he denies any flank pain, no fevers, no chills, no nausea, no vomiting, Vitals/I&O/Wt Last Vital Signs Temp 97.6 F 12/23/23 12:36 Pulse 92 12/23/23 12:36 Resp 18 12/23/23 12:36 BP 120/74 12/23/23 12:36 Pulse Ox 93 12/23/23 12:36 O2 Del Method Room Air 12/23/23 12:36 O2 Flow Rate 2 12/22/23 01:45 12/22/23 12/23/23 12/23/23 22:59 06:59 14:59 Intake Total 360 / 660 50 / 710 913.5 / 913.5 Output Total 300 / 300 Balance 360 / 660 -250 / 410 913.5 / 913.5 Weight last 48 hrs Weight 79.124 kg Weight 77.706 kg Physical Exam 2 Const: COMMON NORMALS: no acute distress and patient oriented x3 Resp: COMMON NORMALS: normal respiratory effort, No retractions, No use of accessory muscles and clear to auscultation bilaterally AUSCULTATION: clear to auscultation bilaterally Cardio: COMMON NORMALS: regular rate, regular rhythm, S1 normal heart sound present and S2 normal heart sound present RATE: regular rate RHYTHM: r egular rhythm HEART SOUNDS: S1 normal heart sound present and S2 normal heart sound present GI: COMMON NORMALS: Normal to inspection, nondistended, normoactive bowel sounds present and non-tender Extremity: COMMON NORMALS: no pedal edema Neuro: COMMON NORMALS: patient oriented x3 Psych: COMMON NORMALS: mental status grossly normal Data 12/23/23 05:28 12/23/23 05:28 Micro: Microbiology 12/21/23 12:00 Gram Stain - Final Sputum - Expectorated Sputum Sputum Culture - Preliminary 12/20/23 01:24 Urine Culture - Final Urine,Clean Catch A&P Assessment and plan (1) COVID-19: Patient presenting to the hospital with increased generalized weakness, fever and chills at home. He is at high risk of progression from mild to severe disease given his underlying comorbidities. CTA CT/CT angio chest PE protcl [id number] IMPRESSION: 1. No definite pulmonary embolism. A few of the left lower lobe vessels are not well evaluated due to motion. 2. Right lower lobe peribronchial infiltrates and micronodular opacities consistent with inflammation. 3. Bibasilar atelectasis with small pleural effusions. 4. Mildly enlarged ascending and descending thoracic aorta. Dexamethasone 6 mg IV daily. Remdesivir 100 mg IV daily to finish a 5-day course. Continue Rocephin Continue azithromycin Continue with DuoNebs every 6 hour, Pulmicort twice daily. Aggressive pulmonary toilet with incentive spirometry. Tessalon Perles 100 mg 3 times daily. Monitor inflammatory markers including CRP and dimer every other day. (2) Orthostatic hypotension: Currently supine blood pressure within normal range. Appears patient has a history of autonomic dysfunction and takes midodrine as needed. Continue to monitor. Will start on midodrine as needed if needed. (3) Thrombocytopenia: Chronic thrombocytopenia, likely related to MDS, currently made worse with acute viral illness. Platelet count down to 47,000. Will monitor no bleeding at any site currently. For now we will hold off on home dose of Eliquis. (4) MDS (myelodysplastic syndrome): (5) LBBB (left bundle branch block): Incidentally noted left bundle-branch block on EKG. Patient currently denies any chest pain. 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 Residual mild aortic insufficiency. No prior EKG in the system to compare. No known history of CAD. Troponin cycled negative. Echocardiogram done today shows EF of 61% with mild LVH, biatrial enlargement, mild to moderate aortic regurgitation, trace MR. Patient would benefit with outpatient stress test. Check A1c, lipid panel. Continue with home dose of statin. Will add baby aspirin 81 mg daily. (6) Atrial fibrillation with RVR: - A-fib with RVR -Currently on amiodarone drip ? Transition to p.o. amiodarone (7) Left renal stone: 5. Calculus in the left renal pelvis. There is evidence of either upper urinary tract infection or intermittent obstruction Plan ? CT renal protocol ? Continue Rocephin, Is concern for UTI, concerns for possible pyelonephritis as patient has perinephric stranding on the outside (8) UTI (urinary tract infection): Plan Diarrhea: Check for C. difficile if negative will plan for Lomotil. CODE STATUS: Discussed in detail with patient and son/DPOA at bedside. Does not want any kind of resuscitation measures. DNR/DNI. DVT ppx: SCDs only , no a/c due to thrombocytopenia Protonix for PUD prophylaxis. Plan for the day: Advance diet ? Continue Rocephin, azithromycin ? Continue amiodarone -Continue remdesivir ? CT abdomen and pelvis renal protocol as patient has a 14 x 14 mm kidney stone with perinephric stranding, on the left side, concerns for UTI, pyelonephritis, ? PT OT eval Discharge plan: Family requesting possible discharge to SNF as patient lives with an elderly . Physical therapy evaluation. Attestations 2 Medical Necessity Statement*: Patient requires hospitalization for COVID-19, UTI, pyelo Diagnoses COVID-19 U07.1 Orthostatic hypotension I95.1 Thrombocytopenia D69.6 MDS (myelodysplastic syndrome) D46.9 LBBB (left bundle branch block) I44.7 Atrial fibrillation with RVR I48.91 Left renal stone N20.0 UTI (urinary tract infection) N39.0
[2023-12-23 16:29] LABS: Methicillin-Resist S.aureu PCR NOT DETECTED (NOT DETECTED)
[2023-12-23] MEDS: cyanocobalamin 1,000 mcg Tablet 1000 MCG PO (20:25)
[2023-12-23] MEDS: tamsulosin 0.4 mg Capsule PO (20:25)
[2023-12-24] VITALS: BP 148/74; PULSE 82; RESP 18; TEMP 36.6; O2SAT 94
[2023-12-24 04:00] VITALS: BP 182/87; PULSE 68; RESP 16; TEMP 36.6; O2SAT 95
[2023-12-24 06:00] VITALS: BMI 24.3
[2023-12-24] MEDS: levothyroxine 25 mcg Tablet PO (06:17)
[2023-12-24 07:13] LABS: Basophils % 0.2 %; Hematocrit 35.1 % (37-53); Lymphocytes # 0.4 10^3/uL (0.8-4.8); Lymphocytes % 8.1 %; Mean Corpuscular HGB Conc 33.6 g/dL (30-55); Mean Corpuscular Hemoglobin 32.4 pg (27-33); Mean Corpuscular Volume 96.4 fl (82-101); Mean Platelet Volume 11.7 fL (7.4-10.4); Monocytes # 0.4 10^3/uL (0.2-0.9); Monocytes % 8.1 %; Neutrophils # 3.67 10^3/uL (1.8-7.7); Neutrophils % 80.3 %; Nucleated Red Blood Cells % 0 %; Platelet Count 89 10^3/cmm (157-399); Red Blood Count 3.64 10^6/uL (3.85-5.65); Red Cell Distribution Width 13.3 % (12.1-15.1); White Blood Count 4.57 10^3/uL (3.29-11.43)
[2023-12-24 07:35] LABS: Anion Gap 14.2 (5-19); Blood Urea Nitrogen 19 mg/dL (8-23); Calcium 7.8 mg/dL (8.5-10.5); Carbon Dioxide 25 mmol/L (22-29); Chloride 104 mmol/L (98-107); Glucose 149 mg/dL (65-115); Osmolality Calculated 295 mOsm/kg (285-295); Potassium 3.2 mmol/L (3.5-5.1); Sodium 140 mmol/L (136-145)
[2023-12-24] MEDS: atorvastatin 40 mg Tablet 80 MG PO (08:47)
[2023-12-24] MEDS: finasteride 5 mg Tablet PO (08:47)
[2023-12-24] MEDS: azithromycin 250 mg Tablet 500 MG PO (08:48)
[2023-12-24] MEDS: amiodarone 200 mg Tablet 400 MG PO (08:48)
[2023-12-24] MEDS: aspirin 81 mg EC Tablet PO (08:48)
[2023-12-24] MEDS: dexamethasone 4 mg/mL INJ 6 MG IVP (08:49)
[2023-12-24] MEDS: pantoprazole DR 40 mg Tablet PO (08:49)
[2023-12-24] MEDS: benzonatate 100 mg Capsule PO (08:49)
[2023-12-24] MEDS: ipratropium-albuterol 3 mL Neb INHALATION (09:06)
[2023-12-24] MEDS: budesonide 0.5 mg/2 mL Neb INHALATION (09:06)
[2023-12-24 09:10] VITALS: PULSE 78; RESP 18; O2SAT 95
[2023-12-24] MEDS: remdesivir 100 MG in sodium chloride 0.9% (100 ml) 100 ML IV (09:47)
--- NOTE | 2023-12-24 11:11 | PC.SOCIAL ---
IMM Updated Updated pt on IMM. No questions voiced. Provided pt a copy. Initialed, dated, & timed copy in chart.
--- NOTE | 2023-12-24 11:16 | PM.DCS ---
Discharge Providers Date of Admission: 12/20/23 06:55 Date of Discharge: December 24, 2023 Attending Provider at Admission: Ila Bowman MD Attending Provider at Discharge: Wicho Thompson MD Primary Care Provider: Olga Goddard MD Diagnoses at Discharge Discharge Diagnosis (1) COVID-19: Status: Acute (2) Orthostatic hypotension: Status: Acute (3) Thrombocytopenia: Status: Acute (4) MDS (myelodysplastic syndrome): Status: Acute (5) LBBB (left bundle branch block): Status: Acute (6) Atrial fibrillation with RVR: Status: Acute (7) Left renal stone: Status: Acute (8) UTI (urinary tract infection): Status: Acute Reason for Visit Reason for Visit: WEAKNESS Hospital Course Hospital Course Juany Aguayo is a 88 year old male with pancytopenia and suspected myelodysplastic syndrome with chronic thrombocytopenia currently on expectant management. He presents to the emergency room with 3 to 4 days of increasing generalized weakness, URI symptoms and chest congestion. He states that he started feeling much worse today and called and EMS. He has had high-grade fever and chills at home. States he starts to feel weak and dizzy with minimal effort. And denies any hemoptysis or gross expectoration. Denies abdominal pain nausea vomiting chest pain. Other past history is notable for mitral valve repair, hypertension, autonomic dysfunction, dyslipidemia, A-fib, BPH with associated bladder outlet obstruction, iliac aneursysm Patient was admitted to [facility] for COVID-19 infection, had hypoxia on admission, which resolved on discharge, initially treated with remdesivir, broad-spectrum antibiotic therapy, inhaler therapy steroid therapy, overall clinically improved. Will be discharged albuterol as needed, Advair, Tessalon Perles for with cough, continue facemask/hand wash, monitor respiratory status closely, discharged on cefdinir for antibiotic coverage. Will [facility] In terms of his hypercoagulable risk, his increased risk for hypercoagulable events, unfortunately cannot resume his home Lasix due to concern for iron deficiency anemia, hematuria, GI bleed, increased risk of falls. Nonetheless should continue home aspirin 81 mg and family that if he were to experience any hypercoagulable event including but not limited to chest pain, sudden onset shortness of breath, hemoptysis, calf pain or swelling go immediately to the emergency room For his orthostatic hypotension ? Patient is on midodrine as outpatient ? Continue to have episodes of orthostatic hypotension during his hospitalization ? The issue is patient has episodes of hypertension, systolic blood pressures ranging the 170s diastolic blood pressure reading in the 100s, so he is not the most ideal candidate for midodrine ? For now we will continue conservative interventions, use compression stockings, ambulate with care ? I was upfront and honest with patient and his family that he has a high risk of falls, high risk of morbidity and mortality associate with falls, he should ambulate with care, change position with care, monitor for lightheadedness and dizziness, discharged to [facility] for [facility] ? In terms of his anticoagulant therapy, given his persistent orthostatic hypotension, increase of the falls, Eliquis has been held so far For his atrial fibrillation ? He had A-fib with RVR during hospitalization requiring amiodarone drip, transition to p.o. amiodarone, discharged on amiodarone taper ? In terms of anticoagulant therapy as above, discussed with patient's family that he on the 1 hand has an increased risk of strokes, given his atrial fibrillation while not had has a high risk of morbidity mortality associated with side effects associate with anticoagulant therapy including but not limited to risk of his falls, hematuria, iron deficiency anemia, GI bleed ? After discussing the risk and benefits of with patient and his family, they voiced understanding, all questions answered, shared decision making for now we will continue to hold Eliquis therapy. Can continue aspirin 81 mg During hospitalization, patient was found to have a left renal stone. -He tells me that he has always had this left kidney stone ? Issue is his CT scan shows CT/CT kidney stone 40723 IMPRESSION: 1. Possible increasing stone burden both kidneys. Large calculus in the left renal pelvis is possibly causing intermittent obstructive uropathy. Possible urinary tract infections on 1 or both sides. -He did have an LORNE, and evidence of a UTI during his hospitalization -My concern is is that given his increasing stone burden, his episodes of weakness, episodes of falls, intermittent confusion, could be related to UTI given his intermittent obstruction as above -Nonetheless I am I discharged him on 7 days of p.o. antibiotics -However for this is a mechanical issue and I was upfront and honest with family I think that he is going to need some intervention sooner rather than later potentially within the next week potentially stent placement as he has a high risk of developing obstructive uropathy and morbidity and mortality associated sepsis septic shock, -We will hopefully get him an appoint with Dr. 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 Zyvox His bladder ultrasound also shows 3. Increasing lobulated nodular soft tissue contour extending into the inferior urinary bladder may be prostate tissue, but cystoscopy is recommended for the possibility of bladder cancer. -Follow-up with urology for consideration of cystoscopy -CT scan also shows increased enlargement of prostate gland, follow-up with urology His CT abdomen pelvis also showed 4. New wall thickening of the gastric antrum and pyloric region could be malignancy. Upper endoscopy is recommended. -I am suspicious that this is either a malignancy or a GI ulcer -No complaints of bloody or black stools, but has early evidence of iron deficient anemia, hemoglobin is relatively stable ? She was monitored as inpatient, on aspirin ?hemoglobin stable -Nonetheless we will hold off on Eliquis therapy, due to concerns for bleeding ? Discharged on Protonix, Carafate ? Recheck CBC in 1 week ? Appointment made for general surgery in 1 month for consideration of EGD For patient's deconditioned state, discharged to correction facility for rehab - Have your primary care provider monitor your kidney function very closely, and monitor your hemoglobin very closely ? For your COVID-19 infection, please monitor for hypercoagulable events, calf pain, calf swelling, chest pain, hemoptysis if so go to the emergency room -For your COVID-19 use albuterol as needed, Advair ? For UTI pneumonia use cefdinir as prescribed ? For your orthostatic hypotension, please ambulate with care, change position with extreme care, given your blood pressure changes with changing position, you have a high risk of fall, high risk of morbidity and mortality associate with fall -With your left renal stone, and intermittent obstruction, your primary care provider has to monitor your kidney function closely, monitor for flank pain, please follow-up with urology in the next week. If you suddenly develop fevers, chills, flank pain, hematuria please come back to the emergency room as this could be indicators of a life-threatening infection, complete urinary obstruction -Please follow-up with the urology, for consideration of cystoscopy due to urinary bladder thickening -For your gastric antrum thickening, please follow-up with general surgery for consideration of EGD As for anemia, hematuria, thrombocytopenia continue to hold Eliquis ? Continue to hold Eliquis until you see general surgery, and decision is made on EGD, due to bleeding risk ? If you develop any chest pain, strokelike symptoms, please go immediately to the emergency room or call 911 -Recheck CBC and CMP in a week Physical Exam Const: COMMON NORMALS: no acute distress and patient oriented x3 Resp: COMMON NORMALS: normal respiratory effort, No retractions, No use of accessory muscles and clear to auscultation bilaterally AUSCULTATION: clear to auscultation bilaterally Cardio: COMMON NORMALS: regular rate, regular rhythm, S1 normal heart sound present and S2 normal heart sound present RATE: regular rate RHYTHM: regular rhythm HEART SOUNDS: S1 normal heart sound present and S2 normal heart sound present GI: COMMON NORMALS: Normal to inspection, nondistended, normoactive bowel sounds present and non-tender Extremity: COMMON NORMALS: no pedal edema Neuro: COMMON NORMALS: patient oriented x3 Psych: COMMON NORMALS: mental status grossly normal Discharge Data Studies Completed and Pending Completed Studies During Hospitalization Category Date Time Status CT abdomen renal stone [CT kidney stone [id number]] Stat Cat Scan 12/23/23 08:[address] angio chest PE protcl [id number] Routine Cat Scan 12/22/23 10:41 Completed XR chest 1V portable [id number] Routine Exams 12/21/23 10:49 Completed XR chest 1V portable [id number] Stat Exams 12/19/23 23:23 Completed CV. echo complete* [id number] Routine Ultrasound 12/20/23 07:29 Completed Pending at discharge Category Date Time Status Basic Metabolic Panel AM LABS Lab 12/25/23 04:00 Ordered Blood Culture Stat Lab 12/19/23 23:50 Results Complete Blood Count w/Auto AM LABS Lab 12/25/23 04:00 Ordered Urine Culture Stat Lab 12/23/23 18:30 Received Radiology Impressions Chest X-Ray 12/21/23 10:49 IMPRESSION: Right basilar pneumonia Chest CTA 12/22/23 10:41 IMPRESSION: 1. No definite pulmonary embolism. A few of the left lower lobe vessels are not well evaluated due to motion. 2. Right lower lobe peribronchial infiltrates and micronodular opacities consistent with inflammation. 3. Bibasilar atelectasis with small pleural effusions. 4. Mildly enlarged ascending and descending thoracic aorta. 5. Calculus in the left renal pelvis. There is evidence of either upper urinary tract infection or intermittent obstruction COMMENTS: Consistent with the [employer]'s Incidental Findings Committee white paper (J Am Alissa Radiol 2018): Any incidental renal lesion less than 1 cm or classified as too small to characterize, or any incidental cystic renal lesion characterized as simple-appearing, is likely benign. No follow-up imaging is recommended for these lesions per consensus recommendations based on imaging criteria. Abdomen/Pelvis CT 12/23/23 08:45 IMPRESSION: 1. Possible increasing stone burden both kidneys. Large calculus in the left renal pelvis is possibly causing intermittent obstructive uropathy. Possible urinary tract infections on 1 or both sides. 2. Increased enlargement of the prostate gland. Correlate with PSA levels. 3. Increasing lobulated nodular soft tissue contour extending into the inferior urinary bladder may be prostate tissue, but cystoscopy is recommended for the possibility of bladder cancer. 4. New wall thickening of the gastric antrum and pyloric region could be malignancy. Upper endoscopy is recommended. 5. Unchanged bilateral iliac lymphadenopathy. 6. Additional details as above. COMMENTS: Consistent with the [employer]'s Incidental Findings Committee white paper (J Am Alissa Radiol 2018): Any incidental renal lesion less than 1 cm or classified as too small to characterize, or any incidental cystic renal lesion characterized as simple-appearing, is likely benign. No follow-up imaging is recommended for these lesions per consensus recommendations based on imaging criteria. Laboratory Results WBC 4.57 10^3/uL (3.29-11.43) 12/24/23 06:10 RBC 3.64 10^6/uL (3.85-5.65) L 12/24/23 06:10 Hgb 11.80 g/dL (11.27-16.99) 12/24/23 06:10 Hct 35.1 % (37-53) L 12/24/23 06:10 MCV 96.4 fl (82-101) 12/24/23 06:10 MCH 32.4 pg (27-33) 12/24/23 06:10 MCHC 33.6 g/dL (30-55) 12/24/23 06:10 RDW 13.3 % (12.1-15.1) 12/24/23 06:10 Plt Count 89 10^3/cmm (157-399) L D 12/24/23 06:10 MPV 11.7 fL (7.4-10.4) H 12/24/23 06:10 Neut % (Auto) 80.3 % 12/24/23 06:10 Lymph % (Auto) 8.1 % 12/24/23 06:10 Dolores % (Auto) 8.1 % 12/24/23 06:10 Eos % (Auto) 0.0 % 12/24/23 06:10 Baso % (Auto) 0.2 % 12/24/23 06:10 Neut # (Auto) 3.67 10^3/uL (1.8-7.7) 12/24/23 06:10 Lymph # (Auto) 0.4 10^3/uL (0.8-4.8) L 12/24/23 06:10 Dolores # (Auto) 0.4 10^3/uL (0.2-0.9) 12/24/23 06:10 Eos # (Auto) 0.0 10^3/uL (0.0-0.8) 12/24/23 06:10 Baso # (Auto) 0.0 10^3/uL (0.0-0.1) 12/24/23 06:10 Nucleated RBC % (auto) 0 % 12/24/23 06:10 Total Counted 100 (0-100) 12/23/23 05:28 Atypical Lymphs % 0.0 % (0-5) 12/23/23 05:28 Absolute Neutrophils 5.6 10^3/cmm (1.4-6.5) 12/23/23 05:28 Segmented Neutrophils 82 % 12/23/23 05:28 Abs Segm Neuts (Man) 5.2 10/cmm (1.6-7.1) 12/23/23 05:28 Band Neutrophils 7.0 % 12/23/23 05:28 Abs Band Neuts (Man) 0.4 10^3/cmm (0.0-1.2) 12/23/23 05:28 Absolute Lymphocytes 0.3 10^3/cmm (1.2-3.4) L 12/23/23 05:28 Lymphocytes (Manual) 4 % 12/23/23 05:28 Monocytes (Manual) 6.0 % 12/23/23 05:28 Absolute Monocytes 0.4 10^3/cmm (0.1-0.6) 12/23/23 05:28 Eosinophils (Manual) 0 % 12/23/23 05:28 Absolute Eosinophils 0.0 10^3/cmm (0.0-0.7) 12/23/23 05:28 Basophils (Manual) 0.0 % 12/23/23 05:28 Absolute Basophils 0.0 10^3/cmm (0.0-0.2) 12/23/23 05:28 Myelocytes 1.0 % 12/23/23 05:28 Nucleated RBCs # 0.0 /100WBC 12/24/23 06:10 Platelet Estimate Decreased (Normal) 12/23/23 05:28 Giant Platelets Trace 12/23/23 05:28 D-Dimer 1.34 ug/mLFEU (0-0.59) H 12/20/23 07:46 Sodium 140 mmol/L (136-145) 12/24/23 06:10 Potassium 3.2 mmol/L (3.5-5.1) L 12/24/23 06:10 Chloride 104 mmol/L (98-107) 12/24/23 06:10 Carbon Dioxide 25 mmol/L (22-29) 12/24/23 06:10 Anion Gap 14.2 (5-19) 12/24/23 06:10 BUN 19 mg/dL (8-23) 12/24/23 06:10 Creatinine 0.9 mg/dL (0.7-1.2) 12/24/23 06:10 GFR Calculation Not Reportable 12/24/23 06:10 Glucose 149 mg/dL (65-115) H 12/24/23 06:10 Estimat Average Glucose 100 12/20/23 05:23 Hemoglobin A1c 5.1 % (4.0-6.0) 12/20/23 05:23 Calculated Osmolality 295 mOsm/kg (285-295) 12/24/23 06:10 Lactic Acid 2.4 mmol/L (0.5-2.2) H 12/23/23 09:02 Lactic Acid (Sepsis) 3.4 mmol/L (0.5-2.2) H 12/23/23 12:24 Calcium 7.8 mg/dL (8.5-10.5) L 12/24/23 06:10 Magnesium 2.1 mg/dL (1.7-2.3) 12/23/23 05:28 Total Bilirubin 1.4 mg/dL (0.15-1.2) H 12/22/23 04:37 AST 46 U/L (0-40) H 12/22/23 04:37 ALT 22 U/L (0-41) 12/22/23 04:37 Alkaline Phosphatase 67 U/L (40-130) 12/22/23 04:37 Troponin T Baseline 21 ng/L (0-15) H 12/20/23 07:46 Troponin T 120 Minute 18.66 ng/L (0-15) H 12/20/23 09:21 Delta Troponin T -2.34 ABS# (0-10) L 12/20/23 09:21 Troponin T Hi Sens 6Hr 19.32 ng/L (0-15) H 12/20/23 13:48 Troponin T Hi Sens 6Hr Delta -1.68 ng/L (0-12) L 12/20/23 13:48 C-Reactive Protein 141.4 mg/L (0.0-4.9) H 12/23/23 05:28 NT-Pro-B Natriuret Pep 5304 pg/mL (0-450) H 12/22/23 04:37 Total Protein 6.5 g/dL (6.6-8.7) L 12/22/23 04:37 Albumin 3.5 g/dL (3.5-5.2) 12/22/23 04:37 Globulin 3.0 g/dL (1.3-4.6) 12/22/23 04:37 Triglycerides 46 mg/dL (0-150) 12/21/23 03:05 Cholesterol 67 mg/dL (0-200) 12/21/23 03:05 LDL Cholesterol, Calc 27 mg/dL (50-129) L 12/21/23 03:05 Total VLDL Cholesterol 9 mg/dL (0-30) 12/21/23 03:05 HDL Cholesterol 31 mg/dL (60-100) L 12/21/23 03:05 Cholesterol/HDL Ratio 2.16 mg/dL (1.0-5.00) 12/21/23 03:05 Lipase 24 U/L (13-60) 12/19/23 22:59 Vitamin B12 1430 pg/mL (232-1245) H 12/20/23 05:23 Folate 5.0 ng/mL (4.5-32.2) 12/21/23 03:05 Procalcitonin 1.02 ng/mL (0-0.5) H 12/23/23 05:28 TSH 0.79 uIU/mL (0.27-4.20) 12/20/23 05:23 Urine Color Dark yellow (Yellow) A 12/20/23 01:24 Urine Appearance Cloudy (CLEAR) A 12/20/23 01:24 Urine pH 5 (5-7) 12/20/23 01:24 Ur Specific [place] 1.025 (1.005-1.030) 12/20/23 01:24 Urine Protein 1+ (Negative) H 12/20/23 01:24 Urine Glucose (UA) Norm (Normal) 12/20/23 01:24 Urine Ketones 1+ (Negative) H 12/20/23 01:24 Urine Blood 3+ (Negative) H 12/20/23 01:24 Urine Nitrate Negative (Negative) 12/20/23 01:24 Urine Bilirubin Neg (Negative) 12/20/23 01:24 Urine Urobilinogen Neg mg/dL (Negative) 12/20/23 01:24 Ur Leukocyte Esterase Negative (Negative) 12/20/23 01:24 Urine RBC 50-80 /hpf (0-2) H 12/20/23 01:24 Urine WBC 0-4 /hpf (0-5) H 12/20/23 01:24 Ur Squamous Epith Cells 0-4 /hpf (0-5) H 12/20/23 01:24 Amorphous Sediment 1+ /hpf 12/20/23 01:24 Urine Bacteria Trace /hpf (NONE) 12/20/23 01:24 Hyaline Casts 5-10 /lpf H 12/20/23 01:24 Coarse Granular Casts 5-10 /lpf H 12/20/23 01:24 Urine Mucus Trace /hpf 12/20/23 01:24 Adenovirus (PCR) Not detected (NOT DETECT) 12/19/23 23:38 C. pneumoniae DNA (PCR) Not detected (NOT DETECT) 12/19/23 23:38 C. difficile (PCR) Negative (Negative) 12/20/23 08:09 Coronavirus 229E (PCR) Not detected (NOT DETECT) 12/19/23 23:38 Human Metapneumovir PCR Not detected (NOT DETECT) 12/19/23 23:38 Influenza A (H1) PCR Not detected (NOT DETECT) 12/19/23 23:38 Influ A (H1/09) PCR Not detected (NOT DETECT) 12/19/23 23:38 Influenza A (H3) PCR Not detected (NOT DETECT) 12/19/23 23:38 Influenza Type A (PCR) Not detected (NOT DETECT) 12/19/23 23:38 Influenza Type B (PCR) Not detected (NOT DETECT) 12/19/23 23:38 M. pneumoniae (PCR) Not detected (NOT DETECT) 12/19/23 23:38 Parainfluenza 1 (PCR) Not detected (NOT DETECT) 12/19/23 23:38 Parainfluenza 2 (PCR) Not detected (NOT DETECT) 12/19/23 23:38 Parainfluenza 3 (PCR) Not detected (NOT DETECT) 12/19/23 23:38 Parainfluenza 4 (PCR) Not detected (NOT DETECT) 12/19/23 23:38 RSV Type A (PCR) Not detected (NOT DETECT) 12/19/23 23:38 RSV Type B (PCR) Not detected (NOT DETECT) 12/19/23 23:38 Entero/Rhino (PCR) Not detected (NOT DETECT) 12/19/23 23:38 SARS-CoV-2 (PCR) Detected (NOT DETECT) A 12/19/23 23:38 SARS-CoV-2 Ag (Rapid) positive (Negative) H 12/19/23 23:38 MRSA (PCR) Not detected (NOT DETECTED) 12/21/23 16:35 Vitals Last Vital Signs Temp 97.6 F 12/24/23 08:32 Pulse 78 12/24/23 09:10 Resp 18 12/24/23 09:10 BP 161/82 12/24/23 08:32 Pulse Ox 95 12/24/23 09:10 O2 Del Method Room Air 12/24/23 09:10 O2 Flow Rate 2 12/22/23 01:45 Discharge Plan Discharge Patient Disposition: Xfer [facility] Condition: Stable Prescriptions: New pantoprazole 40 mg Tablet,Delayed Release (Dr/Ec) 40 mg PO BIDWM 30 Days Qty: 60 0RF benzonatate 100 mg Capsule 100 mg PO TID PRN (Reason: cough) 7 Days Qty: 21 0RF aspirin 81 mg Tablet,Delayed Release (Dr/Ec) 81 mg PO DAILY 30 Days Qty: 30 0RF albuterol sulfate 90 mcg/actuation HFA aerosol inhaler 1 inh inhalation Q6H PRN (Reason: shortness of breath or wheezing) Qty: 8.5 0RF sucralfate [Carafate] 1 gram tablet 1 g PO BID 28 Days Qty: 56 0RF amiodarone 200 mg tablet See Rx Instructions .ROUTE .COMPLEX 30 Days Qty: 60 0RF Rx Instructions: 1 tab bid for 7 days, thereafter 0.5 tab bid linezolid [Zyvox] 600 mg tablet 600 mg PO Q12H 10 Days Qty: 20 0RF cefdinir 300 mg capsule 300 mg PO BID 10 Days Qty: 20 0RF fluticasone propion-salmeterol [Advair Diskus] 100-50 mcg/dose blister with device 1 inh inhalation DAILY Qty: 60 0RF amlodipine [Norvasc] 5 mg tablet 2.5 mg PO BID 30 Days Qty: 30 0RF Continued cholecalciferol (vitamin D3) [Vitamin D3] 25 mcg (1,000 unit) capsule 2,000 unit PO BEDTIME tamsulosin 0.4 mg capsule 0.4 mg PO .HS finasteride 5 mg tablet 5 mg PO DAILY atorvastatin 80 mg tablet 80 mg PO DAILY galantamine 16 mg capsule,ext rel. pellets 24 hr See Rx Instructions .ROUTE .COMPLEX Qty: 90 1RF Dose Instruction: TAKE 1 CAPSULE BY MOUTH EVERY MORNING WITH BREAKFAST Rx Instructions: TAKE 1 CAPSULE BY MOUTH EVERY MORNING WITH BREAKFAST cyanocobalamin (vitamin B-12) [Vitamin B-12] 1,000 mcg Tablet 1,000 mcg PO BEDTIME levothyroxine 25 mcg tablet 25 mcg PO QAM ascorbic acid (vitamin C) [Vitamin C] 500 mg Tablet 500 mg PO DAILY melatonin 5 mg tablet 5 mg PO BEDTIME Held Eliquis 5 mg tablet 5 mg PO BID Qty: 180 3RF Hold Instructions: Resume on 02/02/23. No Action midodrine 10 mg tablet 10 mg PO DIRECTED Qty: 270 3RF Rx Instructions: TAKE ONE TABLET BY MOUTH THREE TIMES DAILY. TAKE ONE TABLET in THE morning, ONE TABLET AT 12pm, AND ONE TABLET AT 4pm. don't give last DOSE AFTER 6pm OR WITHIN FOUR HOURS of bedtime potassium chloride 10 mEq capsule, extended release 10 meq PO DAILY Qty: 90 0RF Discharge Orders: Discharge Order (Routine); Ordered 12/24/23 Ordered By: Wicho Thompson Referrals: [facility] [Outside] Olga Goddard MD [Primary Care Provider] - 1-3 days Andrew Wilkes MD [Physician] - 1 month (EGD We have notified your physician's clinic of the need for a follow-up appointment to be scheduled. If you have not heard from them within the next 2 business days, please call them directly. ) Torey Gee MD [Referring] - 1-3 days (L urinary stone causing intermittent obstruction) Discharge Diet: Regular Discharge Activity: Resume usual activity Patient Instructions: Opioid Safety Activity Restrictions/Additional Instructions: - Have your primary care provider monitor your kidney function very closely, and monitor your hemoglobin very closely ? For your COVID-19 infection, please monitor for hypercoagulable events, calf pain, calf swelling, chest pain, hemoptysis if so go to the emergency room -For your COVID-19 use albuterol as needed, Advair ? For UTI pneumonia use cefdinir as prescribed ? For your orthostatic hypotension, please ambulate with care, change position with extreme care, given your blood pressure changes with changing position, you have a high risk of fall, high risk of morbidity and mortality associate with fall -With your left renal stone, and intermittent obstruction, your primary care provider has to monitor your kidney function closely, monitor for flank pain, please follow-up with urology in the next week. If you suddenly develop fevers, chills, flank pain, hematuria please come back to the emergency room as this could be indicators of a life-threatening infection, complete urinary obstruction -Please follow-up with the urology, for consideration of cystoscopy due to urinary bladder thickening -For your gastric antrum thickening, please follow-up with general surgery for consideration of EGD As for anemia, hematuria, thrombocytopenia continue to hold Eliquis ? Continue to hold Eliquis until you see general surgery, and decision is made on EGD, due to bleeding risk ? If you develop any chest pain, strokelike symptoms, please go immediately to the emergency room or call 911 -Recheck CBC and CMP in a week Discharge Attestations Time Spent in Discharge Care*: greater than 30 min Quality Metrics Clinical Quality Measures [ No reported AMI, CVA or VTE this stay] Coding Level of Care Code 76540 Total time (in minutes) for Discharge: 55 Diagnoses COVID-19 U07.1 Orthostatic hypotension I95.1 Thrombocytopenia D69.6 MDS (myelodysplastic syndrome) D46.9 LBBB (left bundle branch block) I44.7 Atrial fibrillation with RVR I48.91 Left renal stone N20.0 UTI (urinary tract infection) N39.0
[2023-12-24 11:45] VITALS: BP 134/81; PULSE 84; RESP 18; TEMP 36.3; O2SAT 95
[2023-12-24] MEDS: potassium chloride ER 20 mEq Tablet 40 MEQ PO ×2 (11:57→11:58)
[2023-12-24] MEDS: amlodipine 5 mg Tablet 2.5 MG PO (11:58)
[2023-12-24 14:07] VITALS: BP 134/81; PULSE 84; RESP 18; TEMP 36.3; O2SAT 95
== END 2023-12-24 14:08 | DRG 178 ==
LOC: ER 12-20 00:36 → MEDSURG 12-20 01:55 → ICU 12-21 17:25 → MEDSURG 12-22 21:22
PROVIDERS: Student in an Organized Health Care Education/Training Program; Admitting Provider Student in an Organized Health Care Education/Training Program; Emergency Provider Emergency Medicine; PCP Internal Medicine; Visit Provider Family Medicine
DX: U07.1 COVID-19 (principal); I48.20 Chronic atrial fibrillation, unspecified; N39.0 Urinary tract infection, site not specified; N17.9 Acute kidney failure, unspecified; I95.1 Orthostatic hypotension; D69.6 Thrombocytopenia, unspecified; D46.9 Myelodysplastic syndrome, unspecified; I44.7 Left bundle-branch block, unspecified; N20.0 Calculus of kidney; Z79.01 Long term (current) use of anticoagulants; R31.9 Hematuria, unspecified; R93.3 Abnormal findings on diagnostic imaging of other parts of digestive tract; I10 Essential (primary) hypertension; E78.5 Hyperlipidemia, unspecified; N40.1 Benign prostatic hyperplasia with lower urinary tract symptoms; F45.8 Other somatoform disorders; E03.9 Hypothyroidism, unspecified
CPT/HCPCS: 36415; 71045; 71275; 74176; 80048; 80053; 80061; 81001; 82607; 82746; 83036; 83605; 83690; 83735; 83880; 84145; 84443; 84484; 85007; 85025; 85378; 86140; 87040; 87070; 87086; 87205; 87426; 87486; 87493; 87581; 87633; 87641; 92507; 92523; 92526; 92610; 93005; 93306; 94640; 96374; 96376; 97110; 97116; 97161; 97167; 97530; 99285; A4222; G0378; J0248; J0283; J0696; J1100; J3480; J7030; J7040; J7626; Q0144; Q9967

== ENCOUNTER → 2024-02-02 09:44 | Outpatient (BNVA) | payer MEDICARE, OTHER, SELFPAY | PROVIDERS: PCP Internal Medicine; Visit Provider Surgery | DX: D61.818 Other pancytopenia (principal); R93.5 Abnormal findings on diagnostic imaging of other abdominal regions, including retroperitoneum | CPT/HCPCS: 99204; 99214 ==

== ENCOUNTER → 2024-03-02 09:36 | Outpatient (BNVA) | payer MEDICARE, OTHER, SELFPAY | PROVIDERS: PCP Internal Medicine; Visit Provider Specialist | DX: R41.3 Other amnesia (principal); G30.9 Alzheimer's disease, unspecified; F02.80 Dementia in other diseases classified elsewhere, unspecified severity, without behavioral disturbance, psychotic disturbance, mood disturbance, and anxiety | CPT/HCPCS: 99213 ==

== ENCOUNTER 2024-03-26 09:56 | Outpatient (CLI) | payer MEDICARE, OTHER, SELFPAY ==
--- NOTE | 2024-03-26 10:00 | XR_ITS ---
WS: [id number] Exam: XR chest 2V* [id number] Date/Time of Exam: 03/26/2024 10:05 AM Reason For Exam: COUGH Exam: XR chest 2V* [id number] Date/Time of Exam: 03/26/2024 10:05 AM Reason For Exam: COUGH Comparison 12/21/2023. The lungs are hyperinflated and clear. Heart size is normal. Signs of cardiac valve replacement. The mediastinum is normal in contour. No pleural effusion. Signs of median sternotomy. Bony structures ar e intact. XR/XR chest 2V* [id number] IMPRESSION: 1. Pulmonary hyperinflation. No acute cardiopulmonary finding.
== END 2024-03-26 09:57 | disposition home or self-care (01) ==
LOC: RAD 09:57
PROVIDERS: PCP Internal Medicine; Visit Provider Internal Medicine
DX: R05.8 Other specified cough (principal); J98.4 Other disorders of lung
CPT/HCPCS: 71046

== ENCOUNTER 2024-04-06 11:38 | Oncology outpatient (recurring) (ONCR) | payer MEDICARE, OTHER, SELFPAY ==
[2024-04-06 12:19] LABS: Basophils % 0.5 %; Hematocrit 35.6 % (37-53); Lymphocytes # 0.7 10^3/uL (0.8-4.8); Lymphocytes % 31.1 %; Mean Corpuscular HGB Conc 32.9 g/dL (30-55); Mean Corpuscular Hemoglobin 33.6 pg (27-33); Mean Corpuscular Volume 102.3 fl (82-101); Mean Platelet Volume 11.6 fL (7.4-10.4); Monocytes # 0.3 10^3/uL (0.2-0.9); Monocytes % 15.3 %; Neutrophils # 1.15 10^3/uL (1.8-7.7); Neutrophils % 51.7 %; Nucleated Red Blood Cells % 0 %; Platelet Count 86 10^3/cmm (157-399); Red Blood Count 3.48 10^6/uL (3.85-5.65); Red Cell Distribution Width 13.1 % (12.1-15.1); White Blood Count 2.22 10^3/uL (3.29-11.43)
[2024-04-06 12:38] LABS: Alanine Aminotransferase 10 U/L (0-41); Albumin Level 4.1 g/dL (3.5-5.2); Alkaline Phosphatase 86 U/L (40-130); Anion Gap 11.7 (5-19); Aspartate Amino Transferase 16 U/L (0-40); Blood Urea Nitrogen 15 mg/dL (8-23); Calcium 8.7 mg/dL (8.5-10.5); Carbon Dioxide 26 mmol/L (22-29); Chloride 106 mmol/L (98-107); Ferritin 89 ng/mL (30-400); Globulin 3.2 g/dL (1.3-4.6); Glucose 102 mg/dL (65-115); Iron 54 ug/dL (59-158); Osmolality Calculated 291 mOsm/kg (285-295); Percent Saturation 20.3 % (20-50); Potassium 3.7 mmol/L (3.5-5.1); Sodium 140 mmol/L (136-145); Total Bilirubin 1.5 mg/dL (0.15-1.2); Total Iron Binding Capacity 266 mcg/dl; Total Protein 7.3 g/dL (6.6-8.7); Unsaturated Iron Binding 212 ug/dL (112-347)
== END 2024-04-22 23:59 | disposition home or self-care (01) ==
PROVIDERS: PCP Internal Medicine; Visit Provider Internal Medicine Hematology & Oncology
DX: D46.9 Myelodysplastic syndrome, unspecified (principal); D50.9 Iron deficiency anemia, unspecified; E78.6 Lipoprotein deficiency; Z79.899 Other long term (current) drug therapy
CPT/HCPCS: 36415; 80053; 82728; 83540; 83550; 85025; 99214

== ENCOUNTER 2024-06-02 11:28 | Oncology outpatient (recurring) (ONCR) | payer MEDICARE, OTHER, SELFPAY ==
[2024-06-02 12:14] LABS: Basophils % 0.3 %; Eosinophils % 0.3 %; Hematocrit 36.5 % (37-53); Lymphocytes # 0.7 10^3/uL (0.8-4.8); Lymphocytes % 21.8 %; Mean Corpuscular HGB Conc 32.9 g/dL (30-55); Mean Corpuscular Hemoglobin 32.5 pg (27-33); Mean Corpuscular Volume 98.9 fl (82-101); Mean Platelet Volume 12.5 fL (7.4-10.4); Monocytes # 0.6 10^3/uL (0.2-0.9); Monocytes % 18.5 %; Neutrophils # 1.86 10^3/uL (1.8-7.7); Neutrophils % 55.5 %; Nucleated Red Blood Cells % 0 %; Platelet Count 72 10^3/cmm (157-399); Red Blood Count 3.69 10^6/uL (3.85-5.65); Red Cell Distribution Width 13.8 % (12.1-15.1); White Blood Count 3.35 10^3/uL (3.29-11.43)
[2024-06-02 12:20] LABS: Reticulocyte % 1.8 % (0.5-2.0)
[2024-06-02 12:57] LABS: Ferritin 106 ng/mL (30-400); Iron 57 ug/dL (59-158); Lactate Dehydrogenase 13 U/L (135-225); Percent Saturation 20.3 % (20-50); Total Iron Binding Capacity 280 mcg/dl; Unsaturated Iron Binding 223 ug/dL (112-347)
[2024-06-02 13:02] LABS: Folate Level 9.5 ng/mL (4.5-32.2)
[2024-06-02 13:14] LABS: Vitamin B12 1375 pg/mL (232-1245)
[2024-06-09 13:48] LABS: Soluble Transferrin Receptor 2.04 mg/L (0.76-1.76)
== END 2024-06-22 23:59 | disposition home or self-care (01) ==
PROVIDERS: Internal Medicine Hematology & Oncology; PCP Internal Medicine; Visit Provider Internal Medicine Medical Oncology
DX: D46.9 Myelodysplastic syndrome, unspecified (principal); D50.9 Iron deficiency anemia, unspecified; E78.6 Lipoprotein deficiency; Z79.899 Other long term (current) drug therapy; D61.818 Other pancytopenia; E87.6 Hypokalemia
CPT/HCPCS: 36415; 82607; 82728; 82746; 83540; 83550; 83615; 84238; 85025; 85045; 99214

== ENCOUNTER 2024-06-17 14:48 | Outpatient (CLI) | payer MEDICARE, OTHER, SELFPAY ==
--- NOTE | 2024-06-17 | XRR_ITS ---
PROCEDURE INFORMATION: Exam: XR Chest Exam date and time: 06/17/2024 3:13 PM Age: 89 years old Clinical indication: Cough; Additional info: Cough, reordered to push images TECHNIQUE: Imaging protocol: Radiologic exam of the chest. Views: 2 views. COMPARISON: CR XR chest 2V* [id number] 06/17/2024 3:13 PM FINDINGS: Lungs: Calcified right apical granuloma. No focal consolidation. Pleural spaces: No sizable pleural effusion or pneumothorax. Heart/Mediastinum: No cardiomegaly. Bones/joints: Status post median sternotomy. XR/XR chest 2V* [id number] IMPRESSION: No acute intrathoracic findings.
== END 2024-06-17 14:49 | disposition home or self-care (01) ==
PROVIDERS: PCP Internal Medicine; Visit Provider Nurse Practitioner Family
DX: J84.10 Pulmonary fibrosis, unspecified (principal); R05.8 Other specified cough; Z98.890 Other specified postprocedural states
CPT/HCPCS: 71046

== ENCOUNTER 2024-09-14 13:31 | Oncology outpatient (recurring) (ONCR) | payer MEDICARE, OTHER, SELFPAY ==
[2024-09-14 13:53] LABS: Basophils % 0.5 %; Eosinophils % 0.5 %; Hematocrit 35.8 % (37-53); Lymphocytes # 0.6 10^3/uL (0.8-4.8); Lymphocytes % 32.2 %; Mean Corpuscular HGB Conc 32.7 g/dL (30-55); Mean Corpuscular Hemoglobin 32.9 pg (27-33); Mean Corpuscular Volume 100.6 fl (82-101); Mean Platelet Volume 12.9 fL (7.4-10.4); Monocytes # 0.3 10^3/uL (0.2-0.9); Monocytes % 15.1 %; Neutrophils % 50.2 %; Nucleated Red Blood Cells % 0 %; Platelet Count 62 10^3/cmm (157-399); Red Blood Count 3.56 10^6/uL (3.85-5.65); Red Cell Distribution Width 13.4 % (12.1-15.1); White Blood Count 1.99 10^3/uL (3.29-11.43)
[2024-09-14 14:11] LABS: Alanine Aminotransferase 13 U/L (0-41); Alkaline Phosphatase 79 U/L (40-130); Anion Gap 15.9 (5-19); Aspartate Amino Transferase 21 U/L (0-40); Blood Urea Nitrogen 15 mg/dL (8-23); Calcium 8.9 mg/dL (8.5-10.5); Carbon Dioxide 22 mmol/L (22-29); Chloride 106 mmol/L (98-107); Ferritin 86 ng/mL (30-400); Globulin 2.7 g/dL (1.3-4.6); Glucose 134 mg/dL (65-115); Iron 73 ug/dL (59-158); Osmolality Calculated 293 mOsm/kg (285-295); Percent Saturation 28.9 % (20-50); Potassium 3.9 mmol/L (3.5-5.1); Sodium 140 mmol/L (136-145); Total Bilirubin 2.1 mg/dL (0.15-1.2); Total Iron Binding Capacity 252 mcg/dl; Total Protein 6.7 g/dL (6.6-8.7); Unsaturated Iron Binding 179 ug/dL (112-347)
[2024-09-14 14:27] LABS: Vitamin B12 1391 pg/mL (232-1245)
[2024-09-14 14:34] LABS: Folate Level 8.6 ng/mL (4.5-32.2)
== END 2024-09-20 23:59 | disposition home or self-care (01) ==
PROVIDERS: PCP Internal Medicine; Visit Provider Internal Medicine Medical Oncology
DX: D46.9 Myelodysplastic syndrome, unspecified (principal); D64.9 Anemia, unspecified; R31.9 Hematuria, unspecified; D61.818 Other pancytopenia; E87.6 Hypokalemia
CPT/HCPCS: 36415; 80053; 82607; 82728; 82746; 83540; 83550; 85025; 99214

== ENCOUNTER → 2024-09-27 12:33 | Outpatient (BNVA) | payer MEDICARE, OTHER, SELFPAY | PROVIDERS: PCP Internal Medicine; Visit Provider Internal Medicine Cardiovascular Disease | DX: I48.91 Unspecified atrial fibrillation (principal); Z79.01 Long term (current) use of anticoagulants; I25.10 Atherosclerotic heart disease of native coronary artery without angina pectoris; E78.5 Hyperlipidemia, unspecified; F45.8 Other somatoform disorders; I10 Essential (primary) hypertension; Z98.890 Other specified postprocedural states; Z87.891 Personal history of nicotine dependence | CPT/HCPCS: 99214 ==

== ENCOUNTER 2024-10-26 12:23 | Oncology outpatient (recurring) (ONCR) | payer MEDICARE, OTHER, SELFPAY ==
[2024-10-26 12:41] LABS: Basophils % 0.4 %; Eosinophils % 0.4 %; Lymphocytes # 0.7 10^3/uL (0.8-4.8); Mean Corpuscular Hemoglobin 33.2 pg (27-33); Mean Corpuscular Volume 100.5 fl (82-101); Mean Platelet Volume 12.7 fL (7.4-10.4); Monocytes # 0.5 10^3/uL (0.2-0.9); Monocytes % 18.4 %; Nucleated Red Blood Cells % 0 %; Platelet Count 65 10^3/cmm (157-399); Red Blood Count 3.68 10^6/uL (3.85-5.65); Red Cell Distribution Width 13.6 % (12.1-15.1); White Blood Count 2.55 10^3/uL (3.29-11.43)
[2024-10-26 12:55] LABS: Alanine Aminotransferase 10 U/L (0-41); Alkaline Phosphatase 66 U/L (40-130); Anion Gap 14.9 (5-19); Aspartate Amino Transferase 20 U/L (0-40); Blood Urea Nitrogen 18 mg/dL (8-23); Calcium 9.2 mg/dL (8.5-10.5); Carbon Dioxide 24 mmol/L (22-29); Chloride 103 mmol/L (98-107); Creatinine Clr Calc Pharmacy 38.8759; Globulin 3.2 g/dL (1.3-4.6); Glucose 120 mg/dL (65-115); Lactate Dehydrogenase 232 U/L (135-225); Osmolality Calculated 289 mOsm/kg (285-295); Potassium 3.9 mmol/L (3.5-5.1); Sodium 138 mmol/L (136-145); Total Bilirubin 1.9 mg/dL (0.15-1.2); Total Protein 7.2 g/dL (6.6-8.7)
== END 2024-11-20 23:59 | disposition home or self-care (01) ==
PROVIDERS: Nurse Practitioner Family; PCP Internal Medicine; Visit Provider Internal Medicine Medical Oncology
DX: D46.9 Myelodysplastic syndrome, unspecified (principal); Z79.899 Other long term (current) drug therapy; Z87.891 Personal history of nicotine dependence; K92.1 Melena; R31.9 Hematuria, unspecified
CPT/HCPCS: 36415; 80053; 83615; 85025; 99214

== ENCOUNTER 2024-12-25 10:41 | Inpatient (IN) | payer MEDICARE, OTHER, SELFPAY ==
[2024-12-25] VITALS (8 sets, daily range): BP systolic 90–158; BP diastolic 48–79; PULSE 71–82; RESP 14–18; TEMP 36.6–36.8; O2SAT 92–97; BMI 23.7
--- NOTE | 2024-12-25 10:44 | XRR_ITS ---
PROCEDURE INFORMATION: Exam: XR Right Hand Exam date and time: 12/25/2024 10:54 AM Age: 89 years old Clinical indication: Right; RT hand swelling/pain; Cat bite to RT thumb TECHNIQUE: Imaging protocol: Radiologic exam of the right hand. Views: 3 or more views. COMPARISON: No relevant prior studies available. 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 Soft tissues: There is soft tissue swelling. No radiopaque foreign body. XR/XR hand RT min 3V* [id number] IMPRESSION: No acute fracture or dislocation.
--- OUTSIDE RECORDS SUMMARY | 2024-12-25 10:45 | XMS_ITS | Encounter Summary ---
Author Organization [facility] Address [address] [place] [address] Care Team Providers Care Bacon Slicer Name Role Phone Valentin Pierson MD Primary Care Provider +1- [phone] Reason for Visit * Reason Onset Date Comments Referral 04/02/2023 Encounter Details Date Type Department Care Team (Late st Contact Info) Description 04/02/[address] 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 Pt has an appt with Vascular to find out when pt can have surgery but pt needs the cardiology visit first. Please call to R/S [facility] Railroad Car Checker: Malena Castro * Telephone Encounter - Malena Castro - 04/02/2023 10:26 AM CDT [facility] Call Center Communications Provider: Referral Caller: Avani Relation to Patient: Spouse PHI (Y/N): Y MESSAGE Caller is returning a call from Corinna to schedule pt's referral. [facility] Railroad Car Checker: Malena Castro documented in this encounter Plan of Treatment Not on file documented as of this encounter Visit Diagnoses Not on filedocumented in this encounter Care Teams Bacon Slicer Relationship Specialty Start Date End Date Valentin Pierson MD [address] [place] [phone] PCP - General 06/10/07 documented as of this encounter
--- OUTSIDE RECORDS SUMMARY | 2024-12-25 10:45 | XMS_ITS | Clinical Summary ---
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
--- OUTSIDE RECORDS SUMMARY | 2024-12-25 10:45 | XMS_ITS | Clinical Summary ---
Author Organization [facility] Address [address] Melissa: Epic [place] [address] Care Team Providers Care Cafeteria Server Name Role Phone Valentin Pierson MD Primary Care Provider +1- [phone] Allergies Active Allergy Reactions Criticality Noted Date Comments Penicillins Rash Low 01/29/2023 Medications Eliquis 5 mg tablet 03/10/2023 Active ascorbic acid, vitamin C, (VITAMIN C) 500 mg tablet daily. 03/30/2021 Active cyanocobalamin 1,000 mcg Tablet Bedtime 03/30/2021 Active finasteride (PROSCAR) 5 mg tablet Take 5 mg by mouth daily at bedtime. 01/10/2023 Active galantamine (RAZADYNE ER) 24 mg Extended Release 24 hour capsule 03/04/2023 Active Levothyroxine 25 mcg Capsule Every Morning 03/30/2021 Active lovastatin (MEVACOR) 20 mg tablet Take 20 mg by mouth daily. 01/02/2023 Active melatonin 5 mg Tablet, Chewable Bedtime 03/30/2021 Active midodrine (PROAMATINE) 10 mg Tablet Three Times Daily 03/12/2022 Active polyethylene glycol 3350 (MIRALAX) 17 gram/dose Powder daily. 03/30/2021 Active tamsulosin (FLOMAX) 0.4 mg capsule TAKE 1 CAPSULE BY MOUTH EVERYDAY AT BEDTIME 02/05/2023 Active triamcinolone acetonide (KENALOG) 0.1 % Ointment Twice A Day 10/10/2021 Active Active Problems Problem Noted Date Diagnosed Date Dyslipidemia 04/04/2023 Benign hypertension 04/04/2023 Valvular heart disease 04/04/2023 Paroxysmal atrial fibrillation 04/04/2023 Family History Medical History Relation Name Comments Heart Disease Mother Relation Name Status Comments Father Mother Social History Tobacco Use Types Packs/Day Years Used Date Smoking Tobacco: Never Tobacco Cessation:Counseling Given: Not Answered Sex and Gender Information Value Date Recorded Sex Assigned at Not on file 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 Gender Identity Not on file Sexual Orientation Not on file Last Filed Vital Signs Vital Sign Reading Time Taken Comments Blood Pressure 160/90 06/18/2023 8:15 AM PIPE ROLLER Pulse 66 06/18/2023 8:15 AM PIPE ROLLER Temperature 36.6 C (97.8 F) 06/18/2023 8:15 AM PIPE ROLLER Respiratory Rate 16 06/18/2023 8:15 AM PIPE ROLLER Oxygen Saturation 95% 06/18/2023 8:15 AM PIPE ROLLER Inhaled Oxygen Concentration - - Weight 81.6 kg (180 lb) 06/18/2023 6:40 AM PIPE ROLLER Height 182.9 cm (6') 06/18/2023 6:40 AM PIPE ROLLER Body Mass Index 24.41 06/18/2023 6:40 AM PIPE ROLLER Plan of Treatment Health Maintenance Due Date Last Done Comments DTAP/TDAP/TD VACCINES (1 - Tdap) 1956 PNEUMOCOCCAL VACCINE 50+ YEARS (1 of 1 - PCV) 06/08/19 87 ZOSTER VACCINE (1 of 2) 1987 RSV VACCINE (60+ or ) (1 - 1-dose 75+ series) 2012 INFLUENZA VACCINE (#1) 2025 04/20/2021 Insurance MEDICARE PART A AND B [employer] [place] [id number] Care Teams Cafeteria Server Relationship Specialty Start Date End Date Valentin Pierson MD [address] [phone] PCP - General 06/10/07
--- OUTSIDE RECORDS SUMMARY | 2024-12-25 10:46 | XMS_ITS | Encounter Summary ---
Author Organization [facility] Address [address] [place] [address] Care Team Providers Care Counsellors Name Role Phone Valentin Pierson MD Primary Care Provider +1- [phone] Encounter Details Date Type Department Care Team (Late st Contact Info) Description 09/18/2004 Outpatient Historical [facility] Urology- [address]tr[address], 3[address] [place] [address] Johnathan Maddox MD [address] [address] HYPERTROPHY PROSTATE W/O OBST (Primary Dx); NOCTURIA; NODULAR PROSTATE W/O OBST Social History Tobacco Use Types Packs/Day Years Used Date Smoking Tobacco: Never Assessed Sex and Gender Information Value Date Recorded Sex Assigned at Not on file 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
--- OUTSIDE RECORDS SUMMARY | 2024-12-25 10:46 | XMS_ITS | Encounter Summary ---
Author Organization [facility] Address [address] [place] [address] Care Team Providers Care Patent Counsel Name Role Phone Valentin Pierson MD Primary Care Provider +1- [phone] Encounter Details Date Type Department Care Team (Late st Contact Info) Description 09/30/2006 Outpatient Historical [facility] Urology- [address]tr[address], 3rd [place] [address] Johnathan Maddox MD [address] [phone] BPH w Urinary Obs/Luts (Primary Dx); Nocturia; Nodular Prostate without Urinary Obstruction; Bladder Neck Obstruction Social History Tobacco Use Types Packs/Day Years Used Date Smoking Tobacco: Never Assessed Sex and Gender Information Value Date Recorded Sex Assigned at Not on file 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
--- OUTSIDE RECORDS SUMMARY | 2024-12-25 10:46 | XMS_ITS | Encounter Summary ---
Author Organization [facility] Address [address] [place] [address] Care Team Providers Care Can Runner Name Role Phone Valentin Pierson MD Primary Care Provider +1- [phone] Encounter Details Date Type Department Care Team (Late st Contact Info) Description 07/09/2001 Outpatient Historical [facility] Urology- [address]tr[address], 3[address] [place] [address] Johnathan Maddox MD [address] [phone] URINARY FREQUENCY (Primary Dx) Social History Tobacco Use Types Packs/Day Years Used Date Smoking Tobacco: Never Assessed Sex and Gender Information Value Date Recorded Sex Assigned at Not on file Legal Sex Male 4:13 AM DIRECTORY COMPILER Gender Identity Not on file Sexual Orientation Not on file documented as of this encounter Plan of Treatment Not on file documented as of this encounter Visit Diagnoses Diagnosis Urinary frequency- Primary documented in this encounter Care Teams Can Runner Relationship Specialty Start Date End Date Valentin Pierson MD [address] [place] [phone] PCP - General 06/10/07 documented as of this encounter
--- OUTSIDE RECORDS SUMMARY | 2024-12-25 10:46 | XMS_ITS | Encounter Summary ---
Author Organization [facility] Address [address] [place] [address] Care Team Providers Care Metal Finisher Name Role Phone Valentin Pierson MD Primary Care Provider +1- [phone] Encounter Details Date Type Department Care Team (Late st Contact Info) Description 09/12/2003 Outpatient Historical [facility] Urology- [address]tr[address], 3[address] [place] [address] Johnathan Maddox MD [address] [phone] HYPERTROPHY PROSTATE WITH OBST (Primary Dx); BLADDER NECK OBSTRUCTION; NOCTURIA; NODULAR PROSTATE WITH OBST Social History Tobacco Use Types Packs/Day Years Used Date Smoking Tobacco: Never Assessed Sex and Gender Information Value Date Recorded Sex Assigned at Not on file 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
--- OUTSIDE RECORDS SUMMARY | 2024-12-25 10:46 | XMS_ITS | Patient Health Record ---
Author Organization [facility] Address [address] [place] [address] Care Team Providers Care Plastic Maker Name Role Phone Olga Goddard MD Primary Care Provider Unavailab Torey Naik Unavailable [phone] Michelle Galvin Unavailable Allergies Allergen (clinical drug ingredient) Drug/Non Drug Allergy documented on EMR Reaction Allergy Type Onset Date Status Penicillin anaphylaxis Drug Allergy Acti ve Results Component Value Reference Range Notes CT Abdomen, Pelvis w/ + w/o Contrast-[id number] Reviewed date:12/22/2024 07:50:57 AM Interpretation: Performing Lab: Notes/Report: See Below For Report CT Abdomen, Pelvis w/ + w/o Contrast Read See Below For Report CT Abdomen, Pelvis w/ + w/o Contrast-[id number] Reviewed date:12/22/2024 07:24:19 AM Interpretation: Performing Lab: Notes/Report: [id number]&[email or web address] UA W/O Microscopic [id number] Reviewed date:12/31/2023 11:20:15 AM Interpretation: Performing Lab: Notes/Report: Specific gravity UA 1.025 Urine pH 5.5 Urine Glucose - Urine Bilirubin - Urine Ketone - Urine Blood 3+ Urine Protein +- Urobilinogen - Urine Nitrite - Urine Leukocyte - Creat Proc NC--NO PCT (Not y et reviewed by provider) Interpretation: Performing Lab: Notes/Report: Creat 1.42 .57-1.17 MG/DL V-eybhaf-d-benzoquinone imine (NAPQI) is a metabolite of acetaminophen, NAPQI concentrations of apparoximately 10 mg/L correlation to toxic levels of acetaminophen demonstrates a greater than or equil to 10% change in results. NAPQI concentrations greater than this may lead to falsely depressed results for patient samples. Use of this assay is not recommended for patients undergoing treatment with phenindione, due to the potential for falsely depressed results. Bun Proc NC--NO CPT (Not yet reviewed by provider) Interpretation: Performing Lab: Notes/Report: BUN 16 7-21 MG/DL Abdomen AP-[id number] Reviewed date:12/04/2024 11:10:49 AM Interpretation: Performing Lab: Notes/Report: See Below For Report Abdomen AP Diagnosis Description: Calculus of kidney Read See Below For Report US Renal w/bladder-[id number] Reviewed date:12/04/2024 10:37:28 AM Interpretation: Performing Lab: Notes/Report: See Below For Report US Renal w/bladder Diagnosis Description: Calculus of kidney Read See Below For Report Abdomen [id number] Reviewed date:02/13/2024 03:51:47 PM Interpretation: Performing Lab: Notes/Report: See Below For Report Abdomen AP Diagnosis Description: Calculus of kidney Read See Below For Report Abdomen [id number] Reviewed date:12/04/2024 11:03:58 AM Interpretation: Performing Lab: Notes/Report: [id number] US Renal w/bladder-[id number] Reviewed date:12/04/2024 10:32:35 AM Interpretation: Performing Lab: Notes/Report: [id number]=iSite Abdomen AP-[id number] Reviewed date:02/13/2024 03:51:53 PM Interpretation: Performing Lab: Notes/Report: [id number]=iSite Microscopic Urine [id number] Reviewed date:11/25/2024 10:55:13 AM Interpretation: Performing Lab: Notes/Report: Diagnosis Description: Benign prostatic hyperplasia with lower urinary tract symptoms RBC U 495 WBC U 12 0-5 /HPF Bacteria None Seen Ca Oxalate Present Hyaline Casts 9 SQ EPI 3 Mucus Threads Present Culture Urine [id number] Reviewed date:11/22/2024 07:31:58 AM Interpretation: Performing Lab: Notes/Report: Culture Urine JUANY Nieves Culture Urine t: Culture Urine Culture Urine [facility] [id number] Culture Urine n: Culture Urine Microbiology Culture Urine PROCEDURE: Culture Urine [O1] Culture Urine SOURCE: Urine BODY SITE: Culture Urine COLLECTED DATE/TIME: 11/17/2024 17:08 CDT RECEIVED DATE/TIME: 11/18/2024 15:02 CDT Culture Urine START DATE/TIME: 11/18/2024 15:02 CDT FREE TEXT SOURCE: Culture Urine FINAL REPORT Culture Urine Final Report [] Culture Urine Verified Date/Time: 11/20/2024 06:38 CDT Culture Urine No growth at 48 hours Culture Urine Order Comments Culture Urine O1: Culture Urine (Culture Urine [id number]) Culture Urine Diagnosis Descriptio n: Benign prostatic hyperplasia with lower urinary tract symptoms UA Without Micro-Auto, [place] parmar - [id number] Reviewed date:11/17/2024 04:25:17 PM Interpretation: Performing Lab: Notes/Report: Glucose - Bili - Ketones - Sp [place] 1.020 Blood 3+ pH 6.0 Protein 1+ Urobili - Nitrites - Leukocytes +- UA Without Micro-[place], [place] - [id number] Reviewed date:02/11/2024 10:30:50 AM Interpretation: Performing Lab: Notes/Report: Glucose - Bili - Ketones - Sp [place] 1.015 Blood 3+ pH 6.5 Protein 2+ Urobili +- Nitrites - Leukocytes +- Reason For Referral No Information Medications Medication SIG (Take, Route, Frequency, Duration) Notes Start Date End Date Status Levothyroxine Sodium 25 MCG Oral for 90 Days Active Ascorbic Acid 500 MG 1 tablet Orally Onc e a day Active Milk of Magnesia 7.75 % 5 mL at least 4 hours between doses as needed Orally Four times a day Active Amiodarone HCl 200 MG 1 tablet Orally On ce a day Active Melatonin 3 MG 1 tablet at bedtime as needed Orally Once a day Active Atorvastatin Calcium 80 MG Oral for 90 Days Active Pantoprazole Sodium 40 MG 1 tablet Orall y Once a day Active Aspirin 81 81 MG 1 tablet Orally Once a day Active Norvasc 2.5 MG 1 tablet Orally Once a day Active Dulcolax 5 MG 1 tablet as needed Orally Once a day Active Tylenol 325 MG 1 tablet as needed Orally every 6 hrs Active Carafate 1 GM 1 tablet on an empty stomach Orally Twice a day Active Tamsulosin HCl 0.4 MG Oral for 90 Days Active Fleet Enema 7-19 GM/118ML as directed Rectal Active Finasteride 5 MG Oral for 90 Days Active Zyvox 600 MG 1 tablet Orally ever y 12 hrs Active Advair Diskus 100-50 MCG/ACT 1 puff Inha lation Twice a day Active Lactobacillus - as directed Orally Active Galantamine Hydrobromide ER 16 MG Oral for 90 Days Active Albuterol Sulfate (5 MG/ML) 0.5% as directed Inhalation Activ e Social History Tobacco Use: Social History Observation Description Date Details (start date - stop date) Never Smoker NA - NA Tobacco Control (Standard) Question Answer Notes Tobacco use: Nonsmoker Section Notes: Caffeine- denies Alcohol- denies Problems Problem Type SNOMED Code ICD Code Onset Dates Problem Status W/U Status Risk Notes Problem Nephrolithiasis (30809942) Nephrolithiasis (N20.0) Active confirmed Problem Urinary tract infectious disease (91041565) UTI (urinary tract infection) (N39.0) Active confirmed Problem Benign prostatic hypertrophy with outflow obstruction (988093263) BPH loc w urin obs/LUTS (N40.1) Active confirmed Vital Signs Heart Rate 79 /min 12/08/2024 Temperature 97.8 degrees Fahrenheit 12/08/2024 Blood pressure diastolic 83 mm Hg 12/08/2024 Height-cm 182.88 cm 12/08/2024 Weight-kg 79.74 kg 12/08/2024 Height 72 in 12/08/2024 Blood pressure systolic 155 mm Hg 12/08/2024 Weight 175.8 lbs 12/08/2024 BMI 23.84 kg/m2 12/08/2024 Procedures Procedure Date Ordered Date Performed Result Body Sit e PVR (Post Void Residual) 12/31/2023 12/31/2023 88mL Encounters Encounter Location Date Provider Diagnosis [facility] [address] [place] [address] Dr Estes [address] [place] [address], [place] [address] 12/31/2023 Torey Gee UTI (urinary tract infection) N39.0 ; Gross hematuria R31.0 ; Feeling of incomplete bladder emptying R39.14 and Benign prostatic hyperplasia with lower urinary tract symptoms N40.1 [facility] [address] [place] [address] Dr Estes [address] [place] [address], [place] [address] 02/11/2024 Torey Gee Benign prostatic hyperplasia with lower urinary tract symptoms N40.1 ; Gross hematuria R31.0 and Calculus of kidney N20.0 [facility] [address] [place] [address] Dr Estes [address] [place] [address] 11/17/2024 Torey Gee Gross hematuria R31. 0 ; BPH loc w urin obs/LUTS N40.1 and Nephrolithiasis N20.0 [facility] [address] [place] [address] Dr Estes [address] [place] [address] 12/08/2024 Torey Gee Gross hematuria R31. 0 ; Nephrolithiasis N20.0 and BPH loc w urin obs/LUTS N40.1 [facility] [address] [place] [address] Dr Estes [address] [place] [address] 02/11/2024 Torey Gee Calculus of kidney N 20.0 [facility] [address] [place] [address] Dr Estes [address] [place] [address] 02/13/2024 Torey Gee [facility] [address] [place] [address] Dr Estes [address] [place] [address] 02/16/2024 Torey Gee [facility] [address] [place] [address] Dr Estes [address] [place] [address] 03/18/2024 Torey Gee [facility] [address] [place] [address] Dr Estes [address] [place] [address] 11/17/2024 Torey Gee Calculus of kidney N 20.0 [facility] [address] [place] [address] Dr Estes [address] [place] [address] 12/08/2024 Torey Gee Nephrolithiasis N20. 0 and Gross hematuria R31.0 Assessments Encounter Date Diagnosis (ICD Code) Assessment Notes Treatment Notes Treatment Clinical Notes Section Notes 12/31/2023 UTI (urinary tract infection) (ICD-10 - N39.0) 12/08/2024 Nephrolithiasis (ICD-10 - N20.0) 12/31/2023 Gross hematuria (ICD-10 - R31.0) 02/11/2024 Gross hematuria (ICD-10 - R31.0) 02/11/2024 Benign prostatic hyperplasia with lower urinary tract symptoms (ICD-10 - N40.1) 02/11/2024 Calculus of kidney (ICD-10 - N20.0) 11/17/2024 Gross hematuria (ICD-10 - R31.0) 11/17/2024 BPH loc w urin obs/LUTS (ICD-10 - N40.1) 11/17/2024 Calculus of kidney (ICD-10 - N20.0) 12/08/2024 Gross hematuria (ICD-10 - R31.0) 12/08/2024 Nephrolithiasis (ICD-10 - N20.0) 12/08/2024 BPH loc w urin obs/LUTS (ICD-10 - N40.1) 12/08/2024 Gross hematuria (ICD-10 - R31.0) 11/17/2024 Nephrolithiasis (ICD-10 - N20.0) 12/31/2023 Feeling of incomplete bladder emptying (ICD-10 - R39.14) 02/11/2024 Calculus of kidney (ICD-10 - N20.0) 12/31/2023 Benign prostatic hyperplasia with lower urinary tract symptoms (ICD-10 - N40.1) 12/31/2023 Other I will need to review his images from [facility] to see if the stone was actually in the renal pelvis or if it was in the lower pole. The stone was in the lower pole on prior imaging at [facility] would recommend observation given his age and medical comorbidities. Continue tamsulosin and finasteride next available cysto. 02/11/2024 Other K[facility] today. Continue tamsulosin and finasteride Monitor stone as long as it does not cause obstruction. Follow-up with nurse practitioner in 3 months with [facility] and renal ultrasound With UA 11/17/2024 Other Next avialable with or Mary on a day that I am in the office with kub and brenda. Continue tamsulosin and finasteride urine for micro and culture. 12/08/2024 Other Next avialable cysto with ct abd/pelvis with and without iv contrast for gross hematuria and nephrolithiasis. Plan Of Treatment Pending Test Test Name Order Date Blood Urea Nitrogen (BUN) 26542 12/09/19 25 Creatinine (B) 58525 12/08/2024 Bun Proc NC--NO CPT 12/20/2024 Creat Proc NC--NO PCT 12/20/2024 Next Appt Details Provider Name:Torey brower, 12/29/2024 10:20:00 AM, [address], [place], [address], Insurance Providers Payer Name Payer Address Payer Phone Subscriber Number Group Number Insured Name Patient Relationship to Insured Coverage Start Date Coverage End Date [place] [address] [place] [phone] [id number] Juany Aguayo Self - patient is the insured [facility] [address] [address] [place] [phone] [id number] Juany Aguayo Self - patient is the insured Medical (General) History Medical History History ICD Code muscle weakness acute kidney failure urinary tract infection pancytopenia thrombocytopenia hypothyroidism dementia hypertension atrial fibrillation orthostatic hypotension gastric ulcer benign prostatic hyperplasia with lower urinary tract symptoms Surgical History Surgery Date(Month/Year) testical surgery umbilical hernia Hospitalization History Reason Date(Month/Year) Covid 01/2024 weakness, dementia 12/2023
--- OUTSIDE RECORDS SUMMARY | 2024-12-25 10:46 | XMS_ITS | Encounter Summary ---
Author Organization [facility] Address [address] [place] [address] Care Team Providers Care Scholarship Counselor Name Role Phone Valentin Pierson MD Primary Care Provider +1- [phone] Encounter Details Date Type Department Care Team (Late st Contact Info) Description 08/06/2002 Outpatient Historical [facility] Urology- [address] Entr[address], 3rd [place] [address] Johnathan Maddox MD [address] [address] Slow urinary stream (Primary Dx); BLADDER NECK OBSTRUCTION; Hypertrophy of prostate; NOCTURIA Social History Tobacco Use Types Packs/Day Years Used Date Smoking Tobacco: Never Assessed Sex and Gender Information Value Date Recorded Sex Assigned at Not on file 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
--- OUTSIDE RECORDS SUMMARY | 2024-12-25 10:46 | XMS_ITS | Encounter Summary ---
Author Organization [facility] Address [address] [place] [address] Care Team Providers Care Auto Headlight Mechanic Name Role Phone Valentin Pierosn MD Primary Care Provider +1- [phone] Encounter Details Date Type Department Care Team (Late st Contact Info) Description 05/26/2000 Outpatient Historical [facility] Urology- [address]tr[address], 3rd [place] [address] Johnathan Maddox MD [address] [address] Hypertrophy of prostate (Primary Dx) Social History Tobacco Use Types Packs/Day Years Used Date Smoking Tobacco: Never Assessed Sex and Gender Information Value Date Recorded Sex Assigned at Not on file 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
--- OUTSIDE RECORDS SUMMARY | 2024-12-25 10:46 | XMS_ITS | Encounter Summary ---
Author Organization [facility] Address [address] [place] [address] Care Team Providers Care Wood Tank Builder Name Role Phone Valentin Pierson MD Primary Care Provider +1- [phone] Encounter Details Date Type Department Care Team (Latest Contact Info) Description 01/19/1998 Outpatient Historical [facility] Urology- [place] [address] [facility] [address], 3rd [place] [address] Justice Kaplan Jr. 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
--- OUTSIDE RECORDS SUMMARY | 2024-12-25 10:46 | XMS_ITS | Encounter Summary ---
Author Organization [facility] Address [address] [place] [address] Care Team Providers Care Forming Yardage Control Operator Name Role Phone Valentin Pierson MD Primary Care Provider +1- [phone] Encounter Details Date Type Department Care Team (Late st Contact Info) Description 09/19/2005 Outpatient Historical [facility] Urology- [address]tr[address], 3rd [place] [address] Johnathan Maddox MD [address] [address] Hypertrophy (Benign) of Prostate (Primary Dx); Nodular Prostate without Urinary Obstruction; Nocturia Social History Tobacco Use Types Packs/Day Years Used Date Smoking Tobacco: Never Assessed Sex and Gender Information Value Date Recorded Sex Assigned at Not on file 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
--- OUTSIDE RECORDS SUMMARY | 2024-12-25 10:46 | XMS_ITS | Encounter Summary ---
Author Organization [facility] Address [address] [place] [address] Care Team Providers Care Staff Writer Name Role Phone Valentin Pierson MD Primary Care Provider +1- [phone] Encounter Details Date Type Department Care Team (Latest Contact Info) Description 08/25/2002 Outpatient Historical [facility] Raheem Burton MD [address] [place] [address] FX PHALANX, HAND NOS-CLOSE (Primary Dx) Social History Tobacco Use Types Packs/Day Years Used Date Smoking Tobacco: Never Assessed Sex and Gender Information Value Date Recorded Sex Assigned at Not on file 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
--- OUTSIDE RECORDS SUMMARY | 2024-12-25 10:46 | XMS_ITS | Encounter Summary ---
Author Organization [facility] Address [address] [place] [address] Care Team Providers Care Director Case Name Role Phone Valentin Pierson MD Primary Care Provider +1- [phone] Encounter Details Date Type Department Care Team (Latest Contact Info) Description 05/11/1999 Outpatient Historical [facility] Urology- [address] Entr[address], [address] [place] [address] Hyperplasia of prostate (Primary Dx) Social History Tobacco Use Types Packs/Day Years Used Date Smoking Tobacco: Never Assessed Sex and Gender Information Value Date Recorded Sex Assigned at Not on file 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
--- OUTSIDE RECORDS SUMMARY | 2024-12-25 10:46 | XMS_ITS | Encounter Summary ---
Author Organization [facility] Address [address] [place] [address] Care Team Providers Care Hand Worker Name Role Phone Valentin Pierson MD Primary Care Provider +1- [phone] Encounter Details Date Type Department Care Team (Latest Contact Info) Description 09/01/2002 Outpatient Historical [facility] Raheem Burton MD [address] [place] [address] FX PHALANX, HAND NOS-CLOSE (Primary Dx) Social History Tobacco Use Types Packs/Day Years Used Date Smoking Tobacco: Never Assessed Sex and Gender Information Value Date Recorded Sex Assigned at Not on file 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
--- NOTE | 2024-12-25 11:25 | USR_ITS ---
PROCEDURE INFORMATION: Exam: US Right Limited Joint or Other Non-Vascular Extremity Structure Exam date and time: 12/25/2024 12:04 PM Age: 89 years old Clinical indication: Injury or trauma; Other: Cat bite; Puncture wound; Without residual foreign body; Hand; Right; Additional info: Thenar eminence R hand TECHNIQUE: Imaging protocol: US right limited joint or other nonvascular extremity structure. Real-time ultrasound with image documentation. Exam focused on the area of clinical interest. COMPARISON: CR ( EX, ) 12/25/2024 10:54 AM FINDINGS: Soft tissues: There is a subcutaneous 1.6 x 0.3 x 0.8 cm collection with internal echogenicities and surrounding increased flow on color Doppler at the right elma thenar eminence. Other findings: There is no evidence of a foreign body. US/US soft tissue/extremity [address] IMPRESSION: Subcutaneous abscess measuring 1.6 cm at the right palm thenar eminence. Surrounding inflammatory changes, suggestive of cellulitis.
--- NOTE | 2024-12-25 11:28 | W.ED.ANIMALB ---
HPI - Animal Bite General: Chief Complaint: Animal Bite Stated Complaint: Righ hand swollen Time Seen by Provider: 12/25/24 10:44 History of Present Illness: 89-year-old male presents emergency room he was bitten 2 days ago in his right hand by a cat baths his bite thakkar are on the posterior part of the thumb and into the thenar eminence there is some proximal redness. Patient does have some cognitive decline and dementia dozes off frequently says this is typical. He has had some neutropenia in the past he has seen oncology hematology for solicitous mild dysplasia on his chart. No recent fever sweats or chills Associated symptoms: Deny chills or fever(s) Related Data Home Medications ?Medication ?Instructions ?Recorded ?Confirmed cholecalciferol (vitamin D3) 25 2,000 unit PO BEDTIME 07/22/19 12/25/24 mcg (1,000 unit) capsule (Vitamin D3) melatonin 5 mg tablet 5 mg PO BEDTIME 03/30/21 12/25/24 finasteride 5 mg tablet 5 mg PO DAILY 12/31/22 12/25/24 tamsulosin 0.4 mg capsule 0.4 mg PO .HS 12/31/22 12/25/24 atorvastatin 80 mg tablet 80 mg PO DAILY 07/09/23 12/25/24 apixaban 5 mg tablet (Eliquis) 5 mg PO BID 12/25/24 12/25/24 levothyroxine 50 mcg tablet 50 mcg PO QAM 12/25/24 12/25/24 Previous Rx's ?Medication ?Instructions ?Recorded galantamine 12 mg tablet 12 mg PO BID #180 tabs 07/20/24 Allergies Allergy/AdvReac Type Severity Reaction Status Date / Time Penicillins Allergy Rash Verified 10/26/24 12:37 Review of Systems Const: Denies: fever(s) or chills Card: Denies: chest pain Resp: Denies: dyspnea GI: Denies: abdominal pain : Denies: dysuria, urinary frequency or urinary urgency Musc: Denies: neck pain or back pain Skin/Breast: Denies: rash PFSH ED PFSH: Medical History Aneurysm of left common iliac artery Pancytopenia Autonomic dysfunction History of mitral valve insufficiency Hypertension Hypothyroidism Alzheimer's dementia without behavioral disturbance BPH w urinary obs/LUTS Dizziness Dyslipidemia Atrial fibrillation ASHD (arteriosclerotic heart disease) Left renal stone Surgical History History of esophagogastroduodenoscopy (EGD) 5 + years ago Hx of colonoscopy S/P transurethral resection of prostate Cystoscopy with TUR/vaporization S/P mitral valve repair S/P orchiectomy left S/P knee surgery Right total knee arthroplasty S/P hernia surgery Bilateral inguinal and umbilical hernia repairs Family History Mother , 73 CAD (coronary artery disease) Diabetes Father , 85 Cancer Hypertension Social History Smoking and tobacco/nicotine status: former use of tobacco/nicotine Alcohol intake: never Substance/Drug Use: never Adopted: No Caregiver/support person: No Lives independently: No Household members: spouse Marital status: Current occupational status: retired Physical Exam Const: GENERAL APPEARANCE: cooperative ORIENTATION/CONSCIOUSNESS: Yes awake, Yes oriented to person, Yes oriented to place and Yes oriented to time HENMT: COMMON NORMALS: normocephalic, atraumatic and hearing grossly normal bilaterally HEAD & SCALP: normocephalic and atraumatic Resp: COMMON NORMALS: normal respiratory effort, No retractions, No use of accessory muscles and clear to auscultation bilaterally AUSCULTATION: clear to auscultation bilaterally Cardio: COMMON NORMALS: regular rate, regular rhythm and No murmurs present (Cardio) RATE: regular rate RHYTHM: regular rhythm GI: COMMON NORMALS: Soft to palpation and No hepatosplenomegaly present AUSCULTATION: Yes normoactive bowel sounds PALPATION: Yes Soft to palpation, No Tenderness to palpation present (GI), No Guarding due to palpation present (GI) and Yes No hepatosplenomegaly present Extremity: OTHER: Focal redness erythema and tenderness mild fluctuance on over the distal portion of the thenar eminence there is also an area of redness more laterally from what appeared to be puncture wounds. There is proximal lymphangitic spread across the forearm with palpable epitrochlear nodes Neuro: SENSORIUM/ORIENTATION: Yes oriented to person, Yes oriented to place and Yes oriented to time Skin: COMMON NORMALS: no rashes or lesions noted GENERAL SKIN EXAM: no rashes or lesions noted Procedures Abscess I/D Site: hand Side (if applicable): right Sedation/analgesia: fentanyl (25 mcg) Local Anesthetic: lidocaine 1% Amount of anesthesia used (mL): 3 Amount of fluid expressed (mL): 2 Irrigation: Yes Packing used?: none Course Vital Signs: Vital signs: Vital Signs Temperature 98.2 F 12/25/24 10:50 Pulse Rate 79 12/25/24 11:05 Respiratory Rate 16 12/25/24 11:05 Blood Pressure 158/79 12/25/24 13:02 Pulse Oximetry 97 12/25/24 13:02 Oxygen Delivery Me thod Room Air 12/25/24 10:50 MDM - Animal Bite Medical Decision Making Ultrasound shows small abscess, 1.6 x 0.3 x 0.8. Incised and drained over the bites and drained a small amount of fluid which was cultured. Irrigated aggressively. Discussed with patient will admit. says the cat has not had rabies vaccine and encouraged him to get rabies they are planning to euthanize the cat and have it checked the cat is still in there possession however it is an outdoor cat and does roam freely. We offered rabies vaccine ultimately after long discussion they preferred to test the cat. Advised him if they are not able to test the cat then the patient would definitely need to have rabies vaccinations. Because of the extent of the redness and erythema to a patient's age the abscess formation we will place in observation for initial IV antibiotics. Because he is allergic to penicillin we will use meropenem. Per up-to-date alternative therapy for penicillin allergic patients with [place] is meropenem 1 g every 8 hours. Lab Data 12/25/24 11:43 12/25/24 11:43 Radiology Impressions Hand X-Ray 12/25/24 10:44 IMPRESSION: No acute fracture or dislocation. Soft Tissue Ultrasound 12/25/24 11:25 IMPRESSION: Subcutaneous abscess measuring 1.6 cm at the right palm thenar eminence. Surrounding inflammatory changes, suggestive of cellulitis. Laboratory Results WBC 11.33 10^3/uL (3.29-11.43) 12/25/24 11:43 RBC 3.22 10^6/uL (3.85-5.65) L 12/25/24 11:43 Hgb 10.80 g/dL (11.27-16.99) L 12/25/24 11:43 Hct 33.7 % (37-53) L 12/25/24 11:43 MCV 104.7 fl (82-101) H 12/25/24 11:43 MCH 33.5 pg (27-33) H 12/25/24 11:43 MCHC 32.0 g/dL (30-55) 12/25/24 11:43 RDW 14.5 % (12.1-15.1) 12/25/24 11:43 Plt Count 56 10^3/cmm (157-399) L 12/25/24 11:43 MPV 13.0 fL (7.4-10.4) H 12/25/24 11:43 Neut % (Auto) 55.8 % 12/25/24 11:43 Lymph % (Auto) 5.6 % 12/25/24 11:43 [place] % (Auto) 36.6 % 12/25/24 11:43 Eos % (Auto) 0.4 % 12/25/24 11:43 Baso % (Auto) 0.1 % 12/25/24 11:43 Neut # (Auto) 6.31 10^3/uL (1.8-7.7) 12/25/24 11:43 Lymph # (Auto) 0.6 10^3/uL (0.8-4.8) L 12/25/24 11:43 [place] # (Auto) 4.2 10^3/uL (0.2-0.9) H 12/25/24 11:43 Eos # (Auto) 0.1 10^3/uL (0.0-0.8) 12/25/24 11:43 Baso # (Auto) 0.0 10^3/uL (0.0-0.1) 12/25/24 11:43 Nucleated RBC % (auto) 0 % 12/25/24 11:43 Nucleated RBCs # 0.0 /100WBC 12/25/24 11:43 Sodium 136 mmol/L (136-145) 12/25/24 11:43 Potassium 3.5 mmol/L (3.5-5.1) 12/25/24 11:43 Chloride 100 mmol/L (98-107) 12/25/24 11:43 Carbon Dioxide 24 mmol/L (22-29) 12/25/24 11:43 Anion Gap 15.5 (5-19) 12/25/24 11:43 BUN 22 mg/dL (8-23) 12/25/24 11:43 Creatinine 1.5 mg/dL (0.7-1.2) H 12/25/24 11:43 GFR Calculation Not Reportable 12/25/24 11:43 Glucose 105 mg/dL (65-115) 12/25/24 11:43 Calculated Osmolality 286 mOsm/kg (285-295) 12/25/24 11:43 Calcium 8.8 mg/dL (8.5-10.5) 12/25/24 11:43 Total Bilirubin 3.1 mg/dL (0.15-1.2) H 12/25/24 11:43 AST 18 U/L (0-40) 12/25/24 11:43 ALT 9 U/L (0-41) 12/25/24 11:43 Alkaline Phosphatase 67 U/L (40-130) 12/25/24 11:43 Total Protein 6.8 g/dL (6.6-8.7) 12/25/24 11:43 Albumin 3.5 g/dL (3.5-5.2) 12/25/24 11:43 Globulin 3.3 g/dL (1.3-4.6) 12/25/24 11:43 All radiology interpretation(s) finalized by discharge Discharge Plan Discharge Condition: Stable Prescriptions: No Action cholecalciferol (vitamin D3) [Vitamin D3] 25 mcg (1,000 unit) capsule 2,000 unit PO BEDTIME tamsulosin 0.4 mg capsule 0.4 mg PO .HS finasteride 5 mg tablet 5 mg PO DAILY atorvastatin 80 mg tablet 80 mg PO DAILY galantamine 12 mg tablet 12 mg PO BID Qty: 180 3RF Rx Instructions: administer with AM and PM meals melatonin 5 mg tablet 5 mg PO BEDTIME levothyroxine 50 mcg tablet 50 mcg PO QAM Eliquis 5 mg tablet 5 mg PO BID Referrals: Olga Goddard MD [Primary Care Provider, Internal Medicine] Print Language: Citizen [place] Coding Level of Care Code ED 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
[2024-12-25] MEDS: rabies vaccine 2.5 unit SDV IM (11:47)
[2024-12-25] MEDS: rabies IG 300 unit/mL SDV 1 mL 1590 UNIT IM (11:49)
[2024-12-25] MEDS: tetanus-dipt-pertussis 0.5 mL SDV IM (11:49)
[2024-12-25 11:54] LABS: Hematocrit 33.7 % (37-53); Hemoglobin 10.80 g/dL (11.27-16.99); Mean Corpuscular HGB Conc 32.0 g/dL (30-55); Mean Corpuscular Hemoglobin 33.5 pg (27-33); Mean Corpuscular Volume 104.7 fl (82-101); Nucleated Red Blood Cells % 0 %; Platelet Count 56 10^3/cmm (157-399); Red Blood Count 3.22 10^6/uL (3.85-5.65); White Blood Count 11.33 10^3/uL (3.29-11.43)
[2024-12-25 12:11] LABS: Alanine Aminotransferase 9 U/L (0-41); Albumin Level 3.5 g/dL (3.5-5.2); Alkaline Phosphatase 67 U/L (40-130); Anion Gap 15.5 (5-19); Aspartate Amino Transferase 18 U/L (0-40); Blood Urea Nitrogen 22 mg/dL (8-23); Calcium 8.8 mg/dL (8.5-10.5); Carbon Dioxide 24 mmol/L (22-29); Chloride 100 mmol/L (98-107); Globulin 3.3 g/dL (1.3-4.6); Glucose 105 mg/dL (65-115); Osmolality Calculated 286 mOsm/kg (285-295); Potassium 3.5 mmol/L (3.5-5.1); Sodium 136 mmol/L (136-145); Total Protein 6.8 g/dL (6.6-8.7)
[2024-12-25 12:12] LABS: Creatinine Clr Calc Pharmacy 38.4307
[2024-12-25] MEDS: fentaNYL 50 mcg/mL INJ 2mL 25 MCG IVP (13:37)
[2024-12-25] MEDS: MEROPENEM 2,000 MG in sodium chloride 0.9% (plus) 50 ML 100 MG IV (14:17)
--- NOTE | 2024-12-25 14:49 | PM.HP ---
Providers/Chief Complaint Admitting Physician: Sherie Regan MD Primary Care Provider: Olga Goddard MD Chief Complaint: Right hand swollen History of Present Illness Juany Aguayo is a 89 year old male With hypertension, hyperlipidemia, atrial fibrillation, CAD, iliac artery aneurysm Alzheimer's dementia, autonomic dysfunction, hypothyroidism, MDS, and BPH presenting with infected animal bite. He was bitten by his cat 2 days ago in his right hand. Since then he has had increased swelling, erythema, and pain. He denies any fever or chills. He was afebrile in the ED. His WBC was 11.3. He is usually leukopenic. Ultrasound showed 1.6 cm subcutaneous abscess in the right palm thenar eminence with surrounding inflammatory changes suggestive of cellulitis. His abscess was drained by the ED physician. Orthopedic surgery has been consulted as well. Patient's reports that his cat is up-to-date with their immunizations. He receives Tdap and rabies vaccine in the ED. He also was given meropenem. Review of Systems General: Reports: 10 or more systems reviewed and unremarkable except in HPI and below Medications/Allergies Home Medications ?Medication ?Instructions ?Recorded ?Confirmed ?Last Taken ?Type cholecalciferol (vitamin D3) 25 2,000 unit PO BEDTIME 07/22/19 12/25/24 12/24/24 History mcg (1,000 unit) capsule (Vitamin D3) melatonin 5 mg tablet 5 mg PO BEDTIME 03/30/21 12/25/24 12/24/24 History finasteride 5 mg tablet 5 mg PO DAILY 12/31/22 12/25/24 12/24/24 History tamsulosin 0.4 mg capsule 0.4 mg PO .HS 12/31/22 12/25/24 12/24/24 History atorvastatin 80 mg tablet 80 mg PO DAILY 07/09/23 12/25/24 12/24/24 History galantamine 12 mg tablet 12 mg PO BID #180 tabs 07/20/24 12/25/24 Unknown Rx apixaban 5 mg tablet (Eliquis) 5 mg PO BID 12/25/24 12/25/24 12/24/24 History levothyroxine 50 mcg tablet 50 mcg PO QAM 12/25/24 12/25/24 12/25/24 08:00 History Allergies Allergy/AdvReac Type Severity Reaction Status Date / Time Penicillins Allergy Rash Verified 10/26/24 12:37 PFSH Acute PFSH: Medical History (Updated 12/25/24 @ 15:37 by Cynthia Regan MD) MDS (myelodysplastic syndrome) Aneurysm of left common iliac artery Pancytopenia Autonomic dysfunction History of mitral valve insufficiency Hypertension Hypothyroidism Alzheimer's dementia without behavioral disturbance BPH w urinary obs/LUTS Dizziness Dyslipidemia Atrial fibrillation ASHD (arteriosclerotic heart disease) Left renal stone Surgical History History of esophagogastroduodenoscopy (EGD) 5 + years ago Hx of colonoscopy S/P transurethral resection of prostate Cystoscopy with TUR/vaporization S/P mitral valve repair S/P orchiectomy left S/P knee surgery Right total knee arthroplasty S/P hernia surgery Bilateral inguinal and umbilical hernia repairs Family History Mother , 73 CAD (coronary artery disease) Diabetes Father , 85 Cancer Hypertension Social History Smoking and tobacco/nicotine status: former use of tobacco/nicotine Alcohol intake: never Substance/Drug Use: never Adopted: No Caregiver/support person: No Lives independently: No Household members: spouse Marital status: Current occupational status: retired Vitals/I&O/Wt Last Vital Signs Temp 98.2 F 12/25/24 10:50 Pulse 76 12/25/24 14:23 Resp 14 12/25/24 14:23 BP 133/74 12/25/24 14:23 Pulse Ox 96 12/25/24 14:23 O2 Del Method Room Air 12/25/24 14:23 Weight last 48 hrs Weight 79.379 kg Physical Exam Narrative: GEN: Alert, no acute distress HEENT: Normocephalic, atraumatic Neck: Supple Respiratory: Normal effort, clear to auscultation bilaterally Cardio: Regular rate and rhythm, S1 and S2, no murmurs Abdomen: Soft, nontender, nondistended, normoactive bowel sounds Extremities: Right hand bandaged, able to flex thumb and make fist, radial and ulnar pulse 2+ Neuro: Sensation intact, no focal deficits Data 12/25/24 11:43 12/25/24 11:43 Micro: Microbiology 12/25/24 11:43 Blood Culture - Preliminary Blood SPECIMEN COLLECTED 12/25/24 11:40 Blood Culture - Preliminary Blood SPECIMEN COLLECTED US: Radiologist's impression: Subcutaneous abscess measuring 1.6 cm at the right palm thenar eminence. Surrounding inflammatory changes, suggestive of cellulitis. Xray Ortho: My impression: X-ray right hand Radiologist's impression: No acute fracture or dislocation. A&P Assessment and plan (1) Cat bite of hand: Associated with abscess of the right thenar prominence Status post I&D in the ED Orthopedic surgery consulted Has penicillin allergy and received meropenem will switch him to ceftriaxone and metronidazole Follow-up wound culture (2) MDS (myelodysplastic syndrome): Followed by oncology (3) Atrial fibrillation: Continue apixaban Monitor for bleeding given chronic thrombocytopenia (4) ASHD (arteriosclerotic heart disease): (5) BPH w urinary obs/LUTS: Finasteride and tamsulosin (6) Dyslipidemia: Atorvastatin (7) Alzheimer's dementia without behavioral disturbance: Galantamine PDMP PDMP Reviewed: Not Reviewed Attestations Medical Necessity Statement*: Patient requires initial hospitalization for IV antibiotics. Orthopedic surgery also consulted. Coding Level of Care Code 86459 Diagnoses Cat bite of hand S61.459A; W55.01XA MDS (myelodysplastic syndrome) D46.9 Atrial fibrillation I48.91 ASHD (arteriosclerotic heart disease) I25.10 BPH w urinary obs/LUTS N40.1; N13.8 Dyslipidemia E78.5 Alzheimer's dementia without behavioral disturbance G30.9; F02.80
--- OUTSIDE RECORDS SUMMARY | 2024-12-25 16:22 | XMS_ITS | Encounter Summary ---
Author Organization [facility] Address [address] [place] [address] Care Team Providers Care Extractor Tender Raw Stock Name Role Phone Valentin Pierson MD Primary Care Provider +1- [phone] Encounter Details Date Type Department Care Team (Latest Contact Info) Description 09/01/2002 Outpatient Historical [facility] Raheem Burton MD [address] [place] [address] FX PHALANX, HAND NOS-CLOSE (Primary Dx) Social History Tobacco Use Types Packs/Day Years Used Date Smoking Tobacco: Never Assessed Sex and Gender Information Value Date Recorded Sex Assigned at Not on file 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
--- OUTSIDE RECORDS SUMMARY | 2024-12-25 16:22 | XMS_ITS | Encounter Summary ---
Author Organization [facility] Address [address] [place] [address] Care Team Providers Care Psych Therapist Name Role Phone Valentin Pierson MD Primary Care Provider +1- [phone] Encounter Details Date Type Department Care Team (Latest Contact Info) Description 05/11/1999 Outpatient Historical [facility] Urology- [address]tr[address], [address] [place] [address] Hyperplasia of prostate (Primary Dx) Social History Tobacco Use Types Packs/Day Years Used Date Smoking Tobacco: Never Assessed Sex and Gender Information Value Date Recorded Sex Assigned at Not on file 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
--- OUTSIDE RECORDS SUMMARY | 2024-12-25 16:22 | XMS_ITS | Encounter Summary ---
Author Organization [facility] Address [address] [place] [address] Care Team Providers Care Building Service Worker Name Role Phone Valentin Pierson MD Primary Care Provider +1- [phone] Encounter Details Date Type Department Care Team (Late st Contact Info) Description 09/30/2006 Outpatient Historical [facility] Urology- [address]tr[address], [address] [place] [address] Johnathan Maddox MD [address] [address] BPH w Urinary Obs/Luts (Primary Dx); Nocturia; Nodular Prostate without Urinary Obstruction; Bladder Neck Obstruction Social History Tobacco Use Types Packs/Day Years Used Date Smoking Tobacco: Never Assessed Sex and Gender Information Value Date Recorded Sex Assigned at Not on file 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
--- OUTSIDE RECORDS SUMMARY | 2024-12-25 16:22 | XMS_ITS | Encounter Summary ---
Author Organization [facility] Address [address] [place] [address] Care Team Providers Care Senior Clinical Research Associate Name Role Phone Valentin Pierson MD Primary Care Provider +1- [phone] Reason for Visit * Reason Onset Date Comments Referral 04/02/2023 Encounter Details Date Type Department Care Team (Late st Contact Info) Description 04/02/2023 Telephone [facility] [address] [facility] [address] [place] [address] Provider, Abstract NO ADDRESS ON FILE Referral Social History Tobacco Use Types Packs/Day Years Used Date Smoking Tobacco: Never Sex and Gender Information Value Date Recorded Sex Assigned at Not on file 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 Pt has an appt with [facility] to find out when pt can have surgery but pt needs the cardiology visit first. Please call to R/S [facility] Software Firmware Engineer: Malena Castro * Telephone Encounter - Malena Castro - 04/02/2023 10:26 AM CDT [facility] Call Center Communications Provider: Referral Caller: Avani Relation to Patient: Spouse PHI (Y/N): Y MESSAGE Caller is returning a call from Corinna to schedule pt's referral. [facility] Software Firmware Engineer: Malena Castro documented in this encounter Plan of Treatment Not on file documented as of this encounter Visit Diagnoses Not on filedocumented in this encounter Care Teams Senior Clinical Research Associate Relationship Specialty Start Date End Date Valentin Pierson MD [address] [place] [phone] PCP - General 06/10/07 documented as of this encounter
--- OUTSIDE RECORDS SUMMARY | 2024-12-25 16:22 | XMS_ITS | Encounter Summary ---
Author Organization [facility] Address [address] [place] [address] Care Team Providers Care Tower Erector Helper Name Role Phone Valentin Pierson MD Primary Care Provider +1- [phone] Encounter Details Date Type Department Care Team (Late st Contact Info) Description 08/06/2002 Outpatient Historical [facility] Urology- [address]tr[address], 3rd [place] [phone] Johnathan Maddox MD [address] [phone] Slow urinary stream (Primary Dx); BLADDER NECK OBSTRUCTION; Hypertrophy of prostate; NOCTURIA Social History Tobacco Use Types Packs/Day Years Used Date Smoking Tobacco: Never Assessed Sex and Gender Information Value Date Recorded Sex Assigned at Not on file 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
--- OUTSIDE RECORDS SUMMARY | 2024-12-25 16:22 | XMS_ITS | Encounter Summary ---
Author Organization [facility] Address [address] [place] [address] Care Team Providers Care Cattle Broker Name Role Phone Valentin Pierson MD Primary Care Provider +1- [phone] Encounter Details Date Type Department Care Team (Late st Contact Info) Description 09/18/2004 Outpatient Historical [facility] Urology- [address]tr[address], [address] [place] [address] Johnathan Maddox MD [address] [phone] HYPERTROPHY PROSTATE W/O OBST (Primary Dx); NOCTURIA; NODULAR PROSTATE W/O OBST Social History Tobacco Use Types Packs/Day Years Used Date Smoking Tobacco: Never Assessed Sex and Gender Information Value Date Recorded Sex Assigned at Not on file 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
--- OUTSIDE RECORDS SUMMARY | 2024-12-25 16:22 | XMS_ITS | Encounter Summary ---
Author Organization [facility] Address [address] [place] [address] Care Team Providers Care Heavy Duty Diesel Mechanic Name Role Phone Valentin Pierson MD Primary Care Provider +1- [phone] Encounter Details Date Type Department Care Team (Late st Contact Info) Description 09/19/2005 Outpatient Historical [facility] ([facility] Urology- [address] Entr[address] B, 3rd [place] [id number] Johnathan Maddox MD [address] [address] Hypertrophy (Benign) of Prostate (Primary Dx); Nodular Prostate without Urinary Obstruction; Nocturia Social History Tobacco Use Types Packs/Day Years Used Date Smoking Tobacco: Never Assessed Sex and Gender Information Value Date Recorded Sex Assigned at Not on file 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
--- OUTSIDE RECORDS SUMMARY | 2024-12-25 16:22 | XMS_ITS | Clinical Summary ---
Author Organization [facility] Address [address] Melissa: [place] [address] Care Team Providers Care Materials Coordinator Name Role Phone Valentin Pierson MD Primary Care Provider +1- [phone] Allergies Active Allergy Reactions Criticality Noted Date [...] on file Legal Sex Male 2:33 AM MIXED CROP FARMER Gender Identity Not on file Sexual Orientation Not on file Last Filed Vital Signs Vital Sign Reading Time Taken Comments Blood Pressure 160/90 06/18/2023 8:15 AM MIXED CROP FARMER Pulse 66 06/18/2023 8:15 AM MIXED CROP FARMER Temperature 36.6 C (97.8 F) 06/18/2023 8:15 AM MIXED CROP FARMER Respiratory Rate 16 06/18/2023 8:15 AM MIXED CROP FARMER Oxygen Saturation 95% 06/18/2023 8:15 AM MIXED CROP FARMER Inhaled Oxygen Concentration - - Weight 81.6 kg (180 lb) 06/18/2023 6:40 AM MIXED CROP FARMER Height 182.9 cm (6') 06/18/2023 6:40 AM MIXED CROP FARMER Body Mass Index 24.41 06/18/2023 6:40 AM MIXED CROP FARMER Plan of Treatment Health Maintenance Due Date Last Done Comments DTAP/TDAP/TD VACCINES (1 - Tdap) 1954 PNEUMOCOCCAL VACCINE 50+ YEARS (1 of 1 - PCV) 06/08/19 87 ZOSTER VACCINE (1 of 2) 1987 RSV VACCINE (60+ or ) (1 - 1-dose 75+ series) 2012 INFLUENZA VACCINE (#1) 2025 04/20/2021 Insurance MEDICARE PART A AND B [place] [employer] [place] [id number] Care Teams Materials Coordinator Relationship Specialty Start Date End Date Valentin Pierson MD [address] [address] PCP - General 06/10/07
--- OUTSIDE RECORDS SUMMARY | 2024-12-25 16:22 | XMS_ITS | Encounter Summary ---
Author Organization [facility] Address [address] [place] [address] Care Team Providers Care Manager Event Name Role Phone Valentin Pierson MD Primary Care Provider +1- [phone] Encounter Details Date Type Department Care Team (Late st Contact Info) Description 05/26/2000 Outpatient Historical [facility] Urology- [address] Entrance B, 3rd [place] [address] Johnathan Maddox MD [address] [address] Hypertrophy of prostate (Primary Dx) Social History Tobacco Use Types Packs/Day Years Used Date Smoking Tobacco: Never Assessed Sex and Gender Information Value Date Recorded Sex Assigned at Not on file 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
--- OUTSIDE RECORDS SUMMARY | 2024-12-25 16:22 | XMS_ITS | Encounter Summary ---
Author Organization [facility] Address [address] [place] [address] Care Team Providers Care Hvac Estimator Name Role Phone Valentin Pierson MD Primary Care Provider +1- [phone] Encounter Details Date Type Department Care Team (Late st Contact Info) Description 07/09/2001 Outpatient Historical [facility] Urology- [address] Entr[address], 3rd [place] [address] Johnathan Maddox MD [address] [address] URINARY FREQUENCY (Primary Dx) Social History Tobacco Use Types Packs/Day Years Used Date Smoking Tobacco: Never Assessed Sex and Gender Information Value Date Recorded Sex Assigned at Not on file 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
--- OUTSIDE RECORDS SUMMARY | 2024-12-25 16:22 | XMS_ITS | Encounter Summary ---
Author Organization [facility] Address [address] [place] [address] Care Team Providers Care Unit Secy Name Role Phone Valentin Pierson MD Primary Care Provider +1- [phone] Encounter Details Date Type Department Care Team (Latest Contact Info) Description 08/25/2002 Outpatient Historical [facility] Raheem Burton MD [address] [place] [address] FX PHALANX, HAND NOS-CLOSE (Primary Dx) Social History Tobacco Use Types Packs/Day Years Used Date Smoking Tobacco: Never Assessed Sex and Gender Information Value Date Recorded Sex Assigned at Not on file 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
--- OUTSIDE RECORDS SUMMARY | 2024-12-25 16:22 | XMS_ITS | Encounter Summary ---
Author Organization [facility] Address [address] [place] [address] Care Team Providers Care Paint Striping Machine Operator Name Role Phone Valentin Pierson MD Primary Care Provider +1- [phone] Encounter Details Date Type Department Care Team (Latest Contact Info) Description 01/19/1998 Outpatient Historical [facility] Urology- [place] [address] [facility] [address], 3rd [place] [address] Justice Kaplan Jr. 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
--- OUTSIDE RECORDS SUMMARY | 2024-12-25 16:22 | XMS_ITS | Encounter Summary ---
Author Organization [facility] Address [address] [place] [address] Care Team Providers Care Dental Technician Apprentice Name Role Phone Valentin Pierson MD Primary Care Provider +1- [phone] Encounter Details Date Type Department Care Team (Late st Contact Info) Description 09/12/2003 Outpatient Historical [facility] Urology- [address] Entr[address] B, 3rd [place] [address] Johnathan Maddox MD [address] [address] HYPERTROPHY PROSTATE WITH OBST (Primary Dx); BLADDER NECK OBSTRUCTION; NOCTURIA; NODULAR PROSTATE WITH OBST Social History Tobacco Use Types Packs/Day Years Used Date Smoking Tobacco: Never Assessed Sex and Gender Information Value Date Recorded Sex Assigned at Not on file 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
--- OUTSIDE RECORDS SUMMARY | 2024-12-25 16:22 | XMS_ITS | Clinical Summary ---
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
[2024-12-25] MEDS: cefTRIAXone 1,000 mg SDV 1000 MG IVP (21:51)
[2024-12-25] MEDS: MELATONIN 3 MG TABLET PO (21:52)
[2024-12-25] MEDS: metroNIDAZOLE IV 500 MG/100 ML PREMIX 100 MG IV (21:53)
[2024-12-26] VITALS: BP 131/82; PULSE 72; RESP 16; TEMP 36.7; O2SAT 99
[2024-12-26 00:51] LABS: Glucose Urine UA Negative (Normal); Nitrate Urine Positive (Negative); Specific Gravity, Urine 1.025 (1.005-1.030)
[2024-12-26 01:08] LABS: UA Slide Review UA Slide Review Perf
[2024-12-26 04:00] VITALS: BP 140/77; PULSE 78; RESP 19; TEMP 36.8; O2SAT 94
[2024-12-26 04:53] LABS: Hematocrit 32.9 % (37-53); Hemoglobin 10.80 g/dL (11.27-16.99); Mean Corpuscular HGB Conc 32.8 g/dL (30-55); Mean Corpuscular Hemoglobin 33.0 pg (27-33); Mean Corpuscular Volume 100.6 fl (82-101); Nucleated Red Blood Cells % 0 %; Platelet Count 50 10^3/cmm (157-399); Red Blood Count 3.27 10^6/uL (3.85-5.65); White Blood Count 6.82 10^3/uL (3.29-11.43)
[2024-12-26 05:13] LABS: Anion Gap 15.6 (5-19); Blood Urea Nitrogen 18 mg/dL (8-23); Carbon Dioxide 22 mmol/L (22-29); Chloride 108 mmol/L (98-107); Potassium 3.6 mmol/L (3.5-5.1); Sodium 142 mmol/L (136-145)
[2024-12-26 05:14] LABS: Albumin Level 3.4 g/dL (3.5-5.2); Calcium 8.3 mg/dL (8.5-10.5); Creatinine Clr Calc Pharmacy 57.5124; Glucose 101 mg/dL (65-115); Magnesium 2.1 mg/dL (1.7-2.3)
[2024-12-26] MEDS: metroNIDAZOLE IV 500 MG/100 ML PREMIX 100 MG IV ×3 (05:48→20:35)
[2024-12-26 08:31] VITALS: BP 143/77; PULSE 85; RESP 17; TEMP 36.9; O2SAT 96
--- NOTE | 2024-12-26 11:36 | PM.CONSULT ---
Providers/Reason For Consult Consulting Physician/Specialty*: Pedrito Brooks MD Orthopedic surgery Reason for Consult*: Cat bite to right hand with subsequent subcutaneous abscess Attending Physician: Cynthia Regan MD Primary Care Provider: Olga Goddard MD History of Present Illness History of Present Illness Juany Aguayo is a 89 year old male Review of Systems General: Reports: 10 or more systems reviewed and unremarkable except in HPI and below Const: Denies: fever(s) or chills Eyes: Denies: photophobia ENMT: Denies: enlarged tonsils Card: Denies: chest pain Resp: Denies: dyspnea GI: Denies: abdominal pain : Denies: dysuria, urinary frequency or urinary urgency Musc: Denies: neck pain, back pain or joint warmth Skin/Breast: Denies: rash All/Imm: Denies: acute wheezing Medications/Allergies Home Medications ?Medication ?Instructions ?Recorded ?Confirmed ?Last Taken ?Type cholecalciferol (vitamin D3) 25 2,000 unit PO BEDTIME 07/22/19 12/25/24 12/24/24 History mcg (1,000 unit) capsule (Vitamin D3) melatonin 5 mg tablet 5 mg PO BEDTIME 03/30/21 12/25/24 12/24/24 History finasteride 5 mg tablet 5 mg PO DAILY 12/31/22 12/25/24 12/24/24 History tamsulosin 0.4 mg capsule 0.4 mg PO .HS 12/31/22 12/25/24 12/24/24 History atorvastatin 80 mg tablet 80 mg PO DAILY 07/09/23 12/25/24 12/24/24 History galantamine 12 mg tablet 12 mg PO BID #180 tabs 07/20/24 12/25/24 Unknown Rx apixaban 5 mg tablet (Eliquis) 5 mg PO BID 12/25/24 12/25/24 12/24/24 History levothyroxine 50 mcg tablet 50 mcg PO QAM 12/25/24 12/25/24 12/25/24 08:00 History Allergies Allergy/AdvReac Type Severity Reaction Status Date / Time Penicillins Allergy Rash Verified 10/26/24 12:37 Current Medications Generic Name Dose Route Start Last Admin Trade Name Freq PRN Reason Stop Dose Admin Apixaban 5 mg 12/25/24 18:00 12/26/24 09:29 Apixaban 5 Mg Tablet PO 5 mg BID JOSE LUIS Administration Atorvastatin Calcium 80 mg 12/25/24 21:00 12/25/24 21:51 Atorvastatin 40 Mg Tablet PO 80 mg BEDTIME JOSE LUIS Administration Ceftriaxone Sodium 1,000 mg 12/25/24 21:00 12/25/24 21:51 Ceftriaxone 1,000 Mg Sdv IVP 1,000 mg Q24H JOSE LUIS Administration Protocol Finasteride 5 mg 12/26/24 09:00 12/26/24 09:29 Finasteride 5 Mg Tablet PO 5 mg DAILY JOSE LUIS Administration Metronidazole 500 mg in 100 mls @ 100 mls/hr 12/25/24 21:00 12/26/24 06:58 Flagyl Iv IV Infused Q8H JOSE LUIS Infusion Protocol Levothyroxine Sodium 50 mcg 12/26/24 06:00 12/26/24 05:58 Levothyroxine 50 Mcg Tablet PO 50 mcg QAM JOSE LUIS Administration Melatonin 3 mg 12/25/24 21:00 12/25/24 21:52 Melatonin 3 Mg Tablet PO 3 mg BEDTIME JOSE LUIS Administration Tamsulosin HCl 0.4 mg 12/25/24 21:00 12/25/24 21:51 Tamsulosin 0.4 Mg Capsule PO 0.4 mg BEDTIME JOSE LUIS Administration Vitamin D 2,000 unit 12/25/24 21:00 12/25/24 21:50 Cholecalciferol (Vitamin D3) 1,000 Unit Tablet PO 2,000 unit BEDTIME JOSE LUIS Administration PFSH Acute PFSH: Medical History (Updated 12/26/24 @ 11:40 by Pedrito Brooks MD) MDS (myelodysplastic syndrome) Aneurysm of left common iliac artery Pancytopenia Autonomic dysfunction History of mitral valve insufficiency Hypertension Hypothyroidism Alzheimer's dementia without behavioral disturbance BPH w urinary obs/LUTS Dizziness Dyslipidemia Atrial fibrillation ASHD (arteriosclerotic heart disease) Left renal stone Surgical History History of esophagogastroduodenoscopy (EGD) 5 + years ago Hx of colonoscopy S/P transurethral resection of prostate Cystoscopy with TUR/vaporization S/P mitral valve repair S/P orchiectomy left S/P knee surgery Right total knee arthroplasty S/P hernia surgery Bilateral inguinal and umbilical hernia repairs Family History Mother , 73 CAD (coronary artery disease) Diabetes Father , 85 Cancer Hypertension Social History Smoking and tobacco/nicotine status: former use of tobacco/nicotine Alcohol intake: never Substance/Drug Use: never Adopted: No Caregiver/support person: No Lives independently: No Household members: spouse Marital status: Current occupational status: retired Dietary Habits: Current diet type/program: regular Caffeine: Yes Caffeine intake frequency: coffee During the past year weight has: remained stable Vitals/I&O/Wt Last Vital Signs Temp 98.4 F 12/26/24 08:31 Pulse 85 12/26/24 08:31 Resp 17 12/26/24 08:31 BP 143/77 12/26/24 08:31 Pulse Ox 96 12/26/24 08:31 O2 Del Method Room Air 12/26/24 08:31 12/25/24 12/26/24 12/26/24 22:59 06:59 14:59 Intake Total 220 / 220 1200 / 1420 360 / 360 Output Total 200 / 200 Balance 220 / 220 1000 / 1220 360 / 360 Weight last 48 hrs Weight 174 lb 6.4 oz Weight 174 lb Weight 175 lb Physical Exam Narrative: On orthopedic exam today the patient is awake and alert sitting up in bed. He has a dry gauze wrapped around his hand over the area where the abscess was drained. Nursing staff show me pictures from just earlier today of the area. He has erythematous over his thenar eminence with some swelling and he has an open wound about 1 to 1-1/2 cm in length over the Bite area. I do not have any photos to compare to from the emergency room. Patient does have redness up the forearm on the volar surface to just below the antecubital fossa. It is nontender to palpation. He does not complain much tenderness about the thenar eminence when I palpate around there. Patient indicates he is feeling much better. He is neurovascular intact distally. Data 12/26/24 04:37 12/26/24 04:37 Micro: Microbiology 12/25/24 13:35 Gram Stain - Final Hand - Wound 12/25/24 11:43 Blood Culture - Preliminary Blood SPECIMEN COLLECTED 12/25/24 11:40 Blood Culture - Preliminary Blood SPECIMEN COLLECTED Other data: I reviewed x-rays as well as ultrasound from the ED yesterday. X-rays demonstrate no gross abnormality other than some soft tissue swelling of the thenar eminence of the right hand. Ultrasound showed a small abscess subcutaneously in that area. A&P Assessment and plan (1) Cat bite: Patient has a cat bite of the thenar eminence of the right hand. Emergency room physician drained this yesterday however felt that the patient has some lymphatic involvement i.e. swollen lymph nodes all the way up to the elbow and therefore admitted for IV antibiotics. Hospitalist is monitoring this and is administering appropriate antibiotics at this time. Patient's white blood cell count is down to normal. Patient has been afebrile. He does have some erythema up his forearm however is nontender to palpation. Plan Plan at this time is to continue on with IV antibiotics and monitoring the area. I do not feel that any further surgical exploration or drainage is necessary at this time. However he does not start to improve more over the course the next 24 hours and may need to take him back for further exploration and drainage. Infectious disease may need to be involved also if we are not making any progress with the present antibiotic course. PDMP PDMP Reviewed: Not Reviewed Consult Attestations Medical Necessity Statement: Patient in need of IV antibiotics and monitoring of the wound. Coding Level of Care Code Critical Care >/= 30 minutes Diagnoses Cat bite, initial encounter W55.01XA Encounter type: initial encounter
[2024-12-26 12:07] VITALS: BP 127/75; PULSE 60; RESP 16; TEMP 36.6; O2SAT 95
--- NOTE | 2024-12-26 13:46 | P.PN_ITS ---
Subjective 2 Subjective: No acute overnight events. He still has a lot of swelling in the right hand and streaking up the right forearm. Medications: Reviewed: Yes Vitals/I&O/Wt Last Vital Signs Temp 98 F 12/26/24 12:07 Pulse 60 12/26/24 12:07 Resp 16 12/26/24 12:07 BP 127/75 12/26/24 12:07 Pulse Ox 95 12/26/24 12:07 O2 Del Method Room Air 12/26/24 12:07 12/25/24 12/26/24 12/26/24 22:59 06:59 14:59 Intake Total 220 / 220 1200 / 1420 840 / 840 Output Total 200 / 200 Balance 220 / 220 1000 / 1220 840 / 840 Weight last 48 hrs Weight 79.107 kg Weight 78.925 kg Weight 79.379 kg Physical Exam 2 Narrative: GEN: Alert, no acute distress HEENT: Normocephalic, atraumatic Neck: Supple Respiratory: Normal effort, clear to auscultation bilaterally Cardio: Regular rate and rhythm, S1 and S2, no murmurs Abdomen: Soft, nontender, nondistended, normoactive bowel sounds Extremities: Swelling and erythema of the right thumb and thenar eminence with linear open wound right thenar eminence. Erythema of the right forearm on the volar surface up to the antecubital fossa. Mild tenderness but neurovascularly intact. Neuro: Alert, oriented to person, partially to place, not to time Data 12/26/24 04:37 12/26/24 04:37 Micro: Microbiology 12/25/24 11:40 Blood Culture - Preliminary Blood NEGATIVE TO DATE 12/25/24 11:43 Blood Culture - Preliminary Blood NEGATIVE TO DATE 12/25/24 13:35 Gram Stain - Final Hand - Wound A&P Assessment and plan (1) Cat bite of hand: Associated with abscess of the right thenar prominence status post I&D in the ED He has significant swelling of the right thenar eminence and lymphangitic streaking up the right forearm Has penicillin allergy, continue ceftriaxone and metronidazole Follow-up wound culture Orthopedic surgery input appreciated (2) LORNE (acute kidney injury): Creatinine 1.5 on admission, 1.0 today Monitor creatinine (3) MDS (myelodysplastic syndrome): Followed by oncology (4) Atrial fibrillation: Continue apixaban Monitor for bleeding given chronic thrombocytopenia (5) ASHD (arteriosclerotic heart disease): (6) BPH w urinary obs/LUTS: Finasteride and tamsulosin (7) Dyslipidemia: Atorvastatin (8) Alzheimer's dementia without behavioral disturbance: Galantamine PDMP PDMP Reviewed: Not Reviewed Attestations 2 Medical Necessity Statement*: He requires continued hospitalization for IV antibiotics. His case expected to cross 2 midnights. Coding Level of Care Code 71420 Diagnoses Cat bite of right hand, initial encounter S61.451A; W55.01XA Encounter type: initial encounter Laterality: right LORNE (acute kidney injury) N17.9 MDS (myelodysplastic syndrome) D46.9 Atrial fibrillation, unspecified type I48.91 Atrial fibrillation type: unspecified ASHD (arteriosclerotic heart disease) I25.10 BPH w urinary obs/LUTS N40.1; N13.8 Dyslipidemia E78.5 Alzheimer's dementia without behavioral disturbance G30.9; F02.80
[2024-12-26 16:19] VITALS: BP 161/81; PULSE 72; RESP 18; TEMP 36.9; O2SAT 98
[2024-12-26] MEDS: MELATONIN 3 MG TABLET PO (20:34)
[2024-12-26] MEDS: cefTRIAXone 1,000 mg SDV 1000 MG IVP (20:35)
[2024-12-26 20:49] VITALS: BP 116/69; PULSE 67; RESP 17; TEMP 36.6; O2SAT 95
[2024-12-27 00:12] VITALS: BP 118/70; PULSE 64; RESP 17; TEMP 36.5; O2SAT 94
[2024-12-27 03:52] VITALS: BP 118/68; PULSE 68; RESP 18; TEMP 36.8; O2SAT 96
[2024-12-27] MEDS: metroNIDAZOLE IV 500 MG/100 ML PREMIX 100 MG IV ×3 (05:07→20:08)
[2024-12-27 06:14] LABS: Hematocrit 33.5 % (37-53); Hemoglobin 11.30 g/dL (11.27-16.99); Mean Corpuscular HGB Conc 33.7 g/dL (30-55); Mean Corpuscular Hemoglobin 34.2 pg (27-33); Mean Corpuscular Volume 101.5 fl (82-101); Nucleated Red Blood Cells % 0 %; Platelet Count 55 10^3/cmm (157-399); Red Blood Count 3.30 10^6/uL (3.85-5.65); White Blood Count 4.31 10^3/uL (3.29-11.43)
[2024-12-27 06:37] LABS: Albumin Level 3.4 g/dL (3.5-5.2); Anion Gap 16.7 (5-19); Blood Urea Nitrogen 13 mg/dL (8-23); Calcium 8.2 mg/dL (8.5-10.5); Carbon Dioxide 21 mmol/L (22-29); Chloride 107 mmol/L (98-107); Creatinine Clr Calc Pharmacy 63.9582; Glucose 105 mg/dL (65-115); Magnesium 2.1 mg/dL (1.7-2.3); Potassium 3.7 mmol/L (3.5-5.1); Sodium 141 mmol/L (136-145)
[2024-12-27 07:11] LABS: Slide Review Slide Review Perform
[2024-12-27 08:51] VITALS: BP 174/91; PULSE 72; RESP 18; TEMP 36.5; O2SAT 98
--- NOTE | 2024-12-27 10:20 | PC.CHAP ---
Pastoral Care Encounter/Spiritual Assessment Type of Contact [] Declined database manager visit [] Patient/Family/Request visit [] Outpatient visit [] Follow-up visit [] Physician referral [] Code/Alert [x] Routine visit [] Staff referral [] Actively dying [] Patient sleeping [x] Family support [] [] Out of room [] Palliative care [] [] Receiving care in room [] Pre-surgical visit [] Trauma [] Long length of stay [] ICU visit [] Other: Relational/Emotional Strength [] Patient feels connected with others/family/visitors/staff [] Distress [] Loneliness/isolation [] Abandonment Spirituality of Patient [x] Person of Christine [] Attends Confucianism of their Christine [x] Believes in Prayer [] Reads Bible or Spiritism materials [] There are Spiritual issues to be addressed Surgical Technician Interventions [x] Prayer [x] Active listening [] Non-anxious presence [] Spiritual/emotional support [] Crisis/trauma care [] Spiritual counseling [] Bereavement support [] Provided bereavement packet [x] Provided Bible/devotional materials [] Provided toy/stuffed animal, coloring book to patient or family member [] Provided Communion [] Anointing/[place] [] Salvation [x] Completed spiritual assessment [] Other: Impact on Illness or Injury [] Angry [] Fearful [] Anxious [] Often cries [] Exhaustion [] Unable to work [] Unable to attend yazidism [] Unable to walk/stand [] Unable to read [] Unable to drive [] Unable to eat/drink [] Unable to sleep [] Unable to be with family [] Patient intubated [] Other: Summary Time spent with patient 10 min
[2024-12-27 12:28] LABS: Add Urine Microscopic? YES
[2024-12-27 12:52] VITALS: BP 172/89; PULSE 67; RESP 18; TEMP 36.5; O2SAT 98
[2024-12-27 16:13] VITALS: BP 172/75; PULSE 71; RESP 18; TEMP 36.5; O2SAT 98
[2024-12-27] MEDS: cefTRIAXone 2,000 mg SDV 2000 MG IVP (17:51)
[2024-12-27] MEDS: potassium phosphate (mMol PO4) 15 MMOL in sodium chloride 0.9% (100 ml) 100 ML 47 MMOL IV (17:52)
--- NOTE | 2024-12-27 18:08 | P.PN_ITS ---
Subjective 2 Subjective: Patient states his hand is functioning better for utilizing utensils and hurts less. Avani states that the Josefa male cat was after another cat who was in heat when patient picked the cat up and was bitten. The biting cat is calm and well behaved at home no evidence of rabies. That cat has been known to be temperamental in the past Medications: Reviewed: Yes Vitals/I&O/Wt Last Vital Signs Temp 97.7 F 12/27/24 16:13 Pulse 71 12/27/24 16:13 Resp 18 12/27/24 16:13 BP 172/75 12/27/24 16:13 Pulse Ox 98 12/27/24 16:13 O2 Del Method Room Air 12/26/24 16:19 12/27/24 12/27/24 12/27/24 06:59 14:59 22:59 Intake Total 340 / 1860 580 / 580 Output Total 1025 / 1025 400 / 400 Balance -685 / 835 180 / 180 Weight last 48 hrs Weight 79.095 kg Weight 79.107 kg Physical Exam 2 Narrative: General well-developed well-nourished male in no acute cardiopulmonary distress CV irregular rate and rhythm but is controlled rate Lungs clear to auscultation bilaterally Calves no significant edema Right arm and hand palpation of the thenar eminence demonstrates no tenderness. There is some blood and edema noted at the incision site. I see no drain in place. There is pale erythema on the arm and hand Data 12/27/24 06:02 12/27/24 06:02 Micro: Microbiology 12/25/24 13:35 Gram Stain - Final Hand - Wound Wound Culture - Final Pasteurella multocida A&P Assessment and plan (1) Cat bite of hand: Associated with abscess of the right thenar prominence status post I&D in the ED He has significant swelling of the right thenar eminence and lymphangitic streaking up the right forearm Has penicillin allergy, continue ceftriaxone and metronidazole Follow-up wound culture Orthopedic surgery input appreciated Increase Rocephin to 2 g daily with the next dose today elevate right arm with a trapeze and a IV stand. Reevaluate in the morning if improving consider discharge on oral antibiotics (2) LORNE (acute kidney injury): Creatinine 1.5 on admission, 1.0 today Monitor creatinine (3) MDS (myelodysplastic syndrome): Followed by oncology (4) Atrial fibrillation: Continue apixaban at lower dose of 5 mg daily Monitor for bleeding given chronic thrombocytopenia (5) ASHD (arteriosclerotic heart disease): Stable (6) BPH w urinary obs/LUTS: Finasteride and tamsulosin (7) Dyslipidemia: Atorvastatin (8) Alzheimer's dementia without behavioral disturbance: Galantamine (9) Gross hematuria: Skip today's apixaban and decrease to 5 mg daily. I have asked the patient to follow-up with his urologist and make sure that there is not a tumor. He states he is having tests and following up regularly PDMP PDMP Reviewed: Not Reviewed Attestations 2 Medical Necessity Statement*: Patient is expected to be in the hospital 1 more midnight Coding Level of Care Code 04812 Diagnoses Cat bite of right hand, initial encounter S61.451A; W55.01XA Encounter type: initial encounter Laterality: right LORNE (acute kidney injury) N17.9 MDS (myelodysplastic syndrome) D46.9 Atrial fibrillation, unspecified type I48.91 Atrial fibrillation type: unspecified ASHD (arteriosclerotic heart disease) I25.10 BPH w urinary obs/LUTS N40.1; N13.8 Dyslipidemia E78.5 Alzheimer's dementia without behavioral disturbance G30.9; F02.80 Gross hematuria R31.0 Time Spent (min) 35
[2024-12-27 20:00] VITALS: BP 161/82; PULSE 82; RESP 17; TEMP 36.5; O2SAT 97
[2024-12-27] MEDS: MELATONIN 3 MG TABLET PO (20:07)
[2024-12-28] VITALS: BP 177/79; PULSE 77; RESP 17; TEMP 36.6; O2SAT 98
--- NOTE | 2024-12-28 02:00 | PC.NURSE ---
Assumed pt care at this time, report received from ASHLEY Pena. Pt just got up to the [facility] and is now back in bed with the bed alarm set.
[2024-12-28 04:00] VITALS: BP 164/67; PULSE 86; RESP 17; TEMP 36.6; O2SAT 97
[2024-12-28] MEDS: metroNIDAZOLE IV 500 MG/100 ML PREMIX 100 MG IV ×3 (06:06→20:09)
[2024-12-28 07:41] VITALS: BP 138/80; PULSE 67; RESP 20; TEMP 36.4; O2SAT 97
[2024-12-28 11:35] VITALS: BP 161/85; PULSE 63; RESP 16; TEMP 36.4; O2SAT 97
--- NOTE | 2024-12-28 15:07 | P.PN_ITS ---
Subjective 2 Subjective: Patient and state they are agreeable to going to rehab if recommended. She states that he typically walked well but now is unsteady on his feet. She thinks he needs exercise. Staff noted that patient need to go to the bathroom and was unable and lacked confidence to help him to the bathroom. Therefore they have recommended rehab. Patient states his hand is feeling better and notes that the redness has decreased Medications: Reviewed: Yes Vitals/I&O/Wt Last Vital Signs Temp 97.6 F 12/28/24 11:35 Pulse 63 12/28/24 11:35 Resp 16 12/28/24 11:35 BP 161/85 12/28/24 11:35 Pulse Ox 97 12/28/24 11:35 O2 Del Method Room Air 12/28/24 11:35 12/28/24 12/28/24 12/28/24 06:59 14:59 22:59 Intake Total 700 / 700 100 / 800 Output Total 150 / 550 Balance -150 / 235 700 / 700 100 / 800 Weight last 48 hrs Weight 78.471 kg Weight 79.095 kg Physical Exam 2 Narrative: General well-developed well-nourished male in no acute cardiopulmonary distress CV irregular rate and rhythm but is controlled rate Lungs clear to auscultation bilaterally Calves no significant edema Right arm and hand palpation of the thenar eminence demonstrates no tenderness. The edema is decreased and he has good mobility to his thumb. The redness up the arm is diffuse and dissipating Data 12/27/24 06:02 12/27/24 06:02 Micro: Microbiology 12/25/24 13:35 Gram Stain - Final Hand - Wound Wound Culture - Final Pasteurella multocida A&P Assessment and plan 1. Cat bite of right hand, initial encounter: Associated with abscess of the right thenar prominence status post I&D in the ED He has significant swelling of the right thenar eminence and lymphangitic streaking up the right forearm Has penicillin allergy, continue ceftriaxone and metronidazole Follow-up wound culture Orthopedic surgery input appreciated Increase Rocephin to 2 g daily with the next dose today elevate right arm with a trapeze and a IV stand. Reevaluate in the morning if improving consider discharge on oral antibiotics Was not elevated on a trapezia so I put it on pillows. I discussed the case with Dr. Pedrito Brooks MD 2. MDS (myelodysplastic syndrome): Followed by oncology 3. Atrial fibrillation, unspecified type: Continue apixaban at lower dose of 5 mg daily Monitor for bleeding given chronic thrombocytopenia with platelet count 55 4. ASHD (arteriosclerotic heart disease): Stable 5. BPH w urinary obs/LUTS: Finasteride and tamsulosin 6. Dyslipidemia: Atorvastatin 7. Alzheimer's dementia without behavioral disturbance: Galantamine 8. Gross hematuria: Skip today's apixaban and decrease to 5 mg daily. I have asked the patient to follow-up with his urologist and make sure that there is not a tumor. He states he is having tests and following up regularly PDMP PDMP Reviewed: Not Reviewed Attestations 2 Medical Necessity Statement*: PT and OT evaluation today and plan for discharge tomorrow Coding Level of Care Code 62762 Diagnoses Cat bite of right hand, initial encounter S61.451A; W55.01XA Encounter type: initial encounter Laterality: right MDS (myelodysplastic syndrome) D46.9 Atrial fibrillation, unspecified type I48.91 Atrial fibrillation type: unspecified ASHD (arteriosclerotic heart disease) I25.10 BPH w urinary obs/LUTS N40.1; N13.8 Dyslipidemia E78.5 Alzheimer's dementia without behavioral disturbance G30.9; F02.80 Gross hematuria R31.0 Time Spent (min) 25
[2024-12-28 15:33] VITALS: BP 147/81; PULSE 65; RESP 17; TEMP 36.8; O2SAT 97
[2024-12-28] MEDS: cefTRIAXone 2,000 mg SDV 2000 MG IVP (16:33)
--- NOTE | 2024-12-28 19:34 | P.PN_ITS ---
Subjective 2 Subjective: Patient status post incision and drainage of abscess of right thenar eminence secondary to cat bite. No further fevers chills or increased drainage. Medications: Reviewed: Yes Vitals/I&O/Wt Last Vital Signs Temp 98.2 F 12/28/24 15:33 Pulse 65 12/28/24 15:33 Resp 17 12/28/24 15:33 BP 147/81 12/28/24 15:33 Pulse Ox 97 12/28/24 15:33 O2 Del Method Room Air 12/28/24 15:33 12/28/24 12/28/24 12/28/24 06:59 14:59 22:59 Intake Total 700 / 700 340 / 1040 Output Total 150 / 550 Balance -150 / 235 700 / 700 340 / 1040 Weight last 48 hrs Weight 173 lb Weight 174 lb 6 oz Physical Exam 2 Narrative: Patient's erythema up his arm is diminishing down to distal light pink. He has no tenderness in this area. He has minimal tenderness over his hand. Dressings have old drainage on there. Data 12/27/24 06:02 12/27/24 06:02 A&P Assessment and plan 1. Cat bite, subsequent encounter: Patient status post cat bite with abscess formation in the subcutaneous tissues of the right hand. This has been drained by ED staff and now is on IV antibiotics. All appears to be improving as time goes on. Presently working on placement due to balance issues and need for continued IV antibiotics. Plan: Plan at this time is continuing with IV Rocephin per the hospitalist. I would recommend at least 10 days of this and then possible switch over to an oral antibiotic for another week or 2. From a orthopedic standpoint patient can be discharged at any time. Dressing should be changed today. PDMP PDMP Reviewed: Not Reviewed Attestations 2 Medical Necessity Statement*: Patient in need of further IV antibiotics. Coding Level of Care Code 33681 Diagnoses Cat bite, subsequent encounter W55.01XD Encounter type: subsequent encounter
[2024-12-28 20:00] VITALS: BP 175/86; PULSE 73; RESP 16; TEMP 36.8; O2SAT 100
[2024-12-28] MEDS: MELATONIN 3 MG TABLET PO (20:08)
[2024-12-29] VITALS (7 sets, daily range): BP systolic 101–166; BP diastolic 55–82; PULSE 58–80; RESP 16–20; TEMP 36.6–36.8; O2SAT 94–97
--- NOTE | 2024-12-29 03:10 | PC.NURSE ---
Addendum entered by Jimena Gamboa LPN 12/29/24 03:27: spoke to on phone to provide update, patient was presenting seizure like activity she stated he'd not had seizers to he knowledge and this was unusual Original Note: Patients bed alarm went off this nurse went in he said he needed to use the bathroom I walked him to the bath room was about to sit when he started having seizure like activity shaking, mouth open, stiff body urinated on himself and floor. This nurse lowered him to the toilet and called for another nurse for help stayed with him he had approximately 3 minuets of snoring breathing, staff cleaned him up and got him back to bed with bed alarm. Took vitals and put on pvc monitor.
[2024-12-29] MEDS: metroNIDAZOLE IV 500 MG/100 ML PREMIX 100 MG IV (04:09)
--- NOTE | 2024-12-29 11:50 | PM.DCS ---
Discharge Providers Date of Admission: 12/26/24 13:48 Date of Discharge: December 29, 2024 Attending Provider at Admission: Cynthia Regan MD Attending Provider at Discharge: Chito Velásquez MD Primary Care Provider: Olga Goddard MD Diagnoses at Discharge Discharge Diagnosis 1. Cat bite, subsequent encounter: Details from hospital stay: Patient received 4 days IV antibiotics with Rocephin and metronidazole. 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 Will replace orally 3. MDS (myelodysplastic syndrome): Details from hospital stay: White count 4.3 hematocrit 33.5 platelets 55. Apixaban dose was adjusted to 5 mg daily given thrombocytopenia, age and hematuria related to ongoing urology problem. states she was only giving him the lower dose at home typically anyways 4. Alzheimer's dementia without behavioral disturbance: Details from hospital stay: Patient not able to reliably manage toileting on his own while he was on IV fluids and antibiotics. also not able to fully accommodate patient so they were agreeable to rehab to get the patient more independent 5. Atrial fibrillation: Details from hospital stay: Continue apixaban at 5 mg daily heart rate is controlled 6. Gross hematuria: Details from hospital stay: Patient is on tamsulosin and finasteride for BPH he needs to follow-up with his urologist regarding hematuria I have asked the patient to follow-up with his urologist and make sure that there is not a tumor. He states he is having tests and following up regularly Reason for Visit Reason for Visit: Right hand swollen Brief History: Juany Aguayo is a 89 year old male With hypertension, hyperlipidemia, atrial fibrillation, CAD, iliac artery aneurysm Alzheimer's dementia, autonomic dysfunction, hypothyroidism, MDS, and BPH presenting with infected animal bite. He was bitten by his cat 2 days ago in his right hand. Since then he has had increased swelling, erythema, and pain. He denies any fever or chills. He was afebrile in the ED. His WBC was 11.3. He is usually leukopenic. Ultrasound showed 1.6 cm subcutaneous abscess in the right palm thenar eminence with surrounding inflammatory changes suggestive of cellulitis. His abscess was drained by the ED physician. Orthopedic surgery has been consulted as well. Patient's reports that his cat is up-to-date with their immunizations. He received Tdap and rabies vaccine in the ED. He also was given meropenem. Hospital Course Hospital Course Patient received meropenem in the emergency department and because of penicillin allergy and recommended antibiotic guidelines we put him on Rocephin plus metronidazole IV. Patient had returned to normal white count and rapid improvement following debridement in the ER. He was seen by Dr. Brooks from orthopedics but did not require further surgery Avani states that the Josefa male cat was after another cat who was in heat when patient picked the cat up and was bitten. The biting cat is calm and well behaved at home no evidence of rabies. That cat has been known to be temperamental in the past Rabies not thought to be a high risk or requiring additional treatment as a result Patient had episode of near syncope and shaking attributable to electrolyte abnormality and deconditioning early this morning. Electrolytes are being replaced. Telemetry shows only A-fib with variable heart rate response but not worrisomely fast or slow. Physical Exam Narrative: General well-developed well-nourished male in no acute cardiopulmonary distress he is oriented but does not recollect recent events well. He is companied by his CV irregular rate and rhythm Lungs clear to auscultation bilaterally Abdomen positive bowel sounds soft nontender calves no tenderness or pretibial edema Right hand thenar eminence much decreased in size. Erythema on the forearm is fading. He is able to squeeze my hand hard with his right hand and palpation of the thenar eminence demonstrates no tenderness Discharge Data Studies Completed and Pending Completed Studies During Hospitalization Category Date Time Status XR hand RT min 3V* [id number] Stat Exams 12/25/24 10:44 Completed US soft tissue and or extremity [US soft tissue/ Ultrasound 12/25/24 11:25 Completed extremity [id number]] Stat Pending at discharge Category Date Time Status Blood Culture Stat Lab 12/25/24 11:43 Results SARS Covid-2 Antigen Routine Lab 12/29/24 10:36 Uncollected Urine Culture Routine Lab 12/27/24 10:20 Received Radiology Impressions Hand X-Ray 12/25/24 10:44 IMPRESSION: No acute fracture or dislocation. Soft Tissue Ultrasound 12/25/24 11:25 IMPRESSION: Subcutaneous abscess measuring 1.6 cm at the right palm thenar eminence. Surrounding inflammatory changes, suggestive of cellulitis. Laboratory Results WBC 4.31 10^3/uL (3.29-11.43) 12/27/24 06:02 RBC 3.30 10^6/uL (3.85-5.65) L 12/27/24 06:02 Hgb 11.30 g/dL (11.27-16.99) 12/27/24 06:02 Hct 33.5 % (37-53) L 12/27/24 06:02 MCV 101.5 fl (82-101) H 12/27/24 06:02 MCH 34.2 pg (27-33) H 12/27/24 06:02 MCHC 33.7 g/dL (30-55) 12/27/24 06:02 RDW 14.0 % (12.1-15.1) 12/27/24 06:02 Plt Count 55 10^3/cmm (157-399) L 12/27/24 06:02 MPV 12.2 fL (7.4-10.4) H 12/27/24 06:02 Neut % (Auto) 56.9 % 12/27/24 06:02 Lymph % (Auto) 17.9 % 12/27/24 06:02 [place] % (Auto) 23.2 % 12/27/24 06:02 Eos % (Auto) 0.2 % 12/27/24 06:02 Baso % (Auto) 0.2 % 12/27/24 06:02 Neut # (Auto) 2.45 10^3/uL (1.8-7.7) 12/27/24 06:02 Lymph # (Auto) 0.8 10^3/uL (0.8-4.8) 12/27/24 06:02 [place] # (Auto) 1.0 10^3/uL (0.2-0.9) H 12/27/24 06:02 Eos # (Auto) 0.0 10^3/uL (0.0-0.8) 12/27/24 06:02 Baso # (Auto) 0.0 10^3/uL (0.0-0.1) 12/27/24 06:02 Nucleated RBC % (auto) 0 % 12/27/24 06:02 Nucleated RBCs # 0.0 /100WBC 12/27/24 06:02 Sodium 141 mmol/L (136-145) 12/27/24 06:02 Potassium 3.7 mmol/L (3.5-5.1) 12/27/24 06:02 Chloride 107 mmol/L (98-107) 12/27/24 06:02 Carbon Dioxide 21 mmol/L (22-29) L 12/27/24 06:02 Anion Gap 16.7 (5-19) 12/27/24 06:02 BUN 13 mg/dL (8-23) 12/27/24 06:02 Creatinine 0.9 mg/dL (0.7-1.2) 12/27/24 06:02 GFR Calculation Not Reportable 12/27/24 06:02 Glucose 105 mg/dL (65-115) 12/27/24 06:02 Calculated Osmolality 286 mOsm/kg (285-295) 12/25/24 11:43 Calcium 8.2 mg/dL (8.5-10.5) L 12/27/24 06:02 Phosphorus 2.3 mg/dL (2.5-4.5) L 12/27/24 06:02 Magnesium 2.1 mg/dL (1.7-2.3) 12/27/24 06:02 Total Bilirubin 3.1 mg/dL (0.15-1.2) H 12/25/24 11:43 AST 18 U/L (0-40) 12/25/24 11:43 ALT 9 U/L (0-41) 12/25/24 11:43 Alkaline Phosphatase 67 U/L (40-130) 12/25/24 11:43 Total Protein 6.8 g/dL (6.6-8.7) 12/25/24 11:43 Albumin 3.4 g/dL (3.5-5.2) L 12/27/24 06:02 Globulin 3.3 g/dL (1.3-4.6) 12/25/24 11:43 Urine Color Red (Yellow) A 12/27/24 10:20 Urine Appearance Cloudy (CLEAR) A 12/27/24 10:20 Urine pH (5-7) 12/27/24 10:20 Ur Specific [place] Not Reportable 12/27/24 10:20 Urine Protein Not Reportable 12/27/24 10:20 Urine Glucose (UA) Not Reportable 12/27/24 10:20 Urine Ketones Not Reportable 12/27/24 10:20 Urine Blood Not Reportable 12/27/24 10:20 Urine Nitrate Not Reportable 12/27/24 10:20 Urine Bilirubin Not Reportable 12/27/24 10:20 Urine Urobilinogen Not Reportable 12/27/24 10:20 Ur Leukocyte Esterase Not Reportable 12/27/24 10:20 Urine RBC Too numerous to cnt /hpf (0-2) H 12/27/24 10:20 Urine WBC 5-10 /hpf (0-5) H 12/27/24 10:20 Ur Squamous Epith Cells 0-4 /hpf (0-5) H 12/27/24 10:20 Calcium Oxalate Crystal 0-4 /hpf H 12/25/24 21:36 Amorphous Sediment Not Reportable 12/27/24 10:20 Urine Bacteria Trace /hpf (NONE) 12/27/24 10:20 Hyaline Casts 3.04 /lpf 12/25/24 21:36 Urine Mucus None /hpf 12/27/24 10:20 Imaging US: Radiologist's impression: Subcutaneous abscess measuring 1.6 cm at the right palm thenar eminence. Surrounding inflammatory changes, suggestive of cellulitis. Xray Ortho: Radiologist's impression: No fracture or dislocation Vitals Last Vital Signs Temp 97.9 F 12/29/24 10:59 Pulse 58 L 12/29/24 10:59 Resp 16 12/29/24 10:59 BP 143/79 12/29/24 10:59 Pulse Ox 96 12/29/24 10:59 O2 Del Method Room Air 12/29/24 10:59 Discharge Plan Discharge Patient Disposition: Home Condition: Stable Prescriptions: New O-Tbox-Gerkpnz 250 mg tablet 1 tab PO BID Qty: 6 0RF Rx Instructions: for 6 doses only. do not continue after acetaminophen 325 mg Tablet 650 mg PO Q6H PRN (Reason: Mild/Mod Pain Or Temp >/= 101) Qty: 30 0RF Eliquis 5 mg Tablet 5 mg PO DAILY Qty: 30 0RF cefuroxime axetil 500 mg tablet 500 mg PO BID 10 Days Qty: 28 0RF metronidazole 500 mg tablet 500 mg PO TID Qty: 42 0RF VSL#3 112.5 billion cell capsule 1 cap PO DAILY Qty: 30 0RF Continued cholecalciferol (vitamin D3) [Vitamin D3] 25 mcg (1,000 unit) capsule 2,000 unit PO BEDTIME tamsulosin 0.4 mg capsule 0.4 mg PO .HS finasteride 5 mg tablet 5 mg PO DAILY atorvastatin 80 mg tablet 80 mg PO DAILY galantamine 12 mg tablet 12 mg PO BID Qty: 180 3RF Rx Instructions: administer with AM and PM meals melatonin 5 mg tablet 5 mg PO BEDTIME levothyroxine 50 mcg tablet 50 mcg PO QAM Discontinued Eliquis 5 mg tablet 5 mg PO BID Discharge Order = DC NOW: Discharge Order (Routine); Ordered 12/29/24 Ordered By: Chito Velásquez Referrals: Olga Goddard MD [Primary Care Provider, Internal Medicine] Discharge Diet: Cardiac Discharge Activity: Increase activity as tolerated Patient Instructions: Opioid Safety, Patient Portal & Maximiliano Instructions Activity Restrictions/Additional Instructions: Take antibiotics as prescribed till completed for 14 days Take probiotic for 30 days until completed Call physician if redness or pain worsens in the hand evidencing worsening infection Call physician if patient develops diarrhea more than 1 day Continue daily dressing change right hand Discharge Attestations Time Spent in Discharge Care*: greater than 30 min Quality Metrics Clinical Quality Measures [ No reported AMI, CVA or VTE this stay] Coding Level of Care Code 15831 Diagnoses Cat bite, subsequent encounter W55.01XD Encounter type: subsequent encounter Hypophosphatasia E83.39 MDS (myelodysplastic syndrome) D46.9 Alzheimer's dementia without behavioral disturbance G30.9; F02.80 Atrial fibrillation I48.91 Gross hematuria R31.0 Time Spent (min) 40
[2024-12-29 12:18] LABS: SARS Covid-2 Antigen Negative (Negative)
--- NOTE | 2024-12-29 13:36 | PC.NURSE ---
Report called to Juan A BULLOCK at [facility].
--- NOTE | 2024-12-29 15:13 | PC.NURSE ---
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 Pt sent with all belongings. Hearing aids in ears and hearing aide apron cleaner in belongings bag.
== END 2024-12-29 15:13 | disposition skilled nursing facility (03) | DRG 605 ==
LOC: ER 11:29 → ER IP 16:04 → MEDSURG 16:20
PROVIDERS: Internal Medicine; Admitting Provider Student in an Organized Health Care Education/Training Program; Emergency Provider Family Medicine; PCP Internal Medicine; Visit Provider Internal Medicine
DX: S61.451A Open bite of right hand, initial encounter (principal); L02.511 Cutaneous abscess of right hand; N17.9 Acute kidney failure, unspecified; L03.113 Cellulitis of right upper limb; N13.8 Other obstructive and reflux uropathy; E83.39 Other disorders of phosphorus metabolism; D46.9 Myelodysplastic syndrome, unspecified; G30.9 Alzheimer's disease, unspecified; F02.80 Dementia in other diseases classified elsewhere, unspecified severity, without behavioral disturbance, psychotic disturbance, mood disturbance, and anxiety; I48.91 Unspecified atrial fibrillation; R31.0 Gross hematuria; I25.10 Atherosclerotic heart disease of native coronary artery without angina pectoris; E03.9 Hypothyroidism, unspecified; N40.1 Benign prostatic hyperplasia with lower urinary tract symptoms; Z88.0 Allergy status to penicillin; E78.5 Hyperlipidemia, unspecified; D69.6 Thrombocytopenia, unspecified; W55.01XA Bitten by cat, initial encounter; Z87.891 Personal history of nicotine dependence; Z79.01 Long term (current) use of anticoagulants
CPT/HCPCS: 36415; 73130; 76882; 80053; 80069; 81001; 83735; 85025; 87040; 87070; 87075; 87077; 87086; 87205; 87426; 90375; 90471; 90675; 90715; 94664; 96372; 97116; 97161; 97167; 97530; 97535; 99285; G0378; J0696; J2185; J3010; J3490; J7030; J9999

== ENCOUNTER 2025-02-07 13:33 | Oncology outpatient (recurring) (ONCR) | payer MEDICARE, OTHER, SELFPAY ==
[2025-02-07 14:02] LABS: Hematocrit 33.4 % (37-53); Hemoglobin 11.20 g/dL (11.27-16.99); Mean Corpuscular HGB Conc 33.5 g/dL (30-55); Mean Corpuscular Hemoglobin 34.3 pg (27-33); Mean Corpuscular Volume 102.1 fl (82-101); Nucleated Red Blood Cells % 0 %; Platelet Count 106 10^3/cmm (157-399); Red Blood Count 3.27 10^6/uL (3.85-5.65); White Blood Count 4.04 10^3/uL (3.29-11.43)
[2025-02-07 14:12] LABS: Alanine Aminotransferase 13 U/L (0-41); Albumin Level 3.9 g/dL (3.5-5.2); Alkaline Phosphatase 75 U/L (40-130); Anion Gap 14.5 (5-19); Aspartate Amino Transferase 20 U/L (0-40); Blood Urea Nitrogen 15 mg/dL (8-23); Calcium 9.1 mg/dL (8.5-10.5); Carbon Dioxide 24 mmol/L (22-29); Chloride 106 mmol/L (98-107); Creatinine Clr Calc Pharmacy 52.2840; Globulin 3.3 g/dL (1.3-4.6); Glucose 95 mg/dL (65-115); Osmolality Calculated 293 mOsm/kg (285-295); Potassium 3.5 mmol/L (3.5-5.1); Sodium 141 mmol/L (136-145); Total Protein 7.2 g/dL (6.6-8.7)
== END 2025-02-20 23:59 | disposition home or self-care (01) ==
PROVIDERS: Nurse Practitioner Family; PCP Internal Medicine; Visit Provider Internal Medicine Medical Oncology
DX: D46.9 Myelodysplastic syndrome, unspecified (principal); E87.6 Hypokalemia; Z87.891 Personal history of nicotine dependence
CPT/HCPCS: 36415; 80053; 85025; 99214

== ENCOUNTER → 2025-02-28 09:02 | Outpatient (BNVA) | payer MEDICARE, OTHER, SELFPAY | PROVIDERS: PCP Internal Medicine; Visit Provider Specialist | DX: G30.9 Alzheimer's disease, unspecified (principal); F02.80 Dementia in other diseases classified elsewhere, unspecified severity, without behavioral disturbance, psychotic disturbance, mood disturbance, and anxiety | CPT/HCPCS: 99213 ==

== ENCOUNTER 2025-06-02 10:47 | Emergency (ER) | payer MEDICARE, OTHER, SELFPAY ==
[2025-06-02] VITALS (7 sets, daily range): BP systolic 115–159; BP diastolic 72–90; PULSE 70–88; RESP 14; TEMP 36.6; O2SAT 93–98; BMI 23.6
--- NOTE | 2025-06-02 12:37 | XR_ITS ---
WS: [id number] XR chest 1V portable [id number] REASON FOR EXAM: weakness FINDINGS: The chest is unchanged compared to the previous examination of 06/17/2024. 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 Cardiomegaly. Calcified granulomatous disease. No acute pulmonary parenchymal or pleural abnormality. XR/XR chest 1V portable [id number] IMPRESSION: Stable chest with cardiomegaly. No acute abnormality.
--- NOTE | 2025-06-02 12:38 | CTR_ITS ---
PROCEDURE INFORMATION: Exam: CT Head Without Contrast Exam date and time: 06/02/2025 3:02 PM Age: 89 years old Clinical indication: Injury or trauma; Fall TECHNIQUE: Imaging protocol: Computed tomography of the head without contrast. Radiation optimization: All CT scans at this facility use at least one of these dose optimization techniques: automated exposure control; mA and/or kV adjustment per patient size (includes targeted exams where dose is matched to clinical indication); or iterative reconstruction. COMPARISON: MR head wo/w con [id number] 06/01/2021 11:21 RADIATION DOSE METRICS: Total DLP (mGy-cm): 1174.8 FINDINGS: Brain: [id number]-zkksmpjj patchy periventricular and deep white matter decreased density seen in both cerebral hemispheres. The midline is intact. Punctate basal ganglia calcifications are seen in the lentiform nuclei. Beam hardening artifact obscures resolution through the posterior fossa structures. No hemorrhage. Atherosclerotic vascular calcifications are seen in the vertebrobasilar system and right supraclinoid ICA. No mass effect. Cerebral ventricles: Ventricles demonstrate normal size shape and configuration and are felt to be in proportion to the degree of widening of the sulci, sylvian fissures and basilar cisterns. Paranasal sinuses: Visualized sinuses are unremarkable. No fluid levels. Mastoid air cells: Visualized mastoid air cells are well aerated. Orbital cavities: Cataract surgery. Bones: Unremarkable. No acute fracture. Soft tissues: Ceruminous debris is seen in the left external auditory canal. CT/CT head wo con* [id number] IMPRESSION: 1. No acute intracranial head CT findings identified. 2. Atrophy/involutional changes of aging with components of chronic small-vessel.
--- NOTE | 2025-06-02 12:40 | CTR_ITS ---
PROCEDURE INFORMATION: Exam: CT Abdomen And Pelvis With Contrast Exam date and time: 06/02/2025 3:08 PM Age: 89 years old Clinical indication: Abdominal pain; Additional info: Abd pain TECHNIQUE: Imaging protocol: Computed tomography of the abdomen and pelvis with contrast. Radiation optimization: All CT scans at this facility use at least one of these dose optimization techniques: automated exposure control; mA and/or kV adjustment per patient size (includes targeted exams where dose is matched to clinical indication); or iterative reconstruction. Contrast material: [id number]; Contrast volume: 100 ml; Contrast route: INTRAVENOUS (IV); COMPARISON: CT kidney stone [id number] 07/30/2023 13:42 RADIATION DOSE METRICS: Total DLP (mGy-cm): 464.9 FINDINGS: Lungs: Lower chest demonstrates moderately prominent cardiomegaly with sternotomy wires as well as a cardiac mitral valve prosthesis. Mild bilateral pleural effusions are also noted to be present. Forty-one different reference ventricle Liver: Normal. No mass. Gallbladder and biliary ducts: Contracted with patient motion artifact obscuring resolution. No gross calcified stones. No ductal dilation. Pancreas: Atrophic changes. Images are obscured due to patient motion. No ductal dilation. Spleen: Normal. No splenomegaly. Adrenal glands: Normal. No mass. Kidneys and ureters: 3.2 cm right lower pole renal cyst. Motion artifact obscures resolution. The left kidney demonstrates a prominent upper pole cyst at 4.7 cm. Bilateral renal cysts are unchanged. Prominent calculus/stone in the left renal pelvis maximally measuring 1.6 cm in size. Stomach and bowel: Unremarkable. No obstruction. No mucosal thickening. Appendix: No evidence of appendicitis. Intraperitoneal space: Unremarkable. No free air. No significant fluid collection. Vasculature: Marked atherosclerotic vascular calcifications are seen throughout the great vessels of the abdomen and pelvis as well as a markedly prominent 5.4 cm lower abdominal aortic aneurysm ectasia is also noted to extend into both common and external iliac as well as femoral arteries. Lymph nodes: Unremarkable. No enlarged lymph nodes. Urinary bladder: Unremarkable as visualized. Reproductive: Marked elongated longitudinal enlargement of the prostate 8.6 x 5.4 x 6.4 cm in the CC, AP and transverse dimensions, respectively. Bones/joints: Multilevel disc space narrowing with vacuum phenomena is seen at the L2 through L4 levels. Minimal degenerative anterolisthesis is noted at L4/L5. No acute fracture. Levorotatory scoliosis of the lumbar spine is noted. Soft tissues: Unremarkable. CT/CT abdomen pelvis w con* [id number] IMPRESSION: 1. Prominent left renal pelvic calculus without obstruction on this study but demonstrating prominent peripelvic fluid/edema most suggestive of intermittent obstructive uropathy as well as urinary tract infection/ UTI. 2. Enlarging 5.4 cm lower abdominal aortic aneurysm (prior 5.0 cm 01/10/2024) with marked atherosclerotic vascular calcifications throughout and consider vascular surgery consultation. 3. Massive prostate enlargement effacing the bladder floor with areas of irregular bladder wall thickening warranting further urological correlation. 4. Additional chronic changes, as described. COMMENTS: Consistent with the [place] [employer]'s Incidental Findings Committee white paper (J Am Alissa Radiol 2018): Any incidental renal lesion less than 1 cm or classified as too small to characterize, or any incidental cystic renal lesion characterized as simple-appearing, is likely benign. No follow-up imaging is recommended for these lesions per consensus recommendations based on imaging criteria.
--- NOTE | 2025-06-02 12:41 | W.ED.MALEGU ---
HPI - Male Genitourinary General: Chief complaint: Urogenital-Male Stated complaint: urinary Time Seen by Provider: 06/02/25 12:34 Source: patient and EMS Mode of arrival: EMS Limitations: no limitations History of Present Illness: 89-year-old male is here family state over the last week he has had some increased weakness he has also had some mild confusion along with hematuria. They are concerned his skin tone is changed as well he appears to pale here. He has had a chronic cough he denies any pain anywhere denies any recent illness or fever. Has had a history of pancytopenia in the past. Related Data Home Medications ?Medication ?Instructions ?Recorded ?Confirmed finasteride 5 mg tablet 5 mg PO DAILY 12/31/22 06/02/25 tamsulosin 0.4 mg capsule 0.4 mg PO .HS 12/31/22 06/02/25 atorvastatin 80 mg tablet 80 mg PO DAILY 07/09/23 06/02/25 levothyroxine 50 mcg tablet 50 mcg PO QAM 12/25/24 06/02/25 amiodarone 100 mg tablet (Pacerone) 100 mg PO BID 02/07/25 06/02/25 furosemide 20 mg tablet 20 mg PO DAILY 02/07/25 06/02/25 Previous Rx's ?Medication ?Instructions ?Recorded acetaminophen 325 mg tablet 650 mg (2 x 325 mg) PO Q6H PRN 12/29/24 Mild/Mod Pain Or Temp >/= 101 #30 tabs apixaban 5 mg tablet (Eliquis) 5 mg PO DAILY #30 tabs 12/29/24 galantamine 12 mg tablet 12 mg PO BID #180 tabs 02/28/25 Allergies Allergy/AdvReac Type Severity Reaction Status Date / Time Penicillins Allergy Rash Verified 06/02/25 11:16 [facility] PFS: Medical History (Updated 06/05/25 @ 06:22 by Shae Weaver MD) Hematuria MDS (myelodysplastic syndrome) Aneurysm of left common iliac artery Pancytopenia Autonomic dysfunction History of mitral valve insufficiency Hypertension Hypothyroidism Alzheimer's dementia without behavioral disturbance BPH w urinary obs/LUTS Dizziness Dyslipidemia Atrial fibrillation ASHD (arteriosclerotic heart disease) Left renal stone Surgical History History of esophagogastroduodenoscopy (EGD) 5 + years ago Hx of colonoscopy S/P transurethral resection of prostate Cystoscopy with TUR/vaporization S/P mitral valve repair S/P orchiectomy left S/P knee surgery Right total knee arthroplasty S/P hernia surgery Bilateral inguinal and umbilical hernia repairs Family History Mother , 73 CAD (coronary artery disease) Diabetes Father , 85 Cancer Hypertension Social History Smoking and tobacco/nicotine status: unknown if used tobacco/nicotine Alcohol intake: never Substance/Drug Use: never Adopted: No Caregiver/support person: No Lives independently: No Household members: spouse Marital status: Current occupational status: retired Physical Exam Const: COMMON NORMALS: patient oriented x3 GENERAL APPEARANCE: ill appearing and frail appearing HENMT: COMMON NORMALS: normocephalic and atraumatic HEAD & SCALP: normocephalic and atraumatic Eye: COMMON NORMALS: Equal, round and reactive pupils present and EOMs intact bilaterally PUPIL: Yes Equal, round and reactive pupils present Neck/C-Spine: COMMON NORMALS: full ROM and supple Chest: COMMONS NORMALS: normal inspection of the chest and normal palpation of entire chest wall Resp: COMMON NORMALS: normal respiratory effort, No retractions, No use of accessory muscles and clear to auscultation bilaterally AUSCULTATION: clear to auscultation bilaterally Cardio: COMMON NORMALS: regular rate, regular rhythm and No murmurs present (Cardio) RATE: regular rate RHYTHM: regular rhythm GI: COMMON NORMALS: Normal to inspection, nondistended, normoactive bowel sounds present, Soft to palpation, non-tender and no masses PALPATION: Yes Soft to palpation Extremity: COMMON NORMALS: normal to inspection and full ROM Neuro: COMMON NORMALS: patient oriented x3, moves all extremities and no focal motor deficits Psych: COMMON NORMALS: mental status grossly normal, Normal thought process present and cooperative THOUGHT PROCESS: Normal thought process present Skin: COMMON NORMALS: no rashes or lesions noted and no wounds GENERAL SKIN EXAM: no rashes or lesions noted Course Vital Signs: Vital signs: Vital Signs Temperature 97.8 F 06/02/25 11:07 Pulse Rate 81 06/02/25 20:10 Respiratory Rate 14 06/02/25 12:43 Blood Pressure 115/88 06/02/25 20:10 Pulse Oximetry 94 06/02/25 20:10 Oxygen Delivery Me thod Room Air 06/02/25 17:35 MDM - Male Medical Decision Making Patient presents here with generalized weakness chest x-ray showed no acute abnormality on labs he does have a urinary tract infection CT abdomen does show a kidney stone with likely infected kidney stone. This is likely causing some of his weakness. Patient transferred to [place] for urology capabilities. EKG interpreted by me at 1246 shows A-fib heart rate [address] elevation QRS 131 QTc 486 Medical Records I reviewed the patient's medical records. Lab Data I reviewed the patient's lab results. 06/02/25 12:51 06/02/25 12:51 Radiology Impressions Chest X-Ray 06/02/25 12:37 IMPRESSION: Stable chest with cardiomegaly. No acute abnormality. Head CT 06/02/25 12:38 IMPRESSION: 1. No acute intracranial head CT findings identified. 2. Atrophy/involutional changes of aging with components of chronic small-vessel. Abdomen/Pelvis CT 06/02/25 12:40 IMPRESSION: 1. Prominent left renal pelvic calculus without obstruction on this study but demonstrating prominent peripelvic fluid/edema most suggestive of intermittent obstructive uropathy as well as urinary tract infection/ UTI. 2. Enlarging 5.4 cm lower abdominal aortic aneurysm (prior 5.0 cm 01/10/2024) with marked atherosclerotic vascular calcifications throughout and consider vascular surgery consultation. 3. Massive prostate enlargement effacing the bladder floor with areas of irregular bladder wall thickening warranting further urological correlation. 4. Additional chronic changes, as described. COMMENTS: Consistent with the [place] [employer]'s Incidental Findings Committee white paper (J Am Alissa Radiol 2018): Any incidental renal lesion less than 1 cm or classified as too small to characterize, or any incidental cystic renal lesion characterized as simple-appearing, is likely benign. No follow-up imaging is recommended for these lesions per consensus recommendations based on imaging criteria. Laboratory Results WBC 4.60 10^3/uL (3.29-11.43) 06/02/25 12:51 RBC 3.27 10^6/uL (3.85-5.65) L 06/02/25 12:51 Hgb 10.60 g/dL (11.27-16.99) L 06/02/25 12:51 Hct 32.2 % (37-53) L 06/02/25 12:51 MCV 98.5 fl (82-101) 06/02/25 12:51 MCH 32.4 pg (27-33) 06/02/25 12:51 MCHC 32.9 g/dL (30-55) 06/02/25 12:51 RDW 13.8 % (12.1-15.1) 06/02/25 12:51 Plt Count 96 10^3/cmm (157-399) L 06/02/25 12:51 MPV 12.6 fL (7.4-10.4) H 06/02/25 12:51 Neut % (Auto) 61.3 % 06/02/25 12:51 Lymph % (Auto) 10.9 % 06/02/25 12:51 [place] % (Auto) 25.9 % 06/02/25 12:51 Eos % (Auto) 0.2 % 06/02/25 12:51 Baso % (Auto) 0.2 % 06/02/25 12:51 Neut # (Auto) 2.82 10^3/uL (1.8-7.7) 06/02/25 12:51 Lymph # (Auto) 0.5 10^3/uL (0.8-4.8) L 06/02/25 12:51 [place] # (Auto) 1.2 10^3/uL (0.2-0.9) H 06/02/25 12:51 Eos # (Auto) 0.0 10^3/uL (0.0-0.8) 06/02/25 12:51 Baso # (Auto) 0.0 10^3/uL (0.0-0.1) 06/02/25 12:51 Nucleated RBC % (auto) 0 % 06/02/25 12:51 Nucleated RBCs # 0.0 /100WBC 06/02/25 12:51 PT 15.60 SECONDS (12.1-14.9) H 06/02/25 12:51 INR 1.16 (0.8-1.2) 06/02/25 12:51 Sodium 140 mmol/L (136-145) 06/02/25 12:51 Potassium 3.1 mmol/L (3.5-5.1) L 06/02/25 12:51 Chloride 103 mmol/L (98-107) 06/02/25 12:51 Carbon Dioxide 24 mmol/L (22-29) 06/02/25 12:51 Anion Gap 16.1 (5-19) 06/02/25 12:51 BUN 23 mg/dL (8-23) 06/02/25 12:51 Creatinine 1.5 mg/dL (0.7-1.2) H 06/02/25 12:51 GFR Calculation Not Reportable 06/02/25 12:51 Glucose 119 mg/dL (65-115) H 06/02/25 12:51 Calculated Osmolality 295 mOsm/kg (285-295) 06/02/25 12:51 Calcium 8.7 mg/dL (8.5-10.5) 06/02/25 12:51 Total Bilirubin 3.0 mg/dL (0.15-1.2) H 06/02/25 12:51 AST 25 U/L (0-40) 06/02/25 12:51 ALT 12 U/L (0-41) 06/02/25 12:51 Alkaline Phosphatase 83 U/L (40-130) 06/02/25 12:51 Total Protein 7.1 g/dL (6.6-8.7) 06/02/25 12:51 Albumin 3.5 g/dL (3.5-5.2) 06/02/25 12:51 Globulin 3.6 g/dL (1.3-4.6) 06/02/25 12:51 Lipase 29 U/L (13-60) 06/02/25 12:51 Urine Color Yellow (Yellow) 06/02/25 15:32 Urine Appearance Turbid (CLEAR) A 06/02/25 15:32 Urine pH 7.0 (5-7) 06/02/25 15:32 Ur Specific [place] 1.022 (1.005-1.030) 06/02/25 15:32 Urine Protein 2+ (Negative) A 06/02/25 15:32 Urine Glucose (UA) Negative (Normal) 06/02/25 15:32 Urine Ketones Negative (Negative) 06/02/25 15:32 Urine Blood 3+ (Negative) A 06/02/25 15:32 Urine Nitrate Negative (Negative) 06/02/25 15:32 Urine Bilirubin Negative (Negative) 06/02/25 15:32 Urine Urobilinogen 1.0 mg/dL (Negative) 06/02/25 15:32 Ur Leukocyte Esterase 3+ (Negative) A 06/02/25 15:32 Urine RBC 21-50 /hpf (0-2) H 06/02/25 15:32 Urine WBC >100 /hpf (0-5) H 06/02/25 15:32 Ur Squamous Epith Cells 0-5 /hpf (0-5) 06/02/25 15:32 Amorphous Sediment Not Reportable 06/02/25 15:32 Urine Bacteria 4+ /hpf (NONE) H 06/02/25 15:32 Hyaline Casts 14.58 /lpf 06/02/25 15:32 Blood Type A Positive 06/02/25 12:51 Rho(D) Type Rh positive 06/02/25 12:51 Antibody Screen Negative 06/02/25 12:51 All radiology interpretation(s) finalized by discharge Discharge Plan Discharge Patient Disposition: Transfer to ED Clinical Impression: Left renal stone, Urinary tract infection Condition: Stable Prescriptions: No Action tamsulosin 0.4 mg capsule 0.4 mg PO .HS finasteride 5 mg tablet 5 mg PO DAILY atorvastatin 80 mg tablet 80 mg PO DAILY galantamine 12 mg tablet 12 mg PO BID Qty: 180 3RF Rx Instructions: administer with AM and PM meals furosemide 20 mg tablet 20 mg PO DAILY amiodarone [Pacerone] 100 mg tablet 100 mg PO BID levothyroxine 50 mcg tablet 50 mcg PO QAM acetaminophen 325 mg Tablet 650 mg PO Q6H PRN (Reason: Mild/Mod Pain Or Temp >/= 101) Qty: 30 0RF Eliquis 5 mg Tablet 5 mg PO DAILY Qty: 30 0RF Referrals: Olga Goddard MD [Primary Care Provider, Internal Medicine] Print Language: Chadian Coding Level of Care Code ED Cosmetician Apprentice for Jose De Jesus Williamson
--- NOTE | 2025-06-02 12:46 | ECG_ITS ---
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 Measurements Intervals [place] Rate: 77 P: 0 [place]: 0 QRS: -31 QRSD: 131 T: -14 QT: 455 QTc: 515 Interpretive Statements ATRIAL FIBRILLATION LEFT AXIS DEVIATION [QRS AXIS < -30] RIGHT BUNDLE BRANCH BLOCK [120+ ms QRS DURATION, UPRIGHT V1, 40+ ms S IN I/aVL/V4/V5/V6] MODERATE T-WAVE ABNORMALITY, CONSIDER LATERAL ISCHEMIA [-0.1+ mV T-WAVE IN I/aVL/V5/V6] Compared to ECG 12/21/2023 15:22:24 Aberrant conduction of supraventricular beat(s) no longer present Ventricular premature complex(es) no longer present T-wave abnormality still present Possible ischemia still present Electronically Signed On 06-02-2025 17:17:22 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 [email or web address]
[2025-06-02 13:07] LABS: Hematocrit 32.2 % (37-53); Hemoglobin 10.60 g/dL (11.27-16.99); Mean Corpuscular HGB Conc 32.9 g/dL (30-55); Mean Corpuscular Hemoglobin 32.4 pg (27-33); Mean Corpuscular Volume 98.5 fl (82-101); Nucleated Red Blood Cells % 0 %; Platelet Count 96 10^3/cmm (157-399); Red Blood Count 3.27 10^6/uL (3.85-5.65); White Blood Count 4.60 10^3/uL (3.29-11.43)
--- NOTE | 2025-06-02 13:17 | PC.NURSE ---
Assumed Pt. care
--- NOTE | 2025-06-02 13:29 | PC.NURSE ---
Pts. reports pt. had fallen last night. pt. is on blood thinners and reports pt. hit his head. pt. appearance is jaundice in color and reports bilateral leg swelling early this week.
--- NOTE | 2025-06-02 13:29 | PC.PHAR ---
Spouse states pt still takes Eliquis 5 mg only once daily last fill 01/08/25 30ds. Galantamine 12mg is taken only once daily, also and Amiodarone 100mg is only once daily. Pt no longer takes the otc vitamins and supplements.
[2025-06-02 13:44] LABS: INR 1.16 (0.8-1.2); Prothrombin Time 15.60 SECONDS (12.1-14.9)
[2025-06-02 14:17] LABS: Alanine Aminotransferase 12 U/L (0-41); Albumin Level 3.5 g/dL (3.5-5.2); Alkaline Phosphatase 83 U/L (40-130); Anion Gap 16.1 (5-19); Aspartate Amino Transferase 25 U/L (0-40); Blood Urea Nitrogen 23 mg/dL (8-23); Calcium 8.7 mg/dL (8.5-10.5); Carbon Dioxide 24 mmol/L (22-29); Chloride 103 mmol/L (98-107); Globulin 3.6 g/dL (1.3-4.6); Glucose 119 mg/dL (65-115); Lipase 29 U/L (13-60); Osmolality Calculated 295 mOsm/kg (285-295); Potassium 3.1 mmol/L (3.5-5.1); Sodium 140 mmol/L (136-145); Total Protein 7.1 g/dL (6.6-8.7)
--- NOTE | 2025-06-02 14:35 | PC.NURSE ---
pt. had a bed changed and a gown placed.
[2025-06-02] MEDS: iohexol 350 mg/mL 500 mL Btl (per mL) IV (15:10)
[2025-06-02 15:41] LABS: Glucose Urine UA Negative (Normal); Nitrate Urine Negative (Negative); Specific Gravity, Urine 1.022 (1.005-1.030)
[2025-06-02 15:43] LABS: Add Urine Microscopic? YES; Universal Test for UA Present (0)
[2025-06-02 16:03] LABS: UA Slide Review UA Slide Review Perf
[2025-06-02] MEDS: cefTRIAXone 1,000 mg SDV 1000 MG IVP (16:50)
--- NOTE | 2025-06-02 17:52 | PC.NURSE ---
Pt. family was requesting update on plan, pts son was getting upset and raising his voice. Provider notified and went to bedside pts. family does not want pt. to be transferred.
--- NOTE | 2025-06-02 18:38 | PC.NURSE ---
Report called to Thom Ruiz RN [id number]
--- NOTE | 2025-06-02 19:38 | PC.NURSE ---
vancomycin started at 1938 after blood cultures were drawn. Provider notified no blood cultures collected, provider ordered.
--- NOTE | 2025-06-02 19:55 | PC.NURSE ---
This RN walked in room 2 ~ 1945 to find pt. standing by sink with urinal, no gown and IV pulled out. Blood and urine was on floor. This RN got tech to help and notified label cutter. Pt. was saying i wanted to pee PTs antibiotic was stopped until new IV was started. Ems walked in room to take pt. to [facility].
== END 2025-06-02 19:55 ==
PROVIDERS: Emergency Provider Emergency Medicine; PCP Internal Medicine
DX: N20.0 Calculus of kidney (principal); Z87.442 Personal history of urinary calculi; N39.0 Urinary tract infection, site not specified; Z79.01 Long term (current) use of anticoagulants; E78.5 Hyperlipidemia, unspecified; I10 Essential (primary) hypertension
CPT/HCPCS: 36415; 70450; 71045; 74177; 80053; 81001; 83690; 85025; 85610; 86850; 86900; 87040; 87077; 87086; 87186; 93005; 96374; 96375; 99285; J0696; J3373; J7040; J9999